=== PATIENT | male | born 1955 | race Caucasian/White ===

== ENCOUNTER → 2020-10-17 | Outpatient (CLI) | payer SELFPAY ==
--- NOTE | 2020-10-21 06:47 | PE ---
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 Images are reviewed on the computer in the coronal, ax ial, and sagittal planes. Reconstructed rotating images are created on independent workstation and r eviewed on the computer. A localization and attenuation correction CT is performed in conjunction w ith the PET scan. Blood glucose level equals 82. SCAN: Initial Scan FINDINGS: SKULL BASE AND NECK: No areas of abnormal hypermetabolic uptake. CHEST, MEDIASTINUM, AND HILAR REGION: Fairly advanced underlying emphysematous change greatest in the upper lungs. No areas of suspicious hypermetabolic uptake. ABDOMEN AND PELVIS: There are multiple heterogeneous hypodense hypermetabolic lesions, for reference anterior right hepatic dome lesion measures approximately 3.4 cm long axis axial image 129, max SUV i s 12.05. For reference posterior segment right hepatic lobe lesion axial image 145 measures approxima tely 5.8 cm long axis, max SUV is 18.43. There is 5.3 x 3.1 cm proximal to mid sigmoid colon hypermetabolic mass axial images 197, max SUV is 10.81. Some abnormal hypermetabolic uptake bilateral groin region right greater than left appears to corresp ond to scar tissue likely from recent AAA repair. OSSEOUS STRUCTURES: No areas of abnormal hypermetabolic uptake. OTHER CT: Nasal septum deviated to right of midline. There is azygos lobe/fissure present. Enlarged p ulmonary arteries consistent with underlying pulmonary artery hypertension. Moderate to severe three- vessel coronary artery calcification. There is roughly 6.9 x 6.7 cm AAA axial image 165 with aorto biiliac stent graft. There is nondepende nt air within the [place] lumen outside the stent graft, may be product of recent surgery? Prostate gland is mildly enlarged in size with central calcification. Slight scoliotic curvature. Mil d to moderate disc space narrowing and vacuum disc phenomenon L5-S1 level. IMPRESSION: Redemonstration of known sigmoid colonic neoplasm with hepatic metastatic disease. No add itional metastatic disease is evident.. There is air noted within [place] AAA after recent stent graft repair. A Yellow level critical message alert has been initiated for Elfego Torres MD via the [employer] 36 0 | Critical Results System on 10/21/2020 6:44 AM. This message alert has been sent to Elfego Torres MD via the preferences provided by the clinician for the receipt of Radiology Critical Findings. [facility] [place] [id number]."
== END | disposition home or self-care (01) ==
LOC: RADPETMAIN 16:07
PROVIDERS: ATTEND Internal Medicine Hematology & Oncology
DX: C78.7 Secondary malignant neoplasm of liver and intrahepatic bile duct (principal); I71.4 Abdominal aortic aneurysm, without rupture; D49.0 Neoplasm of unspecified behavior of digestive system; C18.7 Malignant neoplasm of sigmoid colon; Z95.828 Presence of other vascular implants and grafts
CPT/HCPCS: 78815; A9552

== ENCOUNTER → 2021-02-13 | Outpatient (CLI) | payer MEDICARE, OTHER ==
--- NOTE | 2021-02-15 07:28 | PE ---
EXAMINATION TYPE: PET CT fusion skull to thigh DATE OF EXAM: 02/13/2021 COMPARISON: Prior PET/CT October 17, 2020 HISTORY: Colorectal cancer diagnosed September 26, 2020 metastatic to liver progress study. Completed chemotherapy February 10, 2021. TECHNIQUE: Following the intravenous administration of 10.33 mCi of F-18 FDG, whole body images are performed from the skull base to the midthigh. Images are reviewed on the computer in the coronal, a xial, and sagittal planes. Reconstructed rotating images are created on independent workstation and reviewed on the computer. A localization and attenuation correction CT is performed in conjunction with the PET scan. Blood glucose level equals 105. SCAN: Subsequent Scan FINDINGS: SKULL BASE AND NECK: Hypermetabolic uptake in the oropharynx axial image 29 presumed artifactual as it extends posteriorly and inferiorly without obvious focal mass on CT. CHEST, MEDIASTINUM, AND HILAR REGION: Fairly advanced underlying emphysematous change greatest in the upper lungs is redemonstrated. Mild hypermetabolic uptake accession IV under 3.0 in bilateral hilar and subcarinal lymph nodes not significantly changed. No new areas of abnormal hypermetabolic uptake. ABDOMEN AND PELVIS: There are persistent heterogeneous hypodense hypermetabolic lesions, they show in terval improvement in max SUV and size. Some areas of abnormal hypermetabolic uptake remaining presen t but significantly improved in max SUV from prior. Hypermetabolic mass in the sigmoid colon less well seen current study axial image 196 with persistent but significantly improved max SUV. Resolved hypermetabolic uptake right groin region. Normal excretion. No new areas of abnormal hyperme tabolic uptake. OSSEOUS STRUCTURES: No areas of abnormal hypermetabolic uptake. OTHER CT: Nasal septum remains deviated to right of midline. Some new dependent fluid right maxillary sinus, correlate clinically. There is azygos lobe/fissure redemonstrated. Enlarged pulmonary arterie s consistent with underlying pulmonary artery hypertension redemonstrated. Moderate to severe three-v essel coronary artery calcification redemonstrated. New right internal jugular Mediport catheter term inating in right atrium. There is persistent large [place] AAA measuring 7.7 x 6.5 cm axial image 166 with aorto biiliac stent graft. There is interval resolution of nondependent air within the [place] lumen outside the stent gra ft noted. Slight scoliotic curvature upper thoracic spine. Mild to moderate disc space narrowing and vacuum dis c phenomenon L5-S1 level. IMPRESSION: Partial positive treatment response as detailed above. Improved appearance to the sigmoid colonic neoplasm and hepatic metastatic disease. No new metastatic disease identified.
== END | disposition home or self-care (01) ==
LOC: RADPETMAIN 10:41
PROVIDERS: ATTEND Internal Medicine Hematology & Oncology
DX: C18.7 Malignant neoplasm of sigmoid colon (principal); C78.7 Secondary malignant neoplasm of liver and intrahepatic bile duct
CPT/HCPCS: 78815; A9552

== ENCOUNTER → 2021-03-25 | Outpatient (CLI) | payer MEDICARE ==
[2021-03-25 09:53] LABS: African American GFR (CKD) >90 (>60 ml/min/1.73 sqM); Blood Urea Nitrogen 27 mg/dL (9-20); Non-African American GFR(CKD) 84 (>60 ml/min/1.73 sqM)
--- NOTE | 2021-03-25 11:57 | CT ---
EXAMINATION TYPE: CT abdomen pelvis w con DATE OF EXAM: 03/25/2021 COMPARISON: PET/CT 02/13/2021 HISTORY: Abdominal/pelvic pain CT DLP: 441.20 mGycm CONTRAST: CT scan of the abdomen and pelvis is performed with Oral Contrast and with IV Contrast, patient injec anibal with 100 ml mL of Isovue 300. FINDINGS: LUNG BASES-: No visible nodule. No infiltrate. LIVER/GB: No calcified gallstones. Multiple hepatic lesions are noted the largest is seen within th e dome of the liver measuring 3.5 cm. Biliary tree is of normal caliber. PANCREAS: No inflammation. No distinct mass. SPLEEN: There is evidence of splenomegaly with craniocaudal measurement of 15 cm. No lesion seen. ADRENALS: No nodule. No thickening. KIDNEYS/BLADDER: No hydronephrosis. No nephrolithiasis. No distinct renal mass. Urinary bladder g rossly unremarkable. BOWEL: Normal appendix. Normal bowel caliber. No inflammation.Nonspecific sigmoid wall thickening. GENITAL ORGANS: No gross abnormality. LYMPH NODES: No greater than 1cm abdominal or pelvic lymph nodes are appreciated. AORTA: Aortic stent graft noted in place without evidence for endoleak. [place] aneurysm measures 7.2 cm AP dimension. OSSEOUS STRUCTURES: No significant abnormality is seen. OTHER: No significant additional abnormality is seen. IMPRESSION: 1. Lines compatible with metastatic disease to the liver. 2. Splenomegaly. 3. Nonspecific sigmoid wall thickening.
== END | disposition home or self-care (01) ==
LOC: RADPROMAIN 09:11
PROVIDERS: ATTEND Internal Medicine Hematology & Oncology
DX: Z03.89 Encounter for observation for other suspected diseases and conditions ruled out (principal); R16.1 Splenomegaly, not elsewhere classified; C18.7 Malignant neoplasm of sigmoid colon
CPT/HCPCS: 82565; 84520; 74177; 36415; Q9967

== ENCOUNTER 2021-04-04 21:44 | Inpatient (IN) | payer MEDICARE, OTHER ==
[2021-04-04] MEDS ORDERED: HYDROmorphone 1 MG/ML 1 ML SYRINGE IVP STA (22:05)
--- NOTE | 2021-04-04 22:09 | ED ---
Abdominal Pain HPI - General Chief Complaint: Abdominal Pain Stated Complaint: Abd pain Time Seen by Provider: 04/04/21 21:50 Source: patient Mode of arrival: wheelchair - History of Present Illness Initial Comments: This patient is a 65-year-old man presenting with abdominal pain, greatest in the left side. He has had pain since being diagnosed with cancer, but states that it is getting worse. Patient currently on fentanyl patch and taking hydrocodone but it is not helping like it used to. The patient did have chemotherapy treatment on Tuesday. Has not noted fever or chills. No change in urination. He does note probably some element of constipation. No vomiting tho ugh he is nauseated. MD Complaint: abdominal pain Onset/Timin -: hour(s) Location: LLQ, RLQ Radiation: none Severity: severe Quality: aching Consistency: colicky Improves With: nothing Worsens With: nothing Associated Symptoms: denies other symptoms Treatments Prior to Arrival: prescription analgesics - Related Data Home Medications Medication Instructions Recorded Confirmed HYDROcodone/APAP 10-325MG [[place] 1 tab PO TID PRN 04/04/21 04/05/21 10-325] fentaNYL [Duragesic 37.5 MCG/HR] 1 patch TRANSDERM Q72H 04/04/21 04/05/21 Aspirin EC [Ecotrin Low Dose] 81 mg PO DAILY 04/05/21 04/05/21 Clotrimazole 10 mg MUCOUS MEM 5XD 04/05/21 04/05/21 Gabapentin [Neurontin] 300 mg PO HS 04/05/21 04/05/21 Metoprolol Tartrate [Lopressor] 25 mg PO BID 04/05/21 04/05/21 NIFEdipine [NIFEdipine ER] 30 mg PO DAILY 04/05/21 04/05/21 Ondansetron Odt [Zofran Odt] 8 mg PO Q8H PRN 04/05/21 04/05/21 Prochlorperazine [Compazine] 10 mg PO Q8H PRN 04/05/21 04/05/21 Sennosides/Docusate Sodium [[place] 1 tab PO HS PRN 04/05/21 04/05/21 Plus 8.6-50 mg Tablet] Tadalafil [Cialis] 5 mg PO DAILY PRN 04/05/21 04/05/21 traZODone HCL 50 mg PO HS 04/05/21 04/05/21 Allergies Allergy/AdvReac Type Severity Reaction Status Date / Time Penicillins Allergy Unknown Verified 04/06/21 17:33 Review of Systems ROS Statement: Those systems with pertinent positive or pertinent negative responses have been documented in the HPI. ROS Other: All systems not noted in ROS Statement are negative. Constitutional: Denies: fever, chills Respiratory: Denies: cough, dyspnea Cardiovascular: Denies: chest pain, palpitations Gastrointestinal: Reports: abdominal pain. Denies: nausea, vomiting, diarrhea, constipation, melena, hematochezia Genitourinary: Denies: dysuria, hematuria Musculoskeletal: Denies: back pain Skin: Denies: rash Neurological: Denies: headache Past Medical History Past Medical History: Cancer History of Any Multi-Drug Resistant Organisms: None Reported Past Surgical History: Tonsillectomy Additional Past Surgical History / Comment(s): aortic aneurysm, colonoscopy, Past Anesthesia/Blood Transfusion Reactions: No Reported Reaction Past Psychological History: No Psychological Hx Reported Smoking Status: Current every day smoker Past Alcohol Use History: None Reported Past Drug Use History: None Reported General Exam General appearance: alert Head exam: Present: atraumatic, normocephalic Eye exam: Present: normal appearance. Absent: scleral icterus, conjunctival injection Respiratory exam: Present: normal lung sounds bilaterally. Absent: respiratory distress, wheezes, rales, rhonchi, stridor Cardiovascular Exam: Present: regular rate, normal rhythm, normal heart sounds, other ([place] upper right chest wall). Absent: systolic murmur, diastolic murmur, rubs, gallop GI/Abdominal exam: Present: soft, tenderness. Absent: distended, guarding, rebound, rigid, mass, pulsatile mass, hernia Extremities exam: Present: normal inspection, normal capillary refill. Absent: pedal edema, calf tenderness Back exam: Absent: CVA tenderness (R), CVA tenderness (L) Neurological exam: Present: alert Skin exam: Present: warm, dry, intact, normal color. Absent: rash Course Vital Signs 04/04/21 04/05/21 04/05/21 21:45 00:00 02:25 Temperature 97.8 F 99.7 F H Pulse Rate 71 110 H 90 Respiratory 19 18 18 Rate Blood Pressure 132/70 123/88 128/74 O2 Sat by Pulse 98 97 Oximetry Medical Decision Making - Medical Decision Making Patient is 65-year-old man with colon cancer and recently worsening pain. He'll be admitted for intractable pain, with increased pain management as well as surgical consultation. - Lab Data Result diagrams: 04/18/21 06:35 04/18/21 06:35 Lab Results 04/04/21 04/04/21 04/05/21 Range/Units 22:14 22:14 00:49 WBC 3.9 (3.8-10.6) k/uL RBC 3.99 L (4.30-5.90) m/uL Hgb 13.4 (13.0-17.5) gm/dL Hct 38.7 L (39.0-53.0) % MCV 97.0 (80.0-100.0) fL MCH 33.6 (25.0-35.0) pg MCHC 34.7 (31.0-37.0) g/dL RDW 15.4 (11.5-15.5) % Plt Count 117 L (150-450) k/uL MPV 8.6 Neutrophils % 78 % Lymphocytes % 14 % Monocytes % 4 % Eosinophils % 1 % Basophils % 1 % Neutrophils # 3.0 (1.3-7.7) k/uL Lymphocytes # 0.6 L (1.0-4.8) k/uL Monocytes # 0.2 (0-1.0) k/uL Eosinophils # 0.0 (0-0.7) k/uL Basophils # 0.0 (0-0.2) k/uL Sodium 135 L (137-145) mmol/L Potassium 4.7 (3.5-5.1) mmol/L Chloride 100 (98-107) mmol/L Carbon Dioxide 24 (22-30) mmol/L Anion Gap 11 mmol/L BUN 39 H (9-20) mg/dL Creatinine 0.88 (0.66-1.25) mg/dL Est GFR (CKD-EPI)AfAm >90 (>60 ml/min/1.73 sqM) Est GFR (CKD-EPI)NonAf 89 (>60 ml/min/1.73 sqM) Glucose 106 H (74-99) mg/dL Calcium 9.4 (8.4-10.2) mg/dL Total Bilirubin 0.5 (0.2-1.3) mg/dL AST 43 (17-59) U/L ALT 19 (4-49) U/L Alkaline Phosphatase 170 H (38-126) U/L C-Reactive Protein 5.5 H (<1.0) mg/dL Total Protein 9.1 H (6.3-8.2) g/dL Albumin 4.1 (3.5-5.0) g/dL Amylase 79 (30-110) U/L Lipase 89 (23-300) U/L Urine Color Yellow Urine Appearance Clear (Clear) Urine pH 6.0 (5.0-8.0) Ur Specific [place] 1.050 H (1.001-1.035) Urine Protein Trace H (Negative) Urine Glucose (UA) Negative (Negative) Urine Ketones Negative (Negative) Urine Blood Negative (Negative) Urine Nitrite Negative (Negative) Urine Bilirubin Negative (Negative) Urine Urobilinogen <2.0 (<2.0) mg/dL Ur Leukocyte Esterase Negative (Negative) - EKG Data -: EKG Interpreted by [place] EKG shows normal: sinus rhythm, axis (Normal), intervals (OR interval 198 ms, QTC 432 ms, both normal. QRS duration 126 ms, prolonged consistent with the right bundle branch block), QRS complexes (Right bundle-branch block.), ST-T waves (Normal) Rate: normal (Rate 71 bpm) Disposition Clinical Impression: Intractable abdominal pain, Colon cancer Disposition: ADMITTED IP TO THIS [facility] Condition: Undetermined Is patient prescribed a controlled substance at d/c from ED?: No
[2021-04-04 22:27] LABS: Basophils % (A) 1 %; Eosinophils % (A) 1 %; HCT 38.7 % (39.0-53.0); HGB 13.4 gm/dL (13.0-17.5); Lymphocytes # (A) 0.6 k/uL (1.0-4.8); Lymphocytes % (A) 14 %; MCH 33.6 pg (25.0-35.0); MCHC 34.7 g/dL (31.0-37.0); Mean Platelet Volume 8.6; Monocytes # (A) 0.2 k/uL (0-1.0); Monocytes % (A) 4 %; Neutrophils % (A) 78 %; Platelet Count 117 k/uL (150-450); RBC 3.99 m/uL (4.30-5.90); RDW 15.4 % (11.5-15.5); WBC 3.9 k/uL (3.8-10.6)
[2021-04-04] MEDS ORDERED: NITROGLYCERIN SL TABS 0.4 MG TAB SUBLINGUAL PRN (22:32)
[2021-04-04 22:40] LABS: ALT 19 U/L (4-49); AST 43 U/L (17-59); African American GFR (CKD) >90 (>60 ml/min/1.73 sqM); Albumin 4.1 g/dL (3.5-5.0); Alkaline Phosphatase 170 U/L (38-126); Amylase 79 U/L (30-110); Anion Gap 11 mmol/L; Blood Urea Nitrogen 39 mg/dL (9-20); C Reactive Protein 5.5 mg/dL (<1.0); Calcium 9.4 mg/dL (8.4-10.2); Carbon Dioxide 24 mmol/L (22-30); Chloride 100 mmol/L (98-107); Glucose 106 mg/dL (74-99); Lipase 89 U/L (23-300); Non-African American GFR(CKD) 89 (>60 ml/min/1.73 sqM); Potassium 4.7 mmol/L (3.5-5.1); Sodium 135 mmol/L (137-145); Total Bilirubin 0.5 mg/dL (0.2-1.3); Total Protein 9.1 g/dL (6.3-8.2)
--- NOTE | 2021-04-04 22:48 | XR ---
EXAMINATION TYPE: XR KUB DATE OF EXAM: 04/04/2021 COMPARISON: NONE HISTORY: Abdominal pain TECHNIQUE: 2 views FINDINGS: There is aortoiliac stent. There is no sign of intestinal obstruction or pneumoperitoneum. Fecal pattern is normal. I see no evidence of a mass. There are no pathologic calcifications over the kidneys. Lung bases are clear. IMPRESSION: Nonacute abdomen.
[2021-04-04] MEDS ORDERED: MORPHINE SULFATE 4 MG/ML SYRINGE IV STA (23:00)
--- NOTE | 2021-04-05 00:09 | CT ---
EXAMINATION TYPE: CT angio abdomen pelvis DATE OF EXAM: 04/04/2021 COMPARISON: 03/17/2021 HISTORY: Anerysum CT DLP: 836.3 mGycm Automated exposure control for dose reduction was used. CONTRAST: Performed with IV Contrast, patient injected with 100 mL of Isovue 370. Images obtained from the diaphragm to the floor the pelvis with and without IV contrast. There are 3- D post processed images. There is aorto iliac endograft noted. This appears in good position. There is 8.2 cm aneurysm of the lower abdominal aorta. There is no surrounding fluid seen. There is normal contrast opacification of the stent. There is arterial flow in the iliac and femoral arteries. I see no hemodynamic stenosis. There is arterial flow in the celiac artery and superior mesenteric artery. There is arterial flow in both renal arteries. There is no evidence of arterial dissection. There is partial visualization of the liver and there are scattered hypodense foci in the liver up to 2 cm. This is consistent with met astatic colon cancer. Also demonstrated on recent CT scan. There is no sign of retroperitoneal adenopathy. There is small amount of abdominal ascites fluid. The re is wall thickening of the sigmoid colon. IMPRESSION: No evidence of hemodynamic stenosis. There is large 8.2 cm aneurysm of the lower abdominal aorta not changed in size compared to recent exam. No evidence of leakage. Endograft appears in good position. There is wall thickening of the sigmoid colon that is increased significantly compared to recent exam and consistent with some nonspecific colitis. There is new mild free fluid in the pelvis compared to recent exam..
[2021-04-05 00:55] LABS: Appearance,Urine Clear (Clear); Bilirubin,Urine Negative (Negative); Blood,Urine Negative (Negative); Color,Urine Yellow; Glucose,Urine (UA) Negative (Negative); Ketones,Urine Negative (Negative); Leukocyte Esterase,Urine Negative (Negative); Nitrite,Urine Negative (Negative); Protein,Urine Trace (Negative); Urobilinogen,Urine <2.0 mg/dL (<2.0)
[2021-04-05] MEDS ORDERED: HYDROmorphone 0.5 MG/0.5 ML SYRINGE IVP PRN (01:35)
[2021-04-05] MEDS ORDERED: ONDANSETRON 4 MG/2 ML VIAL IVP PRN (01:35)
[2021-04-05] MEDS ORDERED: NALOXONE 0.4 MG/ML 1 ML VIAL IV PRN (01:35)
[2021-04-05] MEDS: SODIUM CHLORIDE 0.9% 1,000 ML IV SCH ×3 (02:27→17:36)
[2021-04-05] MEDS: HYDROmorphone 1 MG/ML 1 ML SYRINGE IVP PRN ×6 (03:15→19:29)
[2021-04-05] MEDS: HYDROcodone/APAP 10-325MG 1 EACH TAB PO PRN (07:30)
[2021-04-05] MEDS: PANTOPRAZOLE 40 MG/10 ML VIAL IV SCH (07:30)
[2021-04-05] MEDS: ASPIRIN 81 MG PO SCH (07:31)
[2021-04-05] MEDS ORDERED: ASPIRIN 325 MG TAB PO SCH (09:00)
[2021-04-05] MEDS ORDERED: IPRATROPIUM-ALBUTEROL 3 ML NEB INHALATION PRN (13:12)
--- NOTE | 2021-04-05 13:23 | P.HPIM ---
History of Present Illness Patient was a 65-year-old male came in with severe lower quadrant abdominal pain sharp in nature has been going on for a few weeks. Patient was diagnosed with colon cancer patient is presently receiving neoadjuvant chemotherapy patient is supposed to undergo colectomy at the end of this month. Because of uncontrolled severe pain patient came to the hospital patient as 10/10 pain. Patient does smoke is significantly wheezing upon exam and patient the is saturating 91% on room air. Patient denied any fever chills. General surgery was consulted. Patient is really constipated received an enema yesterday had a bowel movement yesterday. Patient had a CT of the abdomen which showed some hospice for colitis which is worse compared to before in the sigmoid colon area. REVIEW OF SYSTEMS: CONSTITUTIONAL: No fever, no malaise, no fatigue. HEENT: No recent visual problems or hearing problems. Denied any sore throat. CARDIOVASCULAR: No chest pain, orthopnea, PND, no palpitations, no syncope. PULMONARY: No shortness of breath, no cough, no hemoptysis. GASTROINTESTINAL: Severe abdominal pain and constipation NEUROLOGICAL: No headaches, no weakness, no numbness. HEMATOLOGICAL: Denies any bleeding or petechiae. GENITOURINARY: Denies any burning micturition, frequency, or urgency. MUSCULOSKELETAL/RHEUMATOLOGICAL: Denies any joint pain, swelling, or any muscle pain. ENDOCRINE: Denies any polyuria or polydipsia. The rest of the 14-point review of systems is negative. PHYSICAL EXAMINATION: GENERAL: The patient is alert and oriented x3, not in any acute distress. Thin built cachectic HEENT: Pupils are round and equally reacting to light. EOMI. No scleral icterus. No conjunctival pallor. Normocephalic, atraumatic. No pharyngeal erythema. No thyromegaly. CARDIOVASCULAR: S1 and S2 present. No murmurs, rubs, or gallops. PULMONARY: Chest is clear to auscultation, no wheezing or crackles. ABDOMEN: Soft, nontender, nondistended, normoactive bowel sounds. No palpable organomegaly. MUSCULOSKELETAL: No joint swelling or deformity. EXTREMITIES: No cyanosis, clubbing, or pedal edema. NEUROLOGICAL: Gross neurological examination did not reveal any focal deficits. SKIN: No rashes. Assessment and plan -severe abdominal pain secondary to: Cancer and severe inflammation and nonspecific colitis of the sigmoid colon. General surgery was consulted, patient will not be started on antibiotics unless the general surgery. Commence antibiotics at this time. Patient will need pain management will increase the dose of fentanyl patch patient will need medications for constipation. -Colon cancer for which patient is a neoadjuvant chemotherapy which is being held for colectomy. -Continued nicotine use: Counseling was provided if needed patient will be started on nicotine patch -COPD with acute exacerbation patient was started on inhalational treatments inhalational steroids and the 20 mg of oral steroids with GI prophylaxis -Hypertension: Holding off on antidepressant medications blood pressure monitored DVT prophylaxis: Lovenox -GI prophylaxis Pepcid Past Medical History Past Medical History: Cancer Additional Past Medical History / Comment(s): Aneurysm History of Any Multi-Drug Resistant Organisms: None Reported Past Surgical History: Tonsillectomy Additional Past Surgical History / Comment(s): aortic aneurysm, colonoscopy, Past Anesthesia/Blood Transfusion Reactions: No Reported Reaction Past Psychological History: No Psychological Hx Reported Smoking Status: Current every day smoker Past Alcohol Use History: None Reported Past Drug Use History: None Reported Medications and Allergies Home Medications Medication Instructions Recorded Confirmed Type HYDROcodone/APAP 10-325MG [[place] 1 tab PO TID PRN 04/04/21 04/05/21 History 10-325] fentaNYL [Duragesic 37.5 MCG/HR] 1 patch TRANSDERM Q72H 04/04/21 04/05/21 History Aspirin EC [Ecotrin Low Dose] 81 mg PO DAILY 04/05/21 04/05/21 History Clotrimazole 10 mg MUCOUS MEM 5XD 04/05/21 04/05/21 History Gabapentin [Neurontin] 300 mg PO HS 04/05/21 04/05/21 History Metoprolol Tartrate [Lopressor] 25 mg PO BID 04/05/21 04/05/21 History NIFEdipine [NIFEdipine ER] 30 mg PO DAILY 04/05/21 04/05/21 History Ondansetron Odt [Zofran Odt] 8 mg PO Q8H PRN 04/05/21 04/05/21 History Prochlorperazine [Compazine] 10 mg PO Q8H PRN 04/05/21 04/05/21 History Sennosides/Docusate Sodium [Senna 1 tab PO HS PRN 04/05/21 04/05/21 History Plus 8.6-50 mg Tablet] Tadalafil [Cialis] 5 mg PO DAILY PRN 04/05/21 04/05/21 History traZODone HCL 50 mg PO HS 04/05/21 04/05/21 History Allergies Allergy/AdvReac Type Severity Reaction Status Date / Time Penicillins Allergy Unknown Verified 04/04/21 23:10 Physical Exam Vitals: Vital Signs Temp Pulse Pulse Resp BP BP Pulse Ox 04/05/21 11:45 98.6 F 89 18 136/76 91 L 04/05/21 07:48 92 L 04/05/21 04:35 98.9 F 66 14 121/76 92 L 04/05/21 03:05 98.5 F 96 16 135/77 93 L 04/05/21 02:25 99.7 F H 90 18 128/74 97 04/05/21 00:00 110 H 18 123/88 04/04/21 21:45 97.8 F 71 19 132/70 98 Intake and Output 04/04/21 04/05/21 04/05/21 22:59 06:59 14:59 Other: Voiding Method Toilet Urinal # Voids 1 # Bowel Movements 0 Weight 58.06 kg 58.06 kg Results CBC & Chem 7: 04/04/21 22:14 04/04/21 22:14 Labs: Abnormal Lab Results - Last 24 Hours (Table) 04/04/21 04/04/21 04/05/21 Range/Units 22:14 22:14 00:49 RBC 3.99 L (4.30-5.90) m/uL Hct 38.7 L (39.0-53.0) % Plt Count 117 L (150-450) k/uL Lymphocytes # 0.6 L (1.0-4.8) k/uL Sodium 135 L (137-145) mmol/L BUN 39 H (9-20) mg/dL Glucose 106 H (74-99) mg/dL Alkaline Phosphatase 170 H (38-126) U/L C-Reactive Protein 5.5 H (<1.0) mg/dL Total Protein 9.1 H (6.3-8.2) g/dL Ur Specific [place] 1.050 H (1.001-1.035) Urine Protein Trace H (Negative) Thrombosis Risk Factor Assmnt - Choose All That Apply Any of the Below Risk Factors Present?: No Other Risk Factors: Yes Each Risk Factor Represents 2 Points: Age 61-74 years, Malignancy Other congenital or acquired thrombophilia - If yes, enter type in comment: No Thrombosis Risk Factor Assessment Total Risk Factor Score: 4 Thrombosis Risk Factor Assessment Level: Moderate Risk
[2021-04-05] MEDS ORDERED: LACTULOSE 20 GM/30 ML CUP PO PRN (13:24)
[2021-04-05] MEDS: predniSONE 20 MG TAB PO SCH (13:34)
[2021-04-05] MEDS: FAMOTIDINE 20 MG TAB PO SCH ×2 (13:34→20:29)
[2021-04-05] MEDS ORDERED: SODIUM CHLORIDE 0.9% 1,000 ML IV ONE (13:39)
--- NOTE | 2021-04-05 13:39 | P.GSCN ---
History of Present Illness Consult date: 04/05/21 History of present illness: CHIEF COMPLAINT: Abdominal pain HISTORY OF PRESENT ILLNESS: The patient is a 65 year old male who presented to the emergency room on 04/04/2021 with intractable abdominal pain. His history is obtained also by medical records including recent diagnosis of colorectal cancer from August 2020. No bowel movement since admission. He had PET scan January 2021 now 2 months ago with metastatic disease to the liver from his colorectal cancer. He is admitted for intractable abdominal pain. Gen. surgery is consulted for management of his abdominal pain. Patient's at bedside confirms that patient did not have routine screening colonoscopy prior to his diagnosis as diagnosis was found on CT scan. He is currently undergoing chemoradiation. He reports moderate to severe chronic lower abdominal pain. He is a smoker. Family reports he is scheduled for colectomy this month with Dr. Woodward. PAST MEDICAL HISTORY: See list and reviewed PAST SURGICAL HISTORY: See list and reviewed MEDICATIONS: See list and reviewed ALLERGIES: See list and reviewed SOCIAL HISTORY: See list and reviewed FAMILY HISTORY: See list and reviewed REVIEW OF ORGAN SYSTEMS: CONSTITUTIONAL: Underweight, BMI 19.5. Has recent weight loss. EYES: Denies any trouble with vision. No glasses. HEENT: No difficulties with hearing. No nosebleeds. No difficulty swallowing. RESPIRATORY: Has chronic tobacco abuse disorder. CARDIOVASCULAR: History of abdominal aortic aneurysm with endograft stenting. Has hypertensive heart disease. GASTROINTESTINAL: Pre-existing history of metastatic colorectal cancer to the liver. Has primary sigmoid colon cancer. Has chronic constipation. GENITOURINARY: Denies any blood in urine or increased urinary frequency. NEUROLOGICAL: Has chronic pain and chronic narcotics. MUSCULOSKELETAL: Denies any back pain, stiffness or joint arthritis. SKIN: No current skin cancer. No rash. PSYCHIATRIC: Denies current depression or suicidal thoughts. ENDOCRINE: Denies current thyroid disorders. Denies any blood sugar glucose intolerance. HEME/LYMPHATIC: Denies any lumps and bumps around the neck. No recent deep venous thrombosis. ALLERGY/IMMUNOLOGY: No immunoglobulin therapy. No immune deficiencies. BREAST: Denies current breast lumps, pain or nipple discharge. PHYSICAL EXAM: VITALS: Reviewed CONSTITUTIONAL: Well developed and in no acute distress. EYES: Conjuctivae without sclera icterus. Extraocular movements grossly intact. HEAD, EARS, NOSE, THROAT: Moist buccal mucosa. Head is atraumatic, normocepha lic. Hears conversational speech. No nasal drainage. NECK: No JV distention. No visible thyroidomegaly. RESPIRATORY: Non-labored respirations and equal bilateral excursions. No gross wheezes. CARDIOVASCULAR: Regular rate and rhythm. Extremities without moderate edema. Palpable 2+ radial pulses. ABDOMEN: No diffuse peritonitis. LYMPH: No visible neck lymphadenopathy. MUSCULOSKELETAL: Nail and fingers with good capillary refill. SKIN: Warm and well perfused with good skin turgor. NEUROLOGIC: Cranial nerves II through XII grossly intact. Sensation upper and extremities intact. No focal or lateralizing signs. PSYCH: Appropriate affect. Alert and oriented to person, place and time. D isplays appropriate insight. CLINCAL LABS: Reviewed. Thrombocytopenia with platelets 117. White count normal 3.9. Hemoglobin normal 13.4. Creatinine normal 0.88. Urinalysis negative for gross blood. IMAGING: Independently reviewed CT of the abdomen and pelvis demonstrates multiple liver lesions consistent with metastatic disease. No bowel obstruction identified. Moderate pain stool within the ascending transverse colon. This is my independent interpretation. RADIOLOGY: Report reviewed of the CTA of the abdomen and pelvis confirms no active endoleak for 8 cm abdominal aortic aneurysm. Features of sigmoid colitis identified consistent with sigmoid neoplasm. RECORDS: previous old records reviewed from PET scan January 2021 confirming metastatic disease responding to treatment. ASSESSMENT: 1. Intractable abdominal pain with metastatic colorectal cancer to the liver 2. Chronic pain patient with narcotic use 3. Abdominal aortic aneurysm 4. Sigmoid colon colorectal cancer 5. Tobacco abuse disorder. PLAN: 1. Conservative management advised 2. May benefit from repeat lower endoscopy for ischemic colitis but on hold due to severe abdominal pain. 3. IV fluid hydration 4. Tobacco cessation and counseling advised performed over 3 minutes ADVANCE DIRECTIVE: Patient reports he does not have one. Thank you for this kind consultation. Past Medical History Past Medical History: Cancer Additional Past Medical History / Comment(s): Aneurysm History of Any Multi-Drug Resistant Organisms: None Reported Past Surgical History: Tonsillectomy Additional Past Surgical History / Comment(s): aortic aneurysm, colonoscopy, Past Anesthesia/Blood Transfusion Reactions: No Reported Reaction Past Psychological History: No Psychological Hx Reported Smoking Status: Current every day smoker Past Alcohol Use History: None Reported Past Drug Use History: None Reported Medications and Allergies Home Medications Medication Instructions Recorded Confirmed Type HYDROcodone/APAP 10-325MG [[place] 1 tab PO TID PRN 04/04/21 04/05/21 History 10-325] fentaNYL [Duragesic 37.5 MCG/HR] 1 patch TRANSDERM Q72H 04/04/21 04/05/21 History Aspirin EC [Ecotrin Low Dose] 81 mg PO DAILY 04/05/21 04/05/21 History Clotrimazole 10 mg MUCOUS MEM 5XD 04/05/21 04/05/21 History Gabapentin [Neurontin] 300 mg PO HS 04/05/21 04/05/21 History Metoprolol Tartrate [Lopressor] 25 mg PO BID 04/05/21 04/05/21 History NIFEdipine [NIFEdipine ER] 30 mg PO DAILY 04/05/21 04/05/21 History Ondansetron Odt [Zofran Odt] 8 mg PO Q8H PRN 04/05/21 04/05/21 History Prochlorperazine [Compazine] 10 mg PO Q8H PRN 04/05/21 04/05/21 History Sennosides/Docusate Sodium [Senna 1 tab PO HS PRN 04/05/21 04/05/21 History Plus 8.6-50 mg Tablet] Tadalafil [Cialis] 5 mg PO DAILY PRN 04/05/21 04/05/21 History traZODone HCL 50 mg PO HS 04/05/21 04/05/21 History Allergies Allergy/AdvReac Type Severity Reaction Status Date / Time Penicillins Allergy Unknown Verified 04/04/21 23:10 Surgical - Exam Vital Signs Temp Pulse Resp BP Pulse Ox 97.8 F 71 19 132/70 98 04/04/21 21:45 04/04/21 21:45 04/04/21 21:45 04/04/21 21:45 04/04/21 21:45 Results - Labs 04/04/21 22:14 04/04/21 22:14 Abnormal Lab Results - Last 24 Hours (Table) 04/04/21 04/04/21 04/05/21 Range/Units 22:14 22:14 00:49 RBC 3.99 L (4.30-5.90) m/uL Hct 38.7 L (39.0-53.0) % Plt Count 117 L (150-450) k/uL Lymphocytes # 0.6 L (1.0-4.8) k/uL Sodium 135 L (137-145) mmol/L BUN 39 H (9-20) mg/dL Glucose 106 H (74-99) mg/dL Alkaline Phosphatase 170 H (38-126) U/L C-Reactive Protein 5.5 H (<1.0) mg/dL Total Protein 9.1 H (6.3-8.2) g/dL Ur Specific [place] 1.050 H (1.001-1.035) Urine Protein Trace H (Negative) Diabetes panel 04/04/21 Range/Units 22:14 Sodium 135 L (137-145) mmol/L Potassium 4.7 (3.5-5.1) mmol/L Chloride 100 (98-107) mmol/L Carbon Dioxide 24 (22-30) mmol/L BUN 39 H (9-20) mg/dL Creatinine 0.88 (0.66-1.25) mg/dL Glucose 106 H (74-99) mg/dL Calcium 9.4 (8.4-10.2) mg/dL AST 43 (17-59) U/L ALT 19 (4-49) U/L Alkaline Phosphatase 170 H (38-126) U/L Total Protein 9.1 H (6.3-8.2) g/dL Albumin 4.1 (3.5-5.0) g/dL Calcium panel 04/04/21 Range/Units 22:14 Calcium 9.4 (8.4-10.2) mg/dL Albumin 4.1 (3.5-5.0) g/dL Pituitary panel 04/04/21 Range/Units 22:14 Sodium 135 L (137-145) mmol/L Potassium 4.7 (3.5-5.1) mmol/L Chloride 100 (98-107) mmol/L Carbon Dioxide 24 (22-30) mmol/L BUN 39 H (9-20) mg/dL Creatinine 0.88 (0.66-1.25) mg/dL Glucose 106 H (74-99) mg/dL Calcium 9.4 (8.4-10.2) mg/dL Adrenal panel 04/04/21 Range/Units 22:14 Sodium 135 L (137-145) mmol/L Potassium 4.7 (3.5-5.1) mmol/L Chloride 100 (98-107) mmol/L Carbon Dioxide 24 (22-30) mmol/L BUN 39 H (9-20) mg/dL Creatinine 0.88 (0.66-1.25) mg/dL Glucose 106 H (74-99) mg/dL Calcium 9.4 (8.4-10.2) mg/dL Total Bilirubin 0.5 (0.2-1.3) mg/dL AST 43 (17-59) U/L ALT 19 (4-49) U/L Alkaline Phosphatase 170 H (38-126) U/L Total Protein 9.1 H (6.3-8.2) g/dL Albumin 4.1 (3.5-5.0) g/dL Assessment and Plan (1) 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 Current Visit: Yes Status: Acute Code(s): C18.7 - MALIGNANT NEOPLASM OF SIGMOID COLON; C77.2 - SECONDARY AND UNSP MALIGNANT NEOPLASM OF INTRA-ABD NODES SNOMED Code(s): 60095002 (2) Liver metastases Current Visit: Yes Status: Acute Code(s): C78.7 - SECONDARY MALIG NEOPLASM OF LIVER AND INTRAHEPATIC BILE DUCT SNOMED Code(s): 35486897 (3) Unintentional weight loss Current Visit: Yes Status: Acute Code(s): R63.4 - ABNORMAL WEIGHT LOSS SNOMED Code(s): 070057921 (4) Chronic pain syndrome Current Visit: Yes Status: Acute Code(s): G89.4 - CHRONIC PAIN SYNDROME SNOMED Code(s): 454222325 (5) Abdominal aortic aneurysm without rupture Current Visit: Yes Status: Acute Code(s): I71.4 - ABDOMINAL AORTIC ANEURYSM, WITHOUT RUPTURE SNOMED Code(s): 70346660 (6) Advance directive discussed with patient Current Visit: Yes Status: Acute Code(s): Z71.89 - OTHER SPECIFIED COUNSELING SNOMED Code(s): 513824702
[2021-04-05] MEDS: IPRATROPIUM-ALBUTEROL 3 ML NEB INHALATION SCH ×2 (15:46→19:50)
[2021-04-05] MEDS: metroNIDAZOLE-NS PMX 500 MG in SALINE 1 100ML.BAG IVPB SCH (16:29)
[2021-04-05] MEDS: ACETAMINOPHEN TAB 325 MG TAB PO PRN (18:00)
[2021-04-05] MEDS: BUDESONIDE 0.5 MG/2 ML NEBU INHALATION SCH (19:50)
[2021-04-05] MEDS: MORPHINE SULFATE 2 MG/ML SYRINGE IVP PRN (21:26)
[2021-04-06] MEDS: metroNIDAZOLE-NS PMX 500 MG in SALINE 1 100ML.BAG IVPB SCH ×4 (00:16→23:49)
[2021-04-06] MEDS: SODIUM CHLORIDE 0.9% 1,000 ML IV SCH ×3 (00:17→22:37)
[2021-04-06] MEDS: MORPHINE SULFATE 2 MG/ML SYRINGE IVP PRN ×3 (03:52→11:03)
[2021-04-06] MEDS: HYDROcodone/APAP 10-325MG 1 EACH TAB PO PRN (05:33)
[2021-04-06] MEDS: PANTOPRAZOLE 40 MG/10 ML VIAL IV SCH (07:30)
[2021-04-06] MEDS: predniSONE 20 MG TAB PO SCH (07:30)
[2021-04-06] MEDS: FAMOTIDINE 20 MG TAB PO SCH ×2 (07:30→21:54)
[2021-04-06] MEDS: ASPIRIN 81 MG PO SCH (07:31)
[2021-04-06] MEDS: ENOXAPARIN 30 MG/0.3 ML SYRINGE SQ SCH (07:31)
[2021-04-06] MEDS: IPRATROPIUM-ALBUTEROL 3 ML NEB INHALATION SCH ×4 (08:03→19:54)
[2021-04-06] MEDS: BUDESONIDE 0.5 MG/2 ML NEBU INHALATION SCH ×2 (08:03→19:54)
[2021-04-06] MEDS ORDERED: FENTANYL 37.5 MCG/HR TRANSDERM SCH (09:00)
--- NOTE | 2021-04-06 11:32 | P.PN ---
<Flower Mendez - Last Filed: 04/06/21 11:44> Subjective Progress Note Date: 04/06/21 CHIEF COMPLAINT: Abdominal pain HISTORY OF PRESENT ILLNESS: Patient presented to the hospital with intractable abdominal pain. He reports his pain is in the lower abdomen. He had been dealing with constipation he received enema yesterday and was able to have bowel movement. He still complaining of the lower abdominal pain and no improvement. He has history of colon cancer with metastatic disease to liver and was scheduled for a colectomy on April [address] Woodward. Afebrile. Currently on clear liquid diet. WBC 3.9 hemoglobin 13.4 PHYSICAL EXAM: VITAL SIGNS: Reviewed. GENERAL: Well-developed in no acute distress. HEENT: No sclera icterus. Extraocular movements grossly intact. Moist buccal mucosa. Head is atraumatic, normocephalic. ABDOMEN: Soft. Nondistended. Tenderness with palpation of the lower abdomen NEUROLOGIC: Alert and oriented. Cranial nerves II through XII grossly intact. ASSESSMENT: 1. Intractable abdominal pain with metastatic colorectal cancer to the liver 2. Chronic pain patient with narcotic use 3. Abdominal aortic aneurysm 4. Sigmoid colon colorectal cancer 5. Tobacco abuse disorder. 6. Colitis PLAN: -Further recommendations forthcoming per surgeon -Continue clear liquid diet -Continue pain medication as needed -Continue IV fluids Physician Molded [employer]s Spot Picker note has been reviewed by physician. Signing provider agrees with the documented findings, assessment, and plan of care. Objective - Vital Signs Vital signs: Vital Signs Temp 99 F 04/06/21 04:58 Pulse 81 04/06/21 04:58 Resp 16 04/06/21 04:58 BP 129/78 04/06/21 04:58 Pulse Ox 94 L 04/06/21 04:58 Intake & Output 04/05/21 04/06/21 04/06/21 18:59 06:59 18:59 Intake Total 1300 Output Total 350 Balance -350 1300 Intake: Intake, IV Titration 1300 Amount Sodium Chloride 0.9% 1, 1200 000 ml @ 100 mls/hr IV . Q10H [facility] Rx#:[id number] metroNIDAZOLE-NS PMX 500 100 mg In Saline 1 100ml.bag @ 100 mls/hr IVPB Q8HR [facility] Rx#:[id number] Output: Urine 350 Other: Voiding Method Toilet Urinal - Labs CBC & Chem 7: 04/04/21 22:14 04/04/21 22:14 Labs: Microbiology - Last 24 Hours (Table) 04/04/21 22:15 Blood Culture Gram Stain - Preliminary Blood 04/04/21 22:00 Blood Culture Gram Stain - Preliminary Blood 04/04/21 22:00 Blood Culture - Final Blood 04/04/21 22:15 Blood Culture - Final Blood <Isidro Woodward - Last Filed: 04/06/21 14:07> Subjective As above. Patient with significant increase in abdominal pain over the last several days. Films reviewed and there does appear to be a few small foci of pneumoperitoneum with some inflammatory changes around the site of known malignancy. I suspect perforation of the cancer. Patient's abdominal exam significant for diffuse tenderness. Options discussed with patient. He is agreeable to exploratory laparotomy. Anticipate need for bowel resection and ostomy. Patient again agreeable. Risks of bleeding, infection, abscess formation, need for ostomy, wound infection, hernia, ostomy related issues, respiratory failure, cardiac complications, and . Patient understands and wishes to proceed. Objective - Vital Signs Vital signs: Vital Signs Temp 97.8 F 04/06/21 11:21 Pulse 72 04/06/21 11:21 Resp 18 04/06/21 11:21 BP 131/84 04/06/21 11:21 Pulse Ox 95 04/06/21 11:21 Intake & Output 04/05/21 04/06/21 04/06/21 18:59 06:59 18:59 Intake Total 1300 Output Total 350 Balance -350 1300 Weight 58.06 kg Intake: Intake, IV Titration 1300 Amount Sodium Chloride 0.9% 1, 1200 000 ml @ 100 mls/hr IV . Q10H [facility] Rx#:[id number] metroNIDAZOLE-NS PMX 500 100 mg In Saline 1 100ml.bag @ 100 mls/hr IVPB Q8HR [facility] Rx#:[id number] Output: Urine 350 Other: Voiding Method Toilet Urinal - Labs CBC & Chem 7: 04/04/21 22:14 04/04/21 22:14 Labs: Microbiology - Last 24 Hours (Table) 04/04/21 22:15 Blood Culture Gram Stain - Preliminary Blood 04/04/21 22:00 Blood Culture Gram Stain - Preliminary Blood 04/04/21 22:00 Blood Culture - Final Blood 04/04/21 22:15 Blood Culture - Final Blood
[2021-04-06] MEDS ORDERED: MORPHINE SULFATE 4 MG/ML SYRINGE IVP STA (11:59)
--- NOTE | 2021-04-06 12:44 | CDI ---
Documentation Clarification Form Date: 04/06/2021 12:29:24 PM From: Marimar Tay CCS, CCDS Admit Date: 04/05/2021 01:35:00 AM Patient Name: Jourdan Jay Visit Number: [id number] Discharge Date: ATTENTION: The Clinical Documentation Specialists (CDI) and [facility] Coding Staff appreciate your assistance in clarifying documentation. Please respond to the clarification below the line at the bottom and electronically sign. The CDI & [facility] Coding staff will review the response and follow-up if needed. Please note: Queries are made part of the Legal Health Record. If you have any questions, please contact the author of this message via ITS. Dr. Edy Carrillo: Per the 04/05 History & Physical: Thin built cachectic. The patient was diagnosed with Colorectal Cancer in August of 2020 with Liver Mets also, currently undergoing chemotherapy pending a colectomy scheduled for April 27. Per the General Surgery Consult on 04/05: Has recent, unintentional weight loss. Based on this information and the findings below, is there an additional diagnosis that is clinically appropriate for this patient? History/Risk Factors per the 04/05 H/P: Aortic aneurysm, Smoker. Clinical Indicators: Presented to the ED on 04/04 with Intractable Lower Quadrant Abdominal Pain, [place]. ED Clinical Impression: Intractable Abdominal Pain 04/04 VS: T 97.8, P 71, R 19, BP 132/70, PO 98 RA 04/04 LAB: RBC 3.99, Hct 38.7, Pl Ct 117, Lymph 0.6, Na 135, BUN 39, Glucose 106, Daphne Phos 170, CRP 5.5, Total Protein 9.1, Albumin 4.1 Current BMI: 19.5 Height 5 ft 8 in Weight 58.06 kg IBW 154.00 lb Nursing Nutrition Screen: 24-33 lb weight loss, Poor appetite. Lies alone, consuming 25-50% diet. Treatment: Clear Liquid Diet, IV Dilaudid, IV Morphine, po Tylenol, IV Zofran, po [place], IV Na Cl 1,000 mls @ 100 mls/hr q10H, IV Protonix, Ensure Clear TID. Dietary Consult: n/a Is there an additional diagnosis that is clinically appropriate for this patient? [ ] Mild Protein-Calorie Malnutrition [ x] Moderate Protein-Calorie Malnutrition [ ] Severe Protein-Calorie Malnutrition [ ] Other condition, please specify [ ] Unable to Determine (Template Last Revised: October 2020) MTDD
[2021-04-06 13:00] VITALS: BMI 19.4
[2021-04-06] MEDS ORDERED: ACETAMINOPHEN IV (For NPO) 1,000 MG in EMPTY BAG 1 BAG IVPB STA (14:03)
--- NOTE | 2021-04-06 14:19 | P.PN ---
Subjective Progress Note Date: 04/06/21 Patient was a 65-year-old male came in with severe lower quadrant abdominal pain sharp in nature has been going on for a few weeks. Patient was diagnosed with colon cancer patient is presently receiving neoadjuvant chemotherapy patient is supposed to undergo colectomy at the end of this month. Because of uncontrolled severe pain patient came to the hospital patient as 10/10 pain. Patient does smoke is significantly wheezing upon exam and patient the is saturating 91% on room air. Patient denied any fever chills. General surgery was consulted. Patient is really constipated received an enema yesterday had a bowel movement yesterday. Patient had a CT of the abdomen which showed some hospice for colitis which is worse compared to before in the sigmoid colon area. 04/06/2021 Patient is evaluated the bedside for having severe left lower quadrant abdominal pain, patient is guarding his abdomen at the time of my examination. Patient is requesting pain medication. This is a patient has been diagnosed with colon cancer with metastatic disease to the liver, and is scheduled for colectomy on April [address] Woodward. Patient is currently on a clear liquid diet. Patient was given an enema and was able to have a bowel movement. He was started on IV Flagyl, in relation to a suspected area of inflammation around the known malignancy, as well as a few small foci of pneumoperitoneum, in light of this, patient has been scheduled for an exploratory laparotomy. Surgical services anticipate the need for a bowel resection and ostomy. Patient denies any chest pain, cough, shortness of breath. Patient will continue on IV Dilaudid, IV morphine, [place] and Tylenol for pain management. Patient also has a fentanyl patch that was replaced yesterday. Patient is receiving IV Tylenol as well for pain management. Vital signs are stable today with a temp of 97.8, heart rate 72, blood pressure 131/84, 95% on 2 L of cannula. Patient had a temp yesterday evening with a T-max of 101. ROS: Constitutional: Denied any fatigue denied any fever. Cardio vascular: denied any chest pain, palpitations Gastrointestinal denied any vomiting, nausea, reports severe LLQ and Lower abdominal pain Pulmonary: Denied any shortness of breath cough Neurologic denied any new focal deficits All inpatient medications were reviewed and appropriate changes in these medications as dictated in the interval history and assessment and plan. PHYSICAL EXAMINATION: GENERAL: The patient is alert and oriented x3, not in any acute distress. Well developed, well nourished. HEENT: Pupils are round and equally reacting to light. EOMI. No scleral icterus. No conjunctival pallor. Normocephalic, atraumatic. No pharyngeal erythema. No thyromegaly. CARDIOVASCULAR: S1 and S2 present. No murmurs, rubs, or gallops. PULMONARY: Chest is clear to auscultation, no wheezing or crackles. ABDOMEN: Soft,tender, gaurding, normoactive bowel sounds MUSCULOSKELETAL: No joint swelling or deformity. EXTREMITIES: No cyanosis, clubbing, or pedal edema. NEUROLOGICAL: Gross neurological examination did not reveal any focal deficits. SKIN: No rashes. Assessment and plan -severe abdominal pain secondary to: Cancer and severe inflammation and nonspecific colitis of the sigmoid colon. Patient was placed on IV Flagyl via general surgery, plan for exploratory laparotomy. -Colon cancer for which patient is a neoadjuvant chemotherapy which is being held for colectomy. Patient will have an exploratory laparotomy this admission. -Continued nicotine use: Counseling was provided if needed patient will be started on nicotine patch -COPD with acute exacerbation patient was started on inhalational treatments inhalational steroids and the 20 mg of oral steroids with GI prophylaxis -Hypertension: Holding off on antidepressant medications blood pressure monitored DVT prophylaxis: Lovenox -GI prophylaxis Pepcid Patient was evaluated by general surgery today, plan is for an exploratory laparotomy in the morning anticipating a need for bowel resection with ostomy. Patient will continue with current pain management, IV Tylenol has been added today from surgical services. Patient will continue on IV Flagyl. Patient will continue IV fluids. Patient will continue with a clear liquid diet, and IV fluids. Objective - Vital Signs Vital signs: Vital Signs Temp 97.8 F 04/06/21 11:21 Pulse 72 04/06/21 11:21 Resp 18 04/06/21 11:21 BP 131/84 04/06/21 11: Pulse Ox 95 04/06/21 11:21 Intake & Output 04/05/21 04/06/21 04/06/21 18:59 06:59 18:59 Intake Total 1300 Output Total 350 Balance -350 1300 Weight 58.06 kg Intake: Intake, IV Titration 1300 Amount Sodium Chloride 0.9% 1, 1200 000 ml @ 100 mls/hr IV . Q10H [facility] Rx#:[id number] metroNIDAZOLE-NS PMX 500 100 mg In Saline 1 100ml.bag @ 100 mls/hr IVPB Q8HR [facility] Rx#:[id number] Output: Urine 350 Other: Voiding Method Toilet Urinal - Labs CBC & Chem 7: 04/04/21 22:14 04/04/21 22:14 Labs: Microbiology - Last 24 Hours (Table) 04/04/21 22:15 Blood Culture Gram Stain - Preliminary Blood 04/04/21 22:00 Blood Culture Gram Stain - Preliminary Blood 04/04/21 22:00 Blood Culture - Final Blood 04/04/21 22:15 Blood Culture - Final Blood Assessment and Plan Time with Patient: Greater than 30
[2021-04-06] MEDS: LEVOFLOXACIN 500MG-D5W PMX 500 MG in DEXTROSE/WATER 1 100ML.BAG IVPB SCH (15:40)
[2021-04-06] MEDS: MORPHINE SULFATE 4 MG/ML SYRINGE IVP PRN (15:48)
[2021-04-06 16:50] LABS: Anisocytosis Slight; Basophils % (A) 0 %; Eosinophils % (A) 0 %; HCT 30.4 % (39.0-53.0); HGB 10.6 gm/dL (13.0-17.5); Lymphocytes # (A) 0.2 k/uL (1.0-4.8); Lymphocytes % (A) 3 %; MCH 34.9 pg (25.0-35.0); MCHC 34.9 g/dL (31.0-37.0); Macrocytosis Slight; Monocytes # (A) 0.2 k/uL (0-1.0); Monocytes % (A) 3 %; Neutrophils # (A) 6.4 k/uL (1.3-7.7); Neutrophils % (A) 92 %; RBC 3.04 m/uL (4.30-5.90); RDW 16.3 % (11.5-15.5)
[2021-04-06] MEDS ORDERED: IV FLUID CONTINUATION 1,000 ML IV ONE (17:09)
[2021-04-06 17:19] LABS: Glucose,Whole Blood 107 mg/dL (75-99)
[2021-04-06] MEDS ORDERED: DEXAMETHASONE SOD PHOSPHATE 4 MG/ML 1 ML VIAL IVP ONE (17:22)
[2021-04-06 17:24] LABS: INR 1.1 (<1.2); Prothrombin Time 11.6 sec (9.0-12.0)
[2021-04-06] MEDS ORDERED: METRONIDAZOLE IV ONE ×2 (17:27)
[2021-04-06] MEDS ORDERED: [UNRECOGNIZED DRUG - OTHER] IV ONE ×2 (17:27)
[2021-04-06] MEDS ORDERED: SODIUM CHLORIDE IV ONE ×2 (17:27)
[2021-04-06] MEDS ORDERED: PROPOFOL 10 MG/ML 20 ML VIAL IV ONE (18:32)
[2021-04-06] MEDS ORDERED: ROCURONIUM 10 MG/ML (5 ML VIAL) IV ONE (18:32)
[2021-04-06] MEDS ORDERED: LIDOCAINE 1% INJ 10MG/ML (20 ML MDV) ONE (18:32)
[2021-04-06] MEDS ORDERED: HYDROmorphone (PF) 1 MG/ML ONE (18:32)
[2021-04-06] MEDS ORDERED: GLYCOPYRROLATE 0.2 MG/ML 2 ML VIAL ONE (18:32)
[2021-04-06] MEDS ORDERED: NEOSTIGMINE 1 MG/ML 10 ML VIAL ONE (18:32)
[2021-04-06] MEDS ORDERED: fentaNYL (PF) 50 MCG/ML 2 ML AMP ONE (18:32)
[2021-04-06] MEDS ORDERED: MIDAZOLAM 2 MG/2 ML VIAL ONE (18:32)
[2021-04-06] MEDS ORDERED: SUCCINYLCHOLINE CHLORIDE 100 MG/5 ML SYR IV ONE (18:32)
[2021-04-06 18:39] LABS: Platelet Count 93 k/uL (150-450)
[2021-04-06] MEDS ORDERED: LACTATED RINGERS 1,000 ML IV ONE ×3 (19:20→20:41)
--- NOTE | 2021-04-06 20:32 | P.OP ---
Date of Procedure: 04/06/21 Procedure(s) Performed: PREOPERATIVE DIAGNOSIS: Pneumoperitoneum POSTOPERATIVE DIAGNOSIS: Perforated sigmoid colon cancer PROCEDURE: Sigmoid colectomy with end colostomy, incidental appendectomy SURGEON: Trace EBL: 100 mL ANESTHESIA: General COMPLICATIONS: None OPERATIVE PROCEDURE: Patient place in the operative table in the supine position. The patient was placed under general anesthesia. The abdomen was prepped and draped in usual sterile fashion. A vertical incision was made encompassing extending from the suprapubic region above the umbilicus. The fascia was divided as well. Upon entrance into the peritoneal cavity brownish colored purulent fluid was identified. The Bookwalter retractor was utilized. The patient had significant adhesions between the distal ileum and the colon cancer site. Using both sharp dissection and blunt dissection I was able to mobilize the small bowel away from the tumor. The tumor had evidence of perforation. It appeared necrotic. The tumor was adherent to the right pelvic sidewall. The patient's appendix was also incorporated into that inflammatory r eaction. The appendix itself however appeared normal. I did decide to remove the appendix at this time. The base of the appendix was divided using a linear 75 stapler. The mesoappendix was divided using a LigaSure device. I divided the sigmoid colon proximal to this using a linear 75 stapler. The mesentery was divided at that time using the LigaSure device. Beyond the inflamed segment I divided the distal sigmoid colon using a green load linear stapler. The sigmoid colon was then mobilized further by dividing a portion of mesentery proximally and also dividing the white line of Toldt. Once I had enough length on the colon the abdomen was copiously irrigated with 3 L of saline. No further purulence was encountered at that time. The stomach was significantly distended and a nasogastric tube was placed. The patient had adhesions between the right lobe of the liver and the abdominal wall or the patient's liver metastasis were palpable. I placed a drain into the pelvis exiting from the right lower abdominal wall. The pelvis was inspected. No active bleeding was seen. Patient's urine remained clear throughout the procedure. I could not visualize the right ureter with certainty given the degree of inflammatory changes present. The course of the left ureter was identified and preserved during our dissection. A circular incision was then made in the left midabdomen. Dissection through the subcutaneous fat and fascia took place using electrocautery. I bluntly entered the peritoneal cavity and this was further bluntly opened. The bowel was brought out through this defect in the left midabdomen. The midline fascia was then reapproximated using 2 separate double- stranded #1 PDS sutures. The subcutaneous tissues were irrigated. The subcutaneous tissues were closed using 3-0 Vicryl sutures. The skin was then loosely closed using brittney. The ostomy was then addressed. A portion of the pericolonic fat was removed using the LigaSure device. The staple line was then removed using electrocautery. The ostomy was then matured in a makah fashion using interrupted 3-0 Vicryl sutures. An ostomy appliance was then applied. Sterile dressings were then applied to the midline incision. DISPOSITION: Stable to recovery room
--- NOTE | 2021-04-06 20:32 | P.CONS ---
History of Present Illness - Reason for Consult Consult date: 04/06/21 colon Cancer Requesting physician: Isidro Woodward - Chief Complaint Abdominal Pain - History of Present Illness Jourdan presented to [facility] in Aug 2020 with RUQ abdominal pain, CT Scan revealed multiple lesion in liver C/W metastatic disease, he was referred to [facility], was seen by Dr García > had Colonoscopy revealing 3 cm semicircumfrential mass in sigmoid colon, biopsy of mass and liver on 09/26/2020 revealed Adenocarcinoma. The patient had recent vascular surgery due to PVD and AAA > felt to be stable. He reported anorexia and 15 lbs weight loss in last 3 months. Cntinues to C/O diffuse/RUQ abdominal pain, as well as, R shoulder pain, on Tylenol#3 (Dr Maribel Porter). He smokes 1 PPD, denies ETOH use, denies family history of malignancy. 11/12/20: C/O persistent RUQ abdominal pain, Surfside not fully effective 12/09/20: C/O severe abdominal pain X 3-4 days after each infusion of chemotherapy, becoming anorexic and loosing weight. 01/22/21: Feels Ok, C/O nausea & mild P Neuropathy > better with Gabapentin 02/04/21: Constipation otherwise tolerated well. 02/18/21: Feels Ok, tolerating chemotherapy well, had stable grade II P Neuropathy, taking Gabapentin PRN only. Having intermittent constipation. He completed 8 cycles of FLOFOX/Avastin. PET Scan: NE at primary site in sigmoid colon and liver mets, 03/19/21-Nauseated and in pain since last chemo, suprapubic pain, D x 1 but, normal BM since. He was considering going back to hospital. He is having trouble eating with all this pain. He used a lot of norco on Tuesday, he is experiencing more pain now. He has not bee able to work at all. Denies any fever, has sores in the mouth, denies any resp or cardiac c/o, denies any hematuria, dysuria, swelling in legs. He saw the surgeon, and pt states that Leslie tai wanted to talk to Dr. Torres before he discusses surgery any further. 03/27/21: C/O abdominal pain, was seen by Dr Woodward. He is confused about overall disease prognosis. He was last seen 04/01 and at that time waiting to hear about surgery, last antiangiogensis last week. His fentanyl patch was increased 37.5 and norco refilled also Review of Systems All systems: negative Constitutional: Reports as per HPI Past Medical History Past Medical History: Cancer Additional Past Medical History / Comment(s): Aneurysm History of Any Multi-Drug Resistant Organisms: None Reported Past Surgical History: Tonsillectomy Additional Past Surgical History / Comment(s): aortic aneurysm, colonoscopy, Past Anesthesia/Blood Transfusion Reactions: No Reported Reaction Past Psychological History: No Psychological Hx Reported Smoking Status: Current every day smoker Past Alcohol Use History: None Reported Past Drug Use History: None Reported Medications and Allergies Home Medications Medication Instructions Recorded Confirmed Type HYDROcodone/APAP 10-325MG [Surfside 1 tab PO TID PRN 04/04/21 04/05/21 History 10-325] fentaNYL [Duragesic 37.5 MCG/HR] 1 patch TRANSDERM Q72H 04/04/21 04/05/21 History Aspirin EC [Ecotrin Low Dose] 81 mg PO DAILY 04/05/21 04/05/21 History Clotrimazole 10 mg MUCOUS MEM 5XD 04/05/21 04/05/21 History Gabapentin [Neurontin] 300 mg PO HS 04/05/21 04/05/21 History Metoprolol Tartrate [Lopressor] 25 mg PO BID 04/05/21 04/05/21 History NIFEdipine [NIFEdipine ER] 30 mg PO DAILY 04/05/21 04/05/21 History Ondansetron Odt [Zofran Odt] 8 mg PO Q8H PRN 04/05/21 04/05/21 History Prochlorperazine [Compazine] 10 mg PO Q8H PRN 04/05/21 04/05/21 History Sennosides/Docusate Sodium [Senna 1 tab PO HS PRN 04/05/21 04/05/21 History Plus 8.6-50 mg Tablet] Tadalafil [Cialis] 5 mg PO DAILY PRN 04/05/21 04/05/21 History traZODone HCL 50 mg PO HS 04/05/21 04/05/21 History Allergies Allergy/AdvReac Type Severity Reaction Status Date / Time Penicillins Allergy Unknown Verified 04/06/21 17:33 Physical Exam Vitals: Vital Signs Temp Pulse Resp BP Pulse Ox 04/06/21 11:21 97.8 F 72 18 131/84 95 04/06/21 04:58 99 F 81 16 129/78 94 L 04/05/21 19:51 101 F H 100 18 111/70 93 L 04/05/21 19:05 18 04/05/21 17:57 100.8 F H Intake and Output 04/06/21 04/06/21 04/06/21 06:59 14:59 22:59 Intake Total 1300 Balance 1300 Intake: Intake, IV Titration 1300 Amount Sodium Chloride 0.9% 1, 1200 000 ml @ 100 mls/hr IV . Q10H KURT Rx#:[id number] metroNIDAZOLE-NS PMX 500 100 mg In Saline 1 100ml.bag @ 100 mls/hr IVPB Q8HR KURT Rx#:[id number] Other: Weight 58.06 kg - Constitutional General appearance: cooperative, mild distress, thin - EENT Eyes: EOMI ENT: hard of hearing, NA/AT - Neck Neck: normal ROM - Respiratory Respiratory: bilateral: diminished (Increased effort due to pain) - Cardiovascular Rhythm: regularly irregular - Gastrointestinal General gastrointestinal: tenderness - Integumentary Integumentary: pale - Neurologic Neurologic: CNII-XII intact - Musculoskeletal Musculoskeletal: generalized weakness - Psychiatric Psychiatric: A&O x's 3 Results CBC & Chem 7: 04/06/21 16:23 04/04/21 22:14 Labs: Microbiology - Last 24 Hours (Table) 04/04/21 22:15 Blood Culture Gram Stain - Preliminary Blood 04/04/21 22:00 Blood Culture Gram Stain - Preliminary Blood 04/04/21 22:00 Blood Culture - Final Blood 04/04/21 22:15 Blood Culture - Final Blood Assessment and Plan (1) Abdominal pain Current Visit: Yes Status: Acute Code(s): R10.9 - UNSPECIFIED ABDOMINAL PAIN SNOMED Code(s): 07769658 (2) Liver metastases Current Visit: Yes Status: Acute Code(s): C78.7 - SECONDARY MALIG NEOPLASM OF LIVER AND INTRAHEPATIC BILE DUCT SNOMED Code(s): 28415621 (3) 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 Current Visit: Yes Status: Acute Code(s): C18.7 - MALIGNANT NEOPLASM OF SIGMOID COLON; C77.2 - SECONDARY AND UNSP MALIGNANT NEOPLASM OF INTRA-ABD NODES SNOMED Code(s): 13744024 Plan: Assessment and Recommendations: Severe and worsening abdominal pain: - Concern for acute emergent situation - Discussed with Dr. Faith and planning for surgical intervention today at 4pm, concern of performation - Discussed risks and weight of risk and benefit with patient and family as patient did receive anti-angiogenesis 1.5 weeks prior. Colon cancer mets to liver - Chemo on hold
[2021-04-07] MEDS: MORPHINE SULFATE 2 MG/ML SYRINGE IVP PRN (04:14)
[2021-04-07 05:45] LABS: Anisocytosis Slight; Basophils % (A) 0 %; Eosinophils % (A) 0 %; HCT 32.2 % (39.0-53.0); HGB 10.9 gm/dL (13.0-17.5); Lymphocytes # (A) 0.3 k/uL (1.0-4.8); Lymphocytes % (A) 4 %; MCH 33.5 pg (25.0-35.0); MCHC 33.7 g/dL (31.0-37.0); MCV 99.4 fL (80.0-100.0); Macrocytosis Slight; Mean Platelet Volume 8.1; Monocytes # (A) 0.2 k/uL (0-1.0); Monocytes % (A) 3 %; Neutrophils # (A) 6.1 k/uL (1.3-7.7); Neutrophils % (A) 91 %; Platelet Count 110 k/uL (150-450); RBC 3.24 m/uL (4.30-5.90); RDW 16.1 % (11.5-15.5); WBC 6.7 k/uL (3.8-10.6)
[2021-04-07] MEDS: MORPHINE SULFATE 4 MG/ML SYRINGE IVP PRN ×3 (07:51→16:02)
[2021-04-07] MEDS: ENOXAPARIN 30 MG/0.3 ML SYRINGE SQ SCH (07:53)
[2021-04-07] MEDS: PANTOPRAZOLE 40 MG/10 ML VIAL IV SCH (07:53)
[2021-04-07] MEDS: predniSONE 20 MG TAB PO SCH (07:53)
[2021-04-07] MEDS: ASPIRIN 81 MG PO SCH (07:54)
[2021-04-07] MEDS: metroNIDAZOLE-NS PMX 500 MG in SALINE 1 100ML.BAG IVPB SCH ×3 (07:54→23:47)
[2021-04-07] MEDS: FAMOTIDINE 20 MG TAB PO SCH ×2 (07:54→23:08)
[2021-04-07] MEDS: HYDROcodone/APAP 10-325MG 1 EACH TAB PO PRN (08:03)
[2021-04-07] MEDS: IPRATROPIUM-ALBUTEROL 3 ML NEB INHALATION SCH ×4 (08:32→19:14)
[2021-04-07] MEDS: BUDESONIDE 0.5 MG/2 ML NEBU INHALATION SCH ×2 (08:32→19:14)
[2021-04-07 10:53] LABS: African American GFR (CKD) 107.1 (60.0-200.0); Albumin 2.9 g/dL (3.80-4.90); Albumin/Globulin Ratio 0.69 (1.60-3.17); Anion Gap 5.5 mmol/L (4.00-12.00); BUN/Creat Ratio 32.5 Ratio (12.00-20.00); Calcium 7.7 mg/dL (8.7-10.3); Carbon Dioxide 22.5 mmol/L (21.6-31.8); Globulin 4.2 g/dL (1.6-3.3); Magnesium 1.8 mg/dL (1.5-2.4); Non-African American GFR(CKD) 92.4 (60.0-200.0); Potassium 4.4 mmol/L (3.5-5.5); Total Bilirubin 0.4 mg/dL (0.2-1.2); Total Protein 7.1 g/dL (6.2-8.2)
[2021-04-07] MEDS: SODIUM CHLORIDE 0.9% 1,000 ML IV SCH ×2 (12:38→23:07)
[2021-04-07] MEDS: KETOROLAC 15 MG/ML 1 ML VIAL IVP SCH ×3 (12:51→23:47)
[2021-04-07 13:04] LABS: African American GFR (CKD) 107.1 (60.0-200.0); Albumin 2.8 g/dL (3.80-4.90); Albumin/Globulin Ratio 0.7 (1.60-3.17); Anion Gap 6.3 mmol/L (4.00-12.00); BUN/Creat Ratio 28.75 Ratio (12.00-20.00); Calcium 7.9 mg/dL (8.7-10.3); Carbon Dioxide 22.7 mmol/L (21.6-31.8); Non-African American GFR(CKD) 92.4 (60.0-200.0); Potassium 4.1 mmol/L (3.5-5.5); Total Bilirubin 0.4 mg/dL (0.3-1.2); Total Protein 6.8 g/dL (6.2-8.2)
--- NOTE | 2021-04-07 13:32 | P.PN ---
Subjective Progress Note Date: 04/07/21 The patient had significant adhesions between the distal ileum and the colon cancer site. Using both sharp dissection and blunt dissection I was able to mobilize the small bowel away from the tumor. The tumor had evidence of perforation. It appeared necrotic. The tumor was adherent to the right pelvic sidewall. The patient's appendix was also incorporated into that inflammatory reaction. The appendix itself however appeared normal. I did decide to remove the appendix at this time. Objective - Vital Signs Vital signs: Vital Signs Temp 98.4 F 04/07/21 05:54 Pulse 90 04/07/21 05:54 Resp 16 04/07/21 05:54 BP 153/84 04/07/21 05:54 Pulse Ox 95 04/07/21 05:54 Intake & Output 04/06/21 04/07/21 04/07/21 18:59 06:59 18:59 Intake Total 550 1125 Output Total 1175 Balance 550 -50 Weight 58.06 kg Intake: IV 550 1125 Output: Urine 875 Estimated Blood Loss 100 Other 200 Other: Voiding Method Indwelling Catheter # Voids 3 - Exam - Constitutional General appearance: cooperative, mild distress, thin - EENT Eyes: EOMI ENT: hard of hearing, NA/AT NG tube with dark Bile - Neck Neck: normal ROM - Respiratory Respiratory: bilateral: diminished (Increased effort due to pain) - Cardiovascular Rhythm: regularly irregular - Gastrointestinal General gastrointestinal: tenderness - Integumentary Integumentary: pale - Neurologic Neurologic: CNII-XII intact - Musculoskeletal Musculoskeletal: generalized weakness - Psychiatric Psychiatric: A&O x's 3 - Labs CBC & Chem 7: 04/07/21 05:21 04/07/21 05:21 Labs: Abnormal Lab Results - Last 24 Hours (Table) 04/06/21 04/06/21 04/07/21 Range/Units 16:23 17:17 05:21 RBC 3.04 L 3.24 L (4.30-5.90) m/uL Hgb 10.6 L 10.9 L (13.0-17.5) gm/dL Hct 30.4 L 32.2 L (39.0-53.0) % RDW 16.3 H 16.1 H (11.5-15.5) % Plt Count 93 L 110 L (150-450) k/uL Lymphocytes # 0.2 L 0.3 L (1.0-4.8) k/uL POC Glucose (mg/dL) 107 H (75-99) mg/dL Microbiology - Last 24 Hours (Table) 04/04/21 22:15 Blood Culture Gram Stain - Preliminary Blood 04/04/21 22:00 Blood Culture Gram Stain - Preliminary Blood Assessment and Plan (1) Abdominal pain Current Visit: Yes Status: Acute Code(s): R10.9 - UNSPECIFIED ABDOMINAL PAIN SNOMED Code(s): 93494203 (2) Liver metastases Current Visit: Yes Status: Acute Code(s): C78.7 - SECONDARY MALIG NEOPLASM OF LIVER AND INTRAHEPATIC BILE DUCT SNOMED Code(s): 64953514 (3) 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 Current Visit: Yes Status: Acute Code(s): C18.7 - MALIGNANT NEOPLASM OF SIGMOID COLON; C77.2 - SECONDARY AND UNSP MALIGNANT NEOPLASM OF INTRA-ABD NODES SNOMED Code(s): 37756243 Plan: Assessment and Recommendations: Severe and worsening abdominal pain: - Concern for acute emergent situation - Reviewed surgery notes - Discussed risks and weight of risk and benefit with patient and family as patient did receive anti-angiogenesis 1.5 weeks prior. Colon cancer mets to liver - Chemo on hold Status post exploratory lap, Sigmoid colectomy with end colostomy, incidental appendectomy, due to necrotic tumor perforation with Dr. Faith. Patient in pain stating nothing is helping. I will connect with surgery team for possible [employer] Physician Attest: I have completed the full history and physical and agree with above dictation, dictated as a ascribe.
--- NOTE | 2021-04-07 14:39 | P.PN ---
Subjective Progress Note Date: 04/07/21 Principal diagnosis: Perforated sigmoid colon Patient says his pain is different but still high. Describes pain along the midline incision. HELEN drain serosanguineous. Bradshaw catheter with clear urine. Vital signs stable. White blood cell count 6.7, hemoglobin 10.9. Objective - Vital Signs Vital signs: Vital Signs Temp 98.1 F 04/07/21 11:43 Pulse 78 04/07/21 11:43 Resp 20 04/07/21 11:43 BP 154/87 04/07/21 11:43 Pulse Ox 95 04/07/21 11:43 Intake & Output 04/06/21 04/07/21 04/07/21 18:59 06:59 18:59 Intake Total 550 1125 Output Total 1175 40 Balance 550 -50 -40 Weight 58.06 kg Intake: IV 550 1125 Output: Drainage 40 Right 40 Urine 875 Estimated Blood Loss 100 Other 200 Other: Voiding Method Indwelling Catheter Indwelling Catheter # Voids 3 - Exam Abdomen: Soft, nondistended, dressing clean and dry, ostomy pink without any activity - Labs CBC & Chem 7: 04/07/21 05:21 04/07/21 05:21 Labs: Abnormal Lab Results - Last 24 Hours (Table) 04/06/21 04/06/21 04/06/21 Range/Units 16:23 16:23 17:17 RBC 3.04 L (4.30-5.90) m/uL Hgb 10.6 L (13.0-17.5) gm/dL Hct 30.4 L (39.0-53.0) % RDW 16.3 H (11.5-15.5) % Plt Count 93 L (150-450) k/uL Lymphocytes # 0.2 L (1.0-4.8) k/uL Sodium 133 L (135-145) mmol/L BUN/Creatinine Ratio 32.50 H (12.00-20.00) Ratio POC Glucose (mg/dL) 107 H (75-99) mg/dL Calcium 7.7 L (8.7-10.3) mg/dL Albumin 2.90 L (3.80-4.90) g/dL Globulin 4.2 H (1.6-3.3) g/dL Albumin/Globulin Ratio 0.69 L (1.60-3.17) g/dL 04/07/21 04/07/21 Range/Units 05:21 05:21 RBC 3.24 L (4.30-5.90) m/uL Hgb 10.9 L (13.0-17.5) gm/dL Hct 32.2 L (39.0-53.0) % RDW 16.1 H (11.5-15.5) % Plt Count 110 L (150-450) k/uL Lymphocytes # 0.3 L (1.0-4.8) k/uL Sodium 134 L (135-145) mmol/L BUN/Creatinine Ratio 28.75 H (12.00-20.00) Ratio POC Glucose (mg/dL) (75-99) mg/dL Calcium 7.9 L (8.7-10.3) mg/dL Albumin 2.80 L (3.80-4.90) g/dL Globulin 4.0 H (1.6-3.3) g/dL Albumin/Globulin Ratio 0.70 L (1.60-3.17) g/dL Microbiology - Last 24 Hours (Table) 04/04/21 22:15 Blood Culture Gram Stain - Preliminary Blood Blood Culture - Preliminary Anaerobic Gm Negative Bacilli 04/04/21 22:00 Blood Culture Gram Stain - Preliminary Blood Blood Culture - Preliminary Anaerobic Gm Negative Bacilli Assessment and Plan (1) Perforation of sigmoid colon Narrative/Plan: Continue nothing by mouth with nasogastric tube to suction. We will add Toradol for pain control. Continue IV Tylenol. Gradually increase activities. Continue antibiotics. Current Visit: Yes Status: Acute Code(s): K63.1 - PERFORATION OF INTESTINE (NONTRAUMATIC) SNOMED Code(s): 919983729
[2021-04-07] MEDS: ACETAMINOPHEN IV (For NPO) 1,000 MG in EMPTY BAG 1 BAG IVPB SCH ×2 (15:29→19:23)
[2021-04-07] MEDS: LEVOFLOXACIN 500MG-D5W PMX 500 MG in DEXTROSE/WATER 1 100ML.BAG IVPB SCH (15:56)
--- NOTE | 2021-04-07 16:06 | P.PN ---
Subjective Progress Note Date: 04/07/21 Patient was a 65-year-old male came in with severe lower quadrant abdominal pain sharp in nature has been going on for a few weeks. Patient was diagnosed with colon cancer patient is presently receiving neoadjuvant chemotherapy patient is supposed to undergo colectomy at the end of this month. Because of uncontrolled severe pain patient came to the hospital patient as 10/10 pain. Patient does smoke is significantly wheezing upon exam and patient the is saturating 91% on room air. Patient denied any fever chills. General surgery was consulted. Patient is really constipated received an enema yesterday had a bowel movement yesterday. Patient had a CT of the abdomen which showed some hospice for colitis which is worse compared to before in the sigmoid colon area. 04/06/2021 Patient is evaluated the bedside for having severe left lower quadrant abdominal pain, patient is guarding his abdomen at the time of my examination. Patient is requesting pain medication. This is a patient has been diagnosed with colon cancer with metastatic disease to the liver, and is scheduled for colectomy on April [address] Woodward. Patient is currently on a clear liquid diet. Patient was given an enema and was able to have a bowel movement. He was started on IV Flagyl, in relation to a suspected area of inflammation around the known malignancy, as well as a few small foci of pneumoperitoneum, in light of this, patient has been scheduled for an exploratory laparotomy. Surgical services anticipate the need for a bowel resection and ostomy. Patient denies any chest pain, cough, shortness of breath. Patient will continue on IV Dilaudid, IV morphine, [place] and Tylenol for pain management. Patient also has a fentanyl patch that was replaced yesterday. Patient is receiving IV Tylenol as well for pain management. Vital signs are stable today with a temp of 97.8, heart rate 72, blood pressure 131/84, 95% on 2 L of cannula. Patient had a temp yesterday evening with a T-max of 101. 04/07/2021 Patient is postop day #1 from a appendectomy, sigmoid colectomy, colostomy, for a perforated sigmoid colon performed by Dr. Woodward. Patient has a known history of colon cancer with metastases to the liver. Patient is maintained on chemoradiation. Patient was scheduled to have a colectomy in 1 month however he came into the ER with severe lower quadrant abdominal pain that was sharp in nature going on for a few weeks. Patient was found to have some inflammation and a pneumoperitoneum, and was taken for an exploratory laparotomy yesterday evening. Patient is sitting in the chair at the bedside table time of my examination, he is complaining of some adbominal discomfort. He states that it is different than the pain he was experiencing yesterday. Patient has an NG tube placed to suction. Patient is working with physical therapy. Patient's hemoglobin today is stable at 10.9. Patient's sodium level is 134. Patient's blood culture was finalized for anaerobic gram-negative bacilli. Patient is on IV Levaquin, IV Flagyl. Patient is receiving [place], fentanyl patch, IV Dilaudid for pain management. Continue to encourage ambulation, continue incentive spirometer. Patient has a HELEN drain is draining serosanguineous fluid, patient has indwelling catheter. Patient will continue on the NG tube, nothing by mouth this time. Vital signs are stable, afebrile 98.1, heart rate sinus rhythm 70, blood pressure 154/87, 95% on 2 L nasal cannula. ROS: Constitutional: Denied any fatigue denied any fever. Cardio vascular: denied any chest pain, palpitations Gastrointestinal denied any vomiting, nausea, reports severe pain along the incision Pulmonary: Denied any shortness of breath cough Neurologic denied any new focal deficits All inpatient medications were reviewed and appropriate changes in these medications as dictated in the interval history and assessment and plan. PHYSICAL EXAMINATION: GENERAL: The patient is alert and oriented x3, not in any acute distress. Well developed, well nourished. HEENT: Pupils are round and equally reacting to light. EOMI. No scleral icterus. No conjunctival pallor. Normocephalic, atraumatic. No pharyngeal erythema. No thyromegaly. CARDIOVASCULAR: S1 and S2 present. No murmurs, rubs, or gallops. PULMONARY: Chest is clear to auscultation, no wheezing or crackles. ABDOMEN: Soft,tender, gaurding, normoactive bowel sounds, surgical incision present, HELEN drain. MUSCULOSKELETAL: No joint swelling or deformity. EXTREMITIES: No cyanosis, clubbing, or pedal edema. NEUROLOGICAL: Gross neurological examination did not reveal any focal deficits. SKIN: No rashes. Assessment and plan -severe abdominal pain secondary to: Cancer and severe inflammation and nonspecific colitis of the sigmoid colon. Patient was placed on IV Flagyl. Perforated sigmoid colon secondary to colon cancer. Patient's postop day #1 from a sigmoid colectomy, colostomy, incidental appendectomy. -Colon cancer for which patient is a neoadjuvant chemotherapy which is being held for colectomy. -Continued nicotine use: Counseling was provided if needed patient will be started on nicotine patch -COPD with acute exacerbation patient was started on inhalational treatments inhalational steroids and the 20 mg of oral steroids with GI prophylaxis -Hypertension: Holding off on antidepressant medications blood pressure monitor ed DVT prophylaxis: Lovenox -GI prophylaxis Pepcid Patient will continue with current pain management, IV Tylenol has been added today from surgical services. Patient will continue on IV Flagyl, IV Levaquin. Blood cultures finalizing culture and sensitivity. Continue to encourage ambulation, continue to encourage incentive spirometer. Patient is currently nothing by mouth, has NG tube to suction. Diet recommendations made via surgical services. Continue with IV fluids Objective - Vital Signs Vital signs: Vital Signs Temp 98.1 F 04/07/21 11:43 Pulse 78 04/07/21 11:43 Resp 20 04/07/21 11:43 BP 154/87 04/07/21 11:43 Pulse Ox 95 04/07/21 11:43 Intake & Output 04/06/21 04/07/21 04/07/21 18:59 06:59 18:59 Intake Total 550 1125 Output Total 1175 40 Balance 550 -50 -40 Weight 58.06 kg Intake: IV 550 1125 Output: Drainage 40 Right 40 Urine 875 Estimated Blood Loss 100 Other 200 Other: Voiding Method Indwelling Catheter Indwelling Catheter # Voids 3 - Labs CBC & Chem 7: 04/07/21 05:21 04/07/21 05:21 Labs: Abnormal Lab Results - Last 24 Hours (Table) 04/06/21 04/06/21 04/06/21 Range/Units 16:23 16:23 17:17 RBC 3.04 L (4.30-5.90) m/uL Hgb 10.6 L (13.0-17.5) gm/dL Hct 30.4 L (39.0-53.0) % RDW 16.3 H (11.5-15.5) % Plt Count 93 L (150-450) k/uL Lymphocytes # 0.2 L (1.0-4.8) k/uL Sodium 133 L (135-145) mmol/L BUN/Creatinine Ratio 32.50 H (12.00-20.00) Ratio POC Glucose (mg/dL) 107 H (75-99) mg/dL Calcium 7.7 L (8.7-10.3) mg/dL Albumin 2.90 L (3.80-4.90) g/dL Globulin 4.2 H (1.6-3.3) g/dL Albumin/Globulin Ratio 0.69 L (1.60-3.17) g/dL 04/07/21 04/07/21 Range/Units 05:21 05:21 RBC 3.24 L (4.30-5.90) m/uL Hgb 10.9 L (13.0-17.5) gm/dL Hct 32.2 L (39.0-53.0) % RDW 16.1 H (11.5-15.5) % Plt Count 110 L (150-450) k/uL Lymphocytes # 0.3 L (1.0-4.8) k/uL Sodium 134 L (135-145) mmol/L BUN/Creatinine Ratio 28.75 H (12.00-20.00) Ratio POC Glucose (mg/dL) (75-99) mg/dL Calcium 7.9 L (8.7-10.3) mg/dL Albumin 2.80 L (3.80-4.90) g/dL Globulin 4.0 H (1.6-3.3) g/dL Albumin/Globulin Ratio 0.70 L (1.60-3.17) g/dL Microbiology - Last 24 Hours (Table) 04/04/21 22:15 Blood Culture Gram Stain - Preliminary Blood Blood Culture - Preliminary Anaerobic Gm Negative Bacilli 04/04/21 22:00 Blood Culture Gram Stain - Preliminary Blood Blood Culture - Preliminary Anaerobic Gm Negative Bacilli Assessment and Plan Time with Patient: Greater than 30
[2021-04-08] MEDS: ACETAMINOPHEN IV (For NPO) 1,000 MG in EMPTY BAG 1 BAG IVPB SCH ×2 (00:52→08:22)
[2021-04-08] MEDS: SODIUM CHLORIDE 0.9% 1,000 ML IV SCH (00:52)
[2021-04-08] MEDS: MORPHINE SULFATE 4 MG/ML SYRINGE IVP PRN ×3 (01:14→11:08)
[2021-04-08] MEDS: KETOROLAC 15 MG/ML 1 ML VIAL IVP SCH ×4 (05:25→23:48)
[2021-04-08] MEDS: METOCLOPRAMIDE 5 MG/ML 2 ML VIAL IVP PRN ×2 (06:08→18:06)
[2021-04-08] MEDS: PANTOPRAZOLE 40 MG/10 ML VIAL IV SCH (08:13)
[2021-04-08] MEDS: ENOXAPARIN 30 MG/0.3 ML SYRINGE SQ SCH (08:14)
[2021-04-08] MEDS: metroNIDAZOLE-NS PMX 500 MG in SALINE 1 100ML.BAG IVPB SCH ×3 (08:14→23:49)
[2021-04-08] MEDS: ASPIRIN 81 MG PO SCH (08:15)
[2021-04-08] MEDS: FAMOTIDINE 20 MG TAB PO SCH (08:16)
[2021-04-08] MEDS: HYDROcodone/APAP 10-325MG 1 EACH TAB PO PRN (08:16)
[2021-04-08] MEDS: predniSONE 20 MG TAB PO SCH (08:16)
[2021-04-08] MEDS: IPRATROPIUM-ALBUTEROL 3 ML NEB INHALATION SCH ×4 (08:35→22:31)
[2021-04-08] MEDS: BUDESONIDE 0.5 MG/2 ML NEBU INHALATION SCH ×2 (08:35→22:31)
[2021-04-08 10:15] LABS: HGB 10.7 gm/dL (13.0-17.5); MCH 33.2 pg (25.0-35.0); MCHC 33.3 g/dL (31.0-37.0); MCV 99.6 fL (80.0-100.0); Macrocytosis Slight; Mean Platelet Volume 8.1; Platelet Count 135 k/uL (150-450); RBC 3.21 m/uL (4.30-5.90); RDW 15.3 % (11.5-15.5); WBC 3.8 k/uL (3.8-10.6)
[2021-04-08] MEDS ORDERED: LORazepam 2 MG/ML INJ IV PRN (14:35)
--- NOTE | 2021-04-08 14:37 | P.PN ---
Subjective Progress Note Date: 04/08/21 Principal diagnosis: Tumor necrosis and perforation Pain is still present, he is still wanting 3L o2 although oxygenating well, component of anxiety. Objective - Vital Signs Vital signs: Vital Signs Temp 97.5 F L 04/08/21 12:22 Pulse 86 04/08/21 12:22 Resp 16 04/08/21 12:22 BP 138/89 04/08/21 12:22 Pulse Ox 99 04/08/21 12:22 Intake & Output 04/07/21 04/08/21 04/08/21 18:59 06:59 18:59 Intake Total 0 Output Total 1080 860 20 Balance -1080 -860 -20 Weight 58.06 kg Intake: Oral 0 Output: Gastric Drainage 350 Drainage 80 110 20 Right 80 110 20 Urine 1000 400 Other: Voiding Method Indwelling Catheter Indwelling Catheter Indwelling Catheter - Exam - Constitutional General appearance: cooperative, mild distress, thin - EENT Eyes: EOMI ENT: hard of hearing, NA/AT NG tube with dark Bile - Neck Neck: normal ROM - Respiratory Respiratory: bilateral: diminished (Increased effort due to pain) - Cardiovascular Rhythm: regularly irregular - Gastrointestinal General gastrointestinal: tenderness, pain, ostomy, evidence recent surgical intervention - Integumentary Integumentary: pale - Neurologic Neurologic: CNII-XII intact - Musculoskeletal Musculoskeletal: generalized weakness - Psychiatric Psychiatric: A&O x's 3 - Labs CBC & Chem 7: 04/08/21 09:33 04/07/21 05:21 Labs: Abnormal Lab Results - Last 24 Hours (Table) 04/06/21 04/08/21 Range/Units 16:23 09:33 RBC 3.21 L (4.30-5.90) m/uL Hgb 10.7 L (13.0-17.5) gm/dL Hct 32.0 L (39.0-53.0) % Plt Count 135 L (150-450) k/uL Carcinoembryonic Ag 186.3 H (0.0-4.9) ng/mL Microbiology - Last 24 Hours (Table) 04/04/21 22:15 Blood Culture Gram Stain - Preliminary Blood Blood Culture - Preliminary Anaerobic Gm Negative Bacilli 04/04/21 22:00 Blood Culture Gram Stain - Preliminary Blood Blood Culture - Preliminary Anaerobic Gm Negative Bacilli Assessment and Plan (1) Abdominal pain Current Visit: Yes Status: Acute Code(s): R10.9 - UNSPECIFIED ABDOMINAL PAIN SNOMED Code(s): 79649626 (2) Liver metastases Current Visit: Yes Status: Acute Code(s): C78.7 - SECONDARY MALIG NEOPLASM OF LIVER AND INTRAHEPATIC BILE DUCT SNOMED Code(s): 82938876 (3) 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 Colon cancer mets to liver - Chemo on hold Status post exploratory lap, Sigmoid colectomy with end colostomy, incidental appendectomy, due to necrotic tumor perforation with Dr. Faith. Fentanyl patch intiated, component of anxiety may benefit from short low dose be nzodiazepine (low dose). Continues supportive care post operatively.
--- NOTE | 2021-04-08 14:58 | P.PN ---
Subjective Progress Note Date: 04/08/21 Patient was a 65-year-old male came in with severe lower quadrant abdominal pain sharp in nature has been going on for a few weeks. Patient was diagnosed with colon cancer patient is presently receiving neoadjuvant chemotherapy patient is supposed to undergo colectomy at the end of this month. Because of uncontrolled severe pain patient came to the hospital patient as 10/10 pain. Patient does smoke is significantly wheezing upon exam and patient the is saturating 91% on room air. Patient denied any fever chills. General surgery was consulted. Patient is really constipated received an enema yesterday had a bowel movement yesterday. Patient had a CT of the abdomen which showed some hospice for colitis which is worse compared to before in the sigmoid colon area. 04/06/2021 Patient is evaluated the bedside for having severe left lower quadrant abdominal pain, patient is guarding his abdomen at the time of my examination. Patient is requesting pain medication. This is a patient has been diagnosed with colon cancer with metastatic disease to the liver, and is scheduled for colectomy on April [address] Woodward. Patient is currently on a clear liquid diet. Patient was given an enema and was able to have a bowel movement. He was started on IV Flagyl, in relation to a suspected area of inflammation around the known malignancy, as well as a few small foci of pneumoperitoneum, in light of this, patient has been scheduled for an exploratory laparotomy. Surgical services anticipate the need for a bowel resection and ostomy. Patient denies any chest pain, cough, shortness of breath. Patient will continue on IV Dilaudid, IV morphine, [place] and Tylenol for pain management. Patient also has a fentanyl patch that was replaced yesterday. Patient is receiving IV Tylenol as well for pain management. Vital signs are stable today with a temp of 97.8, heart rate 72, blood pressure 131/84, 95% on 2 L of cannula. Patient had a temp yesterday evening with a T-max of 101. 04/07/2021 Patient is postop day #1 from a appendectomy, sigmoid colectomy, colostomy, for a perforated sigmoid colon performed by Dr. Woodward. Patient has a known history of colon cancer with metastases to the liver. Patient is maintained on chemoradiation. Patient was scheduled to have a colectomy in 1 month however he came into the ER with severe lower quadrant abdominal pain that was sharp in nature going on for a few weeks. Patient was found to have some inflammation and a pneumoperitoneum, and was taken for an exploratory laparotomy yesterday evening. Patient is sitting in the chair at the bedside table time of my examination, he is complaining of some adbominal discomfort. He states that it is different than the pain he was experiencing yesterday. Patient has an NG tube placed to suction. Patient is working with physical therapy. Patient's hemoglobin today is stable at 10.9. Patient's sodium level is 134. Patient's blood culture was finalized for anaerobic gram-negative bacilli. Patient is on IV Levaquin, IV Flagyl. Patient is receiving [place], fentanyl patch, IV Dilaudid for pain management. Continue to encourage ambulation, continue incentive spirometer. Patient has a HELEN drain is draining serosanguineous fluid, patient has indwelling catheter. Patient will continue on the NG tube, nothing by mouth this time. Vital signs are stable, afebrile 98.1, heart rate sinus rhythm 70, blood pressure 154/87, 95% on 2 L nasal cannula. 04/08/2021 Patient is postop day #2 from an appendectomy, sigmoid colectomy, colostomy for a perforated sigmoid colon. Patient continues on an nothing by mouth diet, NG tube to suction. Patient is not having any stool or flatus from his colostomy at the time of my examination. Patient denies any chest pain, cough, shortness of breath. Patient denies any nausea, vomiting. Patient states that he is having some abdominal pain due to the surgery. Patient states that he would like some morphine for this at this time. Patient was up with physical therapy in the chair yesterday, patient continues with an indwelling catheter. Patient is receiving pain management via surgical services. Patient remains on IV antibiotics. HELEN drain is draining serosanguineous fluid. Vital signs are stable today, temp 97.5, heart rate 86 sinus rhythm, blood pressure 138/89, 98% 3 L nasal cannula. Continue to encourage ambulation, continue incentive spirometer. ROS: Constitutional: Denied any fatigue denied any fever. Cardio vascular: denied any chest pain, palpitations Gastrointestinal denied any vomiting, nausea, reports moderate pain along the incision, denies gas Pulmonary: Denied any shortness of breath cough Neurologic denied any new focal deficits All inpatient medications were reviewed and appropriate changes in these medications as dictated in the interval history and assessment and plan. PHYSICAL EXAMINATION: GENERAL: The patient is alert and oriented x3, not in any acute distress. Well developed, well nourished. HEENT: Pupils are round and equally reacting to light. EOMI. No scleral icterus. No conjunctival pallor. Normocephalic, atraumatic. No pharyngeal erythema. No thyromegaly. CARDIOVASCULAR: S1 and S2 present. No murmurs, rubs, or gallops. PULMONARY: Chest is clear to auscultation, no wheezing or crackles. ABDOMEN: Soft,tender, gaurding, normoactive bowel sounds, surgical incision present, HELEN drain. MUSCULOSKELETAL: No joint swelling or deformity. EXTREMITIES: No cyanosis, clubbing, or pedal edema. NEUROLOGICAL: Gross neurological examination did not reveal any focal deficits. SKIN: No rashes. Assessment and plan -severe abdominal pain secondary to: Cancer and severe inflammation and nonspecific colitis of the sigmoid colon. Patient was placed on IV Flagyl. Perforated sigmoid colon secondary to colon cancer. Patient's postop day #2 from a sigmoid colectomy, colostomy, incidental appendectomy. -Colon cancer for which patient is a neoadjuvant chemotherapy which is being held for colectomy. -Continued nicotine use: Counseling was provided if needed patient will be started on nicotine patch -COPD with acute exacerbation patient was started on inhalational treatments inhalational steroids and the 20 mg of oral steroids with GI prophylaxis -Hypertension: Holding off on antihypertensive medications postoperatively blood pressure monitored -Hyponatremia, continue with IV fluids, continue to monitor. Electrolyte panel pending from today. DVT prophylaxis: Lovenox -GI prophylaxis Pepcid Patient will continue with current pain management. Patient is receiving. Atenolol, [place], IV Toradol, final patch for pain management. Patient also has IV morphine as needed. Patient will continue on IV Flagyl, IV Levaquin. Blood cultures finalized for anaerobic gram-negative bacilli. Cont on IV Antibiotics. Continue to encourage ambulation, continue to encourage incentive spirometer. Patient is currently nothing by mouth, has NG tube to suction. Diet recommendations made via surgical services. Continue with IV fluids. Blood pressure medications continue to be on hold, will monitor postoperative. Objective - Vital Signs Vital signs: Vital Signs Temp 97.5 F L 04/08/21 12:22 Pulse 86 08/11/21 12:22 Resp 16 04/08/21 12:22 BP 138/89 04/08/21 12:22 Pulse Ox 99 04/08/21 12:22 Intake & Output 04/07/21 04/08/21 04/08/21 18:59 06:59 18:59 Intake Total 0 Output Total 1080 860 20 Balance -1080 -860 -20 Intake: Oral 0 Output: Gastric Drainage 350 Drainage 80 110 20 Right 80 110 20 Urine 1000 400 Other: Voiding Method Indwelling Catheter Indwelling Catheter Indwelling Catheter - Labs CBC & Chem 7: 04/08/21 09:33 04/07/21 05:21 Labs: Abnormal Lab Results - Last 24 Hours (Table) 04/06/21 04/08/21 Range/Units 16:23 09:33 RBC 3.21 L (4.30-5.90) m/uL Hgb 10.7 L (13.0-17.5) gm/dL Hct 32.0 L (39.0-53.0) % Plt Count 135 L (150-450) k/uL Carcinoembryonic Ag 186.3 H (0.0-4.9) ng/mL Microbiology - Last 24 Hours (Table) 04/04/21 22:15 Blood Culture Gram Stain - Preliminary Blood Blood Culture - Preliminary Anaerobic Gm Negative Bacilli 04/04/21 22:00 Blood Culture Gram Stain - Preliminary Blood Blood Culture - Preliminary Anaerobic Gm Negative Bacilli Assessment and Plan Time with Patient: Greater than 30
[2021-04-08] MEDS: LEVOFLOXACIN 500MG-D5W PMX 500 MG in DEXTROSE/WATER 1 100ML.BAG IVPB SCH (15:27)
--- NOTE | 2021-04-08 15:43 | P.PN ---
<Flower Mendez - Last Filed: 04/08/21 15:36> Subjective Progress Note Date: 04/08/21 CHIEF COMPLAINT: Abdominal pain HISTORY OF PRESENT ILLNESS: Perforated sigmoid colon cancer status post sigmoid colectomy with end colostomy, incidental appendectomy. Patient is reporting that his abdominal pain is controlled. He has NG tube in place with dark brown reddish output. He denies any nausea. Patient has ambulated in the hallway. Afebrile. HELEN drain with sanguinous output. WBC 3.8 hemoglobin 10.7 PHYSICAL EXAM: VITAL SIGNS: Reviewed. GENERAL: Well-developed in no acute distress. HEENT: No sclera icterus. Extraocular movements grossly intact. Moist buccal mucosa. Head is atraumatic, normocephalic. ABDOMEN: Soft. Nondistended dressing with minimal blood-tinged saturation noted. Ostomy stoma pink without any activity NEUROLOGIC: Alert and oriented. Cranial nerves II through XII grossly intact. ASSESSMENT: 1. Perforated sigmoid colon cancer status post sigmoid colectomy with end colostomy, incidental appendectomy PLAN: -Continue NG tube for decompression -Keep patient nothing by mouth -Continue pain medication as needed -Encouraged patient to ambulate -Encouraged patient to use incentive spirometer -Continue antibiotics -GI prophylaxis Protonix and DVT prophylaxis Lovenox Physician Plastic Maker note has been reviewed by physician. Signing provider agrees with the documented findings, assessment, and plan of care. Objective - Vital Signs Vital signs: Vital Signs Temp 97.5 F L 04/08/21 12:22 Pulse 86 04/08/21 12:22 Resp 16 04/08/21 12:22 BP 138/89 04/08/21 12:22 Pulse Ox 99 04/08/21 12:22 Intake & Output 04/07/21 04/08/21 04/08/21 18:59 06:59 18:59 Intake Total 0 Output Total 9279 860 20 Balance -1080 -860 -20 Weight 58.06 kg Intake: Oral 0 Output: Gastric Drainage 350 Drainage 80 110 20 Right 80 110 20 Urine 1000 400 Other: Voiding Method Indwelling Catheter Indwelling Catheter Indwelling Catheter - Labs CBC & Chem 7: 04/08/21 09:33 04/07/21 05:21 Labs: Abnormal Lab Results - Last 24 Hours (Table) 04/06/21 04/08/21 Range/Units 16:23 09:33 RBC 3.21 L (4.30-5.90) m/uL Hgb 10.7 L (13.0-17.5) gm/dL Hct 32.0 L (39.0-53.0) % Plt Count 135 L (150-450) k/uL Carcinoembryonic Ag 186.3 H (0.0-4.9) ng/mL Microbiology - Last 24 Hours (Table) 04/04/21 22:15 Blood Culture Gram Stain - Preliminary Blood Blood Culture - Preliminary Anaerobic Gm Negative Bacilli 04/04/21 22:00 Blood Culture Gram Stain - Preliminary Blood Blood Culture - Preliminary Anaerobic Gm Negative Bacilli <Isidro Woodward - Last Filed: 04/08/21 18:37> Subjective As above. Patient's pain is improved. He has ambulated. Nasogastric tube did fall out. Keep nothing by mouth except for ice. Objective - Vital Signs Vital signs: Vital Signs Temp 97.5 F L 04/08/21 12:22 Pulse 86 04/08/21 12:22 Resp 16 04/08/21 12:22 BP 138/89 04/08/21 12:22 Pulse Ox 99 04/08/21 12:22 Intake & Output 04/07/21 04/08/21 04/08/21 18:59 06:59 18:59 Intake Total 0 Output Total 9946 040 266 Balance -7973 -600 -460 Weight 58.06 kg Intake: Oral 0 Output: Gastric Drainage 350 Drainage 80 110 60 Right 80 110 60 Urine 1000 400 400 Other: Voiding Method Indwelling Catheter Indwelling Catheter Indwelling Catheter - Labs CBC & Chem 7: 04/08/21 09:33 04/07/21 05:21 Labs: Abnormal Lab Results - Last 24 Hours (Table) 04/06/21 04/08/21 Range/Units 16:23 09:33 RBC 3.21 L (4.30-5.90) m/uL Hgb 10.7 L (13.0-17.5) gm/dL Hct 32.0 L (39.0-53.0) % Plt Count 135 L (150-450) k/uL Carcinoembryonic Ag 186.3 H (0.0-4.9) ng/mL Microbiology - Last 24 Hours (Table) 04/04/21 22:15 Blood Culture Gram Stain - Final Blood Blood Culture - Final Bacteroides thetaiotaomicron 04/04/21 22:00 Blood Culture Gram Stain - Final Blood Blood Culture - Final Bacteroides thetaiotaomicron Assessment and Plan (1) Perforation of sigmoid colon Current Visit: Yes Status: Acute Code(s): K63.1 - PERFORATION OF INTESTINE (NONTRAUMATIC) SNOMED Code(s): 193931372
[2021-04-08] MEDS: PANTOPRAZOLE 40 MG/10 ML VIAL IVP SCH (17:59)
[2021-04-08 21:48] LABS: African American GFR (CKD) 107.1 (60.0-200.0); BUN/Creat Ratio 36.25 Ratio (12.00-20.00); Calcium 7.5 mg/dL (8.7-10.3); Non-African American GFR(CKD) 92.4 (60.0-200.0); Potassium 3.7 mmol/L (3.5-5.5)
[2021-04-09] MEDS: SODIUM CHLORIDE 0.9% 1,000 ML IV SCH ×4 (03:22→22:02)
[2021-04-09] MEDS: HYDROcodone/APAP 10-325MG 1 EACH TAB PO PRN ×2 (04:16→20:16)
[2021-04-09] MEDS: KETOROLAC 15 MG/ML 1 ML VIAL IVP SCH ×3 (05:27→17:29)
[2021-04-09 06:14] LABS: HCT 29.2 % (39.0-53.0); HGB 10.1 gm/dL (13.0-17.5); MCHC 34.6 g/dL (31.0-37.0); MCV 98.3 fL (80.0-100.0); Macrocytosis Slight; Mean Platelet Volume 7.3; Platelet Count 155 k/uL (150-450); Poikilocytosis Slight; RBC 2.97 m/uL (4.30-5.90); WBC 2.5 k/uL (3.8-10.6)
[2021-04-09 06:21] LABS: Band Neutrophils % 2 %; Lymphocytes # (M) 0.45 k/uL (1.0-4.8); Monocytes # (M) 0.15 k/uL (0-1.0); Neutrophils % (M) 74 %; Nucleated Red Blood Cells 0 /100 WBC (0-0); Total Cells Counted 100
[2021-04-09] MEDS: METOCLOPRAMIDE 5 MG/ML 2 ML VIAL IVP PRN (08:02)
[2021-04-09] MEDS: PANTOPRAZOLE 40 MG/10 ML VIAL IVP SCH (08:02)
[2021-04-09] MEDS: ASPIRIN 81 MG PO SCH (08:02)
[2021-04-09] MEDS: predniSONE 20 MG TAB PO SCH (08:03)
[2021-04-09] MEDS: ENOXAPARIN 30 MG/0.3 ML SYRINGE SQ SCH (08:03)
[2021-04-09] MEDS: metroNIDAZOLE-NS PMX 500 MG in SALINE 1 100ML.BAG IVPB SCH ×2 (08:04→17:30)
--- NOTE | 2021-04-09 08:07 | P.PN ---
Subjective Progress Note Date: 04/09/21 Principal diagnosis: Abdominal pain, secondary to colon cancer with severe inflammation and nonspecific colitis of the sigmoid colon Perforated sigmoid colon secondary to colon cancer, sigmoid colectomy, colostomy, and incidental appendectomy Colon cancer 65-year-old male was admitted to the hospital severe lower quadrant abdominal pain for a few weeks duration. Patient has significant medical history of colon cancer with ongoing neoadjuvant chemotherapy. Emergency department stay patient had a CT of the abdomen and pelvis revealing nonspecific colitis to the sigmoid colon, worsening colitis comparison from previous CAT scan. Gen. surgery was consulted and oncology. 04/09/2021 Patient seen and examined at bedside. Patient is postop day 3 from sigmoid colectomy, appendectomy, with subsequent colostomy for perforated sigmoid colon. Patient is able to tolerate ice chips. Physical therapy and occupational therapy evaluated patient for status of strength and conditioning. He denies fever, chills, shortness of breath, chest pain, or palpitations. Patient endors es abdominal pain at the incisional site, and generalized weakness. HELEN drain draining appropriately. Vital signs are stable patient remains on broad- spectrum IV antibiotics. Objective - Vital Signs Vital signs: Vital Signs Temp 97.5 F L 04/09/21 05:10 Pulse 72 04/09/21 05:10 Resp 18 04/09/21 05:10 BP 149/82 04/09/21 05:10 Pulse Ox 96 04/09/21 05:10 Intake & Output 04/08/21 04/09/21 04/09/21 18:59 06:59 18:59 Output Total 460 300 Balance -460 -300 Weight 58.06 kg Output: Drainage 60 Right 60 Urine 400 300 Other: Voiding Method Indwelling Catheter Toilet Urinal # Bowel Movements 0 - Constitutional General appearance: Present: thin - EENT Eyes: Present: EOMI, PERRLA ENT: Present: normal oropharynx Ears: bilateral: normal - Neck Neck: Present: normal ROM Carotids: bilateral: upstroke normal Thyroid: bilateral: normal size - Respiratory Respiratory: bilateral: diminished (Anterior and posterior lung koch) - Cardiovascular Heart rate: 84 Rhythm: regular Heart sounds: normal: S1, S2 - Peripheral pulses radial pulse Peripheral Pulses: bilateral: Normal dorsalis pedis Peripheral Pulses: bilateral: Normal - Gastrointestinal Gastrointestinal Comment(s): Surgical incision well approximated Ostomy with colostomy present HELEN drain draining serosanguineous General gastrointestinal: Present: normal bowel sounds, soft, tenderness (S urgical incision site) - Integumentary Integumentary: Present: decreased turgor - Neurologic Neurologic: Present: CNII-XII intact - Musculoskeletal Musculoskeletal: Present: generalized weakness - Psychiatric Psychiatric: Present: A&O x's 3 - Allied health notes Allied health notes reviewed: nursing - Labs CBC & Chem 7: 04/09/21 05:44 04/08/21 09:33 Labs: Abnormal Lab Results - Last 24 Hours (Table) 04/08/21 04/08/21 04/09/21 Range/Units 09:33 09:33 05:44 WBC 2.5 L (3.8-10.6) k/uL RBC 3.21 L 2.97 L (4.30-5.90) m/uL Hgb 10.7 L 10.1 L (13.0-17.5) gm/dL Hct 32.0 L 29.2 L (39.0-53.0) % RDW 16.0 H (11.5-15.5) % Plt Count 135 L (150-450) k/uL Lymphocytes # (Manual) 0.45 L (1.0-4.8) k/uL Carbon Dioxide 19.0 L (21.6-31.8) mmol/L BUN 29.0 H (9.0-27.0) mg/dL BUN/Creatinine Ratio 36.25 H (12.00-20.00) Ratio Calcium 7.5 L (8.7-10.3) mg/dL Microbiology - Last 24 Hours (Table) 04/04/21 22:15 Blood Culture Gram Stain - Final Blood Blood Culture - Final Bacteroides thetaiotaomicron 04/04/21 22:00 Blood Culture Gram Stain - Final Blood Blood Culture - Final Bacteroides thetaiotaomicron Assessment and Plan Assessment: Severe abdominal pain secondary to colon cancer with severe inflammation and nonspecific colitis of the sigmoid colon; patient placed on IV antibiotics Perforated sigmoid colon secondary to colon cancer, postop day 3 of sigmoid colectomy, colostomy, incidental appendectomy Colon cancer COPD without exacerbation Hypertension Hyponatremia Full code Plan: Severe abdominal pain secondary to colon cancer with severe inflammation nonspecific colitis to the sigmoid colon; continue IV Flagyl and Levaquin Perforated sigmoid colon secondary to colon cancer. Patient is postop day 3 from a sigmoid colectomy, colostomy, and incidental appendectomy; progress diet of ice chips and recommendation and treatment plan from general surgery Colon cancer, continue consultation with hematology for recommendations and lioneljason naylornt plan COPD without exacerbation, patient instructed to continue incentive spirometer postop day 3 and for ongoing COPD Continue analgesics as needed with fentanyl patch for maintenance of pain ma nagement Continue IV Flagyl and IV Levaquin for blood cultures positive of anaerobic gram-negative bacilli Continue medical management Further recommendations to come based on patient's clinical condition Time with Patient: Greater than 30
[2021-04-09] MEDS: IPRATROPIUM-ALBUTEROL 3 ML NEB INHALATION SCH ×4 (08:41→20:23)
[2021-04-09] MEDS: BUDESONIDE 0.5 MG/2 ML NEBU INHALATION SCH ×2 (08:41→20:23)
[2021-04-09 09:59] LABS: African American GFR (CKD) 113.2 (60.0-200.0); Albumin 2.3 g/dL (3.80-4.90); Albumin/Globulin Ratio 0.62 (1.60-3.17); Anion Gap 4.8 mmol/L (4.00-12.00); Calcium 7.1 mg/dL (8.7-10.3); Carbon Dioxide 23.2 mmol/L (21.6-31.8); Globulin 3.7 g/dL (1.6-3.3); Magnesium 1.8 mg/dL (1.5-2.4); Non-African American GFR(CKD) 97.7 (60.0-200.0); Potassium 3.4 mmol/L (3.5-5.5); Total Bilirubin 0.3 mg/dL (0.2-1.2)
[2021-04-09] MEDS ORDERED: POTASSIUM CHLORIDE 20 MEQ in WATER FOR INJECTION 1 100ML.BAG IVPB STA (11:33)
--- NOTE | 2021-04-09 11:34 | P.PN ---
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 Patient's NG tube fell out yesterday. He does have abdominal pain. He reports is controlled with pain medication. He reports that his pain is less than yesterday. Denies any nausea or vomiting. He is currently nothing by mouth except for ice chips. Patient has positive blood cultures and infectious disease consult was placed. Afebrile. WBC 2.5 hemoglobin 10.1 potassium 3.4 magnesium 1.8 HELEN drain with 160 mL sanguinous output. Patient has been ambulating in hallway. PHYSICAL EXAM: VITAL SIGNS: Reviewed. GENERAL: Well-developed in no acute distress. HEENT: No sclera icterus. Extraocular movements grossly intact. Moist buccal mucosa. Head is atraumatic, normocephalic. ABDOMEN: Soft. Nondistended dressing with minimal blood-tinged saturation n oted. Ostomy stoma pink without any activity NEUROLOGIC: Alert and oriented. Cranial nerves II through XII grossly intact. ASSESSMENT: 1. 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 Signing provider agrees with the documented findings, assessment, and plan of care. Objective - Vital Signs Vital signs: Vital Signs Temp 97.5 F L 04/09/21 05:10 Pulse 72 04/09/21 05:10 Resp 18 04/09/21 05:10 BP 149/82 04/09/21 05:10 Pulse Ox 96 04/09/21 05:10 Intake & Output 04/08/21 04/09/21 04/09/21 18:59 06:59 18:59 Output Total 460 300 Balance -460 -300 Weight 58.06 kg Output: Drainage 60 Right 60 Urine 400 300 Other: Voiding Method Indwelling Catheter Toilet Toilet Urinal Urinal # Bowel Movements 0 - Labs CBC & Chem 7: 04/09/21 05:44 04/09/21 05:44 Labs: Abnormal Lab Results - Last 24 Hours (Table) 04/08/21 04/09/21 04/09/21 Range/Units 09:33 05:44 05:44 WBC 2.5 L (3.8-10.6) k/uL RBC 2.97 L (4.30-5.90) m/uL Hgb 10.1 L (13.0-17.5) gm/dL Hct 29.2 L (39.0-53.0) % RDW 16.0 H (11.5-15.5) % Lymphocytes # (Manual) 0.45 L (1.0-4.8) k/uL Potassium 3.4 L (3.5-5.5) mmol/L Carbon Dioxide 19.0 L (21.6-31.8) mmol/L BUN 29.0 H 28.0 H (9.0-27.0) mg/dL BUN/Creatinine Ratio 36.25 H 40.00 H (12.00-20.00) Ratio Calcium 7.5 L 7.1 L (8.7-10.3) mg/dL Total Protein 6.0 L (6.2-8.2) g/dL Albumin 2.30 L (3.80-4.90) g/dL Globulin 3.7 H (1.6-3.3) g/dL Albumin/Globulin Ratio 0.62 L (1.60-3.17) g/dL Microbiology - Last 24 Hours (Table) 04/04/21 22:15 Blood Culture Gram Stain - Final Blood Blood Culture - Final Bacteroides thetaiotaomicron 04/04/21 22:00 Blood Culture Gram Stain - Final Blood Blood Culture - Final Bacteroides thetaiotaomicron <Isidro Woodward - Last Filed: 04/09/21 16:16> Subjective As above. Patient doing better today. States this is a best he has felt in the last week or more. He is ambulating. Small amount of flatus. May have popsicles today. Anticipate starting liquid diet with ensure tomorrow. Would like to avoid TPN through Port-A-Cath because of the risk of bacteremia and port infection. Patient is agreeable. Objective - Vital Signs Vital signs: Vital Signs Temp 98.7 F 04/09/21 11:48 Pulse 74 08/12/21 11:48 Resp 18 04/09/21 11:48 BP 148/83 04/09/21 11:48 Pulse Ox 98 04/09/21 11:48 Intake & Output 04/08/21 04/09/21 04/09/21 18:59 06:59 18:59 Output Total 460 300 Balance -460 -300 Weight 58.06 kg Output: Drainage 60 Right 60 Urine 400 300 Other: Voiding Method Indwelling Catheter Toilet Toilet Urinal Urinal # Bowel Movements 0 - Labs CBC & Chem 7: 04/09/21 05:44 04/09/21 05:44 Labs: Abnormal Lab Results - Last 24 Hours (Table) 04/08/21 04/09/21 04/09/21 Range/Units 09:33 05:44 05:44 WBC 2.5 L (3.8-10.6) k/uL RBC 2.97 L (4.30-5.90) m/uL Hgb 10.1 L (13.0-17.5) gm/dL Hct 29.2 L (39.0-53.0) % RDW 16.0 H (11.5-15.5) % Lymphocytes # (Manual) 0.45 L (1.0-4.8) k/uL Potassium 3.4 L (3.5-5.5) mmol/L Carbon Dioxide 19.0 L (21.6-31.8) mmol/L BUN 29.0 H 28.0 H (9.0-27.0) mg/dL BUN/Creatinine Ratio 36.25 H 40.00 H (12.00-20.00) Ratio Calcium 7.5 L 7.1 L (8.7-10.3) mg/dL Total Protein 6.0 L (6.2-8.2) g/dL Albumin 2.30 L (3.80-4.90) g/dL Globulin 3.7 H (1.6-3.3) g/dL Albumin/Globulin Ratio 0.62 L (1.60-3.17) g/dL Microbiology - Last 24 Hours (Table) 04/04/21 22:15 Blood Culture Gram Stain - Final Blood Blood Culture - Final Bacteroides thetaiotaomicron 04/04/21 22:00 Blood Culture Gram Stain - Final Blood Blood Culture - Final Bacteroides thetaiotaomicron Assessment and Plan (1) Perforation of sigmoid colon Current Visit: Yes Status: Acute Code(s): K63.1 - PERFORATION OF INTESTINE (NONTRAUMATIC) SNOMED Code(s): 174758502
[2021-04-09] MEDS: MORPHINE SULFATE 4 MG/ML SYRINGE IVP PRN (12:56)
--- NOTE | 2021-04-09 16:03 | P.PN ---
Subjective Progress Note Date: 04/09/21 Principal diagnosis: Tumor necrosis and perforation Appears to be improving everyday. HELEN draining, He is tolerating icechips Objective - Vital Signs Vital signs: Vital Signs Temp 98.7 F 04/09/21 11:48 Pulse 74 04/09/21 11:48 Resp 18 04/09/21 11:48 BP 148/83 04/09/21 11:48 Pulse Ox 98 04/09/21 11:48 Intake & Output 04/08/21 04/09/21 04/09/21 18:59 06:59 18:59 Output Total 460 300 Balance -460 -300 Weight 58.06 kg Output: Drainage 60 Right 60 Urine 400 300 Other: Voiding Method Indwelling Catheter Toilet Toilet Urinal Urinal # Bowel Movements 0 - Exam - Constitutional General appearance: cooperative, mild distress, thin - EENT Eyes: EOMI ENT: hard of hearing, NA/AT NG tube with dark Bile - Neck Neck: normal ROM - Respiratory Respiratory: bilateral: diminished (Increased effort due to pain) - Cardiovascular Rhythm: regularly irregular - Gastrointestinal General gastrointestinal: tenderness, pain, ostomy, evidence recent surgical intervention - Integumentary Integumentary: pale - Neurologic Neurologic: CNII-XII intact - Musculoskeletal Musculoskeletal: generalized weakness - Psychiatric Psychiatric: A&O x's 3 - Labs CBC & Chem 7: 04/09/21 05:44 04/09/21 05:44 Labs: Abnormal Lab Results - Last 24 Hours (Table) 04/08/21 04/09/21 04/09/21 Range/Units 09:33 05:44 05:44 WBC 2.5 L (3.8-10.6) k/uL RBC 2.97 L (4.30-5.90) m/uL Hgb 10.1 L (13.0-17.5) gm/dL Hct 29.2 L (39.0-53.0) % RDW 16.0 H (11.5-15.5) % Lymphocytes # (Manual) 0.45 L (1.0-4.8) k/uL Potassium 3.4 L (3.5-5.5) mmol/L Carbon Dioxide 19.0 L (21.6-31.8) mmol/L BUN 29.0 H 28.0 H (9.0-27.0) mg/dL BUN/Creatinine Ratio 36.25 H 40.00 H (12.00-20.00) Ratio Calcium 7.5 L 7.1 L (8.7-10.3) mg/dL Total Protein 6.0 L (6.2-8.2) g/dL Albumin 2.30 L (3.80-4.90) g/dL Globulin 3.7 H (1.6-3.3) g/dL Albumin/Globulin Ratio 0.62 L (1.60-3.17) g/dL Microbiology - Last 24 Hours (Table) 04/04/21 22:15 Blood Culture Gram Stain - Final Blood Blood Culture - Final Bacteroides thetaiotaomicron 04/04/21 22:00 Blood Culture Gram Stain - Final Blood Blood Culture - Final Bacteroides thetaiotaomicron Assessment and Plan (1) Abdominal pain Current Visit: Yes Status: Acute Code(s): R10.9 - UNSPECIFIED ABDOMINAL PAIN SNOMED Code(s): 24371876 (2) Liver metastases Current Visit: Yes Status: Acute Code(s): C78.7 - SECONDARY MALIG NEOPLASM OF LIVER AND INTRAHEPATIC BILE DUCT SNOMED Code(s): 85321960 (3) 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 Colon cancer mets to liver - Chemo on hold Status post exploratory lap, Sigmoid colectomy with end colostomy, incidental appendectomy, due to necrotic tumor perforation with Dr. Faith. Fentanyl patch COntinued Ice Chips Tolerated Overall improving
--- NOTE | 2021-04-09 22:32 | P.CONS ---
History of Present Illness - Reason for Consult Consult date: 04/09/21 Bacteremia Requesting physician: Charly Seo - Chief Complaint Abdominal pain x few days - History of Present Illness Patient is a 65-year male presenting to the ER at [facility] about 5 days ago for evaluation of abdominal pain patient symptom has been going on for few days before presentation to the hospital patient did have a CT abdominal pelvis with evidence of free air adjacent to the abdominal mid sigmoid colonic thickening with concern for perforated bowel patient was taken to the OR on the and this patient who did have sigmoid colectomy with end colostomy and incidental appendectomy no or cultures were done patient did have blood cultures drawn which came back positive for Bacteroides species that has prompted this infectious disease consultation patient did have a fever of 101 F on the but no fever since then did have a normal white count but more of a leukopenia today patient denies having any headache or URI symptoms denies having any chest pain or shortness of breath or cough patient abdominal pain has decreased intensity since being admitted to the hospital more of a dull aching pain 3-4 out of 10 no radiation but denies any nausea no vomiting and did not have any output in the colostomy bag Review of Systems Positive point has been mentioned in the HPI rest of the systems are negative Past Medical History Past Medical History: Cancer Additional Past Medical History / Comment(s): Aneurysm History of Any Multi-Drug Resistant Organisms: None Reported Past Surgical History: Tonsillectomy Additional Past Surgical History / Comment(s): aortic aneurysm, colonoscopy, Past Anesthesia/Blood Transfusion Reactions: No Reported Reaction Past Psychological History: No Psychological Hx Reported Smoking Status: Current every day smoker Past Alcohol Use History: None Reported Past Drug Use History: None Reported Medications and Allergies Home Medications Medication Instructions Recorded Confirmed Type HYDROcodone/APAP 10-325MG [[place] 1 tab PO TID PRN 04/04/21 04/05/21 History 10-325] fentaNYL [Duragesic 37.5 MCG/HR] 1 patch TRANSDERM Q72H 04/04/21 04/05/21 History Aspirin EC [Ecotrin Low Dose] 81 mg PO DAILY 04/05/21 04/05/21 History Clotrimazole 10 mg MUCOUS MEM 5XD 04/05/21 04/05/21 History Gabapentin [Neurontin] 300 mg PO HS 04/05/21 04/05/21 History Metoprolol Tartrate [Lopressor] 25 mg PO BID 04/05/21 04/05/21 History NIFEdipine [NIFEdipine ER] 30 mg PO DAILY 04/05/21 04/05/21 History Ondansetron Odt [Zofran Odt] 8 mg PO Q8H PRN 04/05/21 04/05/21 History Prochlorperazine [Compazine] 10 mg PO Q8H PRN 04/05/21 04/05/21 History Sennosides/Docusate Sodium [Senna 1 tab PO HS PRN 04/05/21 04/05/21 History Plus 8.6-50 mg Tablet] Tadalafil [Cialis] 5 mg PO DAILY PRN 04/05/21 04/05/21 History traZODone HCL 50 mg PO HS 04/05/21 04/05/21 History Allergies Allergy/AdvReac Type Severity Reaction Status Date / Time Penicillins Allergy Unknown Verified 04/06/21 17:33 Physical Exam Vitals: Vital Signs Temp Pulse Pulse Resp BP Pulse Ox 04/09/21 05:10 97.5 F L 72 18 149/82 96 04/08/21 20:00 65 75 18 04/08/21 19:50 97.5 F L 75 18 149/81 98 04/08/21 12:22 97.5 F L 86 16 138/89 99 Intake and Output 04/08/21 04/09/21 04/09/21 22:59 06:59 14:59 Output Total 540 200 Balance -540 -200 Output: Drainage 40 Right 40 Urine 500 200 Other: Voiding Method Toilet Urinal # Bowel Movements 0 GENERAL DESCRIPTION: An elderly male lying in bed, no distress. No tachypnea or accessory muscle of respiration use. HEENT: Shows Pallor , no scleral icterus. Oral mucous membrane is dry. No pharyngeal erythema or thrush NECK: Trachea central, no thyromegaly. LUNGS: Unlabored breathing. Clear to auscultation anteriorly. No wheeze or crackle. HEART: S1, S2, regular rate and rhythm. No loud murmur ABDOMEN: Soft, no tenderness , abdominal incision is currently dressed no output in the colostomy bag EXTREMITIES: No edema of feet. SKIN: No rash, no masses palpable. NEUROLOGICAL: The patient is awake, alert, oriented x3, mood and affect normal. Results CBC & Chem 7: 04/09/21 05:44 04/09/21 05:44 Labs: Abnormal Lab Results - Last 24 Hours (Table) 04/08/21 04/08/21 04/09/21 Range/Units 09:33 09:33 05:44 WBC 2.5 L (3.8-10.6) k/uL RBC 3.21 L 2.97 L (4.30-5.90) m/uL Hgb 10.7 L 10.1 L (13.0-17.5) gm/dL Hct 32.0 L 29.2 L (39.0-53.0) % RDW 16.0 H (11.5-15.5) % Plt Count 135 L (150-450) k/uL Lymphocytes # (Manual) 0.45 L (1.0-4.8) k/uL Carbon Dioxide 19.0 L (21.6-31.8) mmol/L BUN 29.0 H (9.0-27.0) mg/dL BUN/Creatinine Ratio 36.25 H (12.00-20.00) Ratio Calcium 7.5 L (8.7-10.3) mg/dL Microbiology - Last 24 Hours (Table) 04/04/21 22:15 Blood Culture Gram Stain - Final Blood Blood Culture - Final Bacteroides thetaiotaomicron 04/04/21 22:00 Blood Culture Gram Stain - Final Blood Blood Culture - Final Bacteroides thetaiotaomicron Assessment and Plan Assessment: 1-patient with a Bacteroides bacteremia secondary to the abdominal source in this patient who did have perforated sigmoid colon possible diverticulitis status post laparotomy and diverting colostomy 2-patient with a penicillin allergy that would limit the number of antibiotics safe to use (1) Bacteremia Current Visit: Yes Status: Acute Code(s): R78.81 - BACTEREMIA SNOMED Code(s): 3568476 Plan: 1-blood cultures will be repeated to document clearance of bacteremia 2-Flagyl 500 mg every 8 hours to continue 3-switch Levaquin to Rocephin 2 g daily We will follow on clinical condition and cultures to further adjust medication if needed Thank you for this consultation we will follow the patient along with you Time with Patient: Greater than 30
[2021-04-10] MEDS: metroNIDAZOLE-NS PMX 500 MG in SALINE 1 100ML.BAG IVPB SCH ×3 (00:17→15:33)
[2021-04-10] MEDS: KETOROLAC 15 MG/ML 1 ML VIAL IVP SCH ×3 (00:18→11:16)
[2021-04-10] MEDS: SODIUM CHLORIDE 0.9% 1,000 ML IV SCH ×3 (00:20→22:29)
[2021-04-10 06:50] LABS: HCT 32.6 % (39.0-53.0); HGB 10.8 gm/dL (13.0-17.5); MCH 32.7 pg (25.0-35.0); MCHC 33.1 g/dL (31.0-37.0); MCV 98.8 fL (80.0-100.0); Macrocytosis Slight; Platelet Count 152 k/uL (150-450); Poikilocytosis Slight; RDW 15.6 % (11.5-15.5); WBC 2.2 k/uL (3.8-10.6)
[2021-04-10 06:52] LABS: ALT 14 U/L (4-49); AST 44 U/L (17-59); African American GFR (CKD) >90 (>60 ml/min/1.73 sqM); Albumin 2.1 g/dL (3.5-5.0); Albumin/Globulin Ratio 0.6; Alkaline Phosphatase 80 U/L (38-126); Anion Gap 4 mmol/L; Blood Urea Nitrogen 23 mg/dL (9-20); Calcium 7.7 mg/dL (8.4-10.2); Carbon Dioxide 20 mmol/L (22-30); Chloride 112 mmol/L (98-107); Globulin 3.8 g/dL; Glucose 80 mg/dL (74-99); Non-African American GFR(CKD) >90 (>60 ml/min/1.73 sqM); Potassium 3.5 mmol/L (3.5-5.1); Sodium 136 mmol/L (137-145); Total Bilirubin 0.2 mg/dL (0.2-1.3); Total Protein 5.9 g/dL (6.3-8.2)
[2021-04-10 06:59] LABS: Lymphocytes # (M) 0.62 k/uL (1.0-4.8); Metamyelocytes # (M) 0.02 k/uL (0); Metamyelocytes % 1 %; Monocytes # (M) 0.33 k/uL (0-1.0); Neutrophils # (M) 1.23 k/uL (1.3-7.7); Neutrophils % (M) 56 %; Nucleated Red Blood Cells 0 /100 WBC (0-0); Total Cells Counted 100
--- NOTE | 2021-04-10 07:26 | P.PN ---
Subjective Progress Note Date: 04/10/21 Principal diagnosis: Abdominal pain, secondary to colon cancer with severe inflammation and nonspecific colitis of the sigmoid colon Perforated sigmoid colon secondary to colon cancer, sigmoid colectomy, colostomy, and incidental appendectomy Colon cancer 65-year-old male was admitted to the hospital severe lower quadrant abdominal pain for a few weeks duration. Patient has significant medical history of colon cancer with ongoing neoadjuvant chemotherapy. Emergency department stay patient had a CT of the abdomen and pelvis revealing nonspecific colitis to the sigmoid colon, worsening colitis comparison from previous CAT scan. Gen. surgery was consulted and oncology. 04/09/2021 Patient seen and examined at bedside. Patient is postop day 3 from sigmoid colectomy, appendectomy, with subsequent colostomy for perforated sigmoid colon. Patient is able to tolerate ice chips. Physical therapy and occupational therapy evaluated patient for status of strength and conditioning. He denies fever, chills, shortness of breath, chest pain, or palpitations. Patient endors es abdominal pain at the incisional site, and generalized weakness. HELEN drain draining appropriately. Vital signs are stable patient remains on broad- spectrum IV antibiotics. 04/10/2021 Patient seen and examined at bedside. Patient is postop day 4 from sigmoid colectomy, appendectomy, with subsequent colostomy for perforated sigmoid colon. Patient is tolerating ice chips, diet is expected to advanced to clear liquids today. He denies fever, chills, shortness of breath, chest pain or palpit ations. Patient endorses abdominal pain at this incisional site and generalized weakness. HELEN drain draining appropriately. Patient passing flatulence through colostomy. Vital signs and diagnostic testing reviewed. Continue IV antibiotics per infectious disease. Patient updated on status of treatment plan. Objective - Vital Signs Vital signs: Vital Signs Temp 97.8 F 04/10/21 04:52 Pulse 64 04/10/21 04:52 Resp 16 04/10/21 04:52 BP 155/86 04/10/21 04:52 Pulse Ox 97 04/10/21 04:52 Intake & Output 04/09/21 04/10/21 04/10/21 18:59 06:59 18:59 Intake Total 1300 Output Total 100 Balance 1200 Intake: Intake, IV Titration 1300 Amount Sodium Chloride 0.9% 1, 1200 000 ml @ 100 mls/hr IV . Q10H [facility] Rx#:[id number] metroNIDAZOLE-NS PMX 500 100 mg In Saline 1 100ml.bag @ 100 mls/hr IVPB Q8HR [facility] Rx#:[id number] Output: Drainage 100 Right 100 Other: Voiding Method Toilet Toilet Urinal Urinal - Constitutional General appearance: Present: cooperative, thin - EENT Eyes: Present: EOMI, PERRLA ENT: Present: normal oropharynx Ears: bilateral: normal - Neck Neck: Present: normal ROM Carotids: bilateral: upstroke normal Thyroid: bilateral: normal size - Respiratory Respiratory: bilateral: diminished (Anterior and posterior lung koch) - Cardiovascular Heart rate: 74 Rhythm: regular Heart sounds: normal: S1, S2 - Peripheral pulses radial pulse Peripheral Pulses: bilateral: Normal dorsalis pedis Peripheral Pulses: bilateral: Normal - Gastrointestinal Gastrointestinal Comment(s): Surgical incisional site well approximated Ostomy site within acceptable limits General gastrointestinal: Present: normal bowel sounds, soft - Integumentary Integumentary: Present: decreased turgor, pale - Neurologic Neurologic: Present: CNII-XII intact - Musculoskeletal Musculoskeletal: Present: generalized weakness - Psychiatric Psychiatric: Present: A&O x's 3, appropriate affect, intact judgment & insight - Allied health notes Allied health notes reviewed: nursing - Labs CBC & Chem 7: 04/10/21 06:12 04/10/21 06:12 Labs: Abnormal Lab Results - Last 24 Hours (Table) 04/09/21 04/10/21 04/10/21 Range/Units 05:44 06:12 06:12 WBC 2.2 L (3.8-10.6) k/uL RBC 3.30 L (4.30-5.90) m/uL Hgb 10.8 L (13.0-17.5) gm/dL Hct 32.6 L (39.0-53.0) % RDW 15.6 H (11.5-15.5) % Neutrophils # (Manual) 1.23 L (1.3-7.7) k/uL Lymphocytes # (Manual) 0.62 L (1.0-4.8) k/uL Metamyelocytes # (Man) 0.02 H (0) k/uL Sodium 136 L (137-145) mmol/L Potassium 3.4 L (3.5-5.5) mmol/L Chloride 112 H (98-107) mmol/L Carbon Dioxide 20 L (22-30) mmol/L BUN 28.0 H 23 H (9.0-27.0) mg/dL BUN/Creatinine Ratio 40.00 H (12.00-20.00) Ratio Calcium 7.1 L 7.7 L (8.7-10.3) mg/dL Total Protein 6.0 L 5.9 L (6.2-8.2) g/dL Albumin 2.30 L 2.1 L (3.80-4.90) g/dL Globulin 3.7 H (1.6-3.3) g/dL Albumin/Globulin Ratio 0.62 L (1.60-3.17) g/dL Assessment and Plan Assessment: Severe abdominal pain secondary to colon cancer with severe inflammation and nonspecific colitis of the sigmoid colon; patient placed on IV antibiotics Perforated sigmoid colon secondary to colon cancer, postop day 3 of sigmoid colectomy, colostomy, incidental appendectomy Colon cancer COPD without exacerbation Hypertension Hyponatremia Full code Plan: Severe abdominal pain secondary to colon cancer with severe inflammation nonspecific colitis to the sigmoid colon; continue Rocephin 2 g IV Perforated sigmoid colon secondary to colon cancer. Patient is postop day 4 from a sigmoid colectomy, colostomy, and incidental appendectomy; progress diet to clear liquid and recommendation and treatment plan from general surgery Colon cancer, continue consultation with hematology for recommendations and treatment plan COPD without exacerbation, patient instructed to continue incentive spirometer postop day 4 and for ongoing COPD Continue analgesics as needed with fentanyl patch for maintenance of pain management Continue Rocephin 2 g IV for blood cultures positive of anaerobic gram-negative bacilli Initiating antihypertensives for history of hypertension Continue medical management Further recommendations to come based on patient's clinical condition Time with Patient: Greater than 30
[2021-04-10] MEDS ORDERED: hydrALAZINE HCL 20 MG/ML 1 ML VIAL IVP PRN (07:27)
[2021-04-10] MEDS: IPRATROPIUM-ALBUTEROL 3 ML NEB INHALATION SCH ×4 (08:25→17:49)
[2021-04-10] MEDS: BUDESONIDE 0.5 MG/2 ML NEBU INHALATION SCH ×2 (08:25→17:48)
[2021-04-10] MEDS: ENOXAPARIN 30 MG/0.3 ML SYRINGE SQ SCH (08:39)
[2021-04-10] MEDS: predniSONE 20 MG TAB PO SCH (08:40)
[2021-04-10] MEDS: PANTOPRAZOLE 40 MG/10 ML VIAL IVP SCH (08:40)
[2021-04-10] MEDS: ASPIRIN 81 MG PO SCH (08:40)
[2021-04-10] MEDS: HYDROcodone/APAP 10-325MG 1 EACH TAB PO PRN ×2 (08:56→20:55)
--- NOTE | 2021-04-10 12:14 | P.PN ---
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 Patient is sitting up in bedside chair. He reports that his pain is controlled. He reports having air in colostomy bag. He denies any nausea or vomiting. He has been up and ambulating in the hallway. HELEN drain with sanguinous output of 100 amount through the night. Afebrile. WBC 2.2 hemoglobin 10.8 sodium 136 potassium 3.5 PHYSICAL EXAM: VITAL SIGNS: Reviewed. GENERAL: Well-developed in no acute distress. HEENT: No sclera icterus. Extraocular movements grossly intact. Moist buccal mucosa. Head is atraumatic, normocephalic. ABDOMEN: Soft. Distended. dressing with minimal blood-tinged saturation noted. Ostomy stoma pink NEUROLOGIC: Alert and oriented. Cranial nerves II through XII grossly intact. ASSESSMENT: 1. 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 Signing provider agrees with the documented findings, assessment, and plan of care. Objective - Vital Signs Vital signs: Vital Signs Temp 97.8 F 04/10/21 04:52 Pulse 64 04/10/21 04:52 Resp 16 04/10/21 04:52 BP 155/86 04/10/21 04:52 Pulse Ox 97 04/10/21 08:23 Intake & Output 04/09/21 04/10/21 04/10/21 18:59 06:59 18:59 Intake Total 1300 Output Total 100 Balance 1200 Intake: Intake, IV Titration 1300 Amount Sodium Chloride 0.9% 1, 1200 000 ml @ 100 mls/hr IV . Q10H [facility] Rx#:[id number] metroNIDAZOLE-NS PMX 500 100 mg In Saline 1 100ml.bag @ 100 mls/hr IVPB Q8HR [facility] Rx#:[id number] Output: Drainage 100 Right 100 Other: Voiding Method Toilet Toilet Toilet Urinal Urinal Urinal - Labs CBC & Chem 7: 04/10/21 06:12 04/10/21 06:12 Labs: Abnormal Lab Results - Last 24 Hours (Table) 04/10/21 04/10/21 Range/Units 06:12 06:12 WBC 2.2 L (3.8-10.6) k/uL RBC 3.30 L (4.30-5.90) m/uL Hgb 10.8 L (13.0-17.5) gm/dL Hct 32.6 L (39.0-53.0) % RDW 15.6 H (11.5-15.5) % Neutrophils # (Manual) 1.23 L (1.3-7.7) k/uL Lymphocytes # (Manual) 0.62 L (1.0-4.8) k/uL Metamyelocytes # (Man) 0.02 H (0) k/uL Sodium 136 L (137-145) mmol/L Chloride 112 H (98-107) mmol/L Carbon Dioxide 20 L (22-30) mmol/L BUN 23 H (9-20) mg/dL Calcium 7.7 L (8.4-10.2) mg/dL Total Protein 5.9 L (6.3-8.2) g/dL Albumin 2.1 L (3.5-5.0) g/dL <Isidro Woodward - Last Filed: 04/10/21 13:23> Subjective As above. Patient doing better. Pain is improving. He is out of bed. No nausea or vomiting. No more ostomy function. Begin clear liquids. Ambulate. Continue antibiotics. Objective - Vital Signs Vital signs: Vital Signs Temp 97.6 F 04/10/21 13:00 Pulse 57 L 04/10/21 13:00 Resp 17 04/10/21 13:00 BP 147/87 04/10/21 13:00 Pulse Ox 97 04/10/21 13:00 Intake & Output 04/09/21 04/10/21 04/10/21 18:59 06:59 18:59 Intake Total 1300 Output Total 100 Balance 1200 Intake: Intake, IV Titration 1300 Amount Sodium Chloride 0.9% 1, 1200 000 ml @ 100 mls/hr IV . Q10H [facility] Rx#:[id number] metroNIDAZOLE-NS PMX 500 100 mg In Saline 1 100ml.bag @ 100 mls/hr IVPB Q8HR [facility] Rx#:[id number] Output: Drainage 100 Right 100 Other: Voiding Method Toilet Toilet Toilet Urinal Urinal Urinal - Labs CBC & Chem 7: 04/10/21 06:12 04/10/21 06:12 Labs: Abnormal Lab Results - Last 24 Hours (Table) 04/10/21 04/10/21 Range/Units 06:12 06:12 WBC 2.2 L (3.8-10.6) k/uL RBC 3.30 L (4.30-5.90) m/uL Hgb 10.8 L (13.0-17.5) gm/dL Hct 32.6 L (39.0-53.0) % RDW 15.6 H (11.5-15.5) % Neutrophils # (Manual) 1.23 L (1.3-7.7) k/uL Lymphocytes # (Manual) 0.62 L (1.0-4.8) k/uL Metamyelocytes # (Man) 0.02 H (0) k/uL Sodium 136 L (137-145) mmol/L Chloride 112 H (98-107) mmol/L Carbon Dioxide 20 L (22-30) mmol/L BUN 23 H (9-20) mg/dL Calcium 7.7 L (8.4-10.2) mg/dL Total Protein 5.9 L (6.3-8.2) g/dL Albumin 2.1 L (3.5-5.0) g/dL Assessment and Plan (1) Perforation of sigmoid colon Current Visit: Yes Status: Acute Code(s): K63.1 - PERFORATION OF INTESTINE (NONTRAUMATIC) SNOMED Code(s): 529215425
[2021-04-10] MEDS: POTASSIUM CHLORIDE 10 MEQ in WATER FOR INJECTION 1 100ML.BAG IVPB SCH ×2 (12:45→13:54)
--- NOTE | 2021-04-10 18:32 | PN ---
PROGRESS NOTE DATE OF SERVICE: 04/10/2021 REASON FOR FOLLOWUP: Perforated diverticulitis and bacteroides bacteremia. INTERVAL HISTORY: The patient is afebrile. The patient is breathing comfortably. Abdominal pain is currently controlled. No chest pain, shortness of breath or cough. No abdominal pain or diarrhea. PHYSICAL EXAMINATION: Blood pressure 147/87, pulse of 57, temperature 97.6. He is 97% on room air. GENERAL DESCRIPTION: General description is an elderly male up in the chair in no distress. RESPIRATORY SYSTEM: Unlabored breathing. Clear to auscultation anteriorly. HEART: S1, S2. Regular rate and rhythm. ABDOMEN: Soft. No tenderness. LABS: Hemoglobin is 10.3, white count 2.2, BUN of 23, creatinine 0.66. Blood culture so far pending. DIAGNOSTIC IMPRESSION AND PLAN: Patient with bacteroides bacteremia. Source is abdominal, perforated, or possible diverticulitis, status post diverting colostomy. The patient is covered with Rocephin and Flagyl; to continue while monitoring his clinical course closely. Continue supportive care. MMODL / IJN: [id number] /
--- NOTE | 2021-04-10 19:39 | P.PN ---
Subjective Progress Note Date: 04/10/21 Principal diagnosis: Tumor necrosis and perforation Sitting up in chair and feeling better. Still with pain but much better than prior. Objective - Vital Signs Vital signs: Vital Signs Temp 97.8 F 04/10/21 04:52 Pulse 64 04/10/21 04:52 Resp 16 04/10/21 04:52 BP 155/86 04/10/21 04:52 Pulse Ox 97 04/10/21 08:23 Intake & Output 04/09/21 04/10/21 04/10/21 18:59 06:59 18:59 Intake Total 1300 Output Total 100 Balance 1200 Intake: Intake, IV Titration 1300 Amount Sodium Chloride 0.9% 1, 1200 000 ml @ 100 mls/hr IV . Q10H [facility] Rx#:[id number] metroNIDAZOLE-NS PMX 500 100 mg In Saline 1 100ml.bag @ 100 mls/hr IVPB Q8HR [facility] Rx#:[id number] Output: Drainage 100 Right 100 Other: Voiding Method Toilet Toilet Toilet Urinal Urinal Urinal - Exam - Constitutional General appearance: cooperative, mild distress, thin - EENT Eyes: EOMI ENT: hard of hearing, NA/AT - Neck Neck: normal ROM - Respiratory Respiratory: bilateral: diminished (Increased effort due to pain) - Cardiovascular Rhythm: regularly irregular - Gastrointestinal General gastrointestinal: tenderness, pain, ostomy, evidence recent surgical intervention - Integumentary Integumentary: pale - Neurologic Neurologic: CNII-XII intact - Musculoskeletal Musculoskeletal: generalized weakness - Psychiatric Psychiatric: A&O x's 3 - Labs CBC & Chem 7: 04/10/21 06:12 04/10/21 06:12 Labs: Abnormal Lab Results - Last 24 Hours (Table) 04/10/21 04/10/21 Range/Units 06:12 06:12 WBC 2.2 L (3.8-10.6) k/uL RBC 3.30 L (4.30-5.90) m/uL Hgb 10.8 L (13.0-17.5) gm/dL Hct 32.6 L (39.0-53.0) % RDW 15.6 H (11.5-15.5) % Neutrophils # (Manual) 1.23 L (1.3-7.7) k/uL Lymphocytes # (Manual) 0.62 L (1.0-4.8) k/uL Metamyelocytes # (Man) 0.02 H (0) k/uL Sodium 136 L (137-145) mmol/L Chloride 112 H (98-107) mmol/L Carbon Dioxide 20 L (22-30) mmol/L BUN 23 H (9-20) mg/dL Calcium 7.7 L (8.4-10.2) mg/dL Total Protein 5.9 L (6.3-8.2) g/dL Albumin 2.1 L (3.5-5.0) g/dL Assessment and Plan (1) Abdominal pain Current Visit: Yes Status: Acute Code(s): R10.9 - UNSPECIFIED ABDOMINAL PAIN SNOMED Code(s): 25633492 (2) Liver metastases Current Visit: Yes Status: Acute Code(s): C78.7 - SECONDARY MALIG NEOPLASM OF LIVER AND INTRAHEPATIC BILE DUCT SNOMED Code(s): 88678611 (3) 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 Colon cancer mets to liver - Chemo on hold Status post exploratory lap, Sigmoid colectomy with end colostomy, incidental appendectomy, due to necrotic tumor perforation with Dr. Faith. Fentanyl patch COntinued clear liquids today He has gas in ostomy, no fecal material yet Overall improving
[2021-04-11 06:42] LABS: HCT 32.5 % (39.0-53.0); HGB 10.8 gm/dL (13.0-17.5); MCH 32.9 pg (25.0-35.0); MCHC 33.2 g/dL (31.0-37.0); Macrocytosis Slight; Mean Platelet Volume 8.4; Platelet Count 195 k/uL (150-450); Poikilocytosis Slight; RBC 3.28 m/uL (4.30-5.90); RDW 15.6 % (11.5-15.5)
[2021-04-11 07:04] LABS: Eosinophils # (M) 0.03 k/uL (0-0.7); Lymphocytes # (M) 0.96 k/uL (1.0-4.8); Monocytes # (M) 0.51 k/uL (0-1.0); Neutrophils % (M) 50 %; Nucleated Red Blood Cells 0 /100 WBC (0-0); Total Cells Counted 100
[2021-04-11] MEDS: HYDROcodone/APAP 10-325MG 1 EACH TAB PO PRN ×2 (07:42→16:16)
[2021-04-11] MEDS: ENOXAPARIN 30 MG/0.3 ML SYRINGE SQ SCH (07:43)
[2021-04-11] MEDS: ASPIRIN 81 MG PO SCH (07:43)
[2021-04-11] MEDS: predniSONE 20 MG TAB PO SCH (07:43)
[2021-04-11] MEDS: PANTOPRAZOLE 40 MG/10 ML VIAL IVP SCH (07:43)
[2021-04-11] MEDS: SODIUM CHLORIDE 0.9% 1,000 ML IV SCH (07:48)
[2021-04-11] MEDS: BUDESONIDE 0.5 MG/2 ML NEBU INHALATION SCH ×2 (08:35→19:28)
[2021-04-11] MEDS: IPRATROPIUM-ALBUTEROL 3 ML NEB INHALATION SCH ×4 (08:35→19:28)
[2021-04-11 09:50] LABS: African American GFR (CKD) 113.2 (60.0-200.0); BUN/Creat Ratio 25.71 Ratio (12.00-20.00); Calcium 7.2 mg/dL (8.7-10.3); Non-African American GFR(CKD) 97.7 (60.0-200.0); Potassium 3.4 mmol/L (3.5-5.5)
[2021-04-11] MEDS ORDERED: POTASSIUM CHLORIDE ER 20 MEQ TAB.ER PO STA (10:13)
--- NOTE | 2021-04-11 13:14 | P.PN ---
Subjective Patient was a 65-year-old male came in with severe lower quadrant abdominal pain sharp in nature has been going on for a few weeks. Patient was diagnosed with colon cancer patient is presently receiving neoadjuvant chemotherapy patient is supposed to undergo colectomy at the end of this month. Because of uncontrolled severe pain patient came to the hospital patient as 1010 pain. Patient does smoke is significantly wheezing upon exam and patient the is saturating 91% on room air. Patient denied any fever chills. General surgery was consulted. Patient is really constipated received an enema yesterday had a bowel movement yesterday. Patient had a CT of the abdomen which showed some hospice for colitis which is worse compared to before in the sigmoid colon area. 04/06/2021 Patient is evaluated the bedside for having severe left lower quadrant abdominal pain, patient is guarding his abdomen at the time of my examination. Patient is requesting pain medication. This is a patient has been diagnosed with colon cancer with metastatic disease to the liver, and is scheduled for colectomy on April [address] Woodward. Patient is currently on a clear liquid diet. Patient was given an enema and was able to have a bowel movement. He was started on IV Flagyl, in relation to a suspected area of inflammation around the known maligna ncy, as well as a few small foci of pneumoperitoneum, in light of this, patient has been scheduled for an exploratory laparotomy. Surgical services anticipate the need for a bowel resection and ostomy. Patient denies any chest pain, cough, shortness of breath. Patient will continue on IV Dilaudid, IV morphine, [place] and Tylenol for pain management. Patient also has a fentanyl patch that was replaced yesterday. Patient is receiving IV Tylenol as well for pain management. Vital signs are stable today with a temp of 97.8, heart rate 72, blood pressure 131/84, 95% on 2 L of cannula. Patient had a temp yesterday evening with a T-max of 101. 04/07/2021 Patient is postop day #1 from a appendectomy, sigmoid colectomy, colostomy, for a perforated sigmoid colon performed by Dr. Woodward. Patient has a known history of colon cancer with metastases to the liver. Patient is maintained on chem oradiation. Patient was scheduled to have a colectomy in 1 month however he came into the ER with severe lower quadrant abdominal pain that was sharp in nature going on for a few weeks. Patient was found to have some inflammation and a pneumoperitoneum, and was taken for an exploratory laparotomy yesterday evening. Patient is sitting in the chair at the bedside table time of my examination, he is complaining of some adbominal discomfort. He states that it is different than the pain he was experiencing yesterday. Patient has an NG tube placed to suction. Patient is working with physical therapy. Patient's hemoglobin today is stable at 10.9. Patient's sodium level is 134. Patient's blood culture was finalized for anaerobic gram-negative bacilli. Patient is on IV Levaquin, IV Flagyl. Patient is receiving [place], fentanyl patch, IV Dilaudid for pain management. Continue to encourage ambulation, continue incentive spirometer. Patient has a HELEN drain is draining serosanguineous fluid, patient has indwelling catheter. Patient will continue on the NG tube, nothing by mouth this time. Vital signs are stable, afebrile 98.1, heart rate sinus rhythm 70, blood pressure 154/87, 95% on 2 L nasal cannula. 04/08/2021 Patient is postop day #2 from an appendectomy, sigmoid colectomy, colostomy for a perforated sigmoid colon. Patient continues on an nothing by mouth diet, NG tube to suction. Patient is not having any stool or flatus from his colostomy at the time of my examination. Patient denies any chest pain, cough, shortness of breath. Patient denies any nausea, vomiting. Patient states that he is having some abdominal pain due to the surgery. Patient states that he would like some morphine for this at this time. Patient was up with physical therapy in the chair yesterday, patient continues with an indwelling catheter. Patient is receiving pain management via surgical services. Patient remains on IV antibiotics. HELEN drain is draining serosanguineous fluid. Vital signs are stable today, temp 97.5, heart rate 86 sinus rhythm, blood pressure 138/89, 98% 3 L nasal cannula. Continue to encourage ambulation, continue incentive spirometer. 04/11/2021 Patient blood cultures were positive for Bacteroides and is on ceftriaxone for that.04/11/2021 Patient surgical pathology report is showing adenocarcinoma. Patient is still not passing gas but does have bowel sounds. Patient has a colostomy. Patient's potassium is low at 3.4 which will be replaced. ROS: Constitutional: Denied any fatigue denied any fever. Cardio vascular: denied any chest pain, palpitations Gastrointestinal denied any vomiting, nausea, reports moderate pain along the incision, denies gas Pulmonary: Denied any shortness of breath cough Neurologic denied any new focal deficits All inpatient medications were reviewed and appropriate changes in these medications as dictated in the interval history and assessment and plan. PHYSICAL EXAMINATION: GENERAL: The patient is alert and oriented x3, not in any acute distress. Well developed, well nourished. HEENT: Pupils are round and equally reacting to light. EOMI. No scleral icterus. No conjunctival pallor. Normocephalic, atraumatic. No pharyngeal erythema. No thyromegaly. CARDIOVASCULAR: S1 and S2 present. No murmurs, rubs, or gallops. PULMONARY: Chest is clear to auscultation, no wheezing or crackles. ABDOMEN: Soft,tender, gaurding, normoactive bowel sounds, surgical incision present, HELEN drain. MUSCULOSKELETAL: No joint swelling or deformity. EXTREMITIES: No cyanosis, clubbing, or pedal edema. NEUROLOGICAL: Gross neurological examination did not reveal any focal deficits. SKIN: No rashes. Assessment and plan -severe abdominal pain secondary to: Cancer and severe inflammation and nonspecific colitis of the sigmoid colon. Patient was placed on IV ceftriaxone. Patient has positive blood cultures with the Bacteroides fragilis. Repeat blood cultures are being obtained. -Bacteremia with the above-mentioned activity Perforated sigmoid colon secondary to colon cancer. Patient is status post sigmoid colectomy, colostomy, incidental appendectomy. -Colon cancer for which patient is a neoadjuvant chemotherapy which is being held for colectomy. -Continued nicotine use: Counseling was provided if needed patient will be started on nicotine patch -COPD with acute exacerbation patient was started on inhalational treatments inhalational steroids and the 20 mg of oral steroids with GI prophylaxis -Hypertension: Holding off on antihypertensive medications postoperatively blood pressure monitored -Hyponatremia, continue with IV fluids, continue to monitor. Electrolyte panel pending from today. DVT prophylaxis: Lovenox -GI prophylaxis Pepcid Objective - Vital Signs Vital signs: Vital Signs Temp 97.4 F L 04/11/21 05:00 Pulse 61 04/11/21 08:00 Resp 16 04/11/21 08:00 BP 161/90 04/11/21 05:00 Pulse Ox 99 04/11/21 05:00 Intake & Output 04/10/21 04/11/21 04/11/21 18:59 06:59 18:59 Intake Total 1200 Output Total 70 280 Balance -70 1200 -280 Weight 58.06 kg Intake: Intake, IV Titration 1200 Amount Sodium Chloride 0.9% 1, 1200 000 ml @ 100 mls/hr IV . Q10H [facility] Rx#:[id number] Output: Drainage 70 80 Right 70 80 Urine 200 Other: Voiding Method Toilet Toilet Toilet Urinal Urinal Urinal # Voids 3 # Bowel Movements 0 - Labs CBC & Chem 7: 04/11/21 05:42 04/11/21 05:42 Labs: Abnormal Lab Results - Last 24 Hours (Table) 04/11/21 04/11/21 Range/Units 05:42 05:42 WBC 3.0 L (3.8-10.6) k/uL RBC 3.28 L (4.30-5.90) m/uL Hgb 10.8 L (13.0-17.5) gm/dL Hct 32.5 L (39.0-53.0) % RDW 15.6 H (11.5-15.5) % Lymphocytes # (Manual) 0.96 L (1.0-4.8) k/uL Potassium 3.4 L (3.5-5.5) mmol/L BUN/Creatinine Ratio 25.71 H (12.00-20.00) Ratio Calcium 7.2 L (8.7-10.3) mg/dL
--- NOTE | 2021-04-11 14:00 | P.PN ---
Subjective Progress Note Date: 04/11/21 CHIEF COMPLAINT: Colon cancer HISTORY OF PRESENT ILLNESS: The patient is a 65-year-old gentleman status post exploratory laparotomy for perforated colon cancer with end colostomy. He has chronic pain history. He is ambulating to the bathroom. His abdominal pain is improved. ROS: No fevers or chills. No new chest pain. No productive sputum. Recent history of chemotherapy PHYSICAL EXAM: VITAL SIGNS: Reviewed CONSTITUTIONAL: Well developed and in no acute distress. EYES: Conjuctivae without sclera icterus. Extraocular movements grossly intact. HEAD, EARS, NOSE, THROAT: Moist buccal mucosa. Head is atraumatic, normocephalic. Hears conversational speech. No nasal drainage. NECK: No gross thyroidomegaly. No jugular venous distention. RESPIRATORY: Non-labored respirations and equal bilateral excursions. CARDIOVASCULAR: Palpable 2+ radial pulses. Regular rate. Regular rhythm. ABDOMEN: No peritonitis. Dressing intact. MUSCULOSKELETAL: No gross deformity of the lower extremities noted. No clubbing. No cyanosis. SKIN: Good skin turgor. Well perfused. NEUROLOGIC: Cranial nerves II through XII grossly intact. No focal or lateralizing signs. PSYCH: Appropriate affect. Alert and oriented to person, place and time. CLINICAL LABS: White blood cell count low 3.0 ASSESSMENT: 1. Perforated sigmoid colon cancer PLAN: 1. Oncology following and chemotherapy has been held due to recent perforation 2. Antibiotic management for pancytopenia following chemo-induced response Objective - Vital Signs Vital signs: Vital Signs Temp 97.4 F L 04/11/21 05:00 Pulse 61 04/11/21 08:00 Resp 16 04/11/21 08:00 BP 161/90 04/11/21 05:00 Pulse Ox 99 04/11/21 05:00 Intake & Output 04/10/21 04/11/21 04/11/21 18:59 06:59 18:59 Intake Total 1200 Output Total 70 280 Balance -70 1200 -280 Weight 58.06 kg Intake: Intake, IV Titration 1200 Amount Sodium Chloride 0.9% 1, 1200 000 ml @ 100 mls/hr IV . Q10H [facility] Rx#:[id number] Output: Drainage 70 80 Right 70 80 Urine 200 Other: Voiding Method Toilet Toilet Toilet Urinal Urinal Urinal # Voids 3 # Bowel Movements 0 - Labs CBC & Chem 7: 04/11/21 05:42 04/11/21 05:42 Labs: Abnormal Lab Results - Last 24 Hours (Table) 04/11/21 04/11/21 Range/Units 05:42 05:42 WBC 3.0 L (3.8-10.6) k/uL RBC 3.28 L (4.30-5.90) m/uL Hgb 10.8 L (13.0-17.5) gm/dL Hct 32.5 L (39.0-53.0) % RDW 15.6 H (11.5-15.5) % Lymphocytes # (Manual) 0.96 L (1.0-4.8) k/uL Potassium 3.4 L (3.5-5.5) mmol/L BUN/Creatinine Ratio 25.71 H (12.00-20.00) Ratio Calcium 7.2 L (8.7-10.3) mg/dL Assessment and Plan (1) 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 Current Visit: Yes Status: Acute Code(s): C18.7 - MALIGNANT NEOPLASM OF SIGMOID COLON; C77.2 - SECONDARY AND UNSP MALIGNANT NEOPLASM OF INTRA-ABD NODES SNOMED Code(s): 62649040 (2) Liver metastases Current Visit: Yes Status: Acute Code(s): C78.7 - SECONDARY MALIG NEOPLASM OF LIVER AND INTRAHEPATIC BILE DUCT SNOMED Code(s): 98195777 (3) Unintentional weight loss Current Visit: Yes Status: Acute Code(s): R63.4 - ABNORMAL WEIGHT LOSS SNOMED Code(s): 346653447 (4) Chronic pain syndrome Current Visit: Yes Status: Acute Code(s): G89.4 - CHRONIC PAIN SYNDROME SNOMED Code(s): 319764082 (5) Abdominal aortic aneurysm without rupture Current Visit: Yes Status: Acute Code(s): I71.4 - ABDOMINAL AORTIC ANEURYSM, WITHOUT RUPTURE SNOMED Code(s): 03650548 (6) Advance directive discussed with patient Current Visit: Yes Status: Acute Code(s): Z71.89 - OTHER SPECIFIED COUNSELING SNOMED Code(s): 709889643
--- NOTE | 2021-04-11 19:39 | PN ---
PROGRESS NOTE DATE OF SERVICE: 04/11/2021 REASON FOR FOLLOWUP: Bacteroides bacteremia. INTERVAL HISTORY: The patient is afebrile. The patient is breathing comfortably. Abdominal pain is currently controlled. No chest pain, shortness of breath or cough. No nausea, vomiting or diarrhea. PHYSICAL EXAMINATION: On examination, blood pressure 140/89 with a pulse of 64, temperature 97.8. He is 98% on room air. GENERAL DESCRIPTION: General description is an elderly male up in the chair in no distress. RESPIRATORY SYSTEM: Unlabored breathing. Clear to auscultation anteriorly. HEART: S1, S2. Regular rate and rhythm. ABDOMEN: Soft. No tenderness. LABORATORY STUDIES: Hemoglobin is 10.9, white count 3.0, BUN of 18, creatinine 0.7. DIAGNOSTIC IMPRESSION AND PLAN: Patient with bacteroides bacteremia. Source is abdominal in this patient who did have perforated bowel, status post diverting colostomy, covered with Rocephin and Flagyl; to continue while monitoring his clinical course closely. Continue supportive care. MMODL / IJN: [id number] /
[2021-04-12] MEDS: SODIUM CHLORIDE 0.9% 1,000 ML IV SCH ×2 (00:13→03:38)
[2021-04-12] MEDS: IPRATROPIUM-ALBUTEROL 3 ML NEB INHALATION SCH ×4 (07:14→21:13)
[2021-04-12] MEDS: BUDESONIDE 0.5 MG/2 ML NEBU INHALATION SCH ×2 (07:14→21:13)
[2021-04-12] MEDS: ASPIRIN 81 MG PO SCH (08:26)
[2021-04-12] MEDS: predniSONE 20 MG TAB PO SCH (08:26)
[2021-04-12] MEDS: PANTOPRAZOLE 40 MG/10 ML VIAL IVP SCH (08:26)
[2021-04-12] MEDS: HYDROcodone/APAP 10-325MG 1 EACH TAB PO PRN ×3 (08:26→23:24)
[2021-04-12] MEDS: ENOXAPARIN 30 MG/0.3 ML SYRINGE SQ SCH (08:27)
[2021-04-12 08:57] LABS: African American GFR (CKD) >90 (>60 ml/min/1.73 sqM); Anion Gap 2 mmol/L; Blood Urea Nitrogen 11 mg/dL (9-20); Carbon Dioxide 23 mmol/L (22-30); Chloride 109 mmol/L (98-107); Glucose 83 mg/dL (74-99); Non-African American GFR(CKD) >90 (>60 ml/min/1.73 sqM); Potassium 3.4 mmol/L (3.5-5.1); Sodium 134 mmol/L (137-145)
--- NOTE | 2021-04-12 11:41 | P.PN ---
Subjective Patient was a 65-year-old male came in with severe lower quadrant abdominal pain sharp in nature has been going on for a few weeks. Patient was diagnosed with colon cancer patient is presently receiving neoadjuvant chemotherapy patient is supposed to undergo colectomy at the end of this month. Because of uncontrolled severe pain patient came to the hospital patient as 1010 pain. Patient does smoke is significantly wheezing upon exam and patient the is saturating 91% on room air. Patient denied any fever chills. General surgery was consulted. Patient is really constipated received an enema yesterday had a bowel movement yesterday. Patient had a CT of the abdomen which showed some hospice for colitis which is worse compared to before in the sigmoid colon area. 04/06/2021 Patient is evaluated the bedside for having severe left lower quadrant abdominal pain, patient is guarding his abdomen at the time of my examination. Patient is requesting pain medication. This is a patient has been diagnosed with colon cancer with metastatic disease to the liver, and is scheduled for colectomy on April [address] Woodward. Patient is currently on a clear liquid diet. Patient was given an enema and was able to have a bowel movement. He was started on IV Flagyl, in relation to a suspected area of inflammation around the known maligna ncy, as well as a few small foci of pneumoperitoneum, in light of this, patient has been scheduled for an exploratory laparotomy. Surgical services anticipate the need for a bowel resection and ostomy. Patient denies any chest pain, cough, shortness of breath. Patient will continue on IV Dilaudid, IV morphine, [place] and Tylenol for pain management. Patient also has a fentanyl patch that was replaced yesterday. Patient is receiving IV Tylenol as well for pain management. Vital signs are stable today with a temp of 97.8, heart rate 72, blood pressure 131/84, 95% on 2 L of cannula. Patient had a temp yesterday evening with a T-max of 101. 04/07/2021 Patient is postop day #1 from a appendectomy, sigmoid colectomy, colostomy, for a perforated sigmoid colon performed by Dr. Woodward. Patient has a known history of colon cancer with metastases to the liver. Patient is maintained on chem oradiation. Patient was scheduled to have a colectomy in 1 month however he came into the ER with severe lower quadrant abdominal pain that was sharp in nature going on for a few weeks. Patient was found to have some inflammation and a pneumoperitoneum, and was taken for an exploratory laparotomy yesterday evening. Patient is sitting in the chair at the bedside table time of my examination, he is complaining of some adbominal discomfort. He states that it is different than the pain he was experiencing yesterday. Patient has an NG tube placed to suction. Patient is working with physical therapy. Patient's hemoglobin today is stable at 10.9. Patient's sodium level is 134. Patient's blood culture was finalized for anaerobic gram-negative bacilli. Patient is on IV Levaquin, IV Flagyl. Patient is receiving [place], fentanyl patch, IV Dilaudid for pain management. Continue to encourage ambulation, continue incentive spirometer. Patient has a HELEN drain is draining serosanguineous fluid, patient has indwelling catheter. Patient will continue on the NG tube, nothing by mouth this time. Vital signs are stable, afebrile 98.1, heart rate sinus rhythm 70, blood pressure 154/87, 95% on 2 L nasal cannula. 04/08/2021 Patient is postop day #2 from an appendectomy, sigmoid colectomy, colostomy for a perforated sigmoid colon. Patient continues on an nothing by mouth diet, NG tube to suction. Patient is not having any stool or flatus from his colostomy at the time of my examination. Patient denies any chest pain, cough, shortness of breath. Patient denies any nausea, vomiting. Patient states that he is having some abdominal pain due to the surgery. Patient states that he would like some morphine for this at this time. Patient was up with physical therapy in the chair yesterday, patient continues with an indwelling catheter. Patient is receiving pain management via surgical services. Patient remains on IV antibiotics. HELEN drain is draining serosanguineous fluid. Vital signs are stable today, temp 97.5, heart rate 86 sinus rhythm, blood pressure 138/89, 98% 3 L nasal cannula. Continue to encourage ambulation, continue incentive spirometer. 04/11/2021 Patient blood cultures were positive for Bacteroides and is on ceftriaxone for that.04/11/2021 Patient surgical pathology report is showing adenocarcinoma. Patient is still not passing gas but does have bowel sounds. Patient has a colostomy. Patient's potassium is low at 3.4 which will be replaced. 04/12/2021 Patient is tolerating liquid diet very well. Patient pain is better today than compared to yesterday. ROS: Constitutional: Denied any fatigue denied any fever. Cardio vascular: denied any chest pain, palpitations Gastrointestinal denied any vomiting, nausea, reports moderate pain along the incision, denies gas Pulmonary: Denied any shortness of breath cough Neurologic denied any new focal deficits All inpatient medications were reviewed and appropriate changes in these medications as dictated in the interval history and assessment and plan. PHYSICAL EXAMINATION: GENERAL: The patient is alert and oriented x3, not in any acute distress. Well developed, well nourished. HEENT: Pupils are round and equally reacting to light. EOMI. No scleral icterus. No conjunctival pallor. Normocephalic, atraumatic. No pharyngeal erythema. No thyromegaly. CARDIOVASCULAR: S1 and S2 present. No murmurs, rubs, or gallops. PULMONARY: Chest is clear to auscultation, no wheezing or crackles. ABDOMEN: Soft,tender, gaurding, normoactive bowel sounds, surgical incision present, HELEN drain. MUSCULOSKELETAL: No joint swelling or deformity. EXTREMITIES: No cyanosis, clubbing, or pedal edema. NEUROLOGICAL: Gross neurological examination did not reveal any focal deficits. SKIN: No rashes. Assessment and plan -severe abdominal pain secondary to: Cancer and severe inflammation and nonspecific colitis of the sigmoid colon. Patient is on IV ceftriaxone. Patient has positive blood cultures with the Bacteroides fragilis. Repeat blood cultures are still pending -Bacteremia with the above-mentioned bacteria Perforated sigmoid colon secondary to colon cancer. Patient is status post sigmoid colectomy, colostomy, incidental appendectomy. -Colon cancer for which patient is a neoadjuvant chemotherapy which is being held for colectomy. -Continued nicotine use: Counseling was provided if needed patient will be started on nicotine patch -COPD with acute exacerbation patient was started on inhalational treatments inhalational steroids and the 20 mg of oral steroids with GI prophylaxis -Hypertension: Holding off on antihypertensive medications postoperatively blood pressure monitored -Hyponatremia, continue with IV fluids, continue to monitor. Electrolyte panel pending from today. DVT prophylaxis: Lovenox -GI prophylaxis Pepcid Objective - Vital Signs Vital signs: Vital Signs Temp 97.5 F L 04/12/21 05:00 Pulse 63 04/12/21 08:00 Resp 16 08/15/21 08:00 BP 173/92 04/12/21 05:00 Pulse Ox 98 04/12/21 05:00 Intake & Output 04/11/21 04/12/21 04/12/21 18:59 06:59 18:59 Output Total 360 Balance -360 Output: Drainage 160 Right 160 Urine 200 Other: Voiding Method Toilet Toilet Toilet Urinal Urinal Urinal # Voids 3 # Bowel Movements 0 0 - Labs CBC & Chem 7: 04/11/21 05:42 04/12/21 07:49 Labs: Abnormal Lab Results - Last 24 Hours (Table) 04/12/21 Range/Units 07:49 Sodium 134 L (137-145) mmol/L Potassium 3.4 L (3.5-5.1) mmol/L Chloride 109 H (98-107) mmol/L Creatinine 0.61 L (0.66-1.25) mg/dL Calcium 8.0 L (8.4-10.2) mg/dL
[2021-04-12] MEDS: amLODIPine 5 MG TAB PO SCH (12:31)
[2021-04-12] MEDS ORDERED: Potassium Replacement Protocol 1 EACH MISC MISCELLANE PRN (13:57)
[2021-04-12] MEDS: POTASSIUM CHLORIDE ER 20 MEQ TAB.ER PO SCH ×2 (14:45→16:25)
--- NOTE | 2021-04-12 18:21 | P.PN ---
Subjective Progress Note Date: 04/12/21 CHIEF COMPLAINT: Colon cancer HISTORY OF PRESENT ILLNESS: The patient is a 65-year-old gentleman status post exploratory laparotomy for perforated colon cancer with end colostomy. His pain is well controlled. He reports he is easily full after his clear liquid tray. He denies stool in ostomy. ROS: No fevers or chills. No new chest pain. No productive sputum. Recent history of chemotherapy PHYSICAL EXAM: VITAL SIGNS: Reviewed CONSTITUTIONAL: Well developed and in no acute distress. EYES: Conjuctivae without sclera icterus. Extraocular movements grossly intact. HEAD, EARS, NOSE, THROAT: Moist buccal mucosa. Head is atraumatic, normocephalic. Hears conversational speech. No nasal drainage. Wears glasses. NECK: No gross thyroidomegaly. No jugular venous distention. RESPIRATORY: Non-labored respirations and equal bilateral excursions. CARDIOVASCULAR: Regular rate. Regular rhythm. ABDOMEN: No peritonitis. Dressing intact. Ostomy with some flatus. MUSCULOSKELETAL: No gross deformity of the lower extremities noted. No clubbing. No cyanosis. SKIN: Good skin turgor. Well perfused. NEUROLOGIC: Cranial nerves II through XII grossly intact. No focal or lateralizing signs. PSYCH: Appropriate affect. Alert and oriented to person, place and time. CLINICAL LABS: Reviewed. Sodium low 134 ASSESSMENT: 1. Perforated sigmoid colon cancer with metastases PLAN: 1. Adjust fluids for hyponatremia 2. Slow advancement of diet to prevent ileus. Objective - Vital Signs Vital signs: Vital Signs Temp 98.5 F 04/12/21 13:39 Pulse 85 04/12/21 13:39 Resp 16 04/12/21 13:39 BP 133/81 04/12/21 13:39 Pulse Ox 99 04/12/21 13:39 Intake & Output 04/11/21 04/12/21 04/12/21 18:59 06:59 18:59 Output Total 360 80 Balance -360 -80 Output: Drainage 160 80 Right 160 80 Urine 200 Other: Voiding Method Toilet Toilet Toilet Urinal Urinal Urinal # Voids 3 # Bowel Movements 0 0 - Labs CBC & Chem 7: 04/11/21 05:42 04/12/21 07:49 Labs: Abnormal Lab Results - Last 24 Hours (Table) 04/12/21 Range/Units 07:49 Sodium 134 L (137-145) mmol/L Potassium 3.4 L (3.5-5.1) mmol/L Chloride 109 H (98-107) mmol/L Creatinine 0.61 L (0.66-1.25) mg/dL Calcium 8.0 L (8.4-10.2) mg/dL Assessment and Plan (1) 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 Current Visit: Yes Status: Acute Code(s): C18.7 - MALIGNANT NEOPLASM OF SIGMOID COLON; C77.2 - SECONDARY AND UNSP MALIGNANT NEOPLASM OF INTRA-ABD NODES SNOMED Code(s): 53523171 (2) Liver metastases Current Visit: Yes Status: Acute Code(s): C78.7 - SECONDARY MALIG NEOPLASM OF LIVER AND INTRAHEPATIC BILE DUCT SNOMED Code(s): 15113637 (3) Unintentional weight loss Current Visit: Yes Status: Acute Code(s): R63.4 - ABNORMAL WEIGHT LOSS SNOMED Code(s): 740326579 (4) Chronic pain syndrome Current Visit: Yes Status: Acute Code(s): G89.4 - CHRONIC PAIN SYNDROME SNOMED Code(s): 715232622 (5) Abdominal aortic aneurysm without rupture Current Visit: Yes Status: Acute Code(s): I71.4 - ABDOMINAL AORTIC ANEURYSM, WITHOUT RUPTURE SNOMED Code(s): 20081989 (6) Advance directive discussed with patient Current Visit: Yes Status: Acute Code(s): Z71.89 - OTHER SPECIFIED COUNSELING SNOMED Code(s): 141120178
--- NOTE | 2021-04-12 18:57 | PN ---
PROGRESS NOTE DATE OF SERVICE: 04/12/2021 REASON FOR FOLLOW UP: Bacteroides bacteremia, abdominal source. INTERVAL HISTORY: Patient is afebrile. The patient is breathing comfortably. Denies having any chest pain. No shortness of breath or cough. Abdominal pain is currently controlled. No vomiting or diarrhea. PHYSICAL EXAMINATION: Blood pressure 133/81 with a pulse of 85, temperature 98.5. He is 99% on room air. General description is an elderly male up in the chair in no distress. Respiratory system: Unlabored breathing. Clear to auscultation anteriorly. Heart S1, S2. Regular rate and rhythm. Abdomen: Soft, no tenderness. Incision is currently intact. No drainage. LABS: BUN of 11, creatinine 0.61. DIAGNOSTIC IMPRESSION AND PLAN: Patient with Bacteroides bacteremia, source is abdominal in this patient who did have perforated bowel, status post diverting colostomy. Patient is covered with Rocephin and Flagyl. Plan is to finish therapy with oral Cipro and Flagyl for 10 days and close outpatient followup. Family at the bedside questions and concerns were answered. MMODL / IJN: [id number] /
[2021-04-13] MEDS: SODIUM CHLORIDE 0.9% 1,000 ML IV SCH ×3 (02:19→09:42)
[2021-04-13] MEDS: BUDESONIDE 0.5 MG/2 ML NEBU INHALATION SCH ×2 (07:50→19:34)
[2021-04-13] MEDS: IPRATROPIUM-ALBUTEROL 3 ML NEB INHALATION SCH ×4 (07:50→19:34)
[2021-04-13] MEDS: predniSONE 20 MG TAB PO SCH (08:13)
[2021-04-13] MEDS: PANTOPRAZOLE 40 MG/10 ML VIAL IVP SCH (08:13)
[2021-04-13] MEDS: amLODIPine 5 MG TAB PO SCH (08:13)
[2021-04-13] MEDS: HYDROcodone/APAP 10-325MG 1 EACH TAB PO PRN ×2 (08:13→16:52)
[2021-04-13] MEDS: ASPIRIN 81 MG PO SCH (08:13)
[2021-04-13] MEDS: ENOXAPARIN 30 MG/0.3 ML SYRINGE SQ SCH (08:14)
[2021-04-13 09:43] LABS: African American GFR (CKD) 120.6 (60.0-200.0); Anion Gap 5.4 mmol/L (4.00-12.00); BUN/Creat Ratio 13.33 Ratio (12.00-20.00); C Reactive Protein 2.6 mg/dL (0.0-0.8); Carbon Dioxide 26.6 mmol/L (21.6-31.8); Potassium 3.6 mmol/L (3.5-5.5)
--- NOTE | 2021-04-13 13:14 | P.PN ---
Subjective Progress Note Date: 04/13/21 Principal diagnosis: Perforated sigmoid colon Patient doing well today. Says his pain continues to gradually improve. Denies nausea or vomiting. States he does get full quicker than he normally would. Small amount of stool in the ostomy bag with flatus. White blood cell count 13. Objective - Vital Signs Vital signs: Vital Signs Temp 97.3 F L 04/13/21 12:26 Pulse 57 L 04/13/21 12:26 Resp 18 04/13/21 12:26 BP 112/72 04/13/21 12:26 Pulse Ox 100 04/13/21 12:26 Intake & Output 04/12/21 04/13/21 04/13/21 18:59 06:59 18:59 Output Total 80 140 Balance -80 -140 Output: Drainage 80 140 Right 80 140 Other: Voiding Method Toilet Toilet Toilet Urinal Urinal Urinal # Voids 0 0 # Bowel Movements 0 0 0 - Exam Abdomen: Soft, nondistended, incision clean and dry, ostomy functioning, minimal tenderness - Labs CBC & Chem 7: 04/11/21 05:42 04/13/21 06:06 Labs: Abnormal Lab Results - Last 24 Hours (Table) 04/13/21 Range/Units 06:06 BUN 8.0 L (9.0-27.0) mg/dL Calcium 8.0 L (8.7-10.3) mg/dL C-Reactive Protein 2.6 H (0.0-0.8) mg/dL Assessment and Plan (1) Perforation of sigmoid colon Narrative/Plan: Will advance diet to full liquids. Continue ambulation. Possible rehab Tuesday. Current Visit: Yes Status: Acute Code(s): K63.1 - PERFORATION OF INTESTINE (NONTRAUMATIC) SNOMED Code(s): 170064757
[2021-04-13 13:35] LABS: Anisocytosis Slight; HCT 36.4 % (39.0-53.0); HGB 11.9 gm/dL (13.0-17.5); Hypochromasia Slight; MCH 33.2 pg (25.0-35.0); MCHC 32.7 g/dL (31.0-37.0); MCV 101.5 fL (80.0-100.0); Macrocytosis Slight; Mean Platelet Volume 10.1; Platelet Count 188 k/uL (150-450); RBC 3.59 m/uL (4.30-5.90); RDW 16.1 % (11.5-15.5); WBC 2.9 k/uL (3.8-10.6)
[2021-04-13 15:15] LABS: Band Neutrophils % 3 %; Eosinophils # (M) 0.03 k/uL (0-0.7); Lymphocytes # (M) 0.84 k/uL (1.0-4.8); Metamyelocytes # (M) 0.03 k/uL (0); Metamyelocytes % 1 %; Monocytes # (M) 0.44 k/uL (0-1.0); Myelocytes # (M) 0.12 k/uL (0); Myelocytes % 4 %; Neutrophils % (M) 48 %; Nucleated Red Blood Cells 0 /100 WBC (0-0); Total Cells Counted 200
--- NOTE | 2021-04-13 15:47 | P.PN ---
Subjective Progress Note Date: 04/13/21 Patient was a 65-year-old male came in with severe lower quadrant abdominal pain sharp in nature has been going on for a few weeks. Patient was diagnosed with colon cancer patient is presently receiving neoadjuvant chemotherapy patient is supposed to undergo colectomy at the end of this month. Because of uncontrolled severe pain patient came to the hospital patient as 10/10 pain. Patient does smoke is significantly wheezing upon exam and patient the is saturating 91% on room air. Patient denied any fever chills. General surgery was consulted. Patient is really constipated received an enema yesterday had a bowel movement yesterday. Patient had a CT of the abdomen which showed some hospice for colitis which is worse compared to before in the sigmoid colon area. 04/06/2021 Patient is evaluated the bedside for having severe left lower quadrant abdominal pain, patient is guarding his abdomen at the time of my examination. Patient is requesting pain medication. This is a patient has been diagnosed with colon cancer with metastatic disease to the liver, and is scheduled for colectomy on April [address] Woodward. Patient is currently on a clear liquid diet. Patient was given an enema and was able to have a bowel movement. He was started on IV Flagyl, in relation to a suspected area of inflammation around the known malignancy, as well as a few small foci of pneumoperitoneum, in light of this, patient has been scheduled for an exploratory laparotomy. Surgical services anticipate the need for a bowel resection and ostomy. Patient denies any chest pain, cough, shortness of breath. Patient will continue on IV Dilaudid, IV morphine, [place] and Tylenol for pain management. Patient also has a fentanyl patch that was replaced yesterday. Patient is receiving IV Tylenol as well for pain management. Vital signs are stable today with a temp of 97.8, heart rate 72, blood pressure 131/84, 95% on 2 L of cannula. Patient had a temp yesterday evening with a T-max of 101. 04/07/2021 Patient is postop day #1 from a appendectomy, sigmoid colectomy, colostomy, for a perforated sigmoid colon performed by Dr. Woodward. Patient has a known history of colon cancer with metastases to the liver. Patient is maintained on chemoradiation. Patient was scheduled to have a colectomy in 1 month however he came into the ER with severe lower quadrant abdominal pain that was sharp in wade ure going on for a few weeks. Patient was found to have some inflammation and a pneumoperitoneum, and was taken for an exploratory laparotomy yesterday evening. Patient is sitting in the chair at the bedside table time of my examination, he is complaining of some adbominal discomfort. He states that it is different than the pain he was experiencing yesterday. Patient has an NG tube placed to [facility]. Patient is working with physical therapy. Patient's hemoglobin today is stable at 10.9. Patient's sodium level is 134. Patient's blood culture was finalized for anaerobic gram-negative bacilli. Patient is on IV Levaquin, IV Flagyl. Patient is receiving [place], fentanyl patch, IV Dilaudid for pain management. Continue to encourage ambulation, continue incentive spirometer. Patient has a HELEN drain is draining serosanguineous fluid, patient has indwelling catheter. Patient will continue on the NG tube, nothing by mouth this time. Vital signs are stable, afebrile 98.1, heart rate sinus rhythm 70, blood pressure 154/87, 95% on 2 L nasal cannula. 04/08/2021 Patient is postop day #2 from an appendectomy, sigmoid colectomy, colostomy for a perforated sigmoid colon. Patient continues on an nothing by mouth diet, NG tube to suction. Patient is not having any stool or flatus from his colostomy at the time of my examination. Patient denies any chest pain, cough, shortness of breath. Patient denies any nausea, vomiting. Patient states that he is having some abdominal pain due to the surgery. Patient states that he would like some morphine for this at this time. Patient was up with physical therapy in the chair yesterday, patient continues with an indwelling catheter. Patient is receiving pain management via surgical services. Patient remains on IV antibiotics. HELEN drain is draining serosanguineous fluid. Vital signs are stable today, temp 97.5, heart rate 86 sinus rhythm, blood pressure 138/89, 98% 3 L nasal cannula. Continue to encourage ambulation, continue incentive spirometer. 04/11/2021 Patient blood cultures were positive for Bacteroides and is on ceftriaxone for that.04/11/2021 Patient surgical pathology report is showing adenocarcinoma. Patient is still not passing gas but does have bowel sounds. Patient has a colostomy. Patient's potassium is low at 3.4 which will be replaced. 04/12/2021 Patient is tolerating liquid diet very well. Patient pain is better today than compared to yesterday. 04/13/2021 Patient is seen in follow-up this morning with no acute overnight issues noted. Patient is passing gas and had minimal stool output noted in the ostomy. Patient is continued on IV ceftriaxone and infectious disease is following. Demetri canela was maintained on clear liquids and being advanced to full liquids per surgical recommendations. Patient continues to be extremely weak and is being followed by PT/OT therapy and working with case management along with social work on possible ECF for rehab. Will repeat a.m. labs and continue to monitor closely along with surgery. Oncology is following. Patient is afebrile. No reports of nausea or vomiting noted. ROS: Constitutional: Denied any fatigue denied any fever. Cardio vascular: denied any chest pain, palpitations Gastrointestinal denied any vomiting, nausea, reports moderate pain along the incision, reports passing gas and having stool in the ostomy Pulmonary: Denied any shortness of breath cough Neurologic denied any new focal deficits All inpatient medications were reviewed and appropriate changes in these medications as dictated in the interval history and assessment and plan. PHYSICAL EXAMINATION: GENERAL: The patient is alert and oriented x3, not in any acute distress. Well developed, well nourished. HEENT: Pupils are round and equally reacting to light. EOMI. No scleral icterus. No conjunctival pallor. Normocephalic, atraumatic. No pharyngeal erythema. No thyromegaly. CARDIOVASCULAR: S1 and S2 present. No murmurs, rubs, or gallops. PULMONARY: Chest is clear to auscultation, no wheezing or crackles. ABDOMEN: Soft,tender, gaurding, normoactive bowel sounds, surgical incision present, HELEN drain. MUSCULOSKELETAL: No joint swelling or deformity. EXTREMITIES: No cyanosis, clubbing, or pedal edema. NEUROLOGICAL: Gross neurological examination did not reveal any focal deficits. SKIN: No rashes. Assessment and plan: -severe abdominal pain secondary to: Cancer and severe inflammation and nonspecific colitis of the sigmoid colon. Patient is on IV ceftriaxone. Patient has positive blood cultures with the Bacteroides fragilis. Repeat blood cultures are still pending -Bacteremia with the above-mentioned bacteria -Perforated sigmoid colon secondary to colon cancer. Patient is status post sigmoid colectomy, colostomy, incidental appendectomy. -Colon cancer for which patient is a neoadjuvant chemotherapy which is being held for colectomy. -Continued nicotine use: Counseling was provided if needed patient will be started on nicotine patch -COPD with acute exacerbation patient was started on inhalational treatments inhalational steroids and 20 mg of oral steroids with GI prophylaxis -Hypertension: Holding off on antihypertensive medications postoperatively blood pressure monitored -Hyponatremia, continue with IV fluids, continue to monitor. Sodium level improved at 137 -DVT prophylaxis: Lovenox -GI prophylaxis Pepcid -Full code Plan: Patient to continue with breathing inhalational treatments and maintained on oral steroids and will continue. Infectious disease is following and patient is maintained on IV ceftriaxone. Patient reports to passing gas and is having stool in the ostomy. Surgery is following closely and patient denies any nausea or vomiting and tolerating clear liquids and slowly advancing to full liquids. Encouraged increase in activity. Patient continues to be weak and has discussed with case management along with social work and plans on possible rehab at an [facility] to build up strength and mobility. Will continue to monitor closely and repeat a.m. labs. Objective - Vital Signs Vital signs: Vital Signs Temp 97.2 F L 04/13/21 05:00 Pulse 85 04/13/21 07:28 Resp 16 04/13/21 07:28 BP 153/83 04/13/21 05:00 Pulse Ox 98 04/13/21 07:48 Intake & Output 04/12/21 04/13/21 04/13/21 18:59 06:59 18:59 Output Total 80 140 Balance -80 -140 Output: Drainage 80 140 Right 80 140 Other: Voiding Method Toilet Toilet Toilet Urinal Urinal Urinal # Voids 0 0 # Bowel Movements 0 0 0 - Labs CBC & Chem 7: 04/13/21 06:06 04/13/21 06:06 Labs: Abnormal Lab Results - Last 24 Hours (Table) 04/13/21 Range/Units 06:06 BUN 8.0 L (9.0-27.0) mg/dL Calcium 8.0 L (8.7-10.3) mg/dL C-Reactive Protein 2.6 H (0.0-0.8) mg/dL
--- NOTE | 2021-04-13 15:49 | P.PN ---
Subjective Progress Note Date: 04/13/21 Principal diagnosis: Tumor necrosis and perforation Up in chair and feeling better everyday. He does have some small amount of stool in ostomy bag. Objective - Vital Signs Vital signs: Vital Signs Temp 97.3 F L 04/13/21 12:26 Pulse 57 L 04/13/21 12:26 Resp 18 04/13/21 12:26 BP 112/72 04/13/21 12:26 Pulse Ox 100 04/13/21 12:26 Intake & Output 04/12/21 04/13/21 04/13/21 18:59 06:59 18:59 Output Total 80 140 Balance -80 -140 Output: Drainage 80 140 Right 80 140 Other: Voiding Method Toilet Toilet Toilet Urinal Urinal Urinal # Voids 0 0 # Bowel Movements 0 0 0 - Exam - Constitutional General appearance: cooperative, mild distress, thin - EENT Eyes: EOMI ENT: hard of hearing, NA/AT - Neck Neck: normal ROM - Respiratory Respiratory: bilateral: diminished (Increased effort due to pain) - Cardiovascular Rhythm: regularly irregular - Gastrointestinal General gastrointestinal: tenderness, pain, ostomy, evidence recent surgical intervention - Integumentary Integumentary: pale - Neurologic Neurologic: CNII-XII intact - Musculoskeletal Musculoskeletal: generalized weakness - Psychiatric Psychiatric: A&O x's 3 - Labs CBC & Chem 7: 04/13/21 06:06 04/13/21 06:06 Labs: Abnormal Lab Results - Last 24 Hours (Table) 04/13/21 Range/Units 06:06 BUN 8.0 L (9.0-27.0) mg/dL Calcium 8.0 L (8.7-10.3) mg/dL C-Reactive Protein 2.6 H (0.0-0.8) mg/dL Assessment and Plan (1) Abdominal pain Current Visit: Yes Status: Acute Code(s): R10.9 - UNSPECIFIED ABDOMINAL PAIN SNOMED Code(s): 17120188 (2) Liver metastases Current Visit: Yes Status: Acute Code(s): C78.7 - SECONDARY MALIG NEOPLASM OF LIVER AND INTRAHEPATIC BILE DUCT SNOMED Code(s): 24072124 (3) 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 Colon cancer mets to liver - Chemo on hold Status post exploratory lap, Sigmoid colectomy with end colostomy, incidental appendectomy, due to necrotic tumor perforation with Dr. Fatih. Improving and pain better everyday small amount of stool in ostomy bag, he continues to pass flatus
--- NOTE | 2021-04-13 19:58 | PN ---
PROGRESS NOTE DATE OF SERVICE: 04/13/2021 REASON FOR FOLLOWUP: Bacteroides bacteremia. INTERVAL HISTORY: The patient is afebrile. The patient is currently feeling better, breathing comfortably. No chest pain, shortness of breath or cough. Some abdominal pain but no worsening. No vomiting. Did not have any output in the colostomy bag. PHYSICAL EXAMINATION: On examination, blood pressure 112/72 with a pulse of 57, temperature 97.8. He is 100% on room air. GENERAL DESCRIPTION: General description is an elderly male up in the chair in no distress. RESPIRATORY SYSTEM: Unlabored breathing. Clear to auscultation anteriorly. HEART: S1, S2. Regular rate and rhythm. ABDOMEN: Soft. No tenderness. LABS: Hemoglobin is 11.9, white count 2.9, BUN of 8, creatinine 0.69. DIAGNOSTIC IMPRESSION AND PLAN: Patient with bacteroides bacteremia secondary to abdominal source in this patient who did have perforated , status post diverting colostomy. Patient is covered with Rocephin and Flagyl. Transition to oral Ceftin and Flagyl on discharge and close outpatient followup. MMODL / IJN: [id number] /
[2021-04-14] MEDS: SODIUM CHLORIDE 0.9% 1,000 ML IV SCH ×3 (02:32→20:22)
[2021-04-14] MEDS: HYDROcodone/APAP 10-325MG 1 EACH TAB PO PRN ×3 (03:00→17:25)
[2021-04-14 05:51] LABS: African American GFR (CKD) >90 (>60 ml/min/1.73 sqM); Anion Gap 3 mmol/L; Anisocytosis Slight; Blood Urea Nitrogen 9 mg/dL (9-20); Calcium 8.2 mg/dL (8.4-10.2); Carbon Dioxide 25 mmol/L (22-30); Chloride 107 mmol/L (98-107); Glucose 87 mg/dL (74-99); HCT 31.7 % (39.0-53.0); HGB 10.8 gm/dL (13.0-17.5); Mean Platelet Volume 7.6; Non-African American GFR(CKD) >90 (>60 ml/min/1.73 sqM); Platelet Count 227 k/uL (150-450); Poikilocytosis Slight; Potassium 3.3 mmol/L (3.5-5.1); RBC 3.27 m/uL (4.30-5.90); RDW 16.6 % (11.5-15.5); Sodium 135 mmol/L (137-145); WBC 2.7 k/uL (3.8-10.6)
[2021-04-14 06:43] LABS: Band Neutrophils % 7 %; Lymphocytes # (M) 0.54 k/uL (1.0-4.8); Metamyelocytes # (M) 0.05 k/uL (0); Metamyelocytes % 2 %; Monocytes # (M) 0.19 k/uL (0-1.0); Neutrophils % (M) 64 %; Nucleated Red Blood Cells 0 /100 WBC (0-0); Total Cells Counted 200
[2021-04-14 06:44] LABS: Anisocytosis (M) Present
[2021-04-14] MEDS: ASPIRIN 81 MG PO SCH (07:44)
[2021-04-14] MEDS: PANTOPRAZOLE 40 MG/10 ML VIAL IVP SCH (07:44)
[2021-04-14] MEDS: ENOXAPARIN 30 MG/0.3 ML SYRINGE SQ SCH (07:45)
[2021-04-14] MEDS: amLODIPine 5 MG TAB PO SCH (07:45)
[2021-04-14] MEDS: predniSONE 20 MG TAB PO SCH (07:45)
[2021-04-14] MEDS: POTASSIUM CHLORIDE ER 20 MEQ TAB.ER PO SCH ×3 (07:57→11:20)
[2021-04-14] MEDS: IPRATROPIUM-ALBUTEROL 3 ML NEB INHALATION SCH ×4 (08:07→19:19)
[2021-04-14] MEDS: BUDESONIDE 0.5 MG/2 ML NEBU INHALATION SCH ×2 (08:07→19:19)
--- NOTE | 2021-04-14 15:08 | P.PN ---
Subjective Progress Note Date: 04/14/21 Principal diagnosis: Tumor necrosis and perforation Very minimal output in ostomy, ?add softeners? defer to surgery Objective - Vital Signs Vital signs: Vital Signs Temp 97.8 F 04/14/21 13:00 Pulse 73 04/14/21 13:00 Resp 17 04/14/21 13:00 BP 122/74 04/14/21 13:00 Pulse Ox 99 04/14/21 13:00 Intake & Output 04/13/21 04/14/21 04/14/21 18:59 06:59 18:59 Output Total 120 40 Balance -120 -40 Weight 58.06 kg Output: Drainage 120 40 Right 120 40 Other: Voiding Method Toilet Toilet Toilet Urinal Urinal Urinal # Voids 0 0 # Bowel Movements 0 0 - Exam - Constitutional General appearance: cooperative, mild distress, thin - EENT Eyes: EOMI ENT: hard of hearing, NA/AT - Neck Neck: normal ROM - Respiratory Respiratory: bilateral: diminished (Increased effort due to pain) - Cardiovascular Rhythm: regularly irregular - Gastrointestinal General gastrointestinal: tenderness, pain, ostomy, evidence recent surgical intervention - Integumentary Integumentary: pale - Neurologic Neurologic: CNII-XII intact - Musculoskeletal Musculoskeletal: generalized weakness - Psychiatric Psychiatric: A&O x's 3 - Labs CBC & Chem 7: 04/14/21 05:09 04/14/21 05:09 Labs: Abnormal Lab Results - Last 24 Hours (Table) 04/13/21 04/14/21 04/14/21 Range/Units 06:06 05:09 05:09 WBC 2.7 L (3.8-10.6) k/uL RBC 3.27 L (4.30-5.90) m/uL Hgb 10.8 L (13.0-17.5) gm/dL Hct 31.7 L (39.0-53.0) % RDW 16.6 H (11.5-15.5) % Lymphocytes # (Manual) 0.84 L 0.54 L (1.0-4.8) k/uL Metamyelocytes # (Man) 0.03 H 0.05 H (0) k/uL Myelocytes # (Manual) 0.12 H (0) k/uL Sodium 135 L (137-145) mmol/L Potassium 3.3 L (3.5-5.1) mmol/L Creatinine 0.47 L (0.66-1.25) mg/dL Calcium 8.2 L (8.4-10.2) mg/dL Microbiology - Last 24 Hours (Table) 04/13/21 06:06 Blood Culture - Preliminary Blood No Growth after 24 hours Assessment and Plan (1) Abdominal pain Current Visit: Yes Status: Acute Code(s): R10.9 - UNSPECIFIED ABDOMINAL PAIN SNOMED Code(s): 80725249 (2) Liver metastases Current Visit: Yes Status: Acute Code(s): C78.7 - SECONDARY MALIG NEOPLASM OF LIVER AND INTRAHEPATIC BILE DUCT SNOMED Code(s): 67557242 (3) 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 Colon cancer mets to liver - Chemo on hold Status post exploratory lap, Sigmoid colectomy with end colostomy, incidental appendectomy, due to necrotic tumor perforation with Dr. Faith. Improving and pain better everyday small amount of stool in ostomy bag, he continues to pass flatus ?bowel regimen per surgery. Max 4 norco daily and for limited time
--- NOTE | 2021-04-14 17:47 | P.PN ---
Subjective Progress Note Date: 04/14/21 Principal diagnosis: Perforated sigmoid colon Patient doing about the same today. Passing flatus but no stool through ostomy. Tolerating full liquids. Mild fullness. No distention. No nausea or vomiting. Objective - Vital Signs Vital signs: Vital Signs Temp 97.8 F 04/14/21 13:00 Pulse 73 04/14/21 13:00 Resp 17 04/14/21 13:00 BP 122/74 04/14/21 13:00 Pulse Ox 99 04/14/21 13:00 Intake & Output 04/13/21 04/14/21 04/14/21 18:59 06:59 18:59 Output Total 120 40 Balance -120 -40 Weight 58.06 kg Output: Drainage 120 40 Right 120 40 Other: Voiding Method Toilet Toilet Toilet Urinal Urinal Urinal # Voids 0 0 # Bowel Movements 0 0 - Exam Abdomen: Soft, nondistended, incision clean and dry, HELEN serous - Labs CBC & Chem 7: 04/14/21 05:09 04/14/21 05:09 Labs: Abnormal Lab Results - Last 24 Hours (Table) 04/14/21 04/14/21 Range/Units 05:09 05:09 WBC 2.7 L (3.8-10.6) k/uL RBC 3.27 L (4.30-5.90) m/uL Hgb 10.8 L (13.0-17.5) gm/dL Hct 31.7 L (39.0-53.0) % RDW 16.6 H (11.5-15.5) % Lymphocytes # (Manual) 0.54 L (1.0-4.8) k/uL Metamyelocytes # (Man) 0.05 H (0) k/uL Sodium 135 L (137-145) mmol/L Potassium 3.3 L (3.5-5.1) mmol/L Creatinine 0.47 L (0.66-1.25) mg/dL Calcium 8.2 L (8.4-10.2) mg/dL Microbiology - Last 24 Hours (Table) 04/13/21 06:06 Blood Culture - Preliminary Blood No Growth after 24 hours Assessment and Plan (1) Perforation of sigmoid colon Narrative/Plan: Patient doing fairly well today. Will increase diet. Add stool softeners and cathartics. Ambulate. Rehab soon. Current Visit: Yes Status: Acute Code(s): K63.1 - PERFORATION OF INTESTINE (NONTRAUMATIC) SNOMED Code(s): 719766137
[2021-04-14] MEDS: polyethylene glycoL 3350 17 GM POWD.PACK PO SCH (18:01)
--- NOTE | 2021-04-14 18:14 | P.PN ---
Subjective Progress Note Date: 04/14/21 Principal diagnosis: Abdominal pain, secondary to colon cancer with severe inflammation and nonspecific colitis of the sigmoid colon Perforated sigmoid colon secondary to colon cancer, sigmoid colectomy, colostomy, and incidental appendectomy Colon cancer 65-year-old male was admitted to the hospital severe lower quadrant abdominal pain for a few weeks duration. Patient has significant medical history of colon cancer with ongoing neoadjuvant chemotherapy. Emergency department stay patient had a CT of the abdomen and pelvis revealing nonspecific colitis to the sigmoid colon, worsening colitis comparison from previous CAT scan. Gen. surgery was consulted and oncology. 04/09/2021 Patient seen and examined at bedside. Patient is postop day 3 from sigmoid colectomy, appendectomy, with subsequent colostomy for perforated sigmoid colon. Patient is able to tolerate ice chips. Physical therapy and occupational therapy evaluated patient for status of strength and conditioning. He denies fever, chills, shortness of breath, chest pain, or palpitations. Patient endors es abdominal pain at the incisional site, and generalized weakness. HELEN drain draining appropriately. Vital signs are stable patient remains on broad- spectrum IV antibiotics. 04/10/2021 Patient seen and examined at bedside. Patient is postop day 4 from sigmoid colectomy, appendectomy, with subsequent colostomy for perforated sigmoid colon. Patient is tolerating ice chips, diet is expected to advanced to clear liquids today. He denies fever, chills, shortness of breath, chest pain or palpit ations. Patient endorses abdominal pain at this incisional site and generalized weakness. HELEN drain draining appropriately. Patient passing flatulence through colostomy. Vital signs and diagnostic testing reviewed. Continue IV antibiotics per infectious disease. Patient updated on status of treatment plan. April 11 through April 13 see hospital list coverage for notes 04/14/2021 She is seen and examined at bedside. Patient is progressing from postop sigmoid colectomy, appendectomy with subsequent colostomy for perforated sigmoid colon. Patient is tolerating full liquid diet. Mild flatulence through colostomy noted. HELEN drain draining appropriate. Patient is covered with IV antibiotics from infectious disease standpoint. Vital signs and diagnostic testing reviewed Objective - Vital Signs Vital signs: Vital Signs Temp 97.8 F 04/14/21 13:00 Pulse 73 04/14/21 13:00 Resp 17 04/14/21 13:00 BP 122/74 04/14/21 13:00 Pulse Ox 99 04/14/21 13:00 Intake & Output 04/13/21 04/14/21 04/14/21 18:59 06:59 18:59 Output Total 120 40 Balance -120 -40 Weight 58.06 kg Output: Drainage 120 40 Right 120 40 Other: Voiding Method Toilet Toilet Toilet Urinal Urinal Urinal # Voids 0 0 # Bowel Movements 0 0 - Constitutional General appearance: Present: cooperative, thin - EENT Eyes: Present: EOMI, PERRLA ENT: Present: normal oropharynx Ears: bilateral: normal - Neck Neck: Present: normal ROM Carotids: bilateral: upstroke normal Thyroid: bilateral: normal size - Respiratory Respiratory: bilateral: CTA (Anterior and posterior lung koch) - Cardiovascular Heart rate: 87 Rhythm: regular Heart sounds: normal: S1, S2 - Peripheral pulses radial pulse Peripheral Pulses: bilateral: Normal dorsalis pedis Peripheral Pulses: bilateral: Normal - Gastrointestinal Gastrointestinal Comment(s): Ostomy site appropriate pink and moist General gastrointestinal: Present: decreased bowel sounds, soft - Integumentary Integumentary: Present: pale - Neurologic Neurologic: Present: CNII-XII intact - Musculoskeletal Musculoskeletal: Present: generalized weakness - Psychiatric Psychiatric: Present: A&O x's 3, appropriate affect, intact judgment & insight - Allied health notes Allied health notes reviewed: nursing - Labs CBC & Chem 7: 04/14/21 05:09 04/14/21 05:09 Labs: Abnormal Lab Results - Last 24 Hours (Table) 04/14/21 04/14/21 Range/Units 05:09 05:09 WBC 2.7 L (3.8-10.6) k/uL RBC 3.27 L (4.30-5.90) m/uL Hgb 10.8 L (13.0-17.5) gm/dL Hct 31.7 L (39.0-53.0) % RDW 16.6 H (11.5-15.5) % Lymphocytes # (Manual) 0.54 L (1.0-4.8) k/uL Metamyelocytes # (Man) 0.05 H (0) k/uL Sodium 135 L (137-145) mmol/L Potassium 3.3 L (3.5-5.1) mmol/L Creatinine 0.47 L (0.66-1.25) mg/dL Calcium 8.2 L (8.4-10.2) mg/dL Microbiology - Last 24 Hours (Table) 04/13/21 06:06 Blood Culture - Preliminary Blood No Growth after 24 hours Assessment and Plan Assessment: Severe abdominal pain secondary to colon cancer with severe inflammation and non specific colitis of the sigmoid colon; patient placed on IV antibiotics Perforated sigmoid colon secondary to colon cancer, postop of sigmoid colectomy, colostomy, incidental appendectomy Colon cancer COPD without exacerbation Hypertension Hyponatremia Full code Plan: Severe abdominal pain secondary to colon cancer with severe inflammation nonspecific colitis to the sigmoid colon; continue Rocephin 2 g IV Perforated sigmoid colon secondary to colon cancer. Patient is postop from a sigmoid colectomy, colostomy, and incidental appendectomy; progress diet to full liquid and recommendation and treatment plan from general surgery Colon cancer, continue consultation with hematology for recommendations and treatment plan COPD without exacerbation, patient instructed to continue incentive spirometer postop and for ongoing COPD Continue analgesics as needed with fentanyl patch for maintenance of pain management Continue Rocephin 2 g IV for blood cultures positive of anaerobic gram-negative bacilli Continue medical management Further recommendations to come based on patient's clinical condition [facility]ful discharge to [facility] facility for strengthening conditioning in 24-48 hours Time with Patient: Greater than 30
--- NOTE | 2021-04-14 19:58 | PN ---
PROGRESS NOTE DATE OF SERVICE: 04/14/2021 REASON FOR FOLLOWUP: Bacteroides bacteremia. INTERVAL HISTORY: The patient is afebrile. The patient is breathing comfortably. Denies any chest pain. No shortness of breath or cough. Occasional abdominal pain. No vomiting or diarrhea. PHYSICAL EXAMINATION: Blood pressure 122/74 with a pulse of 73, temperature is 97.8. He is 99% on room air. General description is an elderly male up in the chair in no distress. Respiratory system: Unlabored breathing, clear to auscultation anteriorly. Heart S1, S2. Regular rate and rhythm. Abdomen soft, no tenderness. LABS: Hemoglobin is 10.1, white count 2.7, BUN of 9, creatinine 0.47. Blood culture repeat has been negative so far. DIAGNOSTIC IMPRESSION AND PLAN: Patient with bacteroides bacteremia secondary to abdominal source in this patient status post laparotomy and diverting colostomy. Repeat blood culture negative. Patient is covered with Rocephin and Flagyl. Finish therapy with oral Ceftin and Flagyl and close outpatient followup. MMODL / IJN: [id number] /
[2021-04-14] MEDS: DOCUSATE 100 MG CAP PO SCH (20:21)
[2021-04-15] MEDS: BUDESONIDE 0.5 MG/2 ML NEBU INHALATION SCH ×2 (07:14→19:20)
[2021-04-15] MEDS: IPRATROPIUM-ALBUTEROL 3 ML NEB INHALATION SCH ×4 (07:14→19:20)
[2021-04-15] MEDS: HYDROcodone/APAP 10-325MG 1 EACH TAB PO PRN ×2 (08:13→16:46)
[2021-04-15] MEDS: DOCUSATE 100 MG CAP PO SCH ×2 (08:14→19:32)
[2021-04-15] MEDS: amLODIPine 5 MG TAB PO SCH (08:14)
[2021-04-15] MEDS: predniSONE 20 MG TAB PO SCH (08:14)
[2021-04-15] MEDS: PANTOPRAZOLE 40 MG/10 ML VIAL IVP SCH (08:15)
[2021-04-15] MEDS: ASPIRIN 81 MG PO SCH (08:15)
[2021-04-15] MEDS: ENOXAPARIN 30 MG/0.3 ML SYRINGE SQ SCH (08:15)
[2021-04-15] MEDS: polyethylene glycoL 3350 17 GM POWD.PACK PO SCH (08:15)
[2021-04-15 09:57] LABS: African American GFR (CKD) 120.6 (60.0-200.0); Albumin 2.6 g/dL (3.80-4.90); Albumin/Globulin Ratio 0.68 (1.60-3.17); BUN/Creat Ratio 16.67 Ratio (12.00-20.00); Calcium 7.9 mg/dL (8.7-10.3); Globulin 3.8 g/dL (1.6-3.3); Magnesium 1.6 mg/dL (1.5-2.4); Potassium 3.7 mmol/L (3.5-5.5); Total Bilirubin 0.3 mg/dL (0.2-1.2); Total Protein 6.4 g/dL (6.2-8.2)
[2021-04-15] MEDS ORDERED: MAGNESIUM CITRATE 296 ML BOTTLE PO ONE (12:37)
--- NOTE | 2021-04-15 12:40 | P.PN ---
Subjective Progress Note Date: 04/15/21 Principal diagnosis: Perforated sigmoid colon Patient doing well today. Denies pain. Tolerating diet. No bowel function other than flatus today. Labs noted. Objective - Vital Signs Vital signs: Vital Signs Temp 97.7 F 04/15/21 05:00 Pulse 66 04/15/21 05:00 Resp 18 04/15/21 05:00 BP 147/84 04/15/21 05:00 Pulse Ox 99 04/15/21 05:00 Intake & Output 04/14/21 04/15/21 04/15/21 18:59 06:59 18:59 Intake Total 740 Output Total 40 40 Balance -40 740 -40 Intake: Oral 740 Output: Drainage 40 40 Right 40 40 Other: Voiding Method Toilet Toilet Toilet Urinal Urinal Urinal # Voids 8 2 - Exam Abdomen: Soft, nondistended, dressing clean and dry, ostomy pink - Labs CBC & Chem 7: 04/14/21 05:09 04/15/21 05:47 Labs: Abnormal Lab Results - Last 24 Hours (Table) 04/15/21 Range/Units 05:47 Anion Gap 3.00 L (4.00-12.00) mmol/L Calcium 7.9 L (8.7-10.3) mg/dL Albumin 2.60 L (3.80-4.90) g/dL Globulin 3.8 H (1.6-3.3) g/dL Albumin/Globulin Ratio 0.68 L (1.60-3.17) g/dL Microbiology - Last 24 Hours (Table) 04/13/21 06:06 Blood Culture - Preliminary Blood No Growth after 48 hours Assessment and Plan (1) Perforation of sigmoid colon Narrative/Plan: Patient still with minimal output through the ostomy. We will provide one bottle of magnesium citrate. Continue diet as tolerated. Ambulate. Current Visit: Yes Status: Acute Code(s): K63.1 - PERFORATION OF INTESTINE (NONTRAUMATIC) SNOMED Code(s): 444456066
[2021-04-15] MEDS: SODIUM CHLORIDE 0.9% 1,000 ML IV SCH ×2 (13:32→19:32)
--- NOTE | 2021-04-15 16:42 | PN ---
PROGRESS NOTE DATE OF SERVICE: 04/15/2021 REASON FOR FOLLOWUP: Bacteroides bacteremia secondary to abdominal source. INTERVAL HISTORY: The patient is afebrile. The patient is currently breathing comfortably. Denies having any chest pain or shortness of breath or cough. No abdominal pain. Does not have any output in his colostomy bag. PHYSICAL EXAMINATION: On examination, blood pressure is 147/84, pulse 73, temperature 97.7. He is 99% . GENERAL DESCRIPTION: General description is an elderly male up in the chair in no distress. RESPIRATORY SYSTEM: Unlabored breathing. Clear to auscultation anteriorly. HEART: S1, S2. Regular rate and rhythm. ABDOMEN: Soft. No tenderness. LABS: Hemoglobin is , white count 2.7. Blood culture repeat has been negative. DIAGNOSTIC IMPRESSION AND PLAN: Patient with a perforated sigmoid diverticulitis, status post diverting colostomy with Bacteroides bacteremia. Repeat blood culture negative. He is on IV Rocephin and Flagyl. Finish therapy with oral for another week to 10 days with close outpatient followup. MMODL / IJN: [id number] /
--- NOTE | 2021-04-15 18:39 | P.PN ---
Subjective Progress Note Date: 04/15/21 Principal diagnosis: Abdominal pain, secondary to colon cancer with severe inflammation and nonspecific colitis of the sigmoid colon Perforated sigmoid colon secondary to colon cancer, sigmoid colectomy, colostomy, and incidental appendectomy Colon cancer 65-year-old male was admitted to the hospital severe lower quadrant abdominal pain for a few weeks duration. Patient has significant medical history of colon cancer with ongoing neoadjuvant chemotherapy. Emergency department stay patient had a CT of the abdomen and pelvis revealing nonspecific colitis to the sigmoid colon, worsening colitis comparison from previous CAT scan. Gen. surgery was consulted and oncology. 04/09/2021 Patient seen and examined at bedside. Patient is postop day 3 from sigmoid colectomy, appendectomy, with subsequent colostomy for perforated sigmoid colon. Patient is able to tolerate ice chips. Physical therapy and occupational therapy evaluated patient for status of strength and conditioning. He denies fever, chills, shortness of breath, chest pain, or palpitations. Patient endors es abdominal pain at the incisional site, and generalized weakness. HELEN drain draining appropriately. Vital signs are stable patient remains on broad- spectrum IV antibiotics. 04/10/2021 Patient seen and examined at bedside. Patient is postop day 4 from sigmoid colectomy, appendectomy, with subsequent colostomy for perforated sigmoid colon. Patient is tolerating ice chips, diet is expected to advanced to clear liquids today. He denies fever, chills, shortness of breath, chest pain or palpit ations. Patient endorses abdominal pain at this incisional site and generalized weakness. HELEN drain draining appropriately. Patient passing flatulence through colostomy. Vital signs and diagnostic testing reviewed. Continue IV antibiotics per infectious disease. Patient updated on status of treatment plan. April 11 through April 13 see hospital list coverage for notes 04/14/2021 Patient seen and examined at bedside. Patient is progressing from postop sigmoid colectomy, appendectomy with subsequent colostomy for perforated sigmoid colon. Patient is tolerating full liquid diet. Mild flatulence through colostomy noted. HELEN drain draining appropriate. Patient is covered with IV antibiotics from infectious disease standpoint. Vital signs and diagnostic testing reviewed. 04/15/2021 Patient seen and examined at bedside. Patient is progressing from postop sigmoid colectomy, incidental appendectomy, with subsequent colostomy for perforated sigmoid colon. Patient is tolerating regular diet; patient has minimal output of ostomy of flatulence no stool noted at this time. Objective - Vital Signs Vital signs: Vital Signs Temp 97.6 F 04/15/21 12:05 Pulse 64 04/15/21 12:05 Resp 16 04/15/21 12:05 BP 122/73 04/15/21 12:05 Pulse Ox 99 04/15/21 12:05 Intake & Output 04/14/21 04/15/21 04/15/21 18:59 06:59 18:59 Intake Total 740 Output Total 40 60 Balance -40 740 -60 Weight 58.06 kg Intake: Oral 740 Output: Drainage 40 60 Right 40 60 Other: Voiding Method Toilet Toilet Toilet Urinal Urinal Urinal # Voids 8 2 - Constitutional General appearance: Present: mild distress, thin - EENT Eyes: Present: EOMI, PERRLA ENT: Present: hard of hearing Ears: bilateral: normal - Neck Neck: Present: normal ROM Carotids: bilateral: upstroke normal Thyroid: bilateral: normal size - Respiratory Respiratory: bilateral: diminished (Anterior and posterior lung koch) - Cardiovascular Heart rate: 74 Rhythm: regular Heart sounds: normal: S1, S2 - Peripheral pulses dorsalis pedis Peripheral Pulses: bilateral: Normal radial pulse Peripheral Pulses: bilateral: Normal - Gastrointestinal Gastrointestinal Comment(s): Surgical incision well approximated;HELEN drain draining appropriate. ostomy pink and moist General gastrointestinal: Present: normal bowel sounds, soft - Integumentary Integumentary: Present: decreased turgor, pale - Neurologic Neurologic: Present: CNII-XII intact - Musculoskeletal Musculoskeletal: Present: generalized weakness - Psychiatric Psychiatric: Present: A&O x's 3 - Allied health notes Allied health notes reviewed: nursing - Labs CBC & Chem 7: 04/14/21 05:09 04/15/21 05:47 Labs: Abnormal Lab Results - Last 24 Hours (Table) 04/15/21 Range/Units 05:47 Anion Gap 3.00 L (4.00-12.00) mmol/L Calcium 7.9 L (8.7-10.3) mg/dL Albumin 2.60 L (3.80-4.90) g/dL Globulin 3.8 H (1.6-3.3) g/dL Albumin/Globulin Ratio 0.68 L (1.60-3.17) g/dL Microbiology - Last 24 Hours (Table) 04/13/21 06:06 Blood Culture - Preliminary Blood No Growth after 48 hours Assessment and Plan Assessment: Severe abdominal pain secondary to colon cancer with severe inflammation and nonspecific colitis of the sigmoid colon; patient placed on IV antibiotics Perforated sigmoid colon secondary to colon cancer, postop of sigmoid colectomy, colostomy, incidental appendectomy Colon cancer COPD without exacerbation Hypertension Hyponatremia Full code Plan: Severe abdominal pain secondary to colon cancer with severe inflammation nonsp ecific colitis to the sigmoid colon; continue Rocephin 2 g IV Perforated sigmoid colon secondary to colon cancer. Patient is postop from a sigmoid colectomy, colostomy, and incidental appendectomy; progress diet regular diet and recommendation and treatment plan from general surgery Colon cancer, continue consultation with hematology for recommendations and treatment plan COPD without exacerbation, patient instructed to continue incentive spirometer postop and for ongoing COPD Continue analgesics as needed with fentanyl patch for maintenance of pain management Continue Rocephin 2 g IV for blood cultures positive of anaerobic gram-negative bacilli Continue medical management Further recommendations to come based on patient's clinical condition Hopeful discharge to residential facility for strengthening conditioning in 24-48 hours Time with Patient: Greater than 30
[2021-04-16] MEDS: BUDESONIDE 0.5 MG/2 ML NEBU INHALATION SCH ×2 (07:19→19:43)
[2021-04-16] MEDS: IPRATROPIUM-ALBUTEROL 3 ML NEB INHALATION SCH ×4 (07:19→19:43)
--- NOTE | 2021-04-16 07:27 | P.PN ---
Subjective Progress Note Date: 04/16/21 Principal diagnosis: Abdominal pain, secondary to colon cancer with severe inflammation and nonspecific colitis of the sigmoid colon Perforated sigmoid colon secondary to colon cancer, sigmoid colectomy, colostomy, and incidental appendectomy Colon cancer 65-year-old male was admitted to the hospital severe lower quadrant abdominal pain for a few weeks duration. Patient has significant medical history of colon cancer with ongoing neoadjuvant chemotherapy. Emergency department stay patient had a CT of the abdomen and pelvis revealing nonspecific colitis to the sigmoid colon, worsening colitis comparison from previous CAT scan. Gen. surgery was consulted and oncology. 04/09/2021 Patient seen and examined at bedside. Patient is postop day 3 from sigmoid colectomy, appendectomy, with subsequent colostomy for perforated sigmoid colon. Patient is able to tolerate ice chips. Physical therapy and occupational therapy evaluated patient for status of strength and conditioning. He denies fever, chills, shortness of breath, chest pain, or palpitations. Patient endors es abdominal pain at the incisional site, and generalized weakness. HELEN drain draining appropriately. Vital signs are stable patient remains on broad- spectrum IV antibiotics. 04/10/2021 Patient seen and examined at bedside. Patient is postop day 4 from sigmoid colectomy, appendectomy, with subsequent colostomy for perforated sigmoid colon. Patient is tolerating ice chips, diet is expected to advanced to clear liquids today. He denies fever, chills, shortness of breath, chest pain or palpit ations. Patient endorses abdominal pain at this incisional site and generalized weakness. HELEN drain draining appropriately. Patient passing flatulence through colostomy. Vital signs and diagnostic testing reviewed. Continue IV antibiotics per infectious disease. Patient updated on status of treatment plan. April 11 through April 13 see hospital list coverage for notes 04/14/2021 Patient seen and examined at bedside. Patient is progressing from postop sigmoid colectomy, appendectomy with subsequent colostomy for perforated sigmoid colon. Patient is tolerating full liquid diet. Mild flatulence through colostomy noted. HELEN drain draining appropriate. Patient is covered with IV antibiotics from infectious disease standpoint. Vital signs and diagnostic testing reviewed. 04/15/2021 Patient seen and examined at bedside. Patient is progressing from postop sigmoid colectomy, incidental appendectomy, with subsequent colostomy for perforated sigmoid colon. Patient is tolerating regular diet; patient has minimal output of ostomy of flatulence no stool noted at this time. 04/16/2021 Patient seen and examined at bedside. Patient is progressing from postop sigmoid colectomy, incidental appendectomy, with subsequent colostomy for perforated sigmoid colon. Patient is tolerating regular diet with output from colostomy. Vital signs are diagnostic testing reviewed. Awaiting on a.m. labs. Awaiting on clearance from surgery, hematology/oncology, infectious disease for [facility] for [facility] conditioning. Objective - Vital Signs Vital signs: Vital Signs Temp 97.7 F 04/16/21 05:00 Pulse 77 04/16/21 05:00 Resp 16 04/16/21 05:00 BP 153/86 04/16/21 05:00 Pulse Ox 96 04/16/21 05:00 Intake & Output 04/15/21 04/16/21 04/16/21 18:59 06:59 18:59 Output Total 60 Balance -60 Weight 58.06 kg Output: Drainage 60 Right 60 Other: Voiding Method Toilet Toilet Urinal Urinal # Voids 2 - Constitutional General appearance: Present: thin - EENT Eyes: Present: EOMI, PERRLA ENT: Present: normal oropharynx Ears: bilateral: normal - Neck Neck: Present: normal ROM Carotids: bilateral: upstroke normal Thyroid: bilateral: normal size - Respiratory Respiratory: bilateral: CTA (Anterior and posterior lung koch) - Cardiovascular Heart rate: 74 Rhythm: regular Heart sounds: normal: S1, S2 - Peripheral pulses radial pulse Peripheral Pulses: bilateral: Normal dorsalis pedis Peripheral Pulses: bilateral: Normal - Gastrointestinal Gastrointestinal Comment(s): Surgical incision well approximated HELEN drain draining appropriately Ostomy site pink warm and moist Colostomy mild output - Integumentary Integumentary: Present: decreased turgor, pale - Neurologic Neurologic: Present: CNII-XII intact - Musculoskeletal Musculoskeletal: Present: generalized weakness - Psychiatric Psychiatric: Present: A&O x's 3, appropriate affect, intact judgment & insight - Allied health notes Allied health notes reviewed: nursing - Labs CBC & Chem 7: 04/14/21 05:09 04/15/21 05:47 Labs: Abnormal Lab Results - Last 24 Hours (Table) 04/15/21 Range/Units 05:47 Anion Gap 3.00 L (4.00-12.00) mmol/L Calcium 7.9 L (8.7-10.3) mg/dL Albumin 2.60 L (3.80-4.90) g/dL Globulin 3.8 H (1.6-3.3) g/dL Albumin/Globulin Ratio 0.68 L (1.60-3.17) g/dL Microbiology - Last 24 Hours (Table) 04/13/21 06:06 Blood Culture - Preliminary Blood No Growth after 48 hours Assessment and Plan Assessment: Severe abdominal pain secondary to colon cancer with severe inflammation and nonspecific colitis of the sigmoid colon; patient placed on IV antibiotics Perforated sigmoid colon secondary to colon cancer, postop of sigmoid colectomy, colostomy, incidental appendectomy Colon cancer COPD without exacerbation Hypertension Hyponatremia Full code Plan: Severe abdominal pain secondary to colon cancer with severe inflammation nonspecific colitis to the sigmoid colon; continue Rocephin 2 g IV Perforated sigmoid colon secondary to colon cancer. Patient is postop from a sigmoid colectomy, colostomy, and incidental appendectomy; progress diet regular diet and recommendation and treatment plan from general surgery Colon cancer, continue consultation with hematology for recommendations and treatment plan COPD without exacerbation, patient instructed to continue incentive spirometer postop and for ongoing COPD Continue analgesics as needed with fentanyl patch for maintenance of pain management Continue Rocephin 2 g IV for blood cultures positive of anaerobic gram-negative bacilli Continue medical management Further recommendations to come based on patient's clinical condition [facility] for [facility] conditioning in 24-48 hours Time with Patient: Greater than 30
[2021-04-16] MEDS: SODIUM CHLORIDE 0.9% 1,000 ML IV SCH ×3 (07:40→20:44)
[2021-04-16] MEDS: HYDROcodone/APAP 10-325MG 1 EACH TAB PO PRN ×3 (07:40→20:43)
[2021-04-16 07:48] LABS: Anisocytosis Slight; Basophils % (A) 1 %; Eosinophils % (A) 1 %; HCT 34.4 % (39.0-53.0); HGB 11.4 gm/dL (13.0-17.5); Hypochromasia Slight; Lymphocytes # (A) 0.8 k/uL (1.0-4.8); Lymphocytes % (A) 18 %; MCHC 33.1 g/dL (31.0-37.0); MCV 99.6 fL (80.0-100.0); Macrocytosis Slight; Mean Platelet Volume 8.2; Monocytes # (A) 0.3 k/uL (0-1.0); Monocytes % (A) 6 %; Neutrophils # (A) 3.3 k/uL (1.3-7.7); Neutrophils % (A) 72 %; Platelet Count 213 k/uL (150-450); Poikilocytosis Slight; RBC 3.45 m/uL (4.30-5.90); RDW 16.1 % (11.5-15.5); WBC 4.6 k/uL (3.8-10.6)
[2021-04-16] MEDS: ASPIRIN 81 MG PO SCH (08:16)
[2021-04-16] MEDS: predniSONE 20 MG TAB PO SCH (08:17)
[2021-04-16] MEDS: polyethylene glycoL 3350 17 GM POWD.PACK PO SCH (08:17)
[2021-04-16] MEDS: DOCUSATE 100 MG CAP PO SCH ×2 (08:17→20:43)
[2021-04-16] MEDS: PANTOPRAZOLE 40 MG/10 ML VIAL IVP SCH (08:17)
[2021-04-16] MEDS: amLODIPine 5 MG TAB PO SCH (08:17)
[2021-04-16] MEDS: ENOXAPARIN 40 MG/0.4 ML SYRINGE SQ SCH (08:17)
[2021-04-16] MEDS: MORPHINE SULFATE 4 MG/ML SYRINGE IVP PRN ×2 (08:18→13:00)
[2021-04-16] MEDS: ENOXAPARIN 30 MG/0.3 ML SYRINGE SQ SCH (10:08)
--- NOTE | 2021-04-16 13:12 | P.PN ---
Subjective Progress Note Date: 04/16/21 Principal diagnosis: Perforated sigmoid colon Patient had a few very hard small stools coming out of the ostomy since last night. He is passing flatus through the stoma. He is today woken up with increased crampy abdominal pain. Denies nausea vomiting. Vital signs stable. Labs noted. Objective - Vital Signs Vital signs: Vital Signs Temp 97.6 F 04/16/21 12:50 Pulse 74 04/16/21 12:50 Resp 16 04/16/21 12:50 BP 123/68 04/16/21 12:50 Pulse Ox 98 04/16/21 12:50 Intake & Output 04/15/21 04/16/21 04/16/21 18:59 06:59 18:59 Output Total 60 Balance -60 Weight 58.06 kg Output: Drainage 60 Right 60 Other: Voiding Method Toilet Toilet Toilet Urinal Urinal Urinal # Voids 2 - Exam Abdomen: Soft, mild tenderness diffusely, ostomy with hard stools - Labs CBC & Chem 7: 04/16/21 07:29 04/15/21 05:47 Labs: Abnormal Lab Results - Last 24 Hours (Table) 04/16/21 Range/Units 07:29 RBC 3.45 L (4.30-5.90) m/uL Hgb 11.4 L (13.0-17.5) gm/dL Hct 34.4 L (39.0-53.0) % RDW 16.1 H (11.5-15.5) % Lymphocytes # 0.8 L (1.0-4.8) k/uL Microbiology - Last 24 Hours (Table) 04/13/21 06:06 Blood Culture - Preliminary Blood No Growth after 72 hours Assessment and Plan (1) Perforation of sigmoid colon Narrative/Plan: Patient with increased pain today. Suspect it's related to cathartics given yesterday and hard stools present in the proximal colon. Encourage patient to ambulate. Decrease diet to clear liquids. Check abdominal x-rays in a.m. Current Visit: Yes Status: Acute Code(s): K63.1 - PERFORATION OF INTESTINE (NONTRAUMATIC) SNOMED Code(s): 712909820
[2021-04-16 14:23] LABS: African American GFR (CKD) 120.6 (60.0-200.0); Albumin 2.8 g/dL (3.80-4.90); Albumin/Globulin Ratio 0.7 (1.60-3.17); Anion Gap 5.6 mmol/L (4.00-12.00); BUN/Creat Ratio 23.33 Ratio (12.00-20.00); Calcium 8.2 mg/dL (8.7-10.3); Carbon Dioxide 29.4 mmol/L (21.6-31.8); Magnesium 1.6 mg/dL (1.5-2.4); Potassium 3.9 mmol/L (3.5-5.5); Total Bilirubin 0.3 mg/dL (0.2-1.2); Total Protein 6.8 g/dL (6.2-8.2)
[2021-04-16 20:36] LABS: Anisocytosis Slight; Basophils % (A) 0 %; Eosinophils % (A) 0 %; HGB 10.2 gm/dL (13.0-17.5); Lymphocytes # (A) 0.4 k/uL (1.0-4.8); Lymphocytes % (A) 9 %; MCH 33.6 pg (25.0-35.0); MCHC 32.8 g/dL (31.0-37.0); MCV 102.5 fL (80.0-100.0); Macrocytosis Moderate; Mean Platelet Volume 8.4; Monocytes # (A) 0.2 k/uL (0-1.0); Monocytes % (A) 5 %; Neutrophils # (A) 3.9 k/uL (1.3-7.7); Neutrophils % (A) 84 %; Platelet Count 206 k/uL (150-450); RBC 3.02 m/uL (4.30-5.90); WBC 4.6 k/uL (3.8-10.6)
--- NOTE | 2021-04-16 23:11 | PN ---
PROGRESS NOTE DATE OF SERVICE: 04/16/2021 REASON FOR FOLLOWUP: Bacteroides bacteremia. INTERVAL HISTORY: Patient is afebrile. The patient is breathing comfortably. The patient denies having any chest pain, shortness of breath or cough. No abdominal pain. No vomiting and had output in the colostomy bag. PHYSICAL EXAMINATION: Blood pressure 113/60 with a pulse of 63, temperature 97.9. He is 99% on room air. General description is an elderly male up in the chair in no distress. Respiratory system: Unlabored breathing, clear to auscultation anteriorly. Heart S1, S2. Regular rate and rhythm. Abdomen: Soft, no tenderness. LABS: Repeat blood culture has been negative. White count is 4.6. DIAGNOSTIC IMPRESSION AND PLAN: Patient with Bacteroides bacteremia secondary to perforated right colon. This patient is status post diverting colostomy. The patient is covered with Rocephin and Flagyl. Finish therapy with oral Ceftin and Flagyl and continue supportive care. MMODL / IJN: [id number] /
[2021-04-17] MEDS: HYDROcodone/APAP 10-325MG 1 EACH TAB PO PRN ×4 (04:12→22:13)
--- NOTE | 2021-04-17 08:03 | P.PN ---
Subjective Progress Note Date: 04/17/21 Principal diagnosis: Abdominal pain, secondary to colon cancer with severe inflammation and nonspecific colitis of the sigmoid colon Perforated sigmoid colon secondary to colon cancer, sigmoid colectomy, colostomy, and incidental appendectomy Colon cancer 65-year-old male was admitted to the hospital severe lower quadrant abdominal pain for a few weeks duration. Patient has significant medical history of colon cancer with ongoing neoadjuvant chemotherapy. Emergency department stay patient had a CT of the abdomen and pelvis revealing nonspecific colitis to the sigmoid colon, worsening colitis comparison from previous CAT scan. Gen. surgery was consulted and oncology. 04/09/2021 Patient seen and examined at bedside. Patient is postop day 3 from sigmoid colectomy, appendectomy, with subsequent colostomy for perforated sigmoid colon. Patient is able to tolerate ice chips. Physical therapy and occupational therapy evaluated patient for status of strength and conditioning. He denies fever, chills, shortness of breath, chest pain, or palpitations. Patient endors es abdominal pain at the incisional site, and generalized weakness. HELEN drain draining appropriately. Vital signs are stable patient remains on broad- spectrum IV antibiotics. 04/10/2021 Patient seen and examined at bedside. Patient is postop day 4 from sigmoid colectomy, appendectomy, with subsequent colostomy for perforated sigmoid colon. Patient is tolerating ice chips, diet is expected to advanced to clear liquids today. He denies fever, chills, shortness of breath, chest pain or palpit ations. Patient endorses abdominal pain at this incisional site and generalized weakness. HELEN drain draining appropriately. Patient passing flatulence through colostomy. Vital signs and diagnostic testing reviewed. Continue IV antibiotics per infectious disease. Patient updated on status of treatment plan. April 11 through April 13 see hospital list coverage for notes 04/14/2021 Patient seen and examined at bedside. Patient is progressing from postop sigmoid colectomy, appendectomy with subsequent colostomy for perforated sigmoid colon. Patient is tolerating full liquid diet. Mild flatulence through colostomy noted. HELEN drain draining appropriate. Patient is covered with IV antibiotics from infectious disease standpoint. Vital signs and diagnostic testing reviewed. 04/15/2021 Patient seen and examined at bedside. Patient is progressing from postop sigmoid colectomy, incidental appendectomy, with subsequent colostomy for perforated sigmoid colon. Patient is tolerating regular diet; patient has minimal output of ostomy of flatulence no stool noted at this time. 04/16/2021 Patient seen and examined at bedside. Patient is progressing from postop sigmoid colectomy, incidental appendectomy, with subsequent colostomy for perforated sigmoid colon. Patient is tolerating regular diet with output from colostomy. Vital signs are diagnostic testing reviewed. Awaiting on a.m. labs. Awaiting on clearance from surgery, hematology/oncology, infectious disease for discharge to [facility] facility for rehab for strengthening conditioning. 04/17/2021 Patient seen and examined at bedside. Patient is progressing from postop sigmoid colectomy, incidental appendectomy with subsequent cells colostomy for perforated sigmoid colon. Patient had difficulty with regular diet, was transitioned to full liquid diet from surgical team. Minimal output from colostomy. Vital signs and diagnostic testing reviewed. Awaiting on a.m. labs. Patient no acute signs of distress. Awaiting on clearance from surgery, hematology, infectious disease for discharge to [facility]-way facility for rehab for strengthening conditioning. Objective - Vital Signs Vital signs: Vital Signs Temp 97.7 F 04/17/21 05:00 Pulse 66 04/17/21 05:00 Resp 16 04/17/21 05:00 BP 132/72 04/17/21 05:00 Pulse Ox 96 04/17/21 05:00 Intake & Output 04/16/21 04/17/21 04/17/21 18:59 06:59 18:59 Intake Total 480 Output Total 40 Balance 440 Intake: Oral 480 Output: Drainage 40 Right 40 Other: Voiding Method Toilet Toilet Urinal Urinal - Constitutional General appearance: Present: mild distress, thin - EENT Eyes: Present: EOMI, PERRLA Ears: bilateral: normal - Neck Neck: Present: normal ROM Carotids: bilateral: upstroke normal Thyroid: bilateral: normal size - Respiratory Respiratory: bilateral: CTA (anterior and posterior lung koch) - Cardiovascular Heart rate: 74 Rhythm: regular Heart sounds: normal: S1, S2 - Peripheral pulses radial pulse Peripheral Pulses: bilateral: Normal dorsalis pedis Peripheral Pulses: bilateral: Normal - Gastrointestinal Gastrointestinal Comment(s): surgical's incision well approximated HELEN drain draining serosanguineous Ostomy pink and moist General gastrointestinal: Present: soft, tenderness - Integumentary Integumentary: Present: decreased turgor, pale - Musculoskeletal Musculoskeletal: Present: generalized weakness - Psychiatric Psychiatric: Present: A&O x's 3, appropriate affect, intact judgment & insight - Allied health notes Allied health notes reviewed: nursing - Labs CBC & Chem 7: 04/16/21 19:15 04/16/21 07:29 Labs: Abnormal Lab Results - Last 24 Hours (Table) 04/16/21 04/16/21 Range/Units 07:29 19:15 RBC 3.02 L (4.30-5.90) m/uL Hgb 10.2 L (13.0-17.5) gm/dL Hct 31.0 L (39.0-53.0) % MCV 102.5 H (80.0-100.0) fL RDW 17.0 H (11.5-15.5) % Lymphocytes # 0.4 L (1.0-4.8) k/uL BUN/Creatinine Ratio 23.33 H (12.00-20.00) Ratio Calcium 8.2 L (8.7-10.3) mg/dL AST 39 H (14-35) U/L Alkaline Phosphatase 130 H (41-126) U/L Albumin 2.80 L (3.80-4.90) g/dL Globulin 4.0 H (1.6-3.3) g/dL Albumin/Globulin Ratio 0.70 L (1.60-3.17) g/dL Microbiology - Last 24 Hours (Table) 04/13/21 06:06 Blood Culture - Preliminary Blood No Growth after 72 hours - Imaging and Cardiology Abdominal x-ray: image reviewed Assessment and Plan Assessment: Severe abdominal pain secondary to colon cancer with severe inflammation and nonspecific colitis of the sigmoid colon; patient placed on IV antibiotics Perforated sigmoid colon secondary to colon cancer, postop of sigmoid colectomy, colostomy, incidental appendectomy Colon cancer COPD without exacerbation Hypertension Hyponatremia Full code Plan: Severe abdominal pain secondary to colon cancer with severe inflammation nonsp ecific colitis to the sigmoid colon; continue Rocephin 2 g IV Perforated sigmoid colon secondary to colon cancer. Patient is postop from a sigmoid colectomy, colostomy, and incidental appendectomy; progress diet regular diet and recommendation and treatment plan from general surgery Colon cancer, continue consultation with hematology for recommendations and treatment plan COPD without exacerbation, patient instructed to continue incentive spirometer postop and for ongoing COPD Continue analgesics as needed with fentanyl patch for maintenance of pain management Continue Rocephin 2 g IV for blood cultures positive of anaerobic gram-negative bacilli Continue medical management Further recommendations to come based on patient's clinical condition Hopeful discharge to half-way facility for strengthening conditioning in 24-48 hours Time with Patient: Greater than 30
[2021-04-17] MEDS: BUDESONIDE 0.5 MG/2 ML NEBU INHALATION SCH ×2 (08:21→19:38)
[2021-04-17] MEDS: IPRATROPIUM-ALBUTEROL 3 ML NEB INHALATION SCH ×4 (08:21→19:38)
[2021-04-17] MEDS: polyethylene glycoL 3350 17 GM POWD.PACK PO SCH (08:31)
[2021-04-17] MEDS: ASPIRIN 81 MG PO SCH (08:31)
[2021-04-17] MEDS: PANTOPRAZOLE 40 MG/10 ML VIAL IVP SCH (08:31)
[2021-04-17] MEDS: predniSONE 20 MG TAB PO SCH (08:31)
[2021-04-17] MEDS: amLODIPine 5 MG TAB PO SCH (08:31)
[2021-04-17] MEDS: DOCUSATE 100 MG CAP PO SCH ×2 (08:31→22:12)
[2021-04-17] MEDS: ENOXAPARIN 30 MG/0.3 ML SYRINGE SQ SCH (08:31)
--- NOTE | 2021-04-17 08:42 | XR ---
EXAMINATION TYPE: XR abdomen 2V DATE OF EXAM: 04/17/2021 COMPARISON: NONE HISTORY: Pain TECHNIQUE: One view abdominal series FINDINGS: The osseous structures are intact. The bowel gas pattern is nonspecific. Post aortic surgery is seen with arthropathy of the hips surgical drain overlying the pelvis with surgical brittney. IMPRESSION: 1. Nonspecific abdomen. 2. Postsurgical change with suspected drainage catheter.
[2021-04-17] MEDS: ENOXAPARIN 40 MG/0.4 ML SYRINGE SQ SCH (08:44)
[2021-04-17] MEDS: IOPAMIDOL CONTRAST (ORAL USE) VIAL PO PRN ×2 (08:49→09:57)
[2021-04-17] MEDS: HEPARIN SODIUM,PORCINE/PF 5,000 UNIT/0.5 ML SYRINGE SQ SCH ×2 (08:56→22:12)
[2021-04-17 10:45] LABS: African American GFR (CKD) 120.6 (60.0-200.0); Anion Gap 6.9 mmol/L (4.00-12.00); BUN/Creat Ratio 23.33 Ratio (12.00-20.00); Calcium 8.4 mg/dL (8.7-10.3); Carbon Dioxide 29.1 mmol/L (21.6-31.8); Potassium 4.1 mmol/L (3.5-5.5)
--- NOTE | 2021-04-17 13:58 | P.PN ---
Subjective Progress Note Date: 04/17/21 Principal diagnosis: Perforated sigmoid colon Patient says his pain is improved from yesterday. He said he did have another hard stool last night. X-rays showed no evidence of free air. CAT scan was ordered. Official dictation is pending. Patient has a large volume of retained feces throughout the colon. Objective - Vital Signs Vital signs: Vital Signs Temp 97.4 F L 04/17/21 12:35 Pulse 69 04/17/21 12:35 Resp 17 04/17/21 12:35 BP 124/77 04/17/21 12:35 Pulse Ox 95 04/17/21 12:35 Intake & Output 04/16/21 04/17/21 04/17/21 18:59 06:59 18:59 Intake Total 480 Output Total 40 Balance 440 Intake: Oral 480 Output: Drainage 40 Right 40 Other: Voiding Method Toilet Toilet Toilet Urinal Urinal Urinal - Exam Abdomen: Soft, mild distention, ostomy pink, mild diffuse tenderness - Labs CBC & Chem 7: 04/16/21 19:15 04/17/21 05:43 Labs: Abnormal Lab Results - Last 24 Hours (Table) 04/16/21 04/16/21 04/17/21 Range/Units 07:29 19:15 05:43 RBC 3.02 L (4.30-5.90) m/uL Hgb 10.2 L (13.0-17.5) gm/dL Hct 31.0 L (39.0-53.0) % MCV 102.5 H (80.0-100.0) fL RDW 17.0 H (11.5-15.5) % Lymphocytes # 0.4 L (1.0-4.8) k/uL BUN/Creatinine Ratio 23.33 H 23.33 H (12.00-20.00) Ratio Calcium 8.2 L 8.4 L (8.7-10.3) mg/dL AST 39 H (14-35) U/L Alkaline Phosphatase 130 H (41-126) U/L Albumin 2.80 L (3.80-4.90) g/dL Globulin 4.0 H (1.6-3.3) g/dL Albumin/Globulin Ratio 0.70 L (1.60-3.17) g/dL Microbiology - Last 24 Hours (Table) 04/13/21 06:06 Blood Culture - Preliminary Blood No Growth after 96 hours Assessment and Plan (1) Perforation of sigmoid colon Narrative/Plan: Patient doing well with exception of constipation. I suspect the patient has some very hard stools present in the colon and that is contributing to his abdominal bloating and pain. Hopefully the contrast given for the CAT scan will help also act as a cathartic. Continue stool softeners. Ambulate. Keep on liquids for now. Current Visit: Yes Status: Acute Code(s): K63.1 - PERFORATION OF INTESTINE (NONTRAUMATIC) SNOMED Code(s): 538887692
--- NOTE | 2021-04-17 14:54 | CT ---
EXAMINATION TYPE: CT abdomen pelvis w con DATE OF EXAM: 04/17/2021 COMPARISON: 04/04/2021, 03/17/2021 HISTORY: 65-year-old male mid abd pain, colon CA TECHNIQUE: Contiguous axial scanning of the abdomen and pelvis following administration of 100 ml Iso keyona 300 IV contrast. Delayed images through the kidneys and coronal/sagittal reconstructions perform ed. CT DLP: 426.6 mGycm Automated exposure control for dose reduction was used. FINDINGS: Heart normal size with trace anterior pericardial fluid. Bullous emphysema. Band of atelectasis poste rior right base. Redemonstrated multiple hepatic lesions, these are largely stable though a few seem to have increased in size by a couple millimeters, largest measuring 3.8 cm. Portal venous system is patent. No biliar y ductal dilatation. Gallbladder, right adrenal gland, and pancreas within normal limits. Mild thickening left adrenal gla nd unchanged. Spleen enlarged at 15.0 cm, unchanged. A few cortical cysts within the left kidney, largest measuring 8 mm on the left. Interval laparotomy change. There is a focal 1.2 cm nodular density in the saphenous adipose layer at the superiormost skin staple, axial image 35. Interval left mid abdominal sigmoid colostomy. A surgical drain remains entering the right lower quad rant and ending in the pelvis. Moderate stool burden. No pericolonic inflammatory change. The previous small foci of free air have resolved. No free fluid. No dilated small bowel. Abdominal aortobiiliac endovascular stent graft redemonstrated. [place] sac measures 8.3 cm versus 8.4 cm on previous exams, not significantly changed. No endoleak identified on this study. A few small foci of air are present along the left inguinal canal. Tirado's pouch is visualized with adjacent surgical drain. Bladder distended. Prostate gland measures 4.4 cm. No abnormal fluid collection in the pelvis or pelv ic lymphadenopathy. Bones: Mild degenerative change at the hips. Mild to moderate degenerative disc disease L5-S1. IMPRESSION: 1. INTERVAL LAPAROTOMY WITH A LEFT MID ABDOMINAL SIGMOID COLOSTOMY. SURGICAL DRAIN IN THE PELVIS WITH TIRADO'S POUCH. SMALL FOCI OF AIR ARE PRESENT ALONG THE LEFT INGUINAL CANAL THAT MAY REPRESENT RESI DUAL POSTSURGICAL AIR. CLINICALLY CORRELATE. NO OTHER EVIDENCE OF FREE/EXTRALUMINAL AIR. 2. THERE IS A 1.2 CM NODULE IN THE SUBCUTANEOUS ADIPOSE ALONG THE SUPERIOR END OF THE LAPAROTOMY JUST DEEP TO THE SUPERIORMOST SKIN STAPLE. CORRELATE FOR ANY PALPABLE ABNORMALITY HERE TO EXCLUDE ABNORMA L SOFT TISSUE OR SMALL FLUID COLLECTION. 3. KNOWN HEPATIC METASTATIC DISEASE, LARGELY STABLE MEASURING UP TO 3.8 CM. A FEW LESIONS MAY HAVE IN CREASED MINIMALLY BY A COUPLE MILLIMETERS. 4. STABLE SPLENOMEGALY AT 15.0 CM. MODERATE STOOL BURDEN. AORTOBIILIAC ENDOVASCULAR STENT GRAFT WITH DILATED [place] SAC MEASURING UP TO 8.3 CM VERSUS 8.4 CM, PREVIOUSLY. 5. BULLOUS EMPHYSEMA.
--- NOTE | 2021-04-17 16:49 | PN ---
PROGRESS NOTE DATE OF SERVICE: 04/17/2021 REASON FOR FOLLOWUP: Bacteroides bacteremia secondary to abdominal source. INTERVAL HISTORY: The patient is afebrile. The patient is breathing comfortably. The patient denies having any chest pain or shortness of breath or cough. He is still complaining of abdominal pain, though. No vomiting and output in the colostomy. PHYSICAL EXAMINATION: Blood pressure 124/77, pulse of 69, temperature 97.4. He is 95% on room air. GENERAL DESCRIPTION: General description is an elderly male up in the chair in no distress. RESPIRATORY SYSTEM: Unlabored breathing. Decreased intensity of breath sounds. No wheeze. HEART: S1, S2. Regular rate and rhythm. ABDOMEN: Soft. Mildly distended. No guarding or rigidity. LABS: The patient did have a CT that did not show any abscess. DIAGNOSTIC IMPRESSION AND PLAN: Patient with Bacteroides bacteremia. Source abdominal, as the patient did have a perforated bowel, status post diverting colostomy. Repeat blood culture has been negative. White count is normal. Patient is covered with Rocephin and Flagyl; to continue and monitor his clinical course closely. MMODL / IJN: [id number] /
[2021-04-17] MEDS: SODIUM CHLORIDE 0.9% 1,000 ML IV SCH ×2 (17:19→22:10)
[2021-04-17] MEDS: MORPHINE SULFATE 4 MG/ML SYRINGE IVP PRN (19:55)
--- NOTE | 2021-04-17 22:02 | P.PN ---
Subjective Progress Note Date: 04/17/21 Principal diagnosis: Tumor necrosis and perforation He continues to struggle with pain and constipation, re-educated on narcotic induced constipation as well. Bowel regimen per surgery team. Objective - Vital Signs Vital signs: Vital Signs Temp 100.1 F H 04/17/21 20:18 Pulse 93 04/17/21 20:18 Resp 16 04/17/21 20:18 BP 136/72 04/17/21 20:18 Pulse Ox 96 04/17/21 20:18 Intake & Output 04/17/21 04/17/21 04/18/21 06:59 18:59 06:59 Output Total 40 100 Balance -40 -100 Output: Drainage 40 Right 40 Stool 100 Other: Voiding Method Toilet Toilet Urinal Urinal - Exam - Constitutional General appearance: cooperative, mild distress, thin - EENT Eyes: EOMI ENT: hard of hearing, NA/AT - Neck Neck: normal ROM - Respiratory Respiratory: bilateral: diminished (Increased effort due to pain) - Cardiovascular Rhythm: regularly irregular - Gastrointestinal General gastrointestinal: tenderness, pain, ostomy, evidence recent surgical intervention - Integumentary Integumentary: pale - Neurologic Neurologic: CNII-XII intact - Musculoskeletal Musculoskeletal: generalized weakness - Psychiatric Psychiatric: A&O x's 3 - Labs CBC & Chem 7: 04/16/21 19:15 04/17/21 05:43 Labs: Abnormal Lab Results - Last 24 Hours (Table) 04/17/21 Range/Units 05:43 BUN/Creatinine Ratio 23.33 H (12.00-20.00) Ratio Calcium 8.4 L (8.7-10.3) mg/dL Microbiology - Last 24 Hours (Table) 04/13/21 06:06 Blood Culture - Preliminary Blood No Growth after 96 hours Assessment and Plan (1) Abdominal pain Current Visit: Yes Status: Acute Code(s): R10.9 - UNSPECIFIED ABDOMINAL PAIN SNOMED Code(s): 57932182 (2) Liver metastases Current Visit: Yes Status: Acute Code(s): C78.7 - SECONDARY MALIG NEOPLASM OF LIVER AND INTRAHEPATIC BILE DUCT SNOMED Code(s): 00138376 (3) 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 Colon cancer mets to liver - Chemo on hold Status post exploratory lap, Sigmoid colectomy with end colostomy, incidental appendectomy, due to necrotic tumor perforation with Dr. Faith. CT per surgery xray reviewed without evidence of free air bowel regimen per surgery.
[2021-04-18] MEDS: SODIUM CHLORIDE 0.9% 1,000 ML IV SCH ×2 (04:40→12:02)
[2021-04-18] MEDS: ACETAMINOPHEN TAB 325 MG TAB PO PRN (06:01)
[2021-04-18 06:59] LABS: Basophils % (A) 0 %; Eosinophils % (A) 1 %; HCT 30.3 % (39.0-53.0); HGB 10.3 gm/dL (13.0-17.5); Lymphocytes # (A) 0.3 k/uL (1.0-4.8); Lymphocytes % (A) 7 %; MCH 33.1 pg (25.0-35.0); MCHC 33.9 g/dL (31.0-37.0); MCV 97.6 fL (80.0-100.0); Mean Platelet Volume 8.3; Monocytes # (A) 0.3 k/uL (0-1.0); Monocytes % (A) 6 %; Neutrophils # (A) 4.4 k/uL (1.3-7.7); Neutrophils % (A) 86 %; Platelet Count 172 k/uL (150-450); WBC 5.1 k/uL (3.8-10.6)
[2021-04-18] MEDS: HEPARIN SODIUM,PORCINE/PF 5,000 UNIT/0.5 ML SYRINGE SQ SCH ×2 (07:20→20:31)
[2021-04-18] MEDS: MORPHINE SULFATE 4 MG/ML SYRINGE IVP PRN (07:21)
[2021-04-18] MEDS: polyethylene glycoL 3350 17 GM POWD.PACK PO SCH (07:22)
[2021-04-18] MEDS: ASPIRIN 81 MG PO SCH (07:23)
[2021-04-18] MEDS: DOCUSATE 100 MG CAP PO SCH ×2 (07:23→20:31)
[2021-04-18] MEDS: PANTOPRAZOLE 40 MG/10 ML VIAL IVP SCH (07:23)
[2021-04-18] MEDS: predniSONE 20 MG TAB PO SCH (07:24)
[2021-04-18] MEDS: amLODIPine 5 MG TAB PO SCH (07:24)
[2021-04-18] MEDS: BUDESONIDE 0.5 MG/2 ML NEBU INHALATION SCH ×2 (08:54→20:21)
[2021-04-18] MEDS: IPRATROPIUM-ALBUTEROL 3 ML NEB INHALATION SCH ×4 (08:55→20:22)
--- NOTE | 2021-04-18 11:03 | P.PN ---
Subjective Progress Note Date: 04/18/21 Principal diagnosis: Perforated sigmoid colon Patient doing better today. Had some stool last night and again a small amount in the bag this morning. Still no large volume stool as anticipated from CAT scan. Pain better than 2 days ago. Objective - Vital Signs Vital signs: Vital Signs Temp 97.3 F L 04/18/21 07:32 Pulse 96 04/18/21 05:00 Resp 20 04/18/21 08:00 BP 118/61 04/18/21 05:00 Pulse Ox 92 L 04/18/21 05:00 Intake & Output 04/17/21 04/18/21 04/18/21 18:59 06:59 18:59 Intake Total 1380 Output Total 40 100 35 Balance -40 1280 -35 Intake: Intake, IV Titration 900 Amount Sodium Chloride 0.9% 1, 900 000 ml @ 100 mls/hr IV . Q10H [facility] Rx#:[id number] Oral 480 Output: Drainage 40 35 Right 40 35 Stool 100 Other: Voiding Method Toilet Toilet Urinal Urinal - Exam Abdomen: Soft, minimal distention, minimal tenderness, incision clean and dry - Labs CBC & Chem 7: 04/18/21 06:35 04/17/21 05:43 Labs: Abnormal Lab Results - Last 24 Hours (Table) 04/18/21 Range/Units 06:35 RBC 3.10 L (4.30-5.90) m/uL Hgb 10.3 L (13.0-17.5) gm/dL Hct 30.3 L (39.0-53.0) % RDW 16.0 H (11.5-15.5) % Lymphocytes # 0.3 L (1.0-4.8) k/uL Microbiology - Last 24 Hours (Table) 04/13/21 06:06 Blood Culture - Preliminary Blood No Growth after 120 hours Assessment and Plan (1) Perforation of sigmoid colon Narrative/Plan: Will give another one bottle of magnesium citrate. Ambulate. Continue diet. Current Visit: Yes Status: Acute Code(s): K63.1 - PERFORATION OF INTESTINE (NONTRAUMATIC) SNOMED Code(s): 277935666
[2021-04-18 11:08] LABS: African American GFR (CKD) 120.6 (60.0-200.0); Albumin 2.4 g/dL (3.80-4.90); Albumin/Globulin Ratio 0.73 (1.60-3.17); Anion Gap 6.3 mmol/L (4.00-12.00); BUN/Creat Ratio 26.67 Ratio (12.00-20.00); Carbon Dioxide 26.7 mmol/L (21.6-31.8); Globulin 3.3 g/dL (1.6-3.3); Magnesium 1.6 mg/dL (1.5-2.4); Potassium 3.8 mmol/L (3.5-5.5); Total Bilirubin 0.3 mg/dL (0.3-1.2); Total Protein 5.7 g/dL (6.2-8.2)
[2021-04-18] MEDS ORDERED: MAGNESIUM CITRATE 296 ML BOTTLE PO ONE (11:15)
--- NOTE | 2021-04-18 16:17 | PN ---
PROGRESS NOTE DATE OF SERVICE: 04/18/2021 REASON FOR FOLLOWUP: Bacteroides bacteremia. INTERVAL HISTORY: The patient did spike a fever this morning of 101 degrees Fahrenheit. I was not notified. The patient is feeling better this afternoon. The patient denies having any chest pain or shortness of breath or cough. Abdominal pain has improved. No vomiting. He has been tolerating his diet. PHYSICAL EXAMINATION: Blood pressure 94/53 with a pulse of 71, temperature 98.4. He is 97% on room air. GENERAL DESCRIPTION: General description is an elderly male up in the bed in no distress. RESPIRATORY SYSTEM: Unlabored breathing. Decreased breath sounds at the bases. No wheeze. HEART: S1, S2. Regular rate and rhythm. ABDOMEN: Soft. No tenderness. LABS: Hemoglobin is 10.3, white count of 5.1. BUN of 16, creatinine 0.6. DIAGNOSTIC IMPRESSION AND PLAN: Patient with bacteroides bacteremia from a perforated sigmoid colon, status post diverting colostomy. Repeat CT did not show any evidence of any abscess. New fever is slightly concerning. However, the patient's white count is normal. for the fever to obtain cultures. Continue with the Rocephin and Flagyl and monitor his clinical course closely. MMODL / IJN: [id number] /
[2021-04-18] MEDS: metroNIDAZOLE 500 MG TAB PO SCH ×2 (16:26→22:27)
--- NOTE | 2021-04-18 19:19 | P.PN ---
Subjective Progress Note Date: 04/18/21 Principal diagnosis: Perforated sigmoid colon 65-year-old male came in with severe lower quadrant abdominal pain sharp in nature has been going on for a few weeks. Patient was diagnosed with colon cancer patient is presently receiving neoadjuvant chemotherapy patient is supposed to undergo colectomy at the end of this month. Because of uncontrolled severe pain patient came to the hospital patient as 10/10 pain. Patient does smoke is significantly wheezing upon exam and patient the is saturating 91% on room air. Patient denied any fever chills. General surgery was consulted. Patient is really constipated received an enema yesterday had a bowel movement yesterday. Patient had a CT of the abdomen which showed some hospice for colitis which is worse compared to before in the sigmoid colon area. Objective - Vital Signs Vital signs: Vital Signs Temp 98.4 F 04/18/21 11:35 Pulse 71 04/18/21 11:35 Resp 16 04/18/21 11:35 BP 93/53 04/18/21 11:35 Pulse Ox 97 04/18/21 11:35 Intake & Output 04/17/21 04/18/21 04/18/21 18:59 06:59 18:59 Intake Total 1380 Output Total 40 100 35 Balance -40 1280 -35 Intake: Intake, IV Titration 900 Amount Sodium Chloride 0.9% 1, 900 000 ml @ 100 mls/hr IV . Q10H [facility] Rx#:[id number] Oral 480 Output: Drainage 40 35 Right 40 35 Stool 100 Other: Voiding Method Toilet Toilet Urinal Urinal # Bowel Movements 1 - Exam GENERAL: The patient is alert and oriented x3, not in any acute distress. Well developed, well nourished. HEENT: Pupils are round and equally reacting to light. EOMI. No scleral icterus. No conjunctival pallor. Normocephalic, atraumatic. No pharyngeal erythema. No thyromegaly. CARDIOVASCULAR: S1 and S2 present. No murmurs, rubs, or gallops. PULMONARY: Chest is clear to auscultation, no wheezing or crackles. ABDOMEN: Soft,tender, gaurding, normoactive bowel sounds, surgical incision present, HELEN drain. MUSCULOSKELETAL: No joint swelling or deformity. EXTREMITIES: No cyanosis, clubbing, or pedal edema. NEUROLOGICAL: Gross neurological examination did not reveal any focal deficits. SKIN: No rashes. - Labs CBC & Chem 7: 04/18/21 06:35 04/18/21 06:35 Labs: Abnormal Lab Results - Last 24 Hours (Table) 04/18/21 04/18/21 Range/Units 06:35 06:35 RBC 3.10 L (4.30-5.90) m/uL Hgb 10.3 L (13.0-17.5) gm/dL Hct 30.3 L (39.0-53.0) % RDW 16.0 H (11.5-15.5) % Lymphocytes # 0.3 L (1.0-4.8) k/uL Sodium 134 L (135-145) mmol/L BUN/Creatinine Ratio 26.67 H (12.00-20.00) Ratio Calcium 8.0 L (8.7-10.3) mg/dL Total Protein 5.7 L (6.2-8.2) g/dL Albumin 2.40 L (3.80-4.90) g/dL Albumin/Globulin Ratio 0.73 L (1.60-3.17) g/dL Microbiology - Last 24 Hours (Table) 04/13/21 06:06 Blood Culture - Preliminary Blood No Growth after 120 hours Assessment and Plan Assessment: -severe abdominal pain secondary to: Cancer and severe inflammation and nonspe cific colitis of the sigmoid colon. Patient is on IV ceftriaxone. Patient has positive blood cultures with the Bacteroides fragilis. Repeat blood cultures are still pending -Bacteremia with the above-mentioned bacteria -Perforated sigmoid colon secondary to colon cancer. Patient is status post s igmoid colectomy, colostomy, incidental appendectomy. -Colon cancer for which patient is a neoadjuvant chemotherapy which is being held for colectomy. -Continued nicotine use: Counseling was provided if needed patient will be started on nicotine patch -COPD with acute exacerbation patient was started on inhalational treatments inhalational steroids and 20 mg of oral steroids with GI prophylaxis -Hypertension: Holding off on antihypertensive medications postoperatively blood pressure monitored -Hyponatremia, continue with IV fluids, continue to monitor. Sodium level improved at 137 -DVT prophylaxis: Lovenox -GI prophylaxis Pepcid -Full code Plan: Patient to continue with breathing inhalational treatments and maintained on oral steroids and will continue. Infectious disease is following and patient is maintained on IV ceftriaxone. Patient reports to passing gas and is having stool in the ostomy. Surgery is following closely and patient denies any nausea or vomiting and tolerating clear liquids and slowly advancing to full liquids. Encouraged increase in activity. Patient continues to be weak and has discussed with case management along with social work and plans on possible rehab at an [facility] to build up strength and mobility. Will continue to monitor closely and repeat a.m. labs.
[2021-04-19] MEDS: SODIUM CHLORIDE 0.9% 1,000 ML IV SCH ×3 (05:01→21:19)
[2021-04-19] MEDS: HYDROcodone/APAP 10-325MG 1 EACH TAB PO PRN ×2 (05:01→21:17)
[2021-04-19] MEDS: MORPHINE SULFATE 4 MG/ML SYRINGE IVP PRN (05:50)
[2021-04-19] MEDS: polyethylene glycoL 3350 17 GM POWD.PACK PO SCH (07:10)
[2021-04-19] MEDS: PANTOPRAZOLE 40 MG/10 ML VIAL IVP SCH (07:11)
[2021-04-19] MEDS: HEPARIN SODIUM,PORCINE/PF 5,000 UNIT/0.5 ML SYRINGE SQ SCH ×2 (07:11→21:16)
[2021-04-19] MEDS: predniSONE 20 MG TAB PO SCH (07:11)
[2021-04-19] MEDS: ASPIRIN 81 MG PO SCH (07:12)
[2021-04-19] MEDS: DOCUSATE 100 MG CAP PO SCH ×2 (07:12→21:16)
[2021-04-19] MEDS: amLODIPine 5 MG TAB PO SCH (07:12)
[2021-04-19] MEDS: metroNIDAZOLE 500 MG TAB PO SCH ×3 (07:12→21:17)
--- NOTE | 2021-04-19 08:16 | P.PN ---
Subjective Progress Note Date: 04/19/21 Principal diagnosis: Perforated sigmoid colon Patient doing well today. Had a large amount of stool through the ostomy yesterday. Empty the bag multiple times. Tolerating diet. Minimal pain. Objective - Vital Signs Vital signs: Vital Signs Temp 97.7 F 04/19/21 04:55 Pulse 63 04/19/21 04:55 Resp 18 04/19/21 07:59 BP 132/53 04/19/21 04:55 Pulse Ox 96 04/19/21 04:55 Intake & Output 04/18/21 04/19/21 04/19/21 18:59 06:59 18:59 Intake Total 1100 600 Output Total 35 Balance 1065 600 Intake: IV 1100 600 Sodium Chloride 0.9% 1, 1100 600 000 ml @ 100 mls/hr IV . Q10H [facility] Rx#:[id number] Output: Drainage 35 Right 35 Other: Voiding Method Toilet Toilet Toilet Urinal Urinal Urinal # Voids 3 # Bowel Movements 1 - Exam Abdomen: Soft, nondistended, nontender, incision clean and dry, ostomy function - Labs CBC & Chem 7: 04/18/21 06:35 04/18/21 06:35 Labs: Abnormal Lab Results - Last 24 Hours (Table) 04/18/21 Range/Units 06:35 Sodium 134 L (135-145) mmol/L BUN/Creatinine Ratio 26.67 H (12.00-20.00) Ratio Calcium 8.0 L (8.7-10.3) mg/dL Total Protein 5.7 L (6.2-8.2) g/dL Albumin 2.40 L (3.80-4.90) g/dL Albumin/Globulin Ratio 0.73 L (1.60-3.17) g/dL Microbiology - Last 24 Hours (Table) 04/13/21 06:06 Blood Culture - Preliminary Blood No Growth after 120 hours Assessment and Plan (1) Perforation of sigmoid colon Narrative/Plan: Patient doing well at this time. Continue diet as tolerated. Remove HELEN drain. Anticipate transfer to rehab tomorrow. Current Visit: Yes Status: Acute Code(s): K63.1 - PERFORATION OF INTESTINE (NONTRAUMATIC) SNOMED Code(s): 018528170
[2021-04-19] MEDS: BUDESONIDE 0.5 MG/2 ML NEBU INHALATION SCH ×2 (08:20→19:46)
[2021-04-19] MEDS: IPRATROPIUM-ALBUTEROL 3 ML NEB INHALATION SCH ×4 (08:20→19:46)
[2021-04-19 11:56] VITALS: RESP 16
--- NOTE | 2021-04-19 14:51 | PN ---
PROGRESS NOTE DATE OF SERVICE: 04/19/2021 REASON FOR FOLLOWUP: Bacteroides bacteremia and perforated sigmoid diverticulitis. INTERVAL HISTORY: The patient is afebrile. The patient is feeling better, breathing comfortably. The patient has been tolerating his diet. No chest pain. No cough. No vomiting. No abdominal pain or diarrhea. PHYSICAL EXAMINATION: Blood pressure 104/66, pulse of 63, temperature 97.6. He is 98% on room air. GENERAL DESCRIPTION: General description is an elderly male up in the chair in no distress. RESPIRATORY SYSTEM: Unlabored breathing. Clear to auscultation anteriorly. HEART: S1, S2. Regular rate and rhythm. ABDOMEN: Soft. No tenderness. LABS: No new labs have been obtained today. DIAGNOSTIC IMPRESSION AND PLAN: Patient with bacteroides bacteremia and perforated sigmoid colon, status post diverting colostomy, on Rocephin and Flagyl. To finish therapy with oral Flagyl and Ceftin for another 10 days and close outpatient followup. MMODL / IJN: [id number] /
--- NOTE | 2021-04-19 18:50 | P.PN ---
Subjective Progress Note Date: 04/19/21 Principal diagnosis: Perforated sigmoid colon 65-year-old male came in with severe lower quadrant abdominal pain sharp in nature has been going on for a few weeks. Patient was diagnosed with colon cancer patient is presently receiving neoadjuvant chemotherapy patient is supposed to undergo colectomy at the end of this month. Because of uncontrolled severe pain patient came to the hospital patient as 10/10 pain. Patient does smoke is significantly wheezing upon exam and patient the is saturating 91% on room air. Patient denied any fever chills. General surgery was consulted. Patient is really constipated received an enema yesterday had a bowel movement yesterday. Patient had a CT of the abdomen which showed some hospice for colitis which is worse compared to before in the sigmoid colon area. 04/19/2021 Patient is seen and evaluated in room at bedside; denies any complaints of nausea vomiting Vital signs are reviewed and stable with a temperature of 97.6, pulse 63, respirations 16 and blood pressure of 104/66, O2 saturation 98% Patient has been tolerating diet; reports of large amount of stool through ost jenaro yesterday Surgery planning to remove HELEN drain with possible transfer to rehab tomorrow Objective - Vital Signs Vital signs: Vital Signs Temp 97.6 F 04/19/21 11:45 Pulse 63 04/19/21 11:45 Resp 16 04/19/21 11:45 BP 104/66 04/19/21 11:45 Pulse Ox 98 04/19/21 11:45 Intake & Output 04/18/21 04/19/21 04/19/21 18:59 06:59 18:59 Intake Total 1100 600 Output Total 35 20 Balance 1065 600 -20 Intake: IV 1100 600 Sodium Chloride 0.9% 1, 1100 600 000 ml @ 100 mls/hr IV . Q10H [facility] Rx#:[id number] Output: Drainage 35 20 Right 35 20 Other: Voiding Method Toilet Toilet Toilet Urinal Urinal Urinal # Voids 3 # Bowel Movements 1 - Exam GENERAL: The patient is alert and oriented x3, not in any acute distress. Well developed, well nourished. HEENT: Pupils are round and equally reacting to light. EOMI. No scleral icterus. No conjunctival pallor. Normocephalic, atraumatic. No pharyngeal erythema. No thyromegaly. CARDIOVASCULAR: S1 and S2 present. No murmurs, rubs, or gallops. PULMONARY: Chest is clear to auscultation, no wheezing or crackles. ABDOMEN: Soft,tender, gaurding, normoactive bowel sounds, surgical incision present, HELEN drain. MUSCULOSKELETAL: No joint swelling or deformity. EXTREMITIES: No cyanosis, clubbing, or pedal edema. NEUROLOGICAL: Gross neurological examination did not reveal any focal deficits. SKIN: No rashes. - Labs CBC & Chem 7: 04/18/21 06:35 04/18/21 06:35 Labs: Microbiology - Last 24 Hours (Table) 04/13/21 06:06 Blood Culture - Final Blood No Growth after 144 hours Assessment and Plan Assessment: -severe abdominal pain secondary to: Cancer and severe inflammation and nonspecific colitis of the sigmoid colon. Patient is on IV ceftriaxone. Patient has positive blood cultures with the Bacteroides fragilis. Repeat blood cultures are still pending -Bacteremia with the above-mentioned bacteria -Perforated sigmoid colon secondary to colon cancer. Patient is status post sigmoid colectomy, colostomy, incidental appendectomy. -Colon cancer for which patient is a neoadjuvant chemotherapy which is being held for colectomy. -Continued nicotine use: Counseling was provided if needed patient will be started on nicotine patch -COPD with acute exacerbation patient was started on inhalational treatments inhalational steroids and 20 mg of oral steroids with GI prophylaxis -Hypertension: Holding off on antihypertensive medications postoperatively blood pressure monitored -Hyponatremia, continue with IV fluids, continue to monitor. Sodium level improved at 137 -DVT prophylaxis: Lovenox -GI prophylaxis Pepcid -Full code Plan: Patient to continue with breathing inhalational treatments and maintained on oral steroids and will continue. Infectious disease is following and patient is maintained on IV ceftriaxone. Patient reports to passing gas and is having stool in the ostomy. Surgery is following closely and patient denies any nausea or vomiting and tolerating clear liquids and slowly advancing to full liquids. Encouraged increase in activity. Patient continues to be weak and has discussed with case management along with social work and plans on possible rehab at an [facility] to build up strength and mobility. Will continue to monitor closely and repeat a.m. labs.
[2021-04-20] MEDS: SODIUM CHLORIDE 0.9% 1,000 ML IV SCH (06:26)
[2021-04-20] MEDS: polyethylene glycoL 3350 17 GM POWD.PACK PO SCH (08:02)
[2021-04-20] MEDS: PANTOPRAZOLE 40 MG/10 ML VIAL IVP SCH (08:02)
[2021-04-20] MEDS: HEPARIN SODIUM,PORCINE/PF 5,000 UNIT/0.5 ML SYRINGE SQ SCH (08:02)
[2021-04-20] MEDS: ASPIRIN 81 MG PO SCH (08:03)
[2021-04-20] MEDS: amLODIPine 5 MG TAB PO SCH (08:03)
[2021-04-20] MEDS: metroNIDAZOLE 500 MG TAB PO SCH ×2 (08:04→15:47)
[2021-04-20] MEDS: predniSONE 20 MG TAB PO SCH (08:04)
[2021-04-20] MEDS: HYDROcodone/APAP 10-325MG 1 EACH TAB PO PRN (08:04)
[2021-04-20] MEDS: DOCUSATE 100 MG CAP PO SCH (08:04)
[2021-04-20] MEDS: IPRATROPIUM-ALBUTEROL 3 ML NEB INHALATION SCH ×3 (08:43→16:15)
[2021-04-20] MEDS: BUDESONIDE 0.5 MG/2 ML NEBU INHALATION SCH (08:43)
--- NOTE | 2021-04-20 10:06 | P.PN ---
<Flower Mendez - Last Filed: 04/20/21 10:03> Subjective Progress Note Date: 04/20/21 CHIEF COMPLAINT: Abdominal pain HISTORY OF PRESENT ILLNESS: Perforated sigmoid colon cancer status post sigmoid colectomy with end colostomy, incidental appendectomy. Patient is sitting up in bedside chair. He reports that his pain is controlled. His ostomy is functioning. He is tolerating diet. Pain is controlled. Afebrile. PHYSICAL EXAM: VITAL SIGNS: Reviewed. GENERAL: Well-developed in no acute distress. HEENT: No sclera icterus. Extraocular movements grossly intact. Moist buccal mucosa. Head is atraumatic, normocephalic. ABDOMEN: Soft. Nondistended, incision site clean dry and intact. Ostomy functioning NEUROLOGIC: Alert and oriented. Cranial nerves II through XII grossly intact. ASSESSMENT: 1. Perforated sigmoid colon cancer status post sigmoid colectomy with end colostomy, incidental appendectomy PLAN: -Patient can be discharged from surgical standpoint to [facility]CF -Patient of Dr. Woodward in 1 week -Continue low fiber diet Physician [employer]er note has been reviewed by physician. Signing provider agrees with the documented findings, assessment, and plan of care. Objective - Vital Signs Vital signs: Vital Signs Temp 98.1 F 04/20/21 04:48 Pulse 80 04/20/21 08:57 Resp 16 04/20/21 04:48 BP 137/70 04/20/21 04:48 Pulse Ox 92 L 04/20/21 04:48 Intake & Output 04/19/21 04/20/21 04/20/21 18:59 06:59 18:59 Intake Total 1000 590 Output Total 20 Balance 980 590 Intake: IV 1000 Sodium Chloride 0.9% 1, 1000 000 ml @ 100 mls/hr IV . Q10H [facility] Rx#:[id number] Oral 590 Output: Drainage 20 Right 20 Other: Voiding Method Toilet Toilet Urinal Urinal # Voids 2 - Labs CBC & Chem 7: 04/18/21 06:35 04/18/21 06:35 Labs: Microbiology - Last 24 Hours (Table) 04/18/21 15:20 Blood Culture - Preliminary Blood No Growth after 24 hours 04/13/21 06:06 Blood Culture - Final Blood No Growth after 144 hours <Isidro Woodward - Last Filed: 04/20/21 12:01> Subjective As above. Patient doing well today. Tolerating diet. Good ostomy function. December discharge. Follow-up as outpatient. Objective - Vital Signs Vital signs: Vital Signs Temp 98.1 F 04/20/21 04:48 Pulse 80 04/20/21 08:57 Resp 16 04/20/21 04:48 BP 137/70 04/20/21 04:48 Pulse Ox 92 L 04/20/21 04:48 Intake & Output 04/19/21 04/20/21 04/20/21 18:59 06:59 18:59 Intake Total 1000 590 Output Total 20 Balance 980 590 Intake: IV 1000 Sodium Chloride 0.9% 1, 1000 000 ml @ 100 mls/hr IV . Q10H [facility] Rx#:[id number] Oral 590 Output: Drainage 20 Right 20 Other: Voiding Method Toilet Toilet Urinal Urinal # Voids 2 1 - Labs CBC & Chem 7: 04/18/21 06:35 04/18/21 06:35 Labs: Microbiology - Last 24 Hours (Table) 04/18/21 15:20 Blood Culture - Preliminary Blood No Growth after 24 hours 04/13/21 06:06 Blood Culture - Final Blood No Growth after 144 hours Assessment and Plan (1) Perforation of sigmoid colon Current Visit: Yes Status: Acute Code(s): K63.1 - PERFORATION OF INTESTINE (NONTRAUMATIC) SNOMED Code(s): 424487588
[2021-04-20 12:38] VITALS: BP 110/62; PULSE 77; TEMP 97.9
--- NOTE | 2021-04-20 13:42 | PN ---
PROGRESS NOTE DATE OF SERVICE: 04/20/2021 REASON FOR FOLLOWUP: Bacteremia secondary to abdominal source. INTERVAL HISTORY: Patient is afebrile. The patient is feeling better. Breathing comfortably. No chest pain. No shortness of breath or cough. No abdominal pain. No diarrhea. PHYSICAL EXAMINATION: Blood pressure 137/70 with a pulse of 73, temperature 98.1. He is 92% on room air. General description is an elderly male up in the chair in no distress. Respiratory system: Unlabored breathing clear to auscultation anteriorly. Heart S1, S2. Regular rate and rhythm. Abdomen: Soft, no tenderness. LABS: No new labs been obtained today. Blood culture repeated on April 18 has been negative so far. DIAGNOSTIC IMPRESSION AND PLAN: Patient with Bacteroides bacteremia, source abdominal in this patient doing well on Rocephin and Flagyl. Finish therapy with oral Ceftin and Flagyl for another week or 10 days and close outpatient followup. MMODL / IJN: [id number] /
--- NOTE | 2021-04-20 15:24 | P.DS ---
Providers Date of admission: 04/05/21 01:35 Expected date of discharge: 04/20/21 Attending physician: Maycol Porter Consults: 04/06/21 08:39 Consult Physician Routine Consulting Provider: Isidro Woodward Consult Reason/Comments: abdominal pain Do you want consulting provider notified?: Already Contacted 04/06/21 12:17 Consult Physician Routine Consulting Provider: Elfego Torres Consult Reason/Comments: colon ca Do you want consulting provider notified?: Yes 04/09/21 07:46 Consult Physician Routine Consulting Provider: Sailaja Shah Consult Reason/Comments: positive blood cultures, antibiotic mgt Do you want consulting provider notified?: Yes Primary care physician: Maycol Porter Hospital Course: Discharge diagnosis -severe abdominal pain secondary to Cancer and tumor necrosis and perforation. Patient is on IV ceftriaxone. Patient has positive blood cultures with the Bacteroides fragilis. Repeat blood cultures negative. Continue with antibiotics for 10 more days as per ID recommendations. 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 -Perforated sigmoid colon secondary to colon cancer. Patient is status post sigmoid colectomy, colostomy, incidental appendectomy. -Colon cancer for which patient is a neoadjuvant chemotherapy which is being held for colectomy. -Continued nicotine use: Counseling was provided if needed patient will be started on nicotine patch -COPD with acute exacerbation patient was started on inhalational treatments i nhalational steroids and 20 mg of oral steroids with GI prophylaxis -Hypertension: Holding off on antihypertensive medications postoperatively blood pressure monitored -Hyponatremia, continue with IV fluids, continue to monitor. Sodium level improved at 137 -DVT prophylaxis: Lovenox -GI prophylaxis Pepcid -Full code Hospital course 65-year-old male came in with severe lower quadrant abdominal pain sharp in nature has been going on for a few weeks. Patient was diagnosed with colon cancer patient is presently receiving neoadjuvant chemotherapy patient is supposed to undergo colectomy at the end of this month. Because of uncontrolled severe pain patient came to the hospital patient as 10/10 pain. Patient does smoke is significantly wheezing upon exam and patient the is saturating 91% on room air. Patient denied any fever chills. General surgery was consulted. Patient is really constipated received an enema yesterday had a bowel movement yesterday. Patient had a CT of the abdomen which showed some hospice for colitis which is worse compared to before in the sigmoid colon area. 04/19/2021 Patient is seen and evaluated in room at bedside; denies any complaints of nausea vomiting Vital signs are reviewed and stable with a temperature of 97.6, pulse 63, respirations 16 and blood pressure of 104/66, O2 saturation 98% Patient has been tolerating diet; reports of large amount of stool through ostomy yesterday Surgery planning to remove HELEN drain with possible transfer to rehab tomorrow 04/20/2021 Patient is currently sitting in the chair comfortably. Patient is status post sigmoid colectomy with end colostomy and incidental appendectomy due to perforated sigmoid colon cancer. Patient's pain is fairly controlled. Ostomy is working. Tolerating oral diet No complaints of chest pain or shortness of breath. Patient had Bacteroides bacteremia. Currently on ceftriaxone and Flagyl. ID records to continue and days of Ceftin and Flagyl. Patient is has been afebrile and repeat cultures have been negative. Stable to discharge to rehab. - Exam GENERAL: The patient is alert and oriented x3, not in any acute distress. Well developed, well nourished. HEENT: Pupils are round and equally reacting to light. EOMI. No scleral icterus. No conjunctival pallor. Normocephalic, atraumatic. No pharyngeal erythema. No thyromegaly. CARDIOVASCULAR: S1 and S2 present. No murmurs, rubs, or gallops. PULMONARY: Chest is clear to auscultation, no wheezing or crackles. ABDOMEN: Soft,tender, gaurding, normoactive bowel sounds, surgical incision present, colostomy in place.. MUSCULOSKELETAL: No joint swelling or deformity. EXTREMITIES: No cyanosis, clubbing, or pedal edema. NEUROLOGICAL: Gross neurological examination did not reveal any focal deficits. SKIN: No rashes. Vital Signs 04/20/21 04/20/21 04/20/21 08:44 08:57 12:01 Temperature 97.9 F Pulse Rate 80 80 Pulse Rate [ 77 Pulse Oximetery ] Respiratory 16 Rate Blood Pressure 110/62 [Right Arm] O2 Sat by Pulse 98 Oximetry Total time taken greater than 35 minutes including 18 minutes for counseling and coordination of care. Patient Condition at Discharge: Fair Plan - Discharge Summary New Discharge Prescriptions: New Docusate [Colace] 100 mg PO BID cap polyethylene glycoL 3350 [Miralax] 17 gm PO DAILY powd.pack amLODIPine [Norvasc] 5 mg PO DAILY #30 tab Cefuroxime Axetil [Ceftin] 500 mg PO BID 10 Days #20 tab metroNIDAZOLE [Flagyl] 500 mg PO Q8HR 10 Days #30 tab Continue HYDROcodone/APAP 10-325MG [[place] 10-325] 1 tab PO TID PRN PRN Reason: Pain Sennosides/Docusate Sodium [Senna Plus 8.6-50 mg Tablet] 1 tab PO HS PRN PRN Reason: Constipation Prochlorperazine [Compazine] 10 mg PO Q8H PRN PRN Reason: Nausea And Vomiting Ondansetron Odt [Zofran ODT] 8 mg PO Q8H PRN PRN Reason: Nausea And Vomiting Gabapentin [Neurontin] 300 mg PO HS Clotrimazole 10 mg MUCOUS MEM 5XD Aspirin EC [Ecotrin Low Dose] 81 mg PO DAILY fentaNYL [Duragesic 37.5 MCG/HR] 1 patch TRANSDERM Q72H traZODone HCL 50 mg PO HS Tadalafil [Cialis] 5 mg PO DAILY PRN PRN Reason: E.D. Discontinued Metoprolol Tartrate [Lopressor] 25 mg PO BID NIFEdipine [NIFEdipine ER] 30 mg PO DAILY Discharge Medication List HYDROcodone/APAP 10-325MG [[place] 10-325] 1 tab PO TID PRN 04/04/21 [History] fentaNYL [Duragesic 37.5 MCG/HR] 1 patch TRANSDERM Q72H 04/04/21 [History] Aspirin EC [Ecotrin Low Dose] 81 mg PO DAILY 04/05/21 [History] Clotrimazole 10 mg MUCOUS MEM 5XD 04/05/21 [History] Gabapentin [Neurontin] 300 mg PO HS 04/05/21 [History] Ondansetron Odt [Zofran ODT] 8 mg PO Q8H PRN 04/05/21 [History] Prochlorperazine [Compazine] 10 mg PO Q8H PRN 04/05/21 [History] Sennosides/Docusate Sodium [Senna Plus 8.6-50 mg Tablet] 1 tab PO HS PRN 04/05/21 [History] Tadalafil [Cialis] 5 mg PO DAILY PRN 04/05/21 [History] traZODone HCL 50 mg PO HS 04/05/21 [History] Cefuroxime Axetil [Ceftin] 500 mg PO BID 10 Days #20 tab 04/20/21 [Rx] Docusate [Colace] 100 mg PO BID cap 04/20/21 [Rx] amLODIPine [Norvasc] 5 mg PO DAILY #30 tab 04/20/21 [Rx] metroNIDAZOLE [Flagyl] 500 mg PO Q8HR 10 Days #30 tab 04/20/21 [Rx] polyethylene glycoL 3350 [Miralax] 17 gm PO DAILY powd.pack 04/20/21 [Rx] Follow up Appointment(s)/Referral(s): Isidro Woodward MD [Medical Doctor] - 1 Week Maycol Porter MD [Primary Care Provider] - 1-2 days Issa Broderick MD [STAFF PHYSICIAN] - 1 Week [facility], [NON-STAFF] - 1-2 Days Patient Instructions/Handouts: Cefuroxime (By mouth), Metronidazole (By mouth), Amlodipine (By mouth), How to Stop Smoking (ED), Colostomy Care (GEN) Activity/Diet/Wound Care/Special Instructions: Colostomy Care Recommendations for transition to Rehab: Mr Jay will have enough supplies for 3 pouching changes and accessories for transition to Rehab supplied by the hospital as follows: Last pouchign system change 04.17.2021 Mr Jay will be sent to Rehab with the following ostoy supplies: Convatec one piece cut to fit with filter #[id number] (3) No sting prpe pads 3 M (120 Ostomy powder (1) Omari seals small (2) Please consider to change to disposable pouching system in 2 weeks for Mr Jay Discharge Disposition: TRANSFER TO SNF/ECF
--- NOTE | 2021-04-20 15:41 | P.PN ---
Subjective Progress Note Date: 04/20/21 Principal diagnosis: Bowel obstruction Patient is doing well postop, a lot of his pain is resolved. Objective - Vital Signs Vital signs: Vital Signs Temp 97.9 F 04/20/21 12:01 Pulse 77 04/20/21 12:01 Resp 16 04/20/21 12:01 BP 110/62 04/20/21 12:01 Pulse Ox 98 04/20/21 12:01 Intake & Output 04/19/21 04/20/21 04/20/21 18:59 06:59 18:59 Intake Total 1000 590 Output Total 20 Balance 980 590 Intake: IV 1000 Sodium Chloride 0.9% 1, 1000 000 ml @ 100 mls/hr IV . Q10H KURT Rx#:[id number] Oral 590 Output: Drainage 20 Right 20 Other: Voiding Method Toilet Toilet Urinal Urinal # Voids 2 1 - Constitutional General appearance: Present: cooperative, no acute distress, thin - EENT Eyes: Present: anicteric sclerae, EOMI ENT: Present: hearing grossly normal - Respiratory Details: Respirations even and unlabored - Neurologic Neurologic: Present: CNII-XII intact - Musculoskeletal Musculoskeletal: Present: strength equal bilaterally - Psychiatric Psychiatric: Present: A&O x's 3, appropriate affect, intact judgment & insight - Labs CBC & Chem 7: 04/18/21 06:35 04/18/21 06:35 Labs: Microbiology - Last 24 Hours (Table) 04/18/21 15:20 Blood Culture - Preliminary Blood No Growth after 24 hours Assessment and Plan (1) Liver metastases Current Visit: Yes Status: Chronic Priority: Medium Code(s): C78.7 - SECONDARY MALIG NEOPLASM OF LIVER AND INTRAHEPATIC BILE DUCT SNOMED Code(s): 11293513 (2) 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 Current Visit: Yes Status: Chronic Priority: Medium Code(s): C18.7 - MALIGNANT NEOPLASM OF SIGMOID COLON; C77.2 - SECONDARY AND UNSP MALIGNANT NEOPLASM OF INTRA-ABD NODES SNOMED Code(s): 03887928 Plan: Patient is feeling much better after surgery perforated tumor. Patient would follow up with Medical Oncologist after recovery/4-6 weeks postop. He verbalized understanding the plan. Plan is for some rehabilitation possibly?
== END 2021-04-20 16:25 | DRG 329 ==
LOC: EC 21:44 → UNDOADMOB 04-05 01:35 → 5NMEDONC 04-05 01:35
PROVIDERS: ADMIT Family Medicine; ATTEND Family Medicine
PROC: 0DTJ0ZZ Resection of Appendix, Open Approach (ICD-10-PCS; 2021-04-06)
PROC: 0D9670Z Drainage of Stomach with Drainage Device, Via Natural or Artificial Opening (ICD-10-PCS; 2021-04-06)
PROC: 0D1M0Z4 Bypass Descending Colon to Cutaneous, Open Approach (ICD-10-PCS; principal; 2021-04-06 11:45)
PROC: 0DTN0ZZ Resection of Sigmoid Colon, Open Approach (ICD-10-PCS; 2021-04-06 11:45)
DX: C18.7 Malignant neoplasm of sigmoid colon (principal); K63.1 Perforation of intestine (nontraumatic); R78.81 Bacteremia; C77.2 Secondary and unspecified malignant neoplasm of intra-abdominal lymph nodes; C78.5 Secondary malignant neoplasm of large intestine and rectum; C78.7 Secondary malignant neoplasm of liver and intrahepatic bile duct; E44.0 Moderate protein-calorie malnutrition; Z68.1 Body mass index [BMI] 19.9 or less, adult; E87.1 Hypo-osmolality and hyponatremia; K56.609 Unspecified intestinal obstruction, unspecified as to partial versus complete obstruction; K57.20 Diverticulitis of large intestine with perforation and abscess without bleeding; Z92.21 Personal history of antineoplastic chemotherapy; Z88.0 Allergy status to penicillin; Z85.038 Personal history of other malignant neoplasm of large intestine; Z79.899 Other long term (current) drug therapy; Z79.82 Long term (current) use of aspirin; F17.210 Nicotine dependence, cigarettes, uncomplicated; J44.9 Chronic obstructive pulmonary disease, unspecified; I73.9 Peripheral vascular disease, unspecified; I71.4 Abdominal aortic aneurysm, without rupture; I10 Essential (primary) hypertension; G89.4 Chronic pain syndrome; G62.9 Polyneuropathy, unspecified; G89.3 Neoplasm related pain (acute) (chronic); F41.9 Anxiety disorder, unspecified; R63.4 Abnormal weight loss; I71.9 Aortic aneurysm of unspecified site, without rupture
CPT/HCPCS: 36415; 74018; 74019; 74174; 74177; 80048; 80053; 81003; 82150; 82378; 83690; 83735; 85025; 85027; 85610; 86140; 87040; 88302; 88309; 93005; 94640; 94760; 96374; 96375; 99285

== ENCOUNTER 2021-05-20 14:34 | Inpatient (IN) | payer MEDICARE ==
[2021-05-20 14:55] LABS: Glucose,Whole Blood 62 mg/dL (75-99)
[2021-05-20] MEDS ORDERED: SODIUM CHLORIDE 0.9% 1,000 ML IV STA ×2 (15:43)
--- NOTE | 2021-05-20 15:46 | ED ---
General Adult HPI - General Chief complaint: Recheck/Abnormal Lab/Rx Stated complaint: Low blood sugar Time Seen by Provider: 05/20/21 14:41 Source: patient, RN/MD, RN notes reviewed Mode of arrival: ambulatory Limitations: no limitations - History of Present Illness Initial comments: 65-year-old male with a history of colon cancer status post resection in March of this year who presents with complaints of generalized weakness decreased oral intake no overt fevers chills sweats or cough. He apparently has been losing weight. He had glucose level XLV in the office. He was sent here for further evaluation and treatment - Related Data Home Medications Medication Instructions Recorded Confirmed Aspirin EC [Ecotrin Low Dose] 81 mg PO DAILY 04/05/21 05/14/21 Clotrimazole 10 mg MUCOUS MEM 5XD 04/05/21 05/14/21 Ondansetron Odt [Zofran ODT] 8 mg PO Q8H PRN 04/05/21 05/14/21 Prochlorperazine [Compazine] 10 mg PO Q8H PRN 04/05/21 05/14/21 Sennosides/Docusate Sodium [Senna 1 tab PO HS PRN 04/05/21 05/14/21 Plus 8.6-50 mg Tablet] Tadalafil [Cialis] 5 mg PO DAILY PRN 04/05/21 05/14/21 traZODone HCL 50 mg PO HS 04/05/21 05/14/21 Previous Rx's Medication Instructions Recorded Cefuroxime Axetil [Ceftin] 500 mg PO BID 10 Days #20 tab 04/20/21 Docusate [Colace] 100 mg PO BID cap 04/20/21 Gabapentin [Neurontin] 300 mg PO HS #3 cap 04/20/21 HYDROcodone/APAP 10-325MG [[place] 1 tab PO TID PRN #10 tab 04/20/21 10-325] amLODIPine [Norvasc] 5 mg PO DAILY #30 tab 04/20/21 fentaNYL 50MCG/HR PATCH [Duragesic 1 patch TRANSDERM Q72H #1 patch 04/20/21 50MCG/HR] metroNIDAZOLE [Flagyl] 500 mg PO Q8HR 10 Days #30 tab 04/20/21 polyethylene glycoL 3350 [Miralax] 17 gm PO DAILY powd.pack 04/20/21 predniSONE [Deltasone] 20 mg PO DAILY tab 04/20/21 Allergies Allergy/AdvReac Type Severity Reaction Status Date / Time Penicillins Allergy Unknown Verified 05/20/21 17:17 Review of Systems ROS Statement: Those systems with pertinent positive or pertinent negative responses have been documented in the HPI. ROS Other: All systems not noted in ROS Statement are negative. Past Medical History Past Medical History: Cancer Additional Past Medical History / Comment(s): Aneurysm, colon cancer History of Any Multi-Drug Resistant Organisms: None Reported Past Surgical History: Tonsillectomy Additional Past Surgical History / Comment(s): aortic aneurysm, colonoscopy, Past Anesthesia/Blood Transfusion Reactions: No Reported Reaction Past Psychological History: No Psychological Hx Reported Smoking Status: Current every day smoker Past Alcohol Use History: None Reported Past Drug Use History: None Reported General Exam - General Exam Comments Initial Comments: A well-developed very thin appearing male who is awake alert oriented 3 Limitations: no limitations General appearance: alert, in no apparent distress Head exam: Present: atraumatic, normocephalic, normal inspection Eye exam: Present: normal appearance, PERRL, EOMI. Absent: scleral icterus, conjunctival injection, periorbital swelling ENT exam: Present: mucous membranes dry Neck exam: Present: normal inspection. Absent: tenderness, meningismus, lymphadenopathy Respiratory exam: Present: normal lung sounds bilaterally, other (Infusion port noted subcutaneously and right upper chest wall). Absent: respiratory distress, wheezes, rales, rhonchi, stridor Cardiovascular Exam: Present: regular rate, normal rhythm, normal heart sounds. Absent: systolic murmur, diastolic murmur, rubs, gallop, clicks GI/Abdominal exam: Present: soft, normal bowel sounds, other (Lastly present appears be functioning). Absent: distended, tenderness, guarding, rebound, rigid Extremities exam: Present: normal inspection, full ROM, normal capillary refill. Absent: tenderness, pedal edema, joint swelling, calf tenderness Back exam: Present: normal inspection Neurological exam: Present: alert, oriented X3, CN II-XII intact Psychiatric exam: Present: normal affect, normal mood Skin exam: Present: warm, dry, intact, normal color. Absent: rash Course Vital Signs 05/20/21 05/20/21 14:45 16:01 Temperature 97.5 F L Pulse Rate 77 77 Respiratory 16 18 Rate Blood Pressure 88/63 111/71 O2 Sat by Pulse 97 95 Oximetry Medical Decision Making - Medical Decision Making I did discuss findings with patient family patient will be admitted with inpatient evaluation and treatment failure to thrive dehydration history of colon cancer - Lab Data Result diagrams: 05/20/21 16:01 05/20/21 16:01 Lab Results 05/20/21 05/20/21 05/20/21 Range/Units 14:53 16:01 16:01 WBC 4.5 (3.8-10.6) k/uL RBC 3.51 L (4.30-5.90) m/uL Hgb 10.9 L (13.0-17.5) gm/dL Hct 33.5 L (39.0-53.0) % MCV 95.6 (80.0-100.0) fL MCH 31.0 (25.0-35.0) pg MCHC 32.4 (31.0-37.0) g/dL RDW 15.2 (11.5-15.5) % Plt Count 226 (150-450) k/uL MPV 8.1 Neutrophils % 80 % Lymphocytes % 12 % Monocytes % 6 % Eosinophils % 0 % Basophils % 0 % Neutrophils # 3.6 (1.3-7.7) k/uL Lymphocytes # 0.5 L (1.0-4.8) k/uL Monocytes # 0.3 (0-1.0) k/uL Eosinophils # 0.0 (0-0.7) k/uL Basophils # 0.0 (0-0.2) k/uL Sodium 139 (137-145) mmol/L Potassium 4.1 (3.5-5.1) mmol/L Chloride 105 (98-107) mmol/L Carbon Dioxide 26 (22-30) mmol/L Anion Gap 8 mmol/L BUN 27 H (9-20) mg/dL Creatinine 0.77 (0.66-1.25) mg/dL Est GFR (CKD-EPI)AfAm >90 (>60 ml/min/1.73 sqM) Est GFR (CKD-EPI)NonAf >90 (>60 ml/min/1.73 sqM) Glucose 79 (74-99) mg/dL POC Glucose (mg/dL) 62 L (75-99) mg/dL POC Glu [employer] [place] Plasma Lactic Acid Home (0.7-2.0) mmol/L Calcium 9.0 (8.4-10.2) mg/dL Total Bilirubin 0.6 (0.2-1.3) mg/dL AST 97 H (17-59) U/L ALT 41 (4-49) U/L Alkaline Phosphatase 589 H (38-126) U/L Creatine Kinase 44 L (55-170) U/L Troponin I (0.000-0.034) ng/mL Total Protein 9.0 H (6.3-8.2) g/dL Albumin 3.4 L (3.5-5.0) g/dL Lipase 68 (23-300) U/L Urine Color Urine Appearance (Clear) Urine pH (5.0-8.0) Ur Specific [place] (1.001-1.035) Urine Protein (Negative) Urine Glucose (UA) (Negative) Urine Ketones (Negative) Urine Blood (Negative) Urine Nitrite (Negative) Urine Bilirubin (Negative) Urine Urobilinogen (<2.0) mg/dL Ur Leukocyte Esterase (Negative) 05/20/21 05/20/21 05/20/21 Range/Units 16:01 16:01 16:45 WBC (3.8-10.6) k/uL RBC (4.30-5.90) m/uL Hgb (13.0-17.5) gm/dL Hct (39.0-53.0) % MCV (80.0-100.0) fL MCH (25.0-35.0) pg MCHC (31.0-37.0) g/dL RDW (11.5-15.5) % Plt Count (150-450) k/uL MPV Neutrophils % % Lymphocytes % % Monocytes % % Eosinophils % % Basophils % % Neutrophils # (1.3-7.7) k/uL Lymphocytes # (1.0-4.8) k/uL Monocytes # (0-1.0) k/uL Eosinophils # (0-0.7) k/uL Basophils # (0-0.2) k/uL Sodium (137-145) mmol/L Potassium (3.5-5.1) mmol/L Chloride (98-107) mmol/L Carbon Dioxide (22-30) mmol/L Anion Gap mmol/L BUN (9-20) mg/dL Creatinine (0.66-1.25) mg/dL Est GFR (CKD-EPI)AfAm (>60 ml/min/1.73 sqM) Est GFR (CKD-EPI)NonAf (>60 ml/min/1.73 sqM) Glucose (74-99) mg/dL POC Glucose (mg/dL) (75-99) mg/dL POC Glu [employer] ID Plasma Lactic Acid Home 1.4 (0.7-2.0) mmol/L Calcium (8.4-10.2) mg/dL Total Bilirubin (0.2-1.3) mg/dL AST (17-59) U/L ALT (4-49) U/L Alkaline Phosphatase (38-126) U/L Creatine Kinase (55-170) U/L Troponin I <0.012 (0.000-0.034) ng/mL Total Protein (6.3-8.2) g/dL Albumin (3.5-5.0) g/dL Lipase (23-300) U/L Urine Color Yellow Urine Appearance Clear (Clear) Urine pH 5.5 (5.0-8.0) Ur Specific [place] 1.025 (1.001-1.035) Urine Protein Trace H (Negative) Urine Glucose (UA) Negative (Negative) Urine Ketones Negative (Negative) Urine Blood Negative (Negative) Urine Nitrite Negative (Negative) Urine Bilirubin Negative (Negative) Urine Urobilinogen <2.0 (<2.0) mg/dL Ur Leukocyte Esterase Negative (Negative) - EKG Data -: EKG Interpreted by Pr EKG shows normal: sinus rhythm EKG Comments: Sinus rhythm a 76. Interval 192 QRS duration 128 QT since QTC 396/445 right bundle-branch block pattern no acute ST-T wave changes. - Radiology Data Radiology results: report reviewed (Imaging reviewed no definite acute findings.), image reviewed Disposition Clinical Impression: Failure to thrive in adult, Dehydration, History of colon cancer Disposition: ADMITTED IP TO THIS [facility] Condition: Fair Referrals: Maycol Porter MD [Primary Care Provider] - 1-2 days
[2021-05-20 16:10] LABS: Basophils % (A) 0 %; Eosinophils % (A) 0 %; HCT 33.5 % (39.0-53.0); HGB 10.9 gm/dL (13.0-17.5); Lymphocytes # (A) 0.5 k/uL (1.0-4.8); Lymphocytes % (A) 12 %; MCHC 32.4 g/dL (31.0-37.0); MCV 95.6 fL (80.0-100.0); Mean Platelet Volume 8.1; Monocytes # (A) 0.3 k/uL (0-1.0); Monocytes % (A) 6 %; Neutrophils # (A) 3.6 k/uL (1.3-7.7); Neutrophils % (A) 80 %; Platelet Count 226 k/uL (150-450); RBC 3.51 m/uL (4.30-5.90); RDW 15.2 % (11.5-15.5); WBC 4.5 k/uL (3.8-10.6)
[2021-05-20 16:18] LABS: Chloride 105 mmol/L (98-107)
[2021-05-20 16:20] LABS: ALT 41 U/L (4-49); AST 97 U/L (17-59); African American GFR (CKD) >90 (>60 ml/min/1.73 sqM); Albumin 3.4 g/dL (3.5-5.0); Alkaline Phosphatase 589 U/L (38-126); Anion Gap 8 mmol/L; Blood Urea Nitrogen 27 mg/dL (9-20); Carbon Dioxide 26 mmol/L (22-30); Creatine Kinase 44 U/L (55-170); Glucose 79 mg/dL (74-99); Lipase 68 U/L (23-300); Non-African American GFR(CKD) >90 (>60 ml/min/1.73 sqM); Potassium 4.1 mmol/L (3.5-5.1); Sodium 139 mmol/L (137-145); Total Bilirubin 0.6 mg/dL (0.2-1.3)
--- NOTE | 2021-05-20 16:31 | XR ---
EXAMINATION TYPE: XR chest 2V DATE OF EXAM: 05/20/2021 COMPARISON: PET/CT 02/13/2021 HISTORY: Weakness TECHNIQUE: Frontal and lateral views of the chest are obtained. FINDINGS: Question some minimal patchy basilar density, no pleural effusion or pneumothorax. The ca rdiac silhouette size is within normal limits. Emphysematous changes are present. There is a port in the right pectoral region, catheter courses into the right atrium. Aorta is dense, aortic stent graft is present. There is an azygos lobe of the right upper lobe. The osseous structures are intact. IMPRESSION: There may be some basilar atelectasis or scarring, correlate to exclude pneumonia, follo w-up as indicated. There is underlying emphysema.
[2021-05-20 16:52] LABS: Appearance,Urine Clear (Clear); Bilirubin,Urine Negative (Negative); Blood,Urine Negative (Negative); Color,Urine Yellow; Glucose,Urine (UA) Negative (Negative); Ketones,Urine Negative (Negative); Leukocyte Esterase,Urine Negative (Negative); Nitrite,Urine Negative (Negative); PH, Urine 5.5 (5.0-8.0); Protein,Urine Trace (Negative); Specific Gravity,Urine 1.025 (1.001-1.035); Urobilinogen,Urine <2.0 mg/dL (<2.0)
[2021-05-20] MEDS ORDERED: NALOXONE 0.4 MG/ML 1 ML VIAL IV PRN (17:18)
--- NOTE | 2021-05-20 17:28 | ED ---
Medical Decision Making - Lab Data Result diagrams: 05/20/21 16:01 05/20/21 16:01 Lab Results 05/20/21 05/20/21 05/20/21 Range/Units 14:53 16:01 16:01 WBC 4.5 (3.8-10.6) k/uL RBC 3.51 L (4.30-5.90) m/uL Hgb 10.9 L (13.0-17.5) gm/dL Hct 33.5 L (39.0-53.0) % MCV 95.6 (80.0-100.0) fL MCH 31.0 (25.0-35.0) pg MCHC 32.4 (31.0-37.0) g/dL RDW 15.2 (11.5-15.5) % Plt Count 226 (150-450) k/uL MPV 8.1 Neutrophils % 80 % Lymphocytes % 12 % Monocytes % 6 % Eosinophils % 0 % Basophils % 0 % Neutrophils # 3.6 (1.3-7.7) k/uL Lymphocytes # 0.5 L (1.0-4.8) k/uL Monocytes # 0.3 (0-1.0) k/uL Eosinophils # 0.0 (0-0.7) k/uL Basophils # 0.0 (0-0.2) k/uL Sodium 139 (137-145) mmol/L Potassium 4.1 (3.5-5.1) mmol/L Chloride 105 (98-107) mmol/L Carbon Dioxide 26 (22-30) mmol/L Anion Gap 8 mmol/L BUN 27 H (9-20) mg/dL Creatinine 0.77 (0.66-1.25) mg/dL Est GFR (CKD-EPI)AfAm >90 (>60 ml/min/1.73 sqM) Est GFR (CKD-EPI)NonAf >90 (>60 ml/min/1.73 sqM) Glucose 79 (74-99) mg/dL POC Glucose (mg/dL) 62 L (75-99) mg/dL POC Glu Repul[employer] Supervisor ID [place] Plasma Lactic Acid Home (0.7-2.0) mmol/L Calcium 9.0 (8.4-10.2) mg/dL Total Bilirubin 0.6 (0.2-1.3) mg/dL AST 97 H (17-59) U/L ALT 41 (4-49) U/L Alkaline Phosphatase 589 H (38-126) U/L Creatine Kinase 44 L (55-170) U/L Troponin I (0.000-0.034) ng/mL Total Protein 9.0 H (6.3-8.2) g/dL Albumin 3.4 L (3.5-5.0) g/dL Lipase 68 (23-300) U/L Urine Color Urine Appearance (Clear) Urine pH (5.0-8.0) Ur Specific [place] (1.001-1.035) Urine Protein (Negative) Urine Glucose (UA) (Negative) Urine Ketones (Negative) Urine Blood (Negative) Urine Nitrite (Negative) Urine Bilirubin (Negative) Urine Urobilinogen (<2.0) mg/dL Ur Leukocyte Esterase (Negative) 05/20/21 05/20/21 05/20/21 Range/Units 16:01 16:01 16:45 WBC (3.8-10.6) k/uL RBC (4.30-5.90) m/uL Hgb (13.0-17.5) gm/dL Hct (39.0-53.0) % MCV (80.0-100.0) fL MCH (25.0-35.0) pg MCHC (31.0-37.0) g/dL RDW (11.5-15.5) % Plt Count (150-450) k/uL MPV Neutrophils % % Lymphocytes % % Monocytes % % Eosinophils % % Basophils % % Neutrophils # (1.3-7.7) k/uL Lymphocytes # (1.0-4.8) k/uL Monocytes # (0-1.0) k/uL Eosinophils # (0-0.7) k/uL Basophils # (0-0.2) k/uL Sodium (137-145) mmol/L Potassium (3.5-5.1) mmol/L Chloride (98-107) mmol/L Carbon Dioxide (22-30) mmol/L Anion Gap mmol/L BUN (9-20) mg/dL Creatinine (0.66-1.25) mg/dL Est GFR (CKD-EPI)AfAm (>60 ml/min/1.73 sqM) Est GFR (CKD-EPI)NonAf (>60 ml/min/1.73 sqM) Glucose (74-99) mg/dL POC Glucose (mg/dL) (75-99) mg/dL POC Glu Repulping Supervisor ID Plasma Lactic Acid Home 1.4 (0.7-2.0) mmol/L Calcium (8.4-10.2) mg/dL Total Bilirubin (0.2-1.3) mg/dL AST (17-59) U/L ALT (4-49) U/L Alkaline Phosphatase (38-126) U/L Creatine Kinase (55-170) U/L Troponin I <0.012 (0.000-0.034) ng/mL Total Protein (6.3-8.2) g/dL Albumin (3.5-5.0) g/dL Lipase (23-300) U/L Urine Color Yellow Urine Appearance Clear (Clear) Urine pH 5.5 (5.0-8.0) Ur Specific [place] 1.025 (1.001-1.035) Urine Protein Trace H (Negative) Urine Glucose (UA) Negative (Negative) Urine Ketones Negative (Negative) Urine Blood Negative (Negative) Urine Nitrite Negative (Negative) Urine Bilirubin Negative (Negative) Urine Urobilinogen <2.0 (<2.0) mg/dL Ur Leukocyte Esterase Negative (Negative) Disposition Clinical Impression: Failure to thrive in adult, Dehydration, History of colon cancer, Hypotensive episode Disposition: ADMITTED IP TO THIS [facility] Condition: Fair Referrals: Maycol Porter MD [Primary Care Provider] - 1-2 days
[2021-05-20 17:39] LABS: Glucose,Whole Blood 80 mg/dL (75-99)
[2021-05-20] MEDS ORDERED: ONDANSETRON ODT 8 MG TAB.RAPDIS PO PRN (18:12)
[2021-05-20] MEDS ORDERED: ALBUTEROL HFA INHALER INHALATION PRN (18:12)
[2021-05-20] MEDS ORDERED: FENTANYL 37.5 MCG/HR TRANSDERM SCH (18:15)
[2021-05-20] MEDS: DEXTROSE 5%-0.9% NACL 1,000 ML IV SCH (19:25)
[2021-05-20] MEDS: HYDROcodone/APAP 10-325MG 1 EACH TAB PO PRN (20:01)
[2021-05-20 22:26] LABS: Partial Thromboplastin Time 24.9 sec (22.0-30.0); Prothrombin Time 10.9 sec (9.0-12.0)
--- NOTE | 2021-05-20 22:39 | CT ---
EXAMINATION TYPE: CT angio chest DATE OF EXAM: 05/20/2021 COMPARISON: None HISTORY: Covid, SOB CT DLP: 213.1 mGycm Automated exposure control for dose reduction was used. CONTRAST: Performed with IV Contrast, patient injected with 100 mL of Isovue 370. Images obtained from the thor acic inlet to the diaphragm with IV contrast. There are 3-D post processed images. There is diffuse bullous emphysema. There is no pulmonary consolidation. There is some patchy reticul ar infiltrate and atelectasis at the lung bases bilaterally. Heart size is normal. There are no hilar masses. There is no mediastinal adenopathy. Thoracic aorta is atheromatous. Ascend ing aorta measures 3.6 cm. There is no aneurysm or dissection. There is no evidence of filling defect in the pulmonary arteries. There are multiple low-density masses throughout the liver. Thoracic spine is intact. There is no com pression fracture. Sternum is intact. IMPRESSION: No evidence of pulmonary embolism. Severe emphysema. Mild infiltrate and atelectasis and fibrotic zach nges at the lung bases. Extensive hepatic metastatic disease with enlargement of the multiple liver masses compared to 021 CT scan of the abdomen.
[2021-05-20] MEDS: ASCORBIC ACID 500 MG TAB PO SCH (23:09)
[2021-05-20] MEDS: ZINC SULFATE 220 MG CAP PO SCH (23:09)
[2021-05-20] MEDS: DEXAMETHASONE SOD PHOSPHATE 10 MG/ML 1 ML VIAL IV SCH (23:09)
[2021-05-20] MEDS: CHOLECALCIFEROL 25 MCG (1000 IU) TABLET PO SCH (23:09)
[2021-05-20] MEDS: DOCUSATE 100 MG CAP PO SCH (23:09)
[2021-05-20] MEDS: METOCLOPRAMIDE 5 MG/ML 2 ML VIAL IVP SCH (23:10)
[2021-05-20] MEDS: ENOXAPARIN 40 MG/0.4 ML SYRINGE SQ SCH (23:10)
[2021-05-21 00:55] LABS: Glucose,Whole Blood 111 mg/dL (75-99)
[2021-05-21 02:44] LABS: Glucose,Whole Blood 113 mg/dL (75-99)
[2021-05-21] MEDS: HYDROcodone/APAP 10-325MG 1 EACH TAB PO PRN ×3 (05:02→22:06)
[2021-05-21] MEDS: METOCLOPRAMIDE 5 MG/ML 2 ML VIAL IVP SCH ×3 (05:04→18:23)
[2021-05-21 07:54] LABS: Glucose,Whole Blood 144 mg/dL (75-99)
[2021-05-21] MEDS: polyethylene glycoL 3350 17 GM POWD.PACK PO SCH (08:43)
[2021-05-21] MEDS: DOCUSATE 100 MG CAP PO SCH ×2 (08:43→20:28)
[2021-05-21] MEDS: ASCORBIC ACID 500 MG TAB PO SCH ×2 (08:43→20:28)
[2021-05-21] MEDS: MEGESTROL 400 MG/10 ML CUP PO SCH (08:43)
[2021-05-21] MEDS: CHOLECALCIFEROL 25 MCG (1000 IU) TABLET PO SCH (08:43)
[2021-05-21] MEDS: DEXAMETHASONE SOD PHOSPHATE 10 MG/ML 1 ML VIAL IV SCH (08:43)
[2021-05-21] MEDS: ZINC SULFATE 220 MG CAP PO SCH (08:43)
[2021-05-21] MEDS: INSULIN ASPART (NovoLOG) 100 UNIT/ML VIAL SQ SCH ×4 (08:46→20:51)
[2021-05-21] MEDS: DEXTROSE 5%-0.9% NACL 1,000 ML IV SCH ×2 (08:49→20:51)
[2021-05-21] MEDS: SYMBICORT 160-4.5 MCG INHALER INHALATION SCH ×2 (09:13→19:57)
[2021-05-21] MEDS: ALBUTEROL HFA INHALER INHALATION SCH ×4 (09:13→19:57)
[2021-05-21] MEDS: amLODIPine 5 MG TAB PO SCH (09:16)
[2021-05-21 09:34] LABS: Basophils # (A) 0 X 10*3/uL (0.00-0.10); Basophils % (A) 0 %; Eosinophils # (A) 0.01 X 10*3/uL (0.04-0.35); Eosinophils % (A) 0.1 %; HCT 30.3 % (39.6-50.0); HGB 9.6 g/dL (13.0-17.0); Lymphocytes # (A) 0.07 X 10*3/uL (0.90-5.00); Lymphocytes % (A) 0.8 %; MCH 29.7 pg (27.0-32.0); MCHC 31.7 g/dL (32.0-37.0); MCV 93.8 fL (80.0-97.0); Mean Platelet Volume 10.7 fL (9.5-12.2); Monocytes # (A) 0.25 X 10*3/uL (0.20-1.00); Neutrophils # (A) 8.04 X 10*3/uL (1.80-7.70); Neutrophils % (A) 95.5 %; Platelet Count 215 X 10*3/uL (140-440); RBC 3.23 X 10*6/uL (4.40-5.60); WBC 8.42 X 10*3/uL (4.50-10.00)
[2021-05-21 11:42] LABS: Glucose,Whole Blood 173 mg/dL (75-99)
[2021-05-21 11:47] LABS: African American GFR (CKD) 113.2 (60.0-200.0); Albumin 2.6 g/dL (3.80-4.90); Albumin/Globulin Ratio 0.6 (1.60-3.17); Anion Gap 7.7 mmol/L (4.00-12.00); BUN/Creat Ratio 31.43 Ratio (12.00-20.00); Calcium 8.2 mg/dL (8.7-10.3); Carbon Dioxide 23.3 mmol/L (21.6-31.8); Globulin 4.3 g/dL (1.6-3.3); Magnesium 1.6 mg/dL (1.5-2.4); Non-African American GFR(CKD) 97.7 (60.0-200.0); Potassium 3.8 mmol/L (3.5-5.5); Total Bilirubin 0.4 mg/dL (0.2-1.2); Total Protein 6.9 g/dL (6.2-8.2)
[2021-05-21] MEDS ORDERED: Magnesium Replacement Protocol 1 EACH MISC MISCELLANE PRN (14:25)
--- NOTE | 2021-05-21 14:59 | P.HPIM ---
History of Present Illness H&P Date: 05/21/21 Chief Complaint: Generalized weakness/hypoglycemic episodes/Covid 19 65-year-old male with significant medical history of colon cancer status post resection, hypertension, COPD, nicotine dependence, and insomnia was sent to the emergency department for episodes of hypoglycemia with severe drowsiness with associated shortness of breath. Patient had extensive diagnostic workup in the emergency department with a hemoglobin of 10.9 and hematocrit of 33.5, elevated ESR of 95, and d-dimer 14.6, alkaline phosphate 589, LDH 1049, C-reactive protein 7.7, and procalcitonin of 0.31, and a positive Covid 19 PCR. Review of twelve-lead EKG right bundle branch block, chest x-ray basilar atelectasis or scarring possible pneumonia noted by radiology, CT of the chest no evidence of pulmonary embolism, severe emphysema, mild infiltrate, atelectasis, and fibrotic changes at the lung bases per radiology. Radiology dictation hepatic metastatic disease with enlargement multiple liver masses compared to CT of 04/17/2021. Patient is not a candidate for remdesivir, per [facility]. Patient will be placed on D5 0.9 at 75 mL/hour due to hypoglycemic episodes, COVID-19 treatment, will consist of Decadron 6 mg IV push daily, zinc sulfate 220 mg, vitamin C, and vitamin D and Lovenox 40 mg subcu. Consultation with pulmonary critical care for expert opinion regarding Covid 19 and severe emphysema; consultation with hematology for hepatic metastatic disease with enlargement of multiple liver masses from previous CAT scan. Review of Systems Constitutional: Reports chills, Reports chronic pain, Reports fatigue, Reports lethargy, Reports malaise, Reports poor appetite, Reports weakness, Reports weight loss Eyes: bilateral blurred vision Ears, nose, mouth and throat: Reports sore throat Cardiovascular: Reports decreased exercise tolerance, Reports dyspnea on exertion, Reports shortness of breath Respiratory: Reports cough, Reports dyspnea, Reports wheezing Gastrointestinal: Reports abdominal pain, Reports loss of appetite, Reports nausea Musculoskeletal: Reports muscle weakness Neurological: Reports balance difficulties, Reports lack of coordination, Reports weakness Endocrine: Reports low blood sugars, Reports weight change Hematologic/Lymphatic: Reports as per HPI Allergic/Immunologic: Reports as per HPI Past Medical History Past Medical History: Cancer, COPD, Hypertension Additional Past Medical History / Comment(s): Aneurysm, colon cancer History of Any Multi-Drug Resistant Organisms: None Reported Past Surgical History: Tonsillectomy Additional Past Surgical History / Comment(s): aortic aneurysm, colonoscopy, Past Anesthesia/Blood Transfusion Reactions: No Reported Reaction Past Psychological History: No Psychological Hx Reported Smoking Status: Current every day smoker Past Alcohol Use History: None Reported Past Drug Use History: None Reported Medications and Allergies Home Medications and Allergies Comment(s): Medications and ALLERGIES reviewed Home Medications Medication Instructions Recorded Confirmed Type Ondansetron Odt [Zofran ODT] 8 mg PO BID PRN 04/05/21 05/20/21 History Docusate [Colace] 100 mg PO BID cap 04/20/21 05/20/21 Rx HYDROcodone/APAP 10-325MG [[place] 1 tab PO TID PRN #10 tab 04/20/21 05/20/21 Rx 10-325] amLODIPine [Norvasc] 5 mg PO DAILY #30 tab 04/20/21 05/20/21 Rx polyethylene glycoL 3350 [Miralax] 17 gm PO DAILY powd.pack 04/20/21 05/20/21 Rx Albuterol Sulfate [Albuterol 2 puff INHALATION RT-Q4H PRN 05/20/21 05/20/21 History Sulfate Hfa] Fluticasone/Vilanterol [Breo 1 puff INHALATION RT-DAILY 05/20/21 05/20/21 History Ellipta 200-25 Mcg Inhaler] Megestrol [Megace] 400 mg PO DAILY 05/20/21 05/20/21 History fentaNYL [Duragesic 37.5 MCG/HR] 1 patch TRANSDERM Q72H 05/20/21 05/20/21 History Allergies Allergy/AdvReac Type Severity Reaction Status Date / Time Penicillins Allergy Unknown Verified 05/20/21 17:17 Physical Exam Vitals: Vital Signs Temp Pulse Pulse Resp BP BP Pulse Ox 05/21/21 08:00 98 F 93 17 95/63 96 05/21/21 02:00 99.5 F 102 H 19 97/60 93 L 05/20/21 23:30 98.4 F 73 20 164/90 93 L 05/20/21 22:26 73 18 119/79 94 L 05/20/21 18:24 72 18 122/75 95 05/20/21 16:01 77 18 111/71 95 05/20/21 14:45 97.5 F L 77 16 88/63 97 Intake and Output 05/20/21 05/21/21 05/21/21 22:59 06:59 14:59 Other: Voiding Method Toilet Toilet Urinal Urinal # Voids 3 Weight 49.895 kg - Constitutional General appearance: mild distress, thin - EENT Eyes: PERRLA, poor dentition ENT: hard of hearing Ears: bilateral: normal - Neck Thyroid: bilateral: normal size - Respiratory Respiratory: bilateral: diminished (Anterior and posterior lung koch) - Cardiovascular Sinus rhythm with a right bundle branch block Heart rate: 74 Rhythm: regular Heart sounds: normal: S1, S2 radial pulse Peripheral Pulses: bilateral: Normal femoral Peripheral Pulses: bilateral: Normal - Gastrointestinal General gastrointestinal: normal bowel sounds - Integumentary Integumentary: decreased turgor - Musculoskeletal Musculoskeletal: generalized weakness - Psychiatric Frequent drowsiness Psychiatric: A&O x's 3 Results CBC & Chem 7: 05/21/21 05:51 05/21/21 05:51 Labs: Abnormal Lab Results - Last 24 Hours (Table) 05/20/21 05/20/21 05/20/21 Range/Units 14:53 16:01 16:01 RBC 3.51 L (4.30-5.90) m/uL Hgb 10.9 L (13.0-17.5) gm/dL Hct 33.5 L (39.0-53.0) % MCHC (32.0-37.0) g/dL RDW (11.5-14.5) % Immature Gran # (0.00-0.04) X 10*3/uL Neutrophils # (1.80-7.70) X 10*3/uL Lymphocytes # 0.5 L (1.0-4.8) k/uL Eosinophils # (0.04-0.35) X 10*3/uL ESR (0-15) mm/hr D-Dimer (<0.60) mg/L FEU BUN 27 H (9-20) mg/dL BUN/Creatinine Ratio (12.00-20.00) Ratio Glucose (70-110) mg/dL POC Glucose (mg/dL) 62 L (75-99) mg/dL Calcium (8.7-10.3) mg/dL AST 97 H (17-59) U/L Alkaline Phosphatase 589 H (38-126) U/L Lactate Dehydrogenase (313-618) U/L Creatine Kinase 44 L (55-170) U/L C-Reactive Protein (<1.0) mg/dL Total Protein 9.0 H (6.3-8.2) g/dL Albumin 3.4 L (3.5-5.0) g/dL Globulin (1.6-3.3) g/dL Albumin/Globulin Ratio (1.60-3.17) g/dL Procalcitonin (0.02-0.09) ng/mL Urine Protein (Negative) Coronavirus (PCR) (Not Detectd) 05/20/21 05/20/21 05/20/21 Range/Units 16:45 17:40 17:40 RBC (4.30-5.90) m/uL Hgb (13.0-17.5) gm/dL Hct (39.0-53.0) % MCHC (32.0-37.0) g/dL RDW (11.5-14.5) % Immature Gran # (0.00-0.04) X 10*3/uL Neutrophils # (1.80-7.70) X 10*3/uL Lymphocytes # (1.0-4.8) k/uL Eosinophils # (0.04-0.35) X 10*3/uL ESR 95 H (0-15) mm/hr D-Dimer (<0.60) mg/L FEU BUN (9-20) mg/dL BUN/Creatinine Ratio (12.00-20.00) Ratio Glucose (70-110) mg/dL POC Glucose (mg/dL) (75-99) mg/dL Calcium (8.7-10.3) mg/dL AST (17-59) U/L Alkaline Phosphatase (38-126) U/L Lactate Dehydrogenase (313-618) U/L Creatine Kinase (55-170) U/L C-Reactive Protein 7.7 H (<1.0) mg/dL Total Protein (6.3-8.2) g/dL Albumin (3.5-5.0) g/dL Globulin (1.6-3.3) g/dL Albumin/Globulin Ratio (1.60-3.17) g/dL Procalcitonin (0.02-0.09) ng/mL Urine Protein Trace H (Negative) Coronavirus (PCR) (Not Detectd) 05/20/21 05/20/21 05/20/21 Range/Units 17:40 18:23 21:40 RBC (4.30-5.90) m/uL Hgb (13.0-17.5) gm/dL Hct (39.0-53.0) % MCHC (32.0-37.0) g/dL RDW (11.5-14.5) % Immature Gran # (0.00-0.04) X 10*3/uL Neutrophils # (1.80-7.70) X 10*3/uL Lymphocytes # (1.0-4.8) k/uL Eosinophils # (0.04-0.35) X 10*3/uL ESR (0-15) mm/hr D-Dimer 14.67 H (<0.60) mg/L FEU BUN (9-20) mg/dL BUN/Creatinine Ratio (12.00-20.00) Ratio Glucose (70-110) mg/dL POC Glucose (mg/dL) (75-99) mg/dL Calcium (8.7-10.3) mg/dL AST (17-59) U/L Alkaline Phosphatase (38-126) U/L Lactate Dehydrogenase (313-618) U/L Creatine Kinase (55-170) U/L C-Reactive Protein (<1.0) mg/dL Total Protein (6.3-8.2) g/dL Albumin (3.5-5.0) g/dL Globulin (1.6-3.3) g/dL Albumin/Globulin Ratio (1.60-3.17) g/dL Procalcitonin 0.31 H (0.02-0.09) ng/mL Urine Protein (Negative) Coronavirus (PCR) Detected A (Not Detectd) 05/20/21 05/21/21 05/21/21 Range/Units 21:40 00:54 02:42 RBC (4.30-5.90) m/uL Hgb (13.0-17.5) gm/dL Hct (39.0-53.0) % MCHC (32.0-37.0) g/dL RDW (11.5-14.5) % Immature Gran # (0.00-0.04) X 10*3/uL Neutrophils # (1.80-7.70) X 10*3/uL Lymphocytes # (1.0-4.8) k/uL Eosinophils # (0.04-0.35) X 10*3/uL ESR (0-15) mm/hr D-Dimer (<0.60) mg/L FEU BUN (9-20) mg/dL BUN/Creatinine Ratio (12.00-20.00) Ratio Glucose (70-110) mg/dL POC Glucose (mg/dL) 111 H 113 H (75-99) mg/dL Calcium (8.7-10.3) mg/dL AST (17-59) U/L Alkaline Phosphatase (38-126) U/L Lactate Dehydrogenase 1049 H (313-618) U/L Creatine Kinase (55-170) U/L C-Reactive Protein (<1.0) mg/dL Total Protein (6.3-8.2) g/dL Albumin (3.5-5.0) g/dL Globulin (1.6-3.3) g/dL Albumin/Globulin Ratio (1.60-3.17) g/dL Procalcitonin (0.02-0.09) ng/mL Urine Protein (Negative) Coronavirus (PCR) (Not Detectd) 05/21/21 05/21/21 05/21/21 Range/Units 05:51 05:51 07:49 RBC 3.23 L (4.30-5.90) m/uL Hgb 9.6 L (13.0-17.5) gm/dL Hct 30.3 L (39.0-53.0) % MCHC 31.7 L (32.0-37.0) g/dL RDW 15.0 H (11.5-14.5) % Immature Gran # 0.05 H (0.00-0.04) X 10*3/uL Neutrophils # 8.04 H (1.80-7.70) X 10*3/uL Lymphocytes # 0.07 L (1.0-4.8) k/uL Eosinophils # 0.01 L (0.04-0.35) X 10*3/uL ESR (0-15) mm/hr D-Dimer (<0.60) mg/L FEU BUN (9-20) mg/dL BUN/Creatinine Ratio 31.43 H (12.00-20.00) Ratio Glucose 124 H (70-110) mg/dL POC Glucose (mg/dL) 144 H (75-99) mg/dL Calcium 8.2 L (8.7-10.3) mg/dL AST 72 H (17-59) U/L Alkaline Phosphatase 417 H (38-126) U/L Lactate Dehydrogenase (313-618) U/L Creatine Kinase (55-170) U/L C-Reactive Protein (<1.0) mg/dL Total Protein (6.3-8.2) g/dL Albumin 2.60 L (3.5-5.0) g/dL Globulin 4.3 H (1.6-3.3) g/dL Albumin/Globulin Ratio 0.60 L (1.60-3.17) g/dL Procalcitonin (0.02-0.09) ng/mL Urine Protein (Negative) Coronavirus (PCR) (Not Detectd) 05/21/21 Range/Units 11:40 RBC (4.30-5.90) m/uL Hgb (13.0-17.5) gm/dL Hct (39.0-53.0) % MCHC (32.0-37.0) g/dL RDW (11.5-14.5) % Immature Gran # (0.00-0.04) X 10*3/uL Neutrophils # (1.80-7.70) X 10*3/uL Lymphocytes # (1.0-4.8) k/uL Eosinophils # (0.04-0.35) X 10*3/uL ESR (0-15) mm/hr D-Dimer (<0.60) mg/L FEU BUN (9-20) mg/dL BUN/Creatinine Ratio (12.00-20.00) Ratio Glucose (70-110) mg/dL POC Glucose (mg/dL) 173 H (75-99) mg/dL Calcium (8.7-10.3) mg/dL AST (17-59) U/L Alkaline Phosphatase (38-126) U/L Lactate Dehydrogenase (313-618) U/L Creatine Kinase (55-170) U/L C-Reactive Protein (<1.0) mg/dL Total Protein (6.3-8.2) g/dL Albumin (3.5-5.0) g/dL Globulin (1.6-3.3) g/dL Albumin/Globulin Ratio (1.60-3.17) g/dL Procalcitonin (0.02-0.09) ng/mL Urine Protein (Negative) Coronavirus (PCR) (Not Detectd) Chest x-ray: report reviewed CT scan - chest: report reviewed Thrombosis Risk Factor Assmnt - Choose All That Apply Any of the Below Risk Factors Present?: Yes Each Factor Represents 1 point: Abnormal pulmonary function (COPD), History of prior major surgery (<1month) Each Risk Factor Represents 2 Points: Age 61-74 years, Malignancy Other congenital or acquired thrombophilia - If yes, enter type in comment: No Thrombosis Risk Factor Assessment Total Risk Factor Score: 6 Thrombosis Risk Factor Assessment Level: High Risk Assessment and Plan Assessment: Covid 19, mild infiltrate medical ectasis noted on chest x-ray and CT of the chest Hypoglycemic episodes, possibly related to poor intake COPD with exacerbation Colon cancer status post resection in March, see dictation from CTA from radiology; extensive hepatic metastatic disease with enlargement multiple liver masses compared to previous CT 04/17/2021 Hypertension Nicotine dependence Insomnia Chronic pain DO NOT RESUSCITATE Plan: Covid 19, treatment plan consists of Decadron 6 mg IV push daily, zinc, vitamin D, vitamin C and Lovenox; consultation with pulmonary critical care for recommendations COPD with exacerbation, continue corticosteroids, Symbicort, albuterol inhaler 2 puffs 4 times a day, and incentive spirometer encouraged 10 times an hour Mild infiltrate noted on CT of the chest with elevated pro-calcitonin, we'll initiate IV antibiotics Hypoglycemic episodes, initiation of D5.9 at 75 ML's an hour with frequent Accu- Cheks Colon cancer status post resection with extensive hepatic metastatic disease with enlargement multiple liver masses compared to previous CT 04/17/2021; consultation with hematology oncology Chronic pain, continue home medications and initiate Dilaudid 0.5 mg IV push every 3 hours as needed Continue to monitor vital signs and diagnostic testing Continue home medications Further recommendations to come based on patient's clinical condition Time with Patient: Greater than 30
[2021-05-21 15:04] VITALS: BMI 16.7
[2021-05-21] MEDS: MAGNESIUM SULFATE-D5W PMX 1 GM in DEXTROSE/WATER 1 100ML.BAG IVPB SCH ×2 (15:20→18:23)
[2021-05-21] MEDS: HYDROmorphone 0.5 MG/0.5 ML SYRINGE IVP PRN ×2 (15:20→18:23)
--- NOTE | 2021-05-21 15:31 | P.CONS ---
History of Present Illness - Reason for Consult Consult date: 05/21/21 colon adenocarcinoma Requesting physician: Jourdan Maldonado - Chief Complaint abd pain, dehydration - History of Present Illness Mr. Jay is a male patient of Dr. Torres who presented to [facility] 09/18 with complaints of right upper quadrant pain, CT revealed multiple lesions in the liver, he was referred to [facility] and seen by Dr. García. Had a colonoscopy revealing a 3 cm semi-circumferential mass in the sigmoid colon. Biopsy of the mass and liver 09/26/20 revealed adenocarcinoma. He was started on FOLFOX/Avastin. He had treatment follow-up imaging showing a partial response at the primary site in the sigmoid colon and the liver meta stases. He was admitted in mid March to [facility], complaints of abdominal pain. He had a CT angio of the abdomen and pelvis 04/04/21. He was found to have foci of free air adjacent to the abnormal mid sigmoid colonic thickening, couple of additional foci of extraluminal air extending up as high as the transverse colon, suspicions for perforation occurring at the primary tumor site. He was taken to surgery and found to have a perforated sigmoid colon, he ended up with a sigmoid colectomy, and colostomy and an incidental appendectomy. Pathology revealed a tumor size of 3 cm, invading visceral peritoneum, macroscopic tumor perforation was present, 01 lymph nodes involved for malignancy. Post treatment ypT4A, ypN1C pM1 as patient has history of biopsy-proven liver metastases. He was seen by Dr. Torres, antiangiogenesis treatment ordered. He has had 1 treatment, 05/14. Patient presents to the hospital with complaints of abdominal pain, goes all across the front of the abdomen, just above the naval, he has poor energy, no appetite. He denies fevers, chills, oral irritation, painful swallowing, difficulty swallowing, chest pain, difficulty in breathing, no changes in the color or consistency of stool, denies swelling or bleeding Review of Systems 14 point ROS is neg except as stated in HPI Past Medical History Past Medical History: Cancer, COPD, Hypertension Additional Past Medical History / Comment(s): Aneurysm, colon cancer History of Any Multi-Drug Resistant Organisms: None Reported Past Surgical History: Tonsillectomy Additional Past Surgical History / Comment(s): aortic aneurysm, colonoscopy, Past Anesthesia/Blood Transfusion Reactions: No Reported Reaction Past Psychological History: No Psychological Hx Reported Smoking Status: Current every day smoker Past Alcohol Use History: None Reported Past Drug Use History: None Reported Medications and Allergies Home Medications Medication Instructions Recorded Confirmed Type Ondansetron Odt [Zofran ODT] 8 mg PO BID PRN 04/05/21 05/20/21 History Docusate [Colace] 100 mg PO BID cap 04/20/21 05/20/21 Rx HYDROcodone/APAP 10-325MG [[place] 1 tab PO TID PRN #10 tab 04/20/21 05/20/21 Rx 10-325] amLODIPine [Norvasc] 5 mg PO DAILY #30 tab 04/20/21 05/20/21 Rx polyethylene glycoL 3350 [Miralax] 17 gm PO DAILY powd.pack 04/20/21 05/20/21 Rx Albuterol Sulfate [Albuterol 2 puff INHALATION RT-Q4H PRN 05/20/21 05/20/21 History Sulfate Hfa] Fluticasone/Vilanterol [Breo 1 puff INHALATION RT-DAILY 05/20/21 05/20/21 History Ellipta 200-25 Mcg Inhaler] Megestrol [Megace] 400 mg PO DAILY 05/20/21 05/20/21 History fentaNYL [Duragesic 37.5 MCG/HR] 1 patch TRANSDERM Q72H 05/20/21 05/20/21 History Allergies Allergy/AdvReac Type Severity Reaction Status Date / Time Penicillins Allergy Unknown Verified 05/20/21 17:17 Physical Exam Vitals: Vital Signs Temp Pulse Pulse Resp BP BP Pulse Ox 05/21/21 14:00 98.6 F 100 18 102/61 96 05/21/21 08:00 98 F 93 17 95/63 96 05/21/21 02:00 99.5 F 102 H 19 97/60 93 L 05/20/21 23:30 98.4 F 73 20 164/90 93 L 05/20/21 22:26 73 18 119/79 94 L 05/20/21 18:24 72 18 122/75 95 05/20/21 16:01 77 18 111/71 95 Intake and Output 05/20/21 05/21/21 05/21/21 22:59 06:59 14:59 Other: Voiding Method Toilet Toilet Urinal Urinal # Voids 3 Weight 49.895 kg - Constitutional General appearance: cooperative, no acute distress, thin - EENT Dry mucous membranes Eyes: anicteric sclerae, EOMI ENT: hearing grossly normal - Neck Neck: no lymphadenopathy - Respiratory Respiratory: bilateral: CTA, diminished - Cardiovascular Rhythm: regular Heart sounds: normal: S1, S2 Abnormal Heart Sounds: no systolic murmur, no diastolic murmur, no rub, no S3 Gallop, no S4 Gallop, no click, no other leg Peripheral Edema: bilateral: None - Gastrointestinal Small amount of brown stool in the ostomy General gastrointestinal: soft, tenderness (Across the middle of the abdomen) - Neurologic Neurologic: CNII-XII intact - Musculoskeletal Musculoskeletal: generalized weakness, strength equal bilaterally - Psychiatric Psychiatric: A&O x's 3, appropriate affect, intact judgment & insight Results CBC & Chem 7: 05/21/21 05:51 05/21/21 05:51 Labs: Abnormal Lab Results - Last 24 Hours (Table) 05/20/21 05/20/21 05/20/21 Range/Units 16:01 16:01 16:45 RBC 3.51 L (4.30-5.90) m/uL Hgb 10.9 L (13.0-17.5) gm/dL Hct 33.5 L (39.0-53.0) % MCHC (32.0-37.0) g/dL RDW (11.5-14.5) % Immature Gran # (0.00-0.04) X 10*3/uL Neutrophils # (1.80-7.70) X 10*3/uL Lymphocytes # 0.5 L (1.0-4.8) k/uL Eosinophils # (0.04-0.35) X 10*3/uL ESR (0-15) mm/hr D-Dimer (<0.60) mg/L FEU BUN 27 H (9-20) mg/dL BUN/Creatinine Ratio (12.00-20.00) Ratio Glucose (70-110) mg/dL POC Glucose (mg/dL) (75-99) mg/dL Calcium (8.7-10.3) mg/dL AST 97 H (17-59) U/L Alkaline Phosphatase 589 H (38-126) U/L Lactate Dehydrogenase (313-618) U/L Creatine Kinase 44 L (55-170) U/L C-Reactive Protein (<1.0) mg/dL Total Protein 9.0 H (6.3-8.2) g/dL Albumin 3.4 L (3.5-5.0) g/dL Globulin (1.6-3.3) g/dL Albumin/Globulin Ratio (1.60-3.17) g/dL Procalcitonin (0.02-0.09) ng/mL Urine Protein Trace H (Negative) Coronavirus (PCR) (Not Detectd) 05/20/21 05/20/21 05/20/21 Range/Units 17:40 17:40 17:40 RBC (4.30-5.90) m/uL Hgb (13.0-17.5) gm/dL Hct (39.0-53.0) % MCHC (32.0-37.0) g/dL RDW (11.5-14.5) % Immature Gran # (0.00-0.04) X 10*3/uL Neutrophils # (1.80-7.70) X 10*3/uL Lymphocytes # (1.0-4.8) k/uL Eosinophils # (0.04-0.35) X 10*3/uL ESR 95 H (0-15) mm/hr D-Dimer (<0.60) mg/L FEU BUN (9-20) mg/dL BUN/Creatinine Ratio (12.00-20.00) Ratio Glucose (70-110) mg/dL POC Glucose (mg/dL) (75-99) mg/dL Calcium (8.7-10.3) mg/dL AST (17-59) U/L Alkaline Phosphatase (38-126) U/L Lactate Dehydrogenase (313-618) U/L Creatine Kinase (55-170) U/L C-Reactive Protein 7.7 H (<1.0) mg/dL Total Protein (6.3-8.2) g/dL Albumin (3.5-5.0) g/dL Globulin (1.6-3.3) g/dL Albumin/Globulin Ratio (1.60-3.17) g/dL Procalcitonin 0.31 H (0.02-0.09) ng/mL Urine Protein (Negative) Coronavirus (PCR) (Not Detectd) 05/20/21 05/20/21 05/20/21 Range/Units 18:23 21:40 21:40 RBC (4.30-5.90) m/uL Hgb (13.0-17.5) gm/dL Hct (39.0-53.0) % MCHC (32.0-37.0) g/dL RDW (11.5-14.5) % Immature Gran # (0.00-0.04) X 10*3/uL Neutrophils # (1.80-7.70) X 10*3/uL Lymphocytes # (1.0-4.8) k/uL Eosinophils # (0.04-0.35) X 10*3/uL ESR (0-15) mm/hr D-Dimer 14.67 H (<0.60) mg/L FEU BUN (9-20) mg/dL BUN/Creatinine Ratio (12.00-20.00) Ratio Glucose (70-110) mg/dL POC Glucose (mg/dL) (75-99) mg/dL Calcium (8.7-10.3) mg/dL AST (17-59) U/L Alkaline Phosphatase (38-126) U/L Lactate Dehydrogenase 1049 H (313-618) U/L Creatine Kinase (55-170) U/L C-Reactive Protein (<1.0) mg/dL Total Protein (6.3-8.2) g/dL Albumin (3.5-5.0) g/dL Globulin (1.6-3.3) g/dL Albumin/Globulin Ratio (1.60-3.17) g/dL Procalcitonin (0.02-0.09) ng/mL Urine Protein (Negative) Coronavirus (PCR) Detected A (Not Detectd) 05/21/21 05/21/21 05/21/21 Range/Units 00:54 02:42 05:51 RBC 3.23 L (4.30-5.90) m/uL Hgb 9.6 L (13.0-17.5) gm/dL Hct 30.3 L (39.0-53.0) % MCHC 31.7 L (32.0-37.0) g/dL RDW 15.0 H (11.5-14.5) % Immature Gran # 0.05 H (0.00-0.04) X 10*3/uL Neutrophils # 8.04 H (1.80-7.70) X 10*3/uL Lymphocytes # 0.07 L (1.0-4.8) k/uL Eosinophils # 0.01 L (0.04-0.35) X 10*3/uL ESR (0-15) mm/hr D-Dimer (<0.60) mg/L FEU BUN (9-20) mg/dL BUN/Creatinine Ratio (12.00-20.00) Ratio Glucose (70-110) mg/dL POC Glucose (mg/dL) 111 H 113 H (75-99) mg/dL Calcium (8.7-10.3) mg/dL AST (17-59) U/L Alkaline Phosphatase (38-126) U/L Lactate Dehydrogenase (313-618) U/L Creatine Kinase (55-170) U/L C-Reactive Protein (<1.0) mg/dL Total Protein (6.3-8.2) g/dL Albumin (3.5-5.0) g/dL Globulin (1.6-3.3) g/dL Albumin/Globulin Ratio (1.60-3.17) g/dL Procalcitonin (0.02-0.09) ng/mL Urine Protein (Negative) Coronavirus (PCR) (Not Detectd) 05/21/21 05/21/21 05/21/21 Range/Units 05:51 07:49 11:40 RBC (4.30-5.90) m/uL Hgb (13.0-17.5) gm/dL Hct (39.0-53.0) % MCHC (32.0-37.0) g/dL RDW (11.5-14.5) % Immature Gran # (0.00-0.04) X 10*3/uL Neutrophils # (1.80-7.70) X 10*3/uL Lymphocytes # (1.0-4.8) k/uL Eosinophils # (0.04-0.35) X 10*3/uL ESR (0-15) mm/hr D-Dimer (<0.60) mg/L FEU BUN (9-20) mg/dL BUN/Creatinine Ratio 31.43 H (12.00-20.00) Ratio Glucose 124 H (70-110) mg/dL POC Glucose (mg/dL) 144 H 173 H (75-99) mg/dL Calcium 8.2 L (8.7-10.3) mg/dL AST 72 H (17-59) U/L Alkaline Phosphatase 417 H (38-126) U/L Lactate Dehydrogenase (313-618) U/L Creatine Kinase (55-170) U/L C-Reactive Protein (<1.0) mg/dL Total Protein (6.3-8.2) g/dL Albumin 2.60 L (3.5-5.0) g/dL Globulin 4.3 H (1.6-3.3) g/dL Albumin/Globulin Ratio 0.60 L (1.60-3.17) g/dL Procalcitonin (0.02-0.09) ng/mL Urine Protein (Negative) Coronavirus (PCR) (Not Detectd) CT scan - chest: report reviewed (No PE) Assessment and Plan (1) COVID Narrative/Plan: Defer management of the same to Attending Current Visit: Yes Status: Acute Priority: High Code(s): U07.1 - COVID-19 SNOMED Code(s): 832921650 (2) Failure to thrive in adult Current Visit: Yes Status: Acute Priority: High Code(s): R62.7 - ADULT FAILURE TO THRIVE SNOMED Code(s): 931862886 (3) History of colon cancer Current Visit: Yes Status: Chronic Priority: High Code(s): Z85.038 - PERSONAL HISTORY OF MALIGNANT NEOPLASM OF LARGE INTESTINE SNOMED Code(s): 626183164 (4) Liver metastases Current Visit: Yes Status: Chronic Priority: High Code(s): C78.7 - SECONDARY MALIG NEOPLASM OF LIVER AND INTRAHEPATIC BILE DUCT SNOMED Code(s): 40421803 Plan: Reviewed CTA. Total patient he does not have a pulmonary embolism. Have ordered a CT of the abdomen and pelvis due to patient's complaints and recent imaging suggestive of some spots in the liver being slightly larger/concerns for progressive metastatic disease. Patient has only had 1 cycle of bio-similar anti-angiogenic agent. We will await CT results. CEA ordered. 04/06/21 it was 186. Will follow-up with patient regarding malignancy, labs and imaging results. Did explain to patient that he may be feeling worse because of superimposed covid infection. Pain medication frequency was adjusted. We'll see how patient does. When necessary medications added for prevention of narcotic-induced constipation.
[2021-05-21 16:46] LABS: Glucose,Whole Blood 159 mg/dL (75-99)
--- NOTE | 2021-05-21 17:44 | CDI ---
Documentation Clarification Form Date: 05/21/2021 05:16:25 PM From: Terese Dinh RN CCDS Admit Date: 05/20/2021 05:18:00 PM Patient Name: Jourdan Jay Visit Number: [id number] Discharge Date: ATTENTION: The Clinical Documentation Specialists (CDI) and [facility] Coding Staff appreciate your assistance in clarifying documentation. Please respond to the clarification below the line at the bottom and electronically sign. The CDI & [facility] Coding staff will review the response and follow-up if needed. Please note: Queries are made part of the Legal Health Record. If you have any questions, please contact the author of this message via ITS. Dr. Maycol Porter The Registered Dietitian assessment on 05/21 indicates this patient meets criteria for Severe Malnutrition. Based on this information and the findings below, is there an additional diagnosis that is clinically appropriate for this patient? History/Risk Factors: 65-year-old male presents to the ED with episodes of hypoglycemia, drowsiness, and shortness of breath. Medical History Colon cancer with resection, Hepatic metastatic disease, and severe emphysema. H&P 05/21. Clinical Indicators: RD Consult Assessment: see below Current BMI: 16.7 Nutrition Intake: Fair, percent consumed 25% - 50% Weight Loss: 8.26kg. Rittman body weight 70 kg. Estimated Nutritional needs in Kcals Rittman body weight. Energy formula for 30- 35 Kcals/Kg Energy Needs (Kcal) [address]. Estimated protein needs weight used Rittman body weight estimated protein range (tayler/kg) 1.0; Estimated protein 70 need (drams/day). Estimated Fluid needs: fluid formula 1ml/Kcl. Estimated fluid 2100-20649 needs (mls/day) Nutritional diagnosis Nutrient Malnutrition. Specific Nutrient Chronic, Severe. Related to Colon CA, Decreased appetite and COVID. Treatment: Dietary Consult: Supplements: 05/21 Ensure Enlive TID 20mg protein and 350 Kcal per serving. Heart Heathy diet. Monitor PO and Supplement intake. Is there an additional diagnosis that is clinically appropriate for this patient? [ ] Severe Protein-Calorie Malnutrition [ ] Other condition, please specify [ ] Unable to Determine (Template Last Revised: October 2020) 05/26: Query response documented in the 05/22 Attending Progress Note (Dr Carrillo): Severe Protein Calorie Malnutrition. (CDS: DENISA) MTDD
[2021-05-21 20:07] LABS: Ferritin 3165.8 ng/mL (22.0-322.0)
[2021-05-21] MEDS: ENOXAPARIN 40 MG/0.4 ML SYRINGE SQ SCH (20:28)
[2021-05-21] MEDS: LEVOFLOXACIN 750MG-D5W PMX 750 MG in DEXTROSE/WATER 1 150ML.BAG IVPB SCH (20:28)
[2021-05-21 20:35] LABS: Glucose,Whole Blood 200 mg/dL (75-99)
[2021-05-21] MEDS: METOCLOPRAMIDE 10 MG TAB PO SCH (23:20)
[2021-05-22 03:38] LABS: Glucose,Whole Blood 102 mg/dL (75-99)
[2021-05-22] MEDS: IOPAMIDOL CONTRAST (ORAL USE) VIAL PO PRN ×2 (06:14→07:25)
[2021-05-22] MEDS: METOCLOPRAMIDE 10 MG TAB PO SCH ×3 (06:14→20:29)
[2021-05-22] MEDS: HYDROcodone/APAP 10-325MG 1 EACH TAB PO PRN ×4 (06:15→20:41)
[2021-05-22 06:55] LABS: Glucose,Whole Blood 86 mg/dL (75-99)
[2021-05-22] MEDS: INSULIN ASPART (NovoLOG) 100 UNIT/ML VIAL SQ SCH ×4 (07:31→20:47)
[2021-05-22] MEDS: ALBUTEROL HFA INHALER INHALATION SCH ×4 (08:20→19:47)
[2021-05-22] MEDS: SYMBICORT 160-4.5 MCG INHALER INHALATION SCH ×2 (08:21→19:47)
--- NOTE | 2021-05-22 08:42 | CT ---
EXAMINATION TYPE: CT abdomen pelvis w con DATE OF EXAM: 05/22/2021 COMPARISON: Most recent CT April 17, 2021 and older CTs and PET CTs HISTORY: Abdominal pain, history of AAA and colon cancer. CT DLP: 663.1 mGycm, Automated Exposure Control for Dose Reduction was Utilized. CONTRAST: CT scan of the abdomen and pelvis is performed with oral and with IV Contrast, patient injected with 100 ml mL of Isovue 300. FINDINGS: LUNG BASES: Redemonstration of partial visualization of a Mediport catheter terminating in right atri um. Moderate emphysematous changes in the lung bases redemonstrated with new dependent atelectasis an d new mild interstitial edema. Coronary artery calcification incidentally noted. LIVER/GB: Known hepatic metastatic disease shows interval progressive worsening in number and size of lesions from most recent studies. Some lesions have grown and become confluent in appearance versus smaller individual lesions on most recent study. An enlarging lesion for reference is hepatic dome 2. 3 cm lesion long axis axial image 14 versus 1.5 cm most recent prior. No new biliary dilatation. Gall bladder has some distended margin similar to prior with small amount of dependent sludge and/or small stones. PANCREAS: No significant abnormality is seen. SPLEEN: Spleen size is stable and upper limits of normal. ADRENALS: Slight nodular thickening to both adrenal glands is unchanged. KIDNEYS: No significant abnormality is seen. BOWEL: Stomach shows mild to moderate fundal wall thickening. The oral contrast only reaches proximal ileal loops in the lower abdomen. Suboptimal evaluation of distal bowel without enteric contrast. Mi ld to moderate diffuse colonic fecal prominence. Persistent left-sided colostomy. Persistent rectal s tump with sutures and internal contrast presumed retained contrast. Interval removal of percutaneous pelvic drainage catheter. PROSTATE/SEMINAL VESICLES: Central scattered calcifications in normal sized prostate. LYMPH NODES: No definitive new greater than 1cm abdominal or pelvic lymph nodes are appreciated. OSSEOUS STRUCTURES: Slight underlying scoliotic curvature.. OTHER: New small amount of intra-abdominal ascites and moderate diffuse subcutaneous edema makes eval uation suboptimal. Persistent large jamul AAA up to 6.9 cm with patent aortobiiliac stent graft with local mass effect appears grossly unchanged. IMPRESSION: 1. New moderate diffuse subcutaneous edema and mild intra-abdominal ascites greatest right abdomen. 2. Worsening hepatic metastatic disease. 3. No bowel obstruction. Mild colonic fecal stasis. Possible new mild/moderate fundal gastritis. Gema elate clinically. 4. Stable large AAA with patent aortobiiliac stent graft.
--- NOTE | 2021-05-22 08:43 | XR ---
EXAMINATION TYPE: XR chest 1V portable DATE OF EXAM: 05/22/2021 COMPARISON: Chest x-ray 05/20/2021 HISTORY: Shortness of breath TECHNIQUE: Single frontal view of the chest is obtained. FINDINGS: Retrocardiac density has become more conspicuous in the interval. There is no pneumothorax or evident pleural effusion. Cardiac mediastinal silhouette is stable. Port is again noted. There is underlying emphysema. Pulmonary artery is prominent. IMPRESSION: Correlate for left lower lobe greater than right atelectasis versus pneumonia, follow-up suggested. Emphysema. Correlate for pulmonary artery hypertension.
[2021-05-22 09:02] LABS: Basophils # (A) 0.01 X 10*3/uL (0.00-0.10); Basophils % (A) 0.2 %; Eosinophils # (A) 0 X 10*3/uL (0.04-0.35); Eosinophils % (A) 0 %; HCT 26.9 % (39.6-50.0); HGB 8.9 g/dL (13.0-17.0); Lymphocytes # (A) 0.32 X 10*3/uL (0.90-5.00); Lymphocytes % (A) 5.9 %; MCH 31.2 pg (27.0-32.0); MCHC 33.1 g/dL (32.0-37.0); MCV 94.4 fL (80.0-97.0); Mean Platelet Volume 10.8 fL (9.5-12.2); Monocytes # (A) 0.22 X 10*3/uL (0.20-1.00); Monocytes % (A) 4.1 %; Neutrophils # (A) 4.81 X 10*3/uL (1.80-7.70); Neutrophils % (A) 89.2 %; Platelet Count 178 X 10*3/uL (140-440); RBC 2.85 X 10*6/uL (4.40-5.60); RDW 15.1 % (11.5-14.5); WBC 5.39 X 10*3/uL (4.50-10.00)
[2021-05-22] MEDS: polyethylene glycoL 3350 17 GM POWD.PACK PO SCH (09:59)
[2021-05-22] MEDS: ASCORBIC ACID 500 MG TAB PO SCH ×2 (09:59→20:29)
[2021-05-22] MEDS: CHOLECALCIFEROL 25 MCG (1000 IU) TABLET PO SCH (09:59)
[2021-05-22] MEDS: MEGESTROL 400 MG/10 ML CUP PO SCH (09:59)
[2021-05-22] MEDS: DOCUSATE 100 MG CAP PO SCH ×2 (09:59→20:29)
[2021-05-22] MEDS: ZINC SULFATE 220 MG CAP PO SCH (10:00)
[2021-05-22] MEDS: DEXAMETHASONE SOD PHOSPHATE 10 MG/ML 1 ML VIAL IV SCH (10:00)
[2021-05-22] MEDS: HYDROmorphone 0.5 MG/0.5 ML SYRINGE IVP PRN ×2 (10:01→13:42)
[2021-05-22] MEDS: amLODIPine 5 MG TAB PO SCH (10:10)
[2021-05-22] MEDS ORDERED: diphenhydrAMINE 25 MG CAP PO STA (10:51)
[2021-05-22] MEDS: DEXTROSE 5%-0.9% NACL 1,000 ML IV SCH ×2 (11:18→20:30)
[2021-05-22] MEDS: diphenhydrAMINE 2% CREAM 28.4 GM TUBE TOPICAL SCH ×3 (11:19→20:30)
[2021-05-22 11:34] LABS: Glucose,Whole Blood 83 mg/dL (75-99)
[2021-05-22 12:43] LABS: Erythrocyte Sedimentation Rate 70 mm/Hr (0-20)
[2021-05-22] MEDS: LEVOFLOXACIN 750MG-D5W PMX 750 MG in DEXTROSE/WATER 1 150ML.BAG IVPB SCH (16:22)
--- NOTE | 2021-05-22 16:37 | P.CNPUL ---
History of Present Illness Consult date: 05/22/21 Reason for consult: dyspnea, cough, hypoxemia Chief complaint: Progressive generalized weakness History of present illness: Patient is a pleasant 65-year-old male with the significant history of follow-up colon cancer status post resection, history of hypertension hypertensive cardiovascular disease COPD chronic insomnia, patient came into the hospital with the lightheadedness and drowsiness and sleepiness, thought to be related to hypoglycemia patient has some component of shortness of breath present as well further workup and evaluation revealed positive COVID-19 PCR, other workup included a stable hemoglobin and hematocrit of 10 and 33 sed rate of 95 d-dimer 14.6 alk phos of 589 LDH of 1049 and C-reactive protein 7.7, patient underwent a computed tomography scan of the chest negative for pulmonary embolism however severe emphysema and fibrotic changes were noted, patient the noted to have a hepatic metastases as well currently patient is on therapy for COVID-19 infection with multivitamins vitamin C zinc subcu Lovenox and Decadron 6 mg tolerating well with the remains off of oxygen, d-dimer improved rate 0.65, Review of Systems All systems: negative Past Medical History Past Medical History: Cancer, COPD, Hypertension Additional Past Medical History / Comment(s): Aneurysm, colon cancer History of Any Multi-Drug Resistant Organisms: None Reported Past Surgical History: Tonsillectomy Additional Past Surgical History / Comment(s): aortic aneurysm, colonoscopy, Past Anesthesia/Blood Transfusion Reactions: No Reported Reaction Past Psychological History: No Psychological Hx Reported Smoking Status: Current every day smoker Past Alcohol Use History: None Reported Past Drug Use History: None Reported Medications and Allergies Home Medications Medication Instructions Recorded Confirmed Type Ondansetron Odt [Zofran ODT] 8 mg PO BID PRN 04/05/21 05/20/21 History Docusate [Colace] 100 mg PO BID cap 04/20/21 05/20/21 Rx HYDROcodone/APAP 10-325MG [[place] 1 tab PO TID PRN #10 tab 04/20/21 05/20/21 Rx 10-325] amLODIPine [Norvasc] 5 mg PO DAILY #30 tab 04/20/21 05/20/21 Rx polyethylene glycoL 3350 [Miralax] 17 gm PO DAILY powd.pack 04/20/21 05/20/21 Rx Albuterol Sulfate [Albuterol 2 puff INHALATION RT-Q4H PRN 05/20/21 05/20/21 History Sulfate Hfa] Fluticasone/Vilanterol [Breo 1 puff INHALATION RT-DAILY 05/20/21 05/20/21 History Ellipta 200-25 Mcg Inhaler] Megestrol [Megace] 400 mg PO DAILY 05/20/21 05/20/21 History fentaNYL [Duragesic 37.5 MCG/HR] 1 patch TRANSDERM Q72H 05/20/21 05/20/21 History Allergies Allergy/AdvReac Type Severity Reaction Status Date / Time Penicillins Allergy Unknown Verified 05/20/21 17:17 Physical Exam Vitals: Vital Signs Temp Pulse Resp BP Pulse Ox 05/22/21 13:36 98.2 F 95 18 123/75 95 05/22/21 09:15 97.5 F L 80 18 110/66 97 05/22/21 07:33 81 18 05/22/21 06:14 98.1 F 81 18 100/63 97 05/22/21 02:00 98.6 F 77 18 114/65 95 05/21/21 20:00 97.6 F 80 17 94/60 95 05/21/21 17:35 98.5 F 79 18 96/51 94 L Intake and Output 05/22/21 05/22/21 05/22/21 06:59 14:59 22:59 Other: Voiding Method Toilet Urinal - Constitutional General appearance: average body habitus, cooperative, disheveled - EENT Eyes: PERRLA Ears: bilateral: normal - Neck Neck: normal ROM Carotids: bilateral: upstroke normal Thyroid: bilateral: normal size - Respiratory Respiratory: bilateral: diminished - Cardiovascular Rhythm: regular Heart sounds: normal: S1, S2 - Gastrointestinal General gastrointestinal: soft - Integumentary Integumentary: normal - Neurologic Neurologic: CNII-XII intact - Musculoskeletal Musculoskeletal: gait normal, generalized weakness, strength equal bilaterally - Psychiatric Psychiatric: A&O x's 3, appropriate affect, intact judgment & insight Results - Laboratory Findings CBC and BMP: 05/22/21 05:58 05/21/21 05:51 PT/INR, D-dimer PT 10.9 sec (9.0-12.0) 05/20/21 21:40 INR 1.0 (<1.2) 05/20/21 21:40 D-Dimer 8.65 mg/L FEU (<0.60) H 05/22/21 05:58 Abnormal lab findings: Abnormal Labs 05/20/21 05/20/21 05/20/21 14:53 16:01 16:01 RBC 3.51 L Hgb 10.9 L Hct 33.5 L MCHC RDW Immature Gran # Neutrophils # Lymphocytes # 0.5 L Eosinophils # ESR D-Dimer BUN 27 H BUN/Creatinine Ratio Glucose POC Glucose (mg/dL) 62 L Calcium Ferritin AST 97 H Alkaline Phosphatase 589 H Lactate Dehydrogenase Creatine Kinase 44 L C-Reactive Protein Total Protein 9.0 H Albumin 3.4 L Globulin Albumin/Globulin Ratio Carcinoembryonic Ag Procalcitonin Urine Protein Coronavirus (PCR) 05/20/21 05/20/21 05/20/21 16:45 17:40 17:40 RBC Hgb Hct MCHC RDW Immature Gran # Neutrophils # Lymphocytes # Eosinophils # ESR 95 H D-Dimer BUN BUN/Creatinine Ratio Glucose POC Glucose (mg/dL) Calcium Ferritin AST Alkaline Phosphatase Lactate Dehydrogenase Creatine Kinase C-Reactive Protein 7.7 H Total Protein Albumin Globulin Albumin/Globulin Ratio Carcinoembryonic Ag Procalcitonin Urine Protein Trace H Coronavirus (PCR) 05/20/21 05/20/21 05/20/21 17:40 18:23 21:40 RBC Hgb Hct MCHC RDW Immature Gran # Neutrophils # Lymphocytes # Eosinophils # ESR D-Dimer 14.67 H BUN BUN/Creatinine Ratio Glucose POC Glucose (mg/dL) Calcium Ferritin AST Alkaline Phosphatase Lactate Dehydrogenase Creatine Kinase C-Reactive Protein Total Protein Albumin Globulin Albumin/Globulin Ratio Carcinoembryonic Ag Procalcitonin 0.31 H Urine Protein Coronavirus (PCR) Detected A 05/20/21 05/21/21 05/21/21 21:40 00:54 02:42 RBC Hgb Hct MCHC RDW Immature Gran # Neutrophils # Lymphocytes # Eosinophils # ESR D-Dimer BUN BUN/Creatinine Ratio Glucose POC Glucose (mg/dL) 111 H 113 H Calcium Ferritin 3165.8 H AST Alkaline Phosphatase Lactate Dehydrogenase 1049 H Creatine Kinase C-Reactive Protein Total Protein Albumin Globulin Albumin/Globulin Ratio Carcinoembryonic Ag Procalcitonin Urine Protein Coronavirus (PCR) 05/21/21 05/21/21 05/21/21 05:51 05:51 05:51 RBC 3.23 L Hgb 9.6 L Hct 30.3 L MCHC 31.7 L RDW 15.0 H Immature Gran # 0.05 H Neutrophils # 8.04 H Lymphocytes # 0.07 L Eosinophils # 0.01 L ESR D-Dimer BUN BUN/Creatinine Ratio 31.43 H Glucose 124 H POC Glucose (mg/dL) Calcium 8.2 L Ferritin AST 72 H Alkaline Phosphatase 417 H Lactate Dehydrogenase Creatine Kinase C-Reactive Protein Total Protein Albumin 2.60 L Globulin 4.3 H Albumin/Globulin Ratio 0.60 L Carcinoembryonic Ag 535.5 H Procalcitonin Urine Protein Coronavirus (PCR) 05/21/21 05/21/21 05/21/21 07:49 11:40 16:44 RBC Hgb Hct MCHC RDW Immature Gran # Neutrophils # Lymphocytes # Eosinophils # ESR D-Dimer BUN BUN/Creatinine Ratio Glucose POC Glucose (mg/dL) 144 H 173 H 159 H Calcium Ferritin AST Alkaline Phosphatase Lactate Dehydrogenase Creatine Kinase C-Reactive Protein Total Protein Albumin Globulin Albumin/Globulin Ratio Carcinoembryonic Ag Procalcitonin Urine Protein Coronavirus (PCR) 05/21/21 05/22/21 05/22/21 20:34 03:36 05:58 RBC Hgb Hct MCHC RDW Immature Gran # Neutrophils # Lymphocytes # Eosinophils # ESR D-Dimer 8.65 H BUN BUN/Creatinine Ratio Glucose POC Glucose (mg/dL) 200 H 102 H Calcium Ferritin AST Alkaline Phosphatase Lactate Dehydrogenase Creatine Kinase C-Reactive Protein Total Protein Albumin Globulin Albumin/Globulin Ratio Carcinoembryonic Ag Procalcitonin Urine Protein Coronavirus (PCR) 05/22/21 05:58 RBC 2.85 L Hgb 8.9 L Hct 26.9 L MCHC RDW 15.1 H Immature Gran # Neutrophils # Lymphocytes # 0.32 L Eosinophils # 0 L ESR 70 H D-Dimer BUN BUN/Creatinine Ratio Glucose POC Glucose (mg/dL) Calcium Ferritin AST Alkaline Phosphatase Lactate Dehydrogenase Creatine Kinase C-Reactive Protein Total Protein Albumin Globulin Albumin/Globulin Ratio Carcinoembryonic Ag Procalcitonin Urine Protein Coronavirus (PCR) - Diagnostic Findings Chest x-ray: report reviewed, image reviewed (Finding as noted above) Assessment and Plan Assessment: Acute COVID-19 pneumonia Severe end stage COPD with exacerbation Secondary bacterial pneumonia on Levaquin Altered mental status is likely due to severe hypoglycemia Colon cancer status post resection with metastatic disease hematology oncology following Plan: Continue IV Decadron patient seems to be tolerating well Continue broad-spectrum antibiotics Supplements Deep breathing sense incentive spirometry Patient may benefit from a course of REMdesivir
[2021-05-22] MEDS ORDERED: REMDESIVIR 200 MG in SODIUM CHLORIDE 0.9% 250 ML IVPB ONE (16:38)
[2021-05-22 16:56] LABS: Glucose,Whole Blood 133 mg/dL (75-99)
[2021-05-22 18:02] LABS: African American GFR (CKD) 113.2 (60.0-200.0); Albumin 2.6 g/dL (3.80-4.90); Albumin/Globulin Ratio 0.67 (1.60-3.17); BUN/Creat Ratio 31.43 Ratio (12.00-20.00); C Reactive Protein 7.8 mg/dL (0.0-0.8); Calcium 8.1 mg/dL (8.7-10.3); Globulin 3.9 g/dL (1.6-3.3); Non-African American GFR(CKD) 97.7 (60.0-200.0); Potassium 4.1 mmol/L (3.5-5.5); Total Bilirubin 0.3 mg/dL (0.3-1.2); Total Protein 6.5 g/dL (6.2-8.2)
--- NOTE | 2021-05-22 19:33 | P.PN ---
Subjective Progress Note Date: 05/22/21 Principal diagnosis: Metastatic Colon Cancer CT Scan reveals further Progression in liver since March. Objective - Vital Signs Vital signs: Vital Signs Temp 97.5 F L 05/22/21 09:15 Pulse 80 05/22/21 09:15 Resp 18 05/22/21 09:15 BP 110/66 05/22/21 09:15 Pulse Ox 97 05/22/21 09:15 Intake & Output 05/21/21 05/22/21 05/22/21 18:59 06:59 18:59 Weight 49.895 kg Other: Voiding Method Toilet Toilet Toilet Urinal Urinal Urinal - Exam - Constitutional General appearance: cooperative, no acute distress, thin - EENT Dry mucous membranes Eyes: anicteric sclerae, EOMI ENT: hearing grossly normal - Neck Neck: no lymphadenopathy - Respiratory Respiratory: bilateral: CTA, diminished, mild increased efort - Cardiovascular Rhythm: regular Heart sounds: normal: S1, S2 Abnormal Heart Sounds: no systolic murmur, no diastolic murmur, no rub, no S3 Gallop, no S4 Gallop, no click, no other leg Peripheral Edema: bilateral: None - Gastrointestinal Small amount of brown stool in the ostomy General gastrointestinal: soft, tenderness Diffuse Neurologic: CNII-XII intact - Musculoskeletal Musculoskeletal: generalized weakness, strength equal bilaterally - Psychiatric Psychiatric: A&O x's 3, appropriate affect, intact judgment & insight - Labs CBC & Chem 7: 05/22/21 05:58 05/22/21 05:58 Labs: Abnormal Lab Results - Last 24 Hours (Table) 05/20/21 05/21/21 05/21/21 Range/Units 21:40 05:51 16:44 RBC (4.40-5.60) X 10*6/uL Hgb (13.0-17.0) g/dL Hct (39.6-50.0) % RDW (11.5-14.5) % Lymphocytes # (0.90-5.00) X 10*3/uL Eosinophils # (0.04-0.35) X 10*3/uL ESR (0-20) mm/Hr D-Dimer (<0.60) mg/L FEU POC Glucose (mg/dL) 159 H (75-99) mg/dL Ferritin 3165.8 H (22.0-322.0) ng/mL Carcinoembryonic Ag 535.5 H (0.0-4.9) ng/mL 05/21/21 05/22/21 05/22/21 Range/Units 20:34 03:36 05:58 RBC (4.40-5.60) X 10*6/uL Hgb (13.0-17.0) g/dL Hct (39.6-50.0) % RDW (11.5-14.5) % Lymphocytes # (0.90-5.00) X 10*3/uL Eosinophils # (0.04-0.35) X 10*3/uL ESR (0-20) mm/Hr D-Dimer 8.65 H (<0.60) mg/L FEU POC Glucose (mg/dL) 200 H 102 H (75-99) mg/dL Ferritin (22.0-322.0) ng/mL Carcinoembryonic Ag (0.0-4.9) ng/mL 05/22/21 Range/Units 05:58 RBC 2.85 L (4.40-5.60) X 10*6/uL Hgb 8.9 L (13.0-17.0) g/dL Hct 26.9 L (39.6-50.0) % RDW 15.1 H (11.5-14.5) % Lymphocytes # 0.32 L (0.90-5.00) X 10*3/uL Eosinophils # 0 L (0.04-0.35) X 10*3/uL ESR 70 H (0-20) mm/Hr D-Dimer (<0.60) mg/L FEU POC Glucose (mg/dL) (75-99) mg/dL Ferritin (22.0-322.0) ng/mL Carcinoembryonic Ag (0.0-4.9) ng/mL Microbiology - Last 24 Hours (Table) 05/20/21 21:40 Blood Culture - Preliminary Blood No Growth after 24 hours Assessment and Plan Plan: CT scan - chest: report reviewed (No PE) Assessment and Plan (1) COVID Narrative/Plan: Defer management of the same to primary Team Current Visit: Yes Status: Acute Priority: High Code(s): U07.1 - COVID-19 SNOMED Code(s): 222262871 (2) Failure to thrive in adult Current Visit: Yes Status: Acute Priority: High Code(s): R62.7 - ADULT FAILURE TO THRIVE SNOMED Code(s): 488191006 (3) History of colon cancer Current Visit: Yes Status: Chronic Priority: High Code(s): Z85.038 - PERSONAL HISTORY OF MALIGNANT NEOPLASM OF LARGE INTESTINE SNOMED Code(s): 114555043 (4) Liver metastases Current Visit: Yes Status: Chronic Priority: High Code(s): C78.7 - SECONDARY MALIG NEOPLASM OF LIVER AND INTRAHEPATIC BILE DUCT SNOMED Code(s): 17657356 Plan: Reviewed CT Scan progression in liver since March. 04/06/21 it was 186. Now>500 in weeks He was recently started on antiangiogenesis therapy alone, however with this very recent and rapid progression he will likely require active treatment to attempt to control. I will discuss further with his primary oncologist Dr. Mims and plan for him to follow-up after resolution of acute illness, covid, and improvement and stabilization of current symptoms.
[2021-05-22] MEDS: ENOXAPARIN 40 MG/0.4 ML SYRINGE SQ SCH (20:29)
[2021-05-22 20:45] LABS: Glucose,Whole Blood 108 mg/dL (75-99)
[2021-05-23] MEDS: METOCLOPRAMIDE 10 MG TAB PO SCH ×4 (01:03→16:36)
[2021-05-23] MEDS: HYDROcodone/APAP 10-325MG 1 EACH TAB PO PRN ×5 (01:14→21:46)
--- NOTE | 2021-05-23 06:31 | P.PN ---
Subjective Progress Note Date: 05/22/21 65-year-old male with significant medical history of colon cancer status post resection, hypertension, COPD, nicotine dependence, and insomnia was sent to the emergency department for episodes of hypoglycemia with severe drowsiness with associated shortness of breath. Patient had extensive diagnostic workup in the emergency department with a hemoglobin of 10.9 and hematocrit of 33.5, elevated ESR of 95, and d-dimer 14.6, alkaline phosphate 589, LDH 1049, C-reactive protein 7.7, and procalcitonin of 0.31, and a positive Covid 19 PCR. Review of twelve-lead EKG right bundle branch block, chest x-ray basilar atelectasis or scarring possible pneumonia noted by radiology, CT of the chest no evidence of pulmonary embolism, severe emphysema, mild infiltrate, atelectasis, and fibrotic changes at the lung bases per radiology. Radiology dictation hepatic metastatic disease with enlargement multiple liver masses compared to CT of 04/17/2021. Patient is not a candidate for remdesivir, per [facility] protocol. Patient will be placed on D5 0.9 at 75 mL/hour due to hypoglycemic episodes, COVID-19 treatment, will consist of Decadron 6 mg IV push daily, zinc sulfate 220 mg, vitamin C, and vitamin D and Lovenox 40 mg subcu. Consultation with pulmonary critical care for expert opinion regarding Covid 19 and severe emphysema; consultation with hematology for hepatic metastatic disease with enlargement of multiple liver masses from previous CAT scan. 05/22/2021 Patient is seen in follow up this morning and had repeat ct abdomen done which shows progression in liver mets with oncology following closely. Pulmonary has been consulted. Patient is currently on room air and denies shortness of breath. Patient continues on IV decadron along with vitamin and zinc supplements along with lovenox. D-dimer is elevated. Inflammatory markers elevated as well. Hemoglobin stable at 8.9. Patient continues to have low blood sugars and will continue on D5 with continued accuchecks. Patient denies any shortness of breath, chest pain or palpitations. Patient denies any nausea or vomiting and is tolerating diet. Intake is poor. Review of systems: Constitutional: No reports of fatigue, fever, or chills Cardiovascular: No reports of chest pain or palpitations Respiratory: No reports of shortness of breath GI: No reports of nausea, vomiting, or diarrhea : No reports of dysuria or retention Neurovascular: Reports generalized weakness Active Medications Hydrocodone Bitart/Acetaminophen (Hydrocodone/Apap 10-325mg 1 Each Tab) 1 each PO Q4HR PRN PRN Reason: Pain Last Admin: 05/23/21 01:14 Dose: 1 each Documented by: Albuterol Sulfate (Albuterol Hfa Inhaler) 2 puff INHALATION RT-QID [facility] Last Admin: 05/22/21 19:47 Dose: 2 puff Documented by: Amlodipine Besylate (Amlodipine 5 Mg Tab) 5 mg PO DAILY [facility] Last Admin: 05/22/21 10:10 Dose: Not Given Documented by: Ascorbic Acid (Ascorbic Acid 500 Mg Tab) 500 mg PO BID [facility] Last Admin: 05/22/21 20:29 Dose: 500 mg Documented by: Budesonide/Formoterol Fumarate (Symbicort 160-4.5 Mcg Inhaler) 2 puff INHA LATION RT-BID [facility] Last Admin: 05/22/21 19:47 Dose: 2 puff Documented by: Cholecalciferol (Cholecalciferol 25 Mcg (1000 Iu) Tablet) 25 mcg PO DAILY [facility] Last Admin: 05/22/21 09:59 Dose: 25 mcg Documented by: Dexamethasone Sodium Phosphate (Dexamethasone Sod Phosphate 10 Mg/Ml 1 Ml Vial) 6 mg IV DAILY [facility] Last Admin: 05/22/21 10:00 Dose: 6 mg Documented by: Docusate Sodium (Docusate 100 Mg Cap) 100 mg PO BID [facility] Last Admin: 05/22/21 20:29 Dose: 100 mg Documented by: Enoxaparin Sodium (Enoxaparin 40 Mg/0.4 Ml Syringe) 40 mg SQ HS [facility] Last Admin: 05/22/21 20:29 Dose: 40 mg Documented by: Fentanyl (Fentanyl 12mcg/Hr Patch) 1 patch TRANSDERM Q72H [facility] Last Admin: 05/20/21 23:11 Dose: 1 patch Documented by: Fentanyl (Fentanyl 25mcg/Hr Patch) 1 patch TRANSDERM Q72H [facility] Last Admin: 05/20/21 23:10 Dose: 1 patch Documented by: Hydromorphone HCl (Hydromorphone 0.5 Mg/0.5 Ml Syringe) 0.5 mg IVP Q3HR PRN PRN Reason: Pain Last Admin: 05/22/21 13:42 Dose: 0.5 mg Documented by: Dextrose/Sodium Chloride (Dextrose 5%-Ns Iv Soln) 1,000 mls @ 75 mls/hr IV .[id number] [facility] Last Admin: 05/22/21 20:30 Dose: 75 mls/hr Documented by: Levofloxacin 750 mg/ IV (Solution) 150 mls @ 100 mls/hr IVPB Q24H [facility] Last Admin: 05/22/21 16:22 Dose: 100 mls/hr Documented by: Insulin Aspart (Insulin Aspart (Novolog) 100 Unit/Ml Vial) 0 unit SQ ACHS [facility]; Protocol Last Admin: 05/22/21 20:47 Dose: Not Given Documented by: Megestrol Acetate (Megestrol 400 Mg/10 Ml Cup) 400 mg PO DAILY [facility] Last Admin: 05/22/21 09:59 Dose: 400 mg Documented by: Metoclopramide HCl (Metoclopramide 10 Mg Tab) 10 mg PO Q6HR [facility] Last Admin: 05/23/21 05:47 Dose: 10 mg Documented by: Miscellaneous Information (Magnesium Replacement Protocol 1 Each Misc) 1 each MISCELLANE DAILY PRN; Protocol PRN Reason: Per Protocol Naloxone HCl (Naloxone 0.4 Mg/Ml 1 Ml Vial) 0.2 mg IV Q2M PRN PRN Reason: Opioid Reversal Polyethylene Glycol (Polyethylene Glycol 3350 17 Gm Powd.Pack) 17 gm PO DAILY [facility] Last Admin: 05/22/21 09:59 Dose: 17 gm Documented by: Zinc Acetate/Diphenhydramine (Diphenhydramine 2% Cream 28.4 Gm Tube) 1 applic TOPICAL TID [facility]; Protocol Last Admin: 05/22/21 20:30 Dose: 1 applic Documented by: Zinc Sulfate (Zinc Sulfate 220 Mg Cap) 220 mg PO DAILY [facility] Last Admin: 05/22/21 10:00 Dose: 220 mg Documented by: Physical Exam: GENERAL: This is a 65 year old male who is alert and oriented x3. ill appearing, thin built, appears much older than stated age. HEENT: Pupils are round and equally reacting to light. EOMI. No scleral icterus. No conjunctival pallor. Normocephalic, atraumatic. No pharyngeal erythema. No thyromegaly. CARDIOVASCULAR: S1 and S2 muffled PULMONARY: Diminished breath sounds bilaterally with no wheezing or rhonchi noted. ABDOMEN: Soft, nontender, nondistended, normoactive bowel sounds. No palpable organomegaly. MUSCULOSKELETAL: No joint swelling or deformity. EXTREMITIES: No cyanosis, clubbing, bilateral lower extremity edema noted NEUROLOGICAL: Gross neurological examination did not reveal any focal deficits. Diffusely weak SKIN: mild irritation and red blotches noted to the upper extremities bilaterally along with diffuse blotches noted on the upper thighs Assessment: Covid 19, mild infiltrate atelectasis noted on chest x-ray and CT of the chest Hypoglycemic episodes, possibly related to poor intake severe protein calorie malnutrition with a BMI of 16.7 Possible acute allergic reaction to contrast dye COPD with exacerbation Colon cancer status post resection in March extensive hepatic metastatic disease with enlargement multiple liver masses compared to previous CT 04/17/2021 Hypertension Nicotine dependence Insomnia Chronic pain DO NOT RESUSCITATE Plan: Covid 19, treatment plan consists of Decadron 6 mg IV push daily, zinc, vitamin D, vitamin C and Lovenox; consultation with pulmonary critical care for recommendations COPD with exacerbation, continue corticosteroids, Symbicort, albuterol inhaler 2 puffs 4 times a day, and incentive spirometer encouraged 10 times an hour Mild infiltrate noted on CT of the chest with elevated pro-calcitonin, on Levaquin Hypoglycemic episodes, initiation of D5.9 at 75 ML's an hour with frequent Accu- Cheks Colon cancer status post resection with extensive hepatic metastatic disease with enlargement multiple liver masses compared to previous CT 04/17/2021; oncology following and repeat ct shows progression of liver mets Chronic pain, continue home medications Patient has undergone 2 CT scans since admission and shortly after receiving the IV dye and oral contrast, patient developed some small patchy blotches on bilateral upper and lower extremities with minimal redness noted. Patient states the patches are itchy and will add a dose of oral benadryl along with topical benadryl and monitor closely. Patient denies any difficulty in breathing, throat or tongue swelling, or feelings of throat closing and continues on room air. Will monitor closely. Due to multiple complex medical issues, prognosis remains extremely poor and guarded. Objective - Vital Signs Vital signs: Vital Signs Temp 98.1 F 05/22/21 06:14 Pulse 81 05/22/21 07:33 Resp 18 05/22/21 07:33 BP 100/63 05/22/21 06:14 Pulse Ox 97 05/22/21 06:14 Intake & Output 05/21/21 05/22/21 05/22/21 18:59 06:59 18:59 Weight 49.895 kg Other: Voiding Method Toilet Toilet Toilet Urinal Urinal Urinal - Labs CBC & Chem 7: 05/22/21 05:58 05/22/21 05:58 Labs: Abnormal Lab Results - Last 24 Hours (Table) 05/20/21 05/21/21 05/21/21 Range/Units 21:40 05:51 05:51 RBC 3.23 L (4.40-5.60) X 10*6/uL Hgb 9.6 L (13.0-17.0) g/dL Hct 30.3 L (39.6-50.0) % MCHC 31.7 L (32.0-37.0) g/dL RDW 15.0 H (11.5-14.5) % Immature Gran # 0.05 H (0.00-0.04) X 10*3/uL Neutrophils # 8.04 H (1.80-7.70) X 10*3/uL Lymphocytes # 0.07 L (0.90-5.00) X 10*3/uL Eosinophils # 0.01 L (0.04-0.35) X 10*3/uL D-Dimer (<0.60) mg/L FEU BUN/Creatinine Ratio 31.43 H (12.00-20.00) Ratio Glucose 124 H (70-110) mg/dL POC Glucose (mg/dL) (75-99) mg/dL Calcium 8.2 L (8.7-10.3) mg/dL Ferritin 3165.8 H (22.0-322.0) ng/mL AST 72 H (14-35) U/L Alkaline Phosphatase 417 H (41-126) U/L Albumin 2.60 L (3.80-4.90) g/dL Globulin 4.3 H (1.6-3.3) g/dL Albumin/Globulin Ratio 0.60 L (1.60-3.17) g/dL Carcinoembryonic Ag (0.0-4.9) ng/mL 05/21/21 05/21/21 05/21/21 Range/Units 05:51 11:40 16:44 RBC (4.40-5.60) X 10*6/uL Hgb (13.0-17.0) g/dL Hct (39.6-50.0) % MCHC (32.0-37.0) g/dL RDW (11.5-14.5) % Immature Gran # (0.00-0.04) X 10*3/uL Neutrophils # (1.80-7.70) X 10*3/uL Lymphocytes # (0.90-5.00) X 10*3/uL Eosinophils # (0.04-0.35) X 10*3/uL D-Dimer (<0.60) mg/L FEU BUN/Creatinine Ratio (12.00-20.00) Ratio Glucose (70-110) mg/dL POC Glucose (mg/dL) 173 H 159 H (75-99) mg/dL Calcium (8.7-10.3) mg/dL Ferritin (22.0-322.0) ng/mL AST (14-35) U/L Alkaline Phosphatase (41-126) U/L Albumin (3.80-4.90) g/dL Globulin (1.6-3.3) g/dL Albumin/Globulin Ratio (1.60-3.17) g/dL Carcinoembryonic Ag 535.5 H (0.0-4.9) ng/mL 05/21/21 05/22/21 05/22/21 Range/Units 20:34 03:36 05:58 RBC (4.40-5.60) X 10*6/uL Hgb (13.0-17.0) g/dL Hct (39.6-50.0) % MCHC (32.0-37.0) g/dL RDW (11.5-14.5) % Immature Gran # (0.00-0.04) X 10*3/uL Neutrophils # (1.80-7.70) X 10*3/uL Lymphocytes # (0.90-5.00) X 10*3/uL Eosinophils # (0.04-0.35) X 10*3/uL D-Dimer 8.65 H (<0.60) mg/L FEU BUN/Creatinine Ratio (12.00-20.00) Ratio Glucose (70-110) mg/dL POC Glucose (mg/dL) 200 H 102 H (75-99) mg/dL Calcium (8.7-10.3) mg/dL Ferritin (22.0-322.0) ng/mL AST (14-35) U/L Alkaline Phosphatase (41-126) U/L Albumin (3.80-4.90) g/dL Globulin (1.6-3.3) g/dL Albumin/Globulin Ratio (1.60-3.17) g/dL Carcinoembryonic Ag (0.0-4.9) ng/mL Microbiology - Last 24 Hours (Table) 05/20/21 21:40 Blood Culture - Preliminary Blood No Growth after 24 hours
[2021-05-23 07:03] LABS: Glucose,Whole Blood 92 mg/dL (75-99)
[2021-05-23] MEDS: INSULIN ASPART (NovoLOG) 100 UNIT/ML VIAL SQ SCH ×4 (07:34→21:43)
[2021-05-23] MEDS: CHOLECALCIFEROL 25 MCG (1000 IU) TABLET PO SCH (08:31)
[2021-05-23] MEDS: ASCORBIC ACID 500 MG TAB PO SCH ×2 (08:31→19:44)
[2021-05-23] MEDS: DOCUSATE 100 MG CAP PO SCH ×2 (08:31→19:44)
[2021-05-23] MEDS: ZINC SULFATE 220 MG CAP PO SCH (08:31)
[2021-05-23] MEDS: amLODIPine 5 MG TAB PO SCH (08:31)
[2021-05-23] MEDS: DEXAMETHASONE SOD PHOSPHATE 10 MG/ML 1 ML VIAL IV SCH (08:32)
[2021-05-23] MEDS: polyethylene glycoL 3350 17 GM POWD.PACK PO SCH (08:33)
[2021-05-23] MEDS: MEGESTROL 400 MG/10 ML CUP PO SCH (08:33)
[2021-05-23] MEDS: diphenhydrAMINE 2% CREAM 28.4 GM TUBE TOPICAL SCH ×3 (08:33→19:46)
[2021-05-23] MEDS: ALBUTEROL HFA INHALER INHALATION SCH ×4 (08:58→21:13)
[2021-05-23] MEDS: SYMBICORT 160-4.5 MCG INHALER INHALATION SCH ×2 (08:58→21:13)
[2021-05-23] MEDS ORDERED: REMDESIVIR 100 MG in SODIUM CHLORIDE 0.9% 250 ML IVPB SCH (09:00)
[2021-05-23 11:34] LABS: Glucose,Whole Blood 84 mg/dL (75-99)
[2021-05-23] MEDS: DEXTROSE 5%-0.9% NACL 1,000 ML IV SCH (11:37)
[2021-05-23] MEDS: LEVOFLOXACIN 750MG-D5W PMX 750 MG in DEXTROSE/WATER 1 150ML.BAG IVPB SCH (16:35)
[2021-05-23 16:53] LABS: Glucose,Whole Blood 117 mg/dL (75-99)
--- NOTE | 2021-05-23 18:45 | PN ---
PROGRESS NOTE DATE OF SERVICE: 05/23/2021 This 65-year-old gentleman who was admitted with acute COVID-19 infection is being closely monitored at this time. The patient had a chest CTA which showed no evidence of pulmonary embolism, but this was personally reviewed by me and showed bilateral interstitial infiltrates at this time, mostly located in the lower part, highly suggestive of COVID-19 pneumonia. Past medical history reviewed. REVIEW OF SYSTEMS: CARDIOVASCULAR SYSTEM: No angina. RESPIRATION: As mentioned earlier. GI: As mentioned earlier. : No dysuria. NERVOUS SYSTEM: No numbness, weakness. CURRENT MEDICATIONS: Reviewed. They include [place] 10 mg Norvasc, vitamin C, Symbicort, vitamin D3, Colace, Lovenox. Doses are reviewed. PHYSICAL EXAMINATION: Patient is alert, oriented x3. Pulse is 80, blood pressure 104/72, respiration 17, temperature 98.1, pulse ox 94% on room air. HEENT: Conjunctivae normal. NECK: No jugular venous distention. CARDIOVASCULAR: S1, S2 muffled. RESPIRATION: Breath sounds diminished at the bases. A few scattered rhonchi and crackles. ABDOMEN: Soft, nontender. LEGS: No edema. No swelling. NERVOUS SYSTEM: No focal deficit. LABS: WBC 8.9, ESR is 70, and D-dimer is 8.95. ASSESSMENT: 1. Acute COVID-19 infection with acute bilateral interstitial pneumonia. 2. Elevated inflammatory markers of COVID-19. 3. Anemia. 4. Elevated D-dimer without any evidence of pulmonary embolism. 5. Elevated serum ferritin. 6. Elevated procalcitonin. 7. Hypoglycemic episode, possibly secondary to poor intake. 8. Severe protein-calorie malnutrition. BMI of 16.7. 9. Possible acute allergic reaction to contrast dye. 10.Chronic obstructive pulmonary disease, acute exacerbation. 11.Colon cancer, status post resection in March. 12.Extensive hepatic metastatic disease with enlargement with multiple liver metastases compared to the previous CT scan. 13.Hypertension. 14.History of nicotine dependence. 15.Insomnia. 16.Chronic pain syndrome. 17.NO CODE, NO CPR, NO VENT. RECOMMENDATIONS AND DISCUSSION: In this 65-year-old gentleman who presented with multiple complex medical issues, we will monitor the patient closely, continue the current medications, continue symptomatic treatment. Otherwise, repeat labs will be ordered. PT/OT evaluation. Guarded prognosis. Further recommendations to follow. Follow closely with the multiple consultants. FERNANDOL / IJN: [id number] / AMY
[2021-05-23] MEDS: HYDROmorphone 0.5 MG/0.5 ML SYRINGE IVP PRN (19:45)
[2021-05-23] MEDS: ENOXAPARIN 40 MG/0.4 ML SYRINGE SQ SCH (19:45)
[2021-05-23 21:54] LABS: Glucose,Whole Blood 127 mg/dL (75-99)
[2021-05-24] MEDS: DEXTROSE 5%-0.9% NACL 1,000 ML IV SCH ×2 (00:20→15:27)
[2021-05-24] MEDS: METOCLOPRAMIDE 10 MG TAB PO SCH ×5 (00:20→23:15)
[2021-05-24] MEDS: HYDROmorphone 0.5 MG/0.5 ML SYRINGE IVP PRN ×5 (00:24→23:15)
[2021-05-24 02:29] LABS: Glucose,Whole Blood 97 mg/dL (75-99)
[2021-05-24] MEDS: HYDROcodone/APAP 10-325MG 1 EACH TAB PO PRN ×4 (02:44→20:49)
[2021-05-24 06:52] LABS: Glucose,Whole Blood 76 mg/dL (75-99)
[2021-05-24] MEDS: SYMBICORT 160-4.5 MCG INHALER INHALATION SCH ×2 (08:10→19:20)
[2021-05-24] MEDS: ALBUTEROL HFA INHALER INHALATION SCH ×4 (08:10→19:19)
[2021-05-24] MEDS: INSULIN ASPART (NovoLOG) 100 UNIT/ML VIAL SQ SCH ×4 (09:29→20:46)
[2021-05-24] MEDS: amLODIPine 5 MG TAB PO SCH (09:42)
[2021-05-24] MEDS: DOCUSATE 100 MG CAP PO SCH ×2 (09:42→20:46)
[2021-05-24] MEDS: ZINC SULFATE 220 MG CAP PO SCH (09:42)
[2021-05-24] MEDS: ASCORBIC ACID 500 MG TAB PO SCH ×2 (09:42→20:46)
[2021-05-24] MEDS: DEXAMETHASONE SOD PHOSPHATE 10 MG/ML 1 ML VIAL IV SCH (09:43)
[2021-05-24] MEDS: CHOLECALCIFEROL 25 MCG (1000 IU) TABLET PO SCH (09:43)
[2021-05-24] MEDS: MEGESTROL 400 MG/10 ML CUP PO SCH (09:43)
[2021-05-24] MEDS: polyethylene glycoL 3350 17 GM POWD.PACK PO SCH (09:43)
[2021-05-24] MEDS: diphenhydrAMINE 2% CREAM 28.4 GM TUBE TOPICAL SCH ×3 (09:54→20:46)
--- NOTE | 2021-05-24 10:43 | P.PN ---
Subjective Progress Note Date: 05/24/21 Principal diagnosis: Acute COVID-19 pneumonia Severe end stage COPD with exacerbation Secondary bacterial pneumonia on Levaquin Altered mental status is likely due to severe hypoglycemia Colon cancer status post resection with metastatic disease hematology oncology following 05/24/2021, patient seen eval examined during the rounds labs reviewed medications reviewed patient is overall in good spirits however generalized weakness present, shortness of breath on exertion at present, patient has been ambulating in room however saw oxygen saturation remained stable, patient is not approved for REMdesivir, labs are not done today the medications reviewed remains on dexamethasone tolerating very well also on IV fluids, will consult PT OT also nutrition patient will need home health and she is declining placement, do a follow-up chest x-ray Patient is a pleasant 65-year-old male with the significant history of follow-up colon cancer status post resection, history of hypertension hypertensive cardiovascular disease COPD chronic insomnia, patient came into the hospital with the lightheadedness and drowsiness and sleepiness, thought to be related to hypoglycemia patient has some component of shortness of breath present as well further workup and evaluation revealed positive COVID-19 PCR, other workup included a stable hemoglobin and hematocrit of 10 and 33 sed rate of 95 d-dimer 14.6 alk phos of 589 LDH of 1049 and C-reactive protein 7.7, patient underwent a computed tomography scan of the chest negative for pulmonary embolism however severe emphysema and fibrotic changes were noted, patient the noted to have a hepatic metastases as well currently patient is on therapy for COVID-19 infection with multivitamins vitamin C zinc subcu Lovenox and Decadron 6 mg tolerating well with the remains off of oxygen, d-dimer improved rate 0.65, Objective - Vital Signs Vital signs: Vital Signs Temp 97.7 F 05/24/21 10:21 Pulse 84 05/24/21 10:21 Resp 18 05/24/21 10:21 BP 113/80 05/24/21 10:21 Pulse Ox 94 L 05/24/21 10:21 Intake & Output 05/23/21 05/24/21 05/24/21 18:59 06:59 18:59 Other: Voiding Method Toilet Urinal # Voids 3 - Exam - Constitutional General appearance: average body habitus, cooperative, disheveled - EENT Eyes: PERRLA Ears: bilateral: normal - Neck Neck: normal ROM Carotids: bilateral: upstroke normal Thyroid: bilateral: normal size - Respiratory Respiratory: bilateral: diminished - Cardiovascular Rhythm: regular Heart sounds: normal: S1, S2 - Gastrointestinal General gastrointestinal: soft - Integumentary Integumentary: normal - Neurologic Neurologic: CNII-XII intact - Musculoskeletal Musculoskeletal: gait normal, generalized weakness, strength equal bilaterally - Psychiatric Psychiatric: A&O x's 3, appropriate affect, intact judgment & insight - Labs CBC & Chem 7: 05/22/21 05:58 05/22/21 05:58 Labs: Abnormal Lab Results - Last 24 Hours (Table) 05/23/21 05/23/21 Range/Units 16:52 21:41 POC Glucose (mg/dL) 117 H 127 H (75-99) mg/dL Microbiology - Last 24 Hours (Table) 05/20/21 21:40 Blood Culture - Preliminary Blood No Growth after 72 hours Assessment and Plan Assessment: Acute COVID-19 pneumonia Severe end stage COPD with exacerbation Secondary bacterial pneumonia on Levaquin Altered mental status is likely due to severe hypoglycemia Colon cancer status post resection with metastatic disease hematology oncology following Plan: Continue IV Decadron patient seems to be tolerating well Continue broad-spectrum antibiotics Supplements Deep breathing sense incentive spirometry Patient may benefit from a course of REMdesivir, however not approved by the pharmacy Time with Patient: Greater than 30
[2021-05-24 11:44] LABS: Glucose,Whole Blood 89 mg/dL (75-99)
[2021-05-24 12:13] LABS: Basophils # (A) 0 X 10*3/uL (0.00-0.10); Basophils % (A) 0 %; Eosinophils # (A) 0.02 X 10*3/uL (0.04-0.35); Eosinophils % (A) 0.4 %; HCT 32.1 % (39.6-50.0); HGB 10.3 g/dL (13.0-17.0); Lymphocytes # (A) 0.49 X 10*3/uL (0.90-5.00); Lymphocytes % (A) 10.3 %; MCH 30.5 pg (27.0-32.0); MCHC 32.1 g/dL (32.0-37.0); Mean Platelet Volume 11.2 fL (9.5-12.2); Monocytes # (A) 0.39 X 10*3/uL (0.20-1.00); Monocytes % (A) 8.2 %; Neutrophils # (A) 3.81 X 10*3/uL (1.80-7.70); Neutrophils % (A) 80.5 %; Platelet Count 196 X 10*3/uL (140-440); RBC 3.38 X 10*6/uL (4.40-5.60); RDW 15.5 % (11.5-14.5); WBC 4.74 X 10*3/uL (4.50-10.00)
[2021-05-24 12:53] LABS: African American GFR (CKD) 113.2 (60.0-200.0); Anion Gap 0.4 mmol/L (4.00-12.00); BUN/Creat Ratio 22.86 Ratio (12.00-20.00); Carbon Dioxide 30.6 mmol/L (21.6-31.8); Non-African American GFR(CKD) 97.7 (60.0-200.0); Potassium 4.1 mmol/L (3.5-5.5)
[2021-05-24] MEDS: LEVOFLOXACIN 750MG-D5W PMX 750 MG in DEXTROSE/WATER 1 150ML.BAG IVPB SCH (15:25)
[2021-05-24 16:55] LABS: Glucose,Whole Blood 135 mg/dL (75-99)
--- NOTE | 2021-05-24 20:19 | PN ---
PROGRESS NOTE DATE OF SERVICE: 05/24/2021 This 65-year-old gentleman who was admitted with acute COVID-19 infection is being closely monitored. No chest pain. No palpitations. No fever. Pulmonary is following the patient closely. PHYSICAL EXAMINATION: Alert and oriented x3. Pulse 91, blood pressure 102/68, respirations 18, temperature 98.6, pulse ox 94% on room air. HEENT: Conjunctivae normal. Oral mucosa moist. NECK: No jugular venous distention. No lymph node enlargement. CARDIOVASCULAR: S1, S2, muffled. No S3, no S4, RESPIRATORY: Diminished breath sounds at the bases. A few scattered rhonchi. ABDOMEN: Soft, nontender. LEGS: No edema, no swelling. NERVOUS SYSTEM: No focal deficits. LABS: WBC 10.7, hemoglobin 10.3. ASSESSMENT: 1. Acute COVID-19 infection with acute bilateral interstitial pneumonia. 2. Elevated inflammatory markers of COVID-19. 3. Anemia. 4. Elevated D-dimer without any evidence of pulmonary embolism. 5. History of elevated serum ferritin. 6. Elevated procalcitonin. 7. Hypoglycemic episode, possibly secondary to poor intake. 8. Severe protein calorie malnutrition, BMI of 16.7. 9. Possible acute allergic reaction to contrast dye. 10.Chronic obstructive pulmonary disease acute exacerbation. 11.Colon cancer status post resection in March. 12.Extensive hepatic metastatic disease with enlargement with multiple liver mets compared to the previous CAT scan. 13.Hypertension. 14.History of nicotine dependence. 15.Insomnia. 16.Chronic pain syndrome. 17.NO CODE, NO CPR, NO VENT. RECOMMENDATIONS AND DISCUSSION: Recommend to continue current medications, continue to monitor, continue symptomatic treatment. Otherwise, at this time PT, OT evaluation. Prognosis guarded. Further recommendations to follow. MMODL / IJN: [id number] /
[2021-05-24 20:31] LABS: Glucose,Whole Blood 148 mg/dL (75-99)
[2021-05-24] MEDS: ENOXAPARIN 40 MG/0.4 ML SYRINGE SQ SCH (20:46)
[2021-05-25] MEDS: HYDROcodone/APAP 10-325MG 1 EACH TAB PO PRN ×2 (02:16→07:41)
[2021-05-25 02:20] LABS: Glucose,Whole Blood 92 mg/dL (75-99)
[2021-05-25] MEDS: DEXTROSE 5%-0.9% NACL 1,000 ML IV SCH ×2 (02:49→17:21)
[2021-05-25] MEDS: HYDROmorphone 0.5 MG/0.5 ML SYRINGE IVP PRN ×2 (05:53→19:37)
[2021-05-25] MEDS: METOCLOPRAMIDE 10 MG TAB PO SCH ×3 (05:54→17:20)
[2021-05-25 07:16] LABS: Glucose,Whole Blood 78 mg/dL (75-99)
[2021-05-25] MEDS: INSULIN ASPART (NovoLOG) 100 UNIT/ML VIAL SQ SCH ×2 (07:25→11:52)
[2021-05-25] MEDS: DEXAMETHASONE SOD PHOSPHATE 10 MG/ML 1 ML VIAL IV SCH (07:40)
[2021-05-25] MEDS: polyethylene glycoL 3350 17 GM POWD.PACK PO SCH (07:40)
[2021-05-25] MEDS: MEGESTROL 400 MG/10 ML CUP PO SCH (07:41)
[2021-05-25] MEDS: DOCUSATE 100 MG CAP PO SCH ×2 (07:41→19:36)
[2021-05-25] MEDS: amLODIPine 5 MG TAB PO SCH (07:42)
[2021-05-25] MEDS: ZINC SULFATE 220 MG CAP PO SCH (07:42)
[2021-05-25] MEDS: ASCORBIC ACID 500 MG TAB PO SCH ×2 (07:42→19:36)
[2021-05-25] MEDS: CHOLECALCIFEROL 25 MCG (1000 IU) TABLET PO SCH (07:42)
[2021-05-25] MEDS: ALBUTEROL HFA INHALER INHALATION SCH ×4 (08:35→20:14)
[2021-05-25] MEDS: SYMBICORT 160-4.5 MCG INHALER INHALATION SCH ×2 (08:35→20:14)
--- NOTE | 2021-05-25 08:40 | XR ---
EXAMINATION TYPE: XR chest 1V portable DATE OF EXAM: 05/25/2021 COMPARISON: Chest x-ray 05/22/2021 HISTORY: Pneumonia TECHNIQUE: Single frontal view of the chest is obtained. FINDINGS: Minimal patchy density persists at the left lung base, there is likely some improvement in aeration. No other significant interval change. IMPRESSION: There is some improvement in aeration
[2021-05-25] MEDS: diphenhydrAMINE 2% CREAM 28.4 GM TUBE TOPICAL SCH ×3 (09:40→20:36)
--- NOTE | 2021-05-25 10:26 | P.PN ---
Subjective Progress Note Date: 05/25/21 Principal diagnosis: Covid infection, metastatic colon adenocarcinoma with disease progression Pt feels about the same today, SOB on exertion, non-productive cough, general weakness, pain in abd is managed better with the dilaudid vs the norco. Objective - Vital Signs Vital signs: Vital Signs Temp 98.2 F 05/25/21 05:11 Pulse 74 05/25/21 05:11 Resp 17 05/25/21 05:11 BP 130/82 05/25/21 05:11 Pulse Ox 97 05/25/21 05:11 Intake & Output 05/24/21 05/25/21 05/25/21 18:59 06:59 18:59 Other: # Voids 4 - Constitutional General appearance: Present: cooperative, no acute distress, thin - EENT Eyes: Present: anicteric sclerae, EOMI ENT: Present: hearing grossly normal - Respiratory Details: resp even and unlabored at rest - Neurologic Neurologic: Present: CNII-XII intact (grossly) - Psychiatric Psychiatric: Present: A&O x's 3, appropriate affect, intact judgment & insight - Labs CBC & Chem 7: 05/24/21 06:35 05/24/21 06:35 Labs: Abnormal Lab Results - Last 24 Hours (Table) 05/24/21 05/24/21 05/24/21 Range/Units 06:35 06:35 16:54 RBC 3.38 L (4.40-5.60) X 10*6/uL Hgb 10.3 L (13.0-17.0) g/dL Hct 32.1 L (39.6-50.0) % RDW 15.5 H (11.5-14.5) % Lymphocytes # 0.49 L (0.90-5.00) X 10*3/uL Eosinophils # 0.02 L (0.04-0.35) X 10*3/uL Sodium 134 L (135-145) mmol/L Anion Gap 0.40 L (4.00-12.00) mmol/L BUN/Creatinine Ratio 22.86 H (12.00-20.00) Ratio POC Glucose (mg/dL) 135 H (75-99) mg/dL 05/24/21 Range/Units 20:18 RBC (4.40-5.60) X 10*6/uL Hgb (13.0-17.0) g/dL Hct (39.6-50.0) % RDW (11.5-14.5) % Lymphocytes # (0.90-5.00) X 10*3/uL Eosinophils # (0.04-0.35) X 10*3/uL Sodium (135-145) mmol/L Anion Gap (4.00-12.00) mmol/L BUN/Creatinine Ratio (12.00-20.00) Ratio POC Glucose (mg/dL) 148 H (75-99) mg/dL Microbiology - Last 24 Hours (Table) 05/20/21 21:40 Blood Culture - Preliminary Blood No Growth after 96 hours - Imaging and Cardiology Chest x-ray: report reviewed (repoprted improvement in aeration) Assessment and Plan (1) COVID Narrative/Plan: Defer management of the same to Attending and Pulmonary Current Visit: Yes Status: Acute Priority: High Code(s): U07.1 - COVID-19 SNOMED Code(s): 786757084 (2) Failure to thrive in adult Current Visit: Yes Status: Acute Priority: High Code(s): R62.7 - ADULT FAILURE TO THRIVE SNOMED Code(s): 543781696 (3) History of colon cancer Current Visit: Yes Status: Chronic Priority: High Code(s): Z85.038 - PERSONAL HISTORY OF MALIGNANT NEOPLASM OF LARGE INTESTINE SNOMED Code(s): 228814165 (4) Liver metastases Current Visit: Yes Status: Chronic Priority: High Code(s): C78.7 - SECONDARY MALIG NEOPLASM OF LIVER AND INTRAHEPATIC BILE DUCT SNOMED Code(s): 34212728 Plan: Unfortunately, imaging shows disease progression in the liver. Pending f/u with Primary Onc for treatment plans. CEA 04/06/21 it was 186, now 535. Pain medication adjusted again today. Reviewed with Pharmacist rico alvarez. Discussed with Nursing. We'll see how patient does. When necessary medications added for prevention of narcotic-induced constipation. Pt c/o blister on penis, culture ordered. Low blood glucose-have asked that Nursing address with Attending
[2021-05-25 11:26] LABS: Glucose,Whole Blood 119 mg/dL (75-99)
[2021-05-25] MEDS: HYDROmorphone 2 MG TAB PO PRN ×4 (12:07→22:33)
[2021-05-25 17:06] LABS: Glucose,Whole Blood 151 mg/dL (75-99)
[2021-05-25] MEDS: LEVOFLOXACIN 750 MG TAB PO SCH (17:20)
[2021-05-25] MEDS: ENOXAPARIN 40 MG/0.4 ML SYRINGE SQ SCH (19:36)
[2021-05-25 22:14] LABS: Glucose,Whole Blood 137 mg/dL (75-99)
--- NOTE | 2021-05-25 23:38 | P.PN ---
Subjective Progress Note Date: 05/25/21 65-year-old male with significant medical history of colon cancer status post resection, hypertension, COPD, nicotine dependence, and insomnia was sent to the emergency department for episodes of hypoglycemia with severe drowsiness with associated shortness of breath. Patient had extensive diagnostic workup in the emergency department with a hemoglobin of 10.9 and hematocrit of 33.5, elevated ESR of 95, and d-dimer 14.6, alkaline phosphate 589, LDH 1049, C-reactive protein 7.7, and procalcitonin of 0.31, and a positive Covid 19 PCR. Review of twelve-lead EKG right bundle branch block, chest x-ray basilar atelectasis or scarring possible pneumonia noted by radiology, CT of the chest no evidence of pulmonary embolism, severe emphysema, mild infiltrate, atelectasis, and fibrotic changes at the lung bases per radiology. Radiology dictation hepatic metastatic disease with enlargement multiple liver masses compared to CT of 04/17/2021. Patient is not a candidate for remdesivir, per [facility] protocol. Patient will be placed on D5 0.9 at 75 mL/hour due to hypoglycemic episodes, COVID-19 treatment, will consist of Decadron 6 mg IV push daily, zinc sulfate 220 mg, vitamin C, and vitamin D and Lovenox 40 mg subcu. Consultation with pulmonary critical care for expert opinion regarding Covid 19 and severe emphysema; consultation with hematology for hepatic metastatic disease with enlargement of multiple liver masses from previous CAT scan. 05/22/2021 Patient is seen in follow up this morning and had repeat ct abdomen done which shows progression in liver mets with oncology following closely. Pulmonary has been consulted. Patient is currently on room air and denies shortness of breath. Patient continues on IV decadron along with vitamin and zinc supplements along with lovenox. D-dimer is elevated. Inflammatory markers elevated as well. Hemoglobin stable at 8.9. Patient continues to have low blood sugars and will continue on D5 with continued accuchecks. Patient denies any shortness of breath, chest pain or palpitations. Patient denies any nausea or vomiting and is tolerating diet. Intake is poor. 05/25/2021 Patient is seen and evaluated in follow up this am. Patient resting comfortably on room air and continues to be on IV dexamethasone with vitamin and zinc supplements. Oncology and pulmonary Dr. Ali following. Patient has a lesion on the penis that was a blister and has popped and uncomfortable. Culture was sent. Patient continues on oral Levaquin as well. Patient blood sugar has been on the lower side despite continuing on d5 which will continue for now. Encouraged oral intake. Review of systems: Constitutional: No reports of fatigue, fever, or chills Cardiovascular: No reports of chest pain or palpitations Respiratory: No reports of shortness of breath GI: No reports of nausea, vomiting, or diarrhea : No reports of dysuria or retention Neurovascular: Reports generalized weakness Active Medications Albuterol Sulfate (Albuterol Hfa Inhaler) 2 puff INHALATION RT-QID [facility] Last Admin: 05/25/21 20:14 Dose: 2 puff Documented by: Amlodipine Besylate (Amlodipine 5 Mg Tab) 5 mg PO DAILY [facility] Last Admin: 05/25/21 07:42 Dose: 5 mg Documented by: Ascorbic Acid (Ascorbic Acid 500 Mg Tab) 500 mg PO BID [facility] Last Admin: 05/25/21 19:36 Dose: 500 mg Documented by: Budesonide/Formoterol Fumarate (Symbicort 160-4.5 Mcg Inhaler) 2 puff INHALATION RT-BID [facility] Last Admin: 05/25/21 20:14 Dose: 2 puff Documented by: Cholecalciferol (Cholecalciferol 25 Mcg (1000 Iu) Tablet) 25 mcg PO DAILY [facility] Last Admin: 05/25/21 07:42 Dose: 25 mcg Documented by: Dexamethasone Sodium Phosphate (Dexamethasone Sod Phosphate 10 Mg/Ml 1 Ml Vial) 6 mg IV DAILY [facility] Last Admin: 05/25/21 07:40 Dose: 6 mg Documented by: Docusate Sodium (Docusate 100 Mg Cap) 100 mg PO BID [facility] Last Admin: 05/25/21 19:36 Dose: 100 mg Documented by: Enoxaparin Sodium (Enoxaparin 40 Mg/0.4 Ml Syringe) 40 mg SQ HS [facility] Last Admin: 05/25/21 19:36 Dose: 40 mg Documented by: Fentanyl (Fentanyl 12mcg/Hr Patch) 1 patch TRANSDERM Q72H [facility] Last Admin: 05/23/21 19:45 Dose: 1 patch Documented by: Fentanyl (Fentanyl 25mcg/Hr Patch) 1 patch TRANSDERM Q72H [facility] Last Admin: 05/23/21 19:45 Dose: 1 patch Documented by: Hydromorphone HCl (Hydromorphone 0.5 Mg/0.5 Ml Syringe) 0.5 mg IVP Q3HR PRN PRN Reason: Pain Last Admin: 05/25/21 19:37 Dose: 0.5 mg Documented by: Hydromorphone HCl (Hydromorphone 2 Mg Tab) 2 mg PO Q3HR PRN PRN Reason: Pain Last Admin: 05/25/21 22:33 Dose: 2 mg Documented by: Dextrose/Sodium Chloride (Dextrose 5%-Ns Iv Soln) 1,000 mls @ 75 mls/hr IV .[id number] [facility] Last Admin: 05/25/21 17:21 Dose: 75 mls/hr Documented by: Levofloxacin (Levofloxacin 750 Mg Tab) 750 mg PO DAILY@1600 [facility] Last Admin: 05/25/21 17:20 Dose: 750 mg Documented by: Megestrol Acetate (Megestrol 400 Mg/10 Ml Cup) 400 mg PO DAILY [facility] Last Admin: 05/25/21 07:41 Dose: 400 mg Documented by: Metoclopramide HCl (Metoclopramide 10 Mg Tab) 10 mg PO Q6HR [facility] Last Admin: 05/25/21 17:20 Dose: 10 mg Documented by: Miscellaneous Information (Magnesium Replacement Protocol 1 Each Misc) 1 each MISCELLANE DAILY PRN; Protocol PRN Reason: Per Protocol Naloxone HCl (Naloxone 0.4 Mg/Ml 1 Ml Vial) 0.2 mg IV Q2M PRN PRN Reason: Opioid Reversal Polyethylene Glycol (Polyethylene Glycol 3350 17 Gm Powd.Pack) 17 gm PO DAILY [facility] Last Admin: 05/25/21 07:40 Dose: 17 gm Documented by: Zinc Acetate/Diphenhydramine (Diphenhydramine 2% Cream 28.4 Gm Tube) 1 applic TOPICAL TID [facility]; Protocol Last Admin: 05/25/21 20:36 Dose: Not Given Documented by: Zinc Sulfate (Zinc Sulfate 220 Mg Cap) 220 mg PO DAILY [facility] Last Admin: 05/25/21 07:42 Dose: 220 mg Documented by: Physical Exam: GENERAL: This is a 65 year old male who is alert and oriented x3. ill appearing, thin built, appears much older than stated age. HEENT: Pupils are round and equally reacting to light. EOMI. No scleral icterus. No conjunctival pallor. Normocephalic, atraumatic. No pharyngeal erythema. No thyromegaly. CARDIOVASCULAR: S1 and S2 muffled PULMONARY: Diminished breath sounds bilaterally with no wheezing or rhonchi noted. ABDOMEN: Soft, nontender, nondistended, normoactive bowel sounds. No palpable organomegaly. MUSCULOSKELETAL: No joint swelling or deformity. EXTREMITIES: No cyanosis, clubbing, bilateral lower extremity edema noted NEUROLOGICAL: Gross neurological examination did not reveal any focal deficits. Diffusely weak SKIN: blister that has popped with clear drainage noted on the head of the penis Assessment: Covid 19, mild infiltrate atelectasis noted on chest x-ray and CT of the chest Hypoglycemic episodes, possibly related to poor intake severe protein calorie malnutrition with a BMI of 16.7 Possible acute allergic reaction to contrast dye, resolved penile lesion COPD with exacerbation Colon cancer status post resection in March extensive hepatic metastatic disease with enlargement multiple liver masses compared to previous CT 04/17/2021 Hypertension Nicotine dependence Insomnia Chronic pain DO NOT RESUSCITATE Plan: Recommend to continue with dexamethasone, lovenox, and vitamin and zinc supplements. Pulmonary DR. Hightower following along with oncology. Patient was found to have an irritation on the head of the penis and noticed a blister that has popped and draining clear and was cultured. Patient continues to have lower blood glucose readings and will continue with D5 hydration and continued accuchecks. Patient to discuss further with family and oncology about treatment plan moving forward. Patient continues to be weak and will have PT/OT reevaluate. Due to multiple complex medical issues, prognosis remains extremely poor and guarded. Objective - Vital Signs Vital signs: Vital Signs Temp 98.2 F 05/25/21 05:11 Pulse 74 05/25/21 05:11 Resp 17 05/25/21 05:11 BP 130/82 05/25/21 05:11 Pulse Ox 97 05/25/21 05:11 Intake & Output 05/24/21 05/25/21 05/25/21 18:59 06:59 18:59 Other: # Voids 4 - Labs CBC & Chem 7: 05/24/21 06:35 05/24/21 06:35 Labs: Abnormal Lab Results - Last 24 Hours (Table) 05/24/21 05/24/21 05/24/21 Range/Units 06:35 06:35 16:54 RBC 3.38 L (4.40-5.60) X 10*6/uL Hgb 10.3 L (13.0-17.0) g/dL Hct 32.1 L (39.6-50.0) % RDW 15.5 H (11.5-14.5) % Lymphocytes # 0.49 L (0.90-5.00) X 10*3/uL Eosinophils # 0.02 L (0.04-0.35) X 10*3/uL Sodium 134 L (135-145) mmol/L Anion Gap 0.40 L (4.00-12.00) mmol/L BUN/Creatinine Ratio 22.86 H (12.00-20.00) Ratio POC Glucose (mg/dL) 135 H (75-99) mg/dL 05/24/21 Range/Units 20:18 RBC (4.40-5.60) X 10*6/uL Hgb (13.0-17.0) g/dL Hct (39.6-50.0) % RDW (11.5-14.5) % Lymphocytes # (0.90-5.00) X 10*3/uL Eosinophils # (0.04-0.35) X 10*3/uL Sodium (135-145) mmol/L Anion Gap (4.00-12.00) mmol/L BUN/Creatinine Ratio (12.00-20.00) Ratio POC Glucose (mg/dL) 148 H (75-99) mg/dL Microbiology - Last 24 Hours (Table) 05/20/21 21:40 Blood Culture - Preliminary Blood No Growth after 96 hours
[2021-05-26] MEDS: METOCLOPRAMIDE 10 MG TAB PO SCH ×4 (00:18→17:51)
[2021-05-26] MEDS: HYDROmorphone 0.5 MG/0.5 ML SYRINGE IVP PRN ×2 (00:20→05:47)
[2021-05-26 02:35] LABS: Glucose,Whole Blood 126 mg/dL (75-99)
[2021-05-26] MEDS: HYDROmorphone 2 MG TAB PO PRN ×2 (03:13→07:33)
[2021-05-26 07:20] LABS: Glucose,Whole Blood 76 mg/dL (75-99)
[2021-05-26] MEDS: DEXAMETHASONE SOD PHOSPHATE 10 MG/ML 1 ML VIAL IV SCH (07:33)
[2021-05-26] MEDS: amLODIPine 5 MG TAB PO SCH (07:34)
[2021-05-26] MEDS: CHOLECALCIFEROL 25 MCG (1000 IU) TABLET PO SCH (07:34)
[2021-05-26] MEDS: ASCORBIC ACID 500 MG TAB PO SCH ×2 (07:34→20:26)
[2021-05-26] MEDS: DOCUSATE 100 MG CAP PO SCH ×2 (07:34→20:26)
[2021-05-26] MEDS: ZINC SULFATE 220 MG CAP PO SCH (07:34)
[2021-05-26] MEDS: MEGESTROL 400 MG/10 ML CUP PO SCH (07:35)
[2021-05-26] MEDS: diphenhydrAMINE 2% CREAM 28.4 GM TUBE TOPICAL SCH ×3 (07:35→23:00)
[2021-05-26] MEDS: DEXTROSE 5%-0.9% NACL 1,000 ML IV SCH ×2 (07:35→23:01)
[2021-05-26] MEDS: polyethylene glycoL 3350 17 GM POWD.PACK PO SCH (07:35)
[2021-05-26 07:52] LABS: African American GFR (CKD) >90 (>60 ml/min/1.73 sqM); Anion Gap 5 mmol/L; Blood Urea Nitrogen 17 mg/dL (9-20); Calcium 9.2 mg/dL (8.4-10.2); Carbon Dioxide 26 mmol/L (22-30); Chloride 101 mmol/L (98-107); Glucose 82 mg/dL (74-99); Magnesium 1.7 mg/dL (1.6-2.3); Non-African American GFR(CKD) >90 (>60 ml/min/1.73 sqM); Potassium 4.1 mmol/L (3.5-5.1); Sodium 132 mmol/L (137-145)
[2021-05-26] MEDS ORDERED: Magnesium Replacement Protocol 1 EACH MISC MISCELLANE PRN (08:14)
[2021-05-26] MEDS: ALBUTEROL HFA INHALER INHALATION SCH ×4 (09:10→20:40)
[2021-05-26] MEDS: SYMBICORT 160-4.5 MCG INHALER INHALATION SCH ×2 (09:10→20:40)
[2021-05-26] MEDS: MAGNESIUM SULFATE-D5W PMX 1 GM in DEXTROSE/WATER 1 100ML.BAG IVPB SCH ×2 (09:59→11:10)
[2021-05-26] MEDS: NYSTATIN 100,000 UNIT/ML SUSP 500,000 UNIT/5 ML CUP PO SCH ×4 (09:59→22:59)
[2021-05-26] MEDS: KETOROLAC 15 MG/ML 1 ML VIAL IVP SCH ×3 (09:59→17:50)
[2021-05-26] MEDS: NYSTATIN 100,000 UNIT/GM OINT 30 GM TUBE TOPICAL SCH ×3 (09:59→22:59)
[2021-05-26] MEDS ORDERED: oxyCODONE-APAP 10-325MG 1 EACH TAB PO SCH (10:00)
[2021-05-26 11:26] LABS: Basophils # (A) 0.01 X 10*3/uL (0.00-0.10); Basophils % (A) 0.2 %; Eosinophils # (A) 0 X 10*3/uL (0.04-0.35); Eosinophils % (A) 0 %; HCT 32.6 % (39.6-50.0); HGB 10.5 g/dL (13.0-17.0); Lymphocytes # (A) 0.66 X 10*3/uL (0.90-5.00); MCH 30.4 pg (27.0-32.0); MCHC 32.2 g/dL (32.0-37.0); MCV 94.5 fL (80.0-97.0); Monocytes # (A) 0.67 X 10*3/uL (0.20-1.00); Monocytes % (A) 12.2 %; Neutrophils # (A) 4.12 X 10*3/uL (1.80-7.70); Neutrophils % (A) 74.7 %; Platelet Count 216 X 10*3/uL (140-440); RBC 3.45 X 10*6/uL (4.40-5.60); WBC 5.51 X 10*3/uL (4.50-10.00)
[2021-05-26 12:00] LABS: Glucose,Whole Blood 106 mg/dL (75-99)
--- NOTE | 2021-05-26 13:01 | P.PN ---
Subjective Progress Note Date: 05/26/21 Principal diagnosis: Covid infection, metastatic colon adenocarcinoma with disease progression Pt has no new c/o, his SOB is stable, persistent non-productive cough, general weakness. Pt continues to abd pain. Objective - Vital Signs Vital signs: Vital Signs Temp 97.5 F L 05/26/21 08:00 Pulse 75 05/26/21 08:00 Resp 16 05/26/21 08:00 BP 130/78 05/26/21 08:00 Pulse Ox 93 L 05/26/21 08:00 Intake & Output 05/25/21 05/26/21 05/26/21 18:59 06:59 18:59 Weight 49.895 kg - Constitutional General appearance: Present: cooperative, no acute distress, thin - EENT Eyes: Present: anicteric sclerae, EOMI ENT: Present: hearing grossly normal - Respiratory Details: resp even and unlabored - Neurologic Neurologic: Present: CNII-XII intact - Musculoskeletal Musculoskeletal: Present: generalized weakness, strength equal bilaterally - Psychiatric Psychiatric: Present: A&O x's 3, appropriate affect, intact judgment & insight - Labs CBC & Chem 7: 05/26/21 06:39 05/26/21 06:39 Labs: Abnormal Lab Results - Last 24 Hours (Table) 05/25/21 05/25/21 05/25/21 Range/Units 11:24 17:05 22:11 Sodium (137-145) mmol/L Creatinine (0.66-1.25) mg/dL POC Glucose (mg/dL) 119 H 151 H 137 H (75-99) mg/dL 05/26/21 05/26/21 Range/Units 02:27 06:39 Sodium 132 L (137-145) mmol/L Creatinine 0.48 L (0.66-1.25) mg/dL POC Glucose (mg/dL) 126 H (75-99) mg/dL Microbiology - Last 24 Hours (Table) 05/20/21 21:40 Blood Culture - Preliminary Blood No Growth after 120 hours 05/25/21 12:00 Genital Culture - Preliminary Penis Assessment and Plan (1) COVID Narrative/Plan: Defer management of the same to Attending and Pulmonary Current Visit: Yes Status: Acute Priority: High Code(s): U07.1 - COVID-19 SNOMED Code(s): 907373823 (2) Failure to thrive in adult Current Visit: Yes Status: Acute Priority: High Code(s): R62.7 - ADULT FAILURE TO THRIVE SNOMED Code(s): 832634602 (3) History of colon cancer Current Visit: Yes Status: Chronic Priority: High Code(s): Z85.038 - PERSONAL HISTORY OF MALIGNANT NEOPLASM OF LARGE INTESTINE SNOMED Code(s): 769246505 (4) Liver metastases Current Visit: Yes Status: Chronic Priority: High Code(s): C78.7 - SECONDARY MALIG NEOPLASM OF LIVER AND INTRAHEPATIC BILE DUCT SNOMED Code(s): 39024452 Plan: Unfortunately, imaging shows disease progression in the liver. Awaiting recommendations from Primary Oncologist as to what treatment options are available to pt. CEA 04/06/21 it was 186, now 535. Pain medication adjusted today by Attending. Pt c/o blister on penis, culture ordered, results pending Low blood glucose-have asked that Nursing address with Attending Spoke with pt sister about his case. We will plan a family meeting once pt is feeling better from current infection as pt is asking me about other treatments but sister reoprts that he has told her and Attending that he does any more cancer treatment. We discussed hospice philosophy and intent. Prognosis without cancer treatment and with rapid progression in liver <6mo, 3-4 mo barring other complications from liver failure. She verbalized understanding. Will f/u. Time with Patient: Greater than 30
--- NOTE | 2021-05-26 14:32 | CT ---
EXAMINATION TYPE: CT brain francisca miller DATE OF EXAM: 05/26/2021 COMPARISON: None HISTORY: fall CT DLP: 1210.[address] of the brain was performed. The ventricles, basal cisterns and sulci overlying the cerebral convexities demonstrate mild enlargem ent. There is no evidence for intracranial hemorrhage or sulcal effacement. There is decreased attenuatio n about the periventricular white matter and deep white matter of both cerebral hemispheres, compatib le with chronic small vessel ischemia. No mass effects are seen. If symptoms persist consider MRI. Osseous calvarium is intact. IMPRESSION: 1. Age related atrophic and chronic small vessel ischemic change without acute intracranial process seen at this time. CT Cervical Spine: Unenhanced CT of the cervical spine was performed with bone and soft tissue window settings submitted . Coronal and sagittal reconstruction is obtained. There is normal alignment and prevertebral soft tissues. No evidence for acute cervical fracture . Scattered degenerative disc disease and spondylosis. Biapical scarring. IMPRESSION: 1. No evidence for acute fracture or subluxation of the cervical spine.
[2021-05-26] MEDS: LEVOFLOXACIN 750 MG TAB PO SCH (15:57)
[2021-05-26 17:01] LABS: Glucose,Whole Blood 157 mg/dL (75-99)
--- NOTE | 2021-05-26 19:22 | P.PN ---
Subjective Progress Note Date: 05/26/21 Principal diagnosis: Acute Covid 19 infection with acute bilateral interstitial pneumonia Hypoglycemic episodes possibly secondary to poor intake Extensive hepatic metastatic disease with enlargement of multiple liver metastases compared to previous CAT scan 65-year-old male with significant medical history of colon cancer status post resection, hypertension, COPD, nicotine dependence, and insomnia was sent to the emergency department for episodes of hypoglycemia with severe drowsiness with associated shortness of breath. Patient had extensive diagnostic workup in the emergency department with a hemoglobin of 10.9 and hematocrit of 33.5, elevated ESR of 95, and d-dimer 14.6, alkaline phosphate 589, LDH 1049, C-reactive protein 7.7, and procalcitonin of 0.31, and a positive Covid 19 PCR. Review of twelve-lead EKG right bundle branch block, chest x-ray basilar atelectasis or scarring possible pneumonia noted by radiology, CT of the chest no evidence of pulmonary embolism, severe emphysema, mild infiltrate, atelectasis, and fibrotic changes at the lung bases per radiology. Radiology dictation hepatic metastatic disease with enlargement multiple liver masses compared to CT of 04/17/2021. Patient is not a candidate for remdesivir, per [facility] protocol. Patient will be placed on D5 0.9 at 75 mL/hour due to hypoglycemic episodes, COVID-19 treatment, will consist of Decadron 6 mg IV push daily, zinc sulfate 220 mg, vitamin C, and vitamin D and Lovenox 40 mg subcu. Consultation with pulmonary critical care for expert opinion regarding Covid 19 and severe emphysema; consultation with hematology for hepatic metastatic disease with enlargement of multiple liver masses from previous CAT scan. 05/22/2021 to 05/25/2021; see dictation from hospitalist. 05/26/2021 Patient seen and examined at bedside. Patient resting comfortably in bed. Patient continues to receive conservative treatment for Covid 19 infection with IV Decadron, vitamin supplements, and Lovenox for anticoagulation. Patient continues to endorse decreased appetite, painful swallowing, shortness of breath, and generalized malaise. Review of diagnostic testing, hemoglobin 10.5 hematocrit 32.6, sodium 132, and magnesium 1.7. Upon evaluation of patient patient initiated on oral nystatin for thrush. Lengthy discussion with patient regarding severe disease process and treatment options, patient awaiting on conference with hematology/oncology for further recommendations, patient states possibly comfort care measures. Objective - Vital Signs Vital signs: Vital Signs Temp 98.2 F 05/26/21 18:18 Pulse 90 05/26/21 18:18 Resp 18 05/26/21 18:18 BP 126/74 05/26/21 18:18 Pulse Ox 96 05/26/21 18:18 - Constitutional General appearance: Present: mild distress, thin - EENT Eyes: Present: EOMI, PERRLA, poor dentition ENT: Present: thrush Ears: bilateral: normal - Neck Neck: Present: normal ROM Carotids: bilateral: upstroke normal Thyroid: bilateral: normal size - Respiratory Respiratory: bilateral: wheezing (Anterior and posterior lung koch) - Cardiovascular Details: Normal sinus rhythm with a right bundle branch block Heart rate: 84 Rhythm: regular Heart sounds: normal: S1, S2 - Peripheral pulses radial pulse Peripheral Pulses: bilateral: Normal dorsalis pedis Peripheral Pulses: bilateral: Normal - Gastrointestinal General gastrointestinal: Present: normal bowel sounds - Genitourinary Genitourinary Comment(s): Penile shaft blister noted open and cultured from previous day - Integumentary Integumentary: Present: decreased turgor, pale - Neurologic Neurologic: Present: CNII-XII intact - Musculoskeletal Musculoskeletal: Present: generalized weakness - Psychiatric Psychiatric: Present: A&O x's 3 - Allied health notes Allied health notes reviewed: nursing - Labs CBC & Chem 7: 05/26/21 06:39 05/26/21 06:39 Labs: Abnormal Lab Results - Last 24 Hours (Table) 05/25/21 05/26/21 05/26/21 Range/Units 22:11 02:27 06:39 RBC 3.45 L (4.40-5.60) X 10*6/uL Hgb 10.5 L (13.0-17.0) g/dL Hct 32.6 L (39.6-50.0) % RDW 16.0 H (11.5-14.5) % Immature Gran # 0.05 H (0.00-0.04) X 10*3/uL Lymphocytes # 0.66 L (0.90-5.00) X 10*3/uL Eosinophils # 0 L (0.04-0.35) X 10*3/uL Sodium (137-145) mmol/L Creatinine (0.66-1.25) mg/dL POC Glucose (mg/dL) 137 H 126 H (75-99) mg/dL 05/26/21 05/26/21 05/26/21 Range/Units 06:39 11:58 17:00 RBC (4.40-5.60) X 10*6/uL Hgb (13.0-17.0) g/dL Hct (39.6-50.0) % RDW (11.5-14.5) % Immature Gran # (0.00-0.04) X 10*3/uL Lymphocytes # (0.90-5.00) X 10*3/uL Eosinophils # (0.04-0.35) X 10*3/uL Sodium 132 L (137-145) mmol/L Creatinine 0.48 L (0.66-1.25) mg/dL POC Glucose (mg/dL) 106 H 157 H (75-99) mg/dL Microbiology - Last 24 Hours (Table) 05/20/21 21:40 Blood Culture - Preliminary Blood No Growth after 120 hours 05/25/21 12:00 Genital Culture - Preliminary Penis Assessment and Plan Assessment: Acute Covid 19 infection with bilateral interstitial pneumonia Hypoglycemic episodes, possibly related to poor intake COPD with exacerbation Colon cancer status post resection in March, see dictation from CTA from radiology; extensive hepatic metastatic disease with enlargement multiple liver masses compared to previous CT 04/17/2021 Hypertension Severe protein calorie maturation with a BMI of 16.7 Nicotine dependence Insomnia Chronic pain DO NOT RESUSCITATE Plan: Acute Covid 19, with bilateral interstitial pneumonia treatment plan consists of Decadron 6 mg IV push daily, zinc, vitamin D, vitamin C and Lovenox; consultation with pulmonary critical care for recommendations COPD with exacerbation, continue corticosteroids, Symbicort, albuterol inhaler 2 puffs 4 times a day, and incentive spirometer encouraged 10 times an hour Mild infiltrate noted on CT of the chest with elevated pro-calcitonin, continue Levaquin 750 by mouth daily Hypoglycemic episodes, continue of D5.9 at 75 ML's Colon cancer status post resection with extensive hepatic metastatic disease with enlargement multiple liver masses compared to previous CT 04/17/2021; consultation with hematology oncology Chronic pain, continue home medications and initiate Dilaudid 0.5 mg IV push every 3 hours as needed, initiate Percocet 10/325 scheduled Thrush initiate oral nystatin Continue to monitor vital signs and diagnostic testing Continue home medications Further recommendations to come based on patient's clinical condition Time with Patient: Greater than 30
--- NOTE | 2021-05-26 19:32 | P.PN ---
Subjective Progress Note Date: 05/26/21 Principal diagnosis: Acute COVID-19 pneumonia Severe end stage COPD with exacerbation Secondary bacterial pneumonia on Levaquin Altered mental status is likely due to severe hypoglycemia Colon cancer status post resection with metastatic disease hematology oncology following 05/26/2021, patient seen eval examined more alert and awake, breathing comfortably off of oxygen, follow-up chest x-ray on the April 2017 shows improvement in infiltrate and improved air entry, patient had a computed tomography scan of the head age-related atrophic a small chronic disease seen no acute process, C-spine CAT scan negative for any acute fracture 05/24/2021, patient seen eval examined during the rounds labs reviewed medications reviewed patient is overall in good spirits however generalized weakness present, shortness of breath on exertion at present, patient has been ambulating in room however saw oxygen saturation remained stable, patient is not approved for REMdesivir, labs are not done today the medications reviewed remains on dexamethasone tolerating very well also on IV fluids, will consult PT OT also nutrition patient will need home health and she is declining placement, do a follow-up chest x-ray Patient is a pleasant 65-year-old male with the significant history of follow-up colon cancer status post resection, history of hypertension hypertensive cardiovascular disease COPD chronic insomnia, patient came into the hospital with the lightheadedness and drowsiness and sleepiness, thought to be related to hypoglycemia patient has some component of shortness of breath present as well further workup and evaluation revealed positive COVID-19 PCR, other workup included a stable hemoglobin and hematocrit of 10 and 33 sed rate of 95 d-dimer 14.6 alk phos of 589 LDH of 1049 and C-reactive protein 7.7, patient underwent a computed tomography scan of the chest negative for pulmonary embolism however severe emphysema and fibrotic changes were noted, patient the noted to have a hepatic metastases as well currently patient is on therapy for COVID-19 infecti on with multivitamins vitamin C zinc subcu Lovenox and Decadron 6 mg tolerating well with the remains off of oxygen, d-dimer improved rate 0.65, Objective - Vital Signs Vital signs: Vital Signs Temp 98.2 F 05/26/21 18:18 Pulse 90 05/26/21 18:18 Resp 18 05/26/21 18:18 BP 126/74 05/26/21 18:18 Pulse Ox 96 05/26/21 18:18 - Exam - Constitutional General appearance: average body habitus, cooperative, disheveled - EENT Eyes: PERRLA Ears: bilateral: normal - Neck Neck: normal ROM Carotids: bilateral: upstroke normal Thyroid: bilateral: normal size - Respiratory Respiratory: bilateral: diminished - Cardiovascular Rhythm: regular Heart sounds: normal: S1, S2 - Gastrointestinal General gastrointestinal: soft - Integumentary Integumentary: normal - Neurologic Neurologic: CNII-XII intact - Musculoskeletal Musculoskeletal: gait normal, generalized weakness, strength equal bilaterally - Psychiatric Psychiatric: A&O x's 3, appropriate affect, intact judgment & insight - Labs CBC & Chem 7: 05/26/21 06:39 05/26/21 06:39 Labs: Abnormal Lab Results - Last 24 Hours (Table) 05/25/21 05/26/21 05/26/21 Range/Units 22:11 02:27 06:39 RBC 3.45 L (4.40-5.60) X 10*6/uL Hgb 10.5 L (13.0-17.0) g/dL Hct 32.6 L (39.6-50.0) % RDW 16.0 H (11.5-14.5) % Immature Gran # 0.05 H (0.00-0.04) X 10*3/uL Lymphocytes # 0.66 L (0.90-5.00) X 10*3/uL Eosinophils # 0 L (0.04-0.35) X 10*3/uL Sodium (137-145) mmol/L Creatinine (0.66-1.25) mg/dL POC Glucose (mg/dL) 137 H 126 H (75-99) mg/dL 05/26/21 05/26/21 05/26/21 Range/Units 06:39 11:58 17:00 RBC (4.40-5.60) X 10*6/uL Hgb (13.0-17.0) g/dL Hct (39.6-50.0) % RDW (11.5-14.5) % Immature Gran # (0.00-0.04) X 10*3/uL Lymphocytes # (0.90-5.00) X 10*3/uL Eosinophils # (0.04-0.35) X 10*3/uL Sodium 132 L (137-145) mmol/L Creatinine 0.48 L (0.66-1.25) mg/dL POC Glucose (mg/dL) 106 H 157 H (75-99) mg/dL Microbiology - Last 24 Hours (Table) 05/20/21 21:40 Blood Culture - Preliminary Blood No Growth after 120 hours 05/25/21 12:00 Genital Culture - Preliminary Penis Assessment and Plan Assessment: Acute COVID-19 pneumonia Severe end stage COPD with exacerbation Secondary bacterial pneumonia on Levaquin Altered mental status is likely due to severe hypoglycemia Colon cancer status post resection with metastatic disease hematology oncology following Severe protein calorie malnourishment Plan: Continue IV Decadron patient seems to be tolerating well, can be switched to oral in next 24 hours Continue broad-spectrum antibiotics Supplements and nutritional support Deep breathing sense incentive spirometry Patient may benefit from a course of REMdesivir, however not approved by the pharmacy Time with Patient: Greater than 30
[2021-05-26] MEDS: ENOXAPARIN 40 MG/0.4 ML SYRINGE SQ SCH (20:26)
[2021-05-26] MEDS: oxyCODONE-APAP 10-325MG 1 EACH TAB PO SCH (20:30)
[2021-05-26 21:55] LABS: Glucose,Whole Blood 112 mg/dL (75-99)
[2021-05-27] MEDS: KETOROLAC 15 MG/ML 1 ML VIAL IVP SCH ×4 (01:14→17:30)
[2021-05-27] MEDS: METOCLOPRAMIDE 10 MG TAB PO SCH ×4 (01:15→17:30)
[2021-05-27 02:09] LABS: Glucose,Whole Blood 95 mg/dL (75-99)
[2021-05-27] MEDS: oxyCODONE-APAP 10-325MG 1 EACH TAB PO SCH ×4 (02:21→20:58)
[2021-05-27 07:02] LABS: ALT 141 U/L (4-49); AST 141 U/L (17-59); African American GFR (CKD) >90 (>60 ml/min/1.73 sqM); Albumin 2.4 g/dL (3.5-5.0); Albumin/Globulin Ratio 0.6; Alkaline Phosphatase 618 U/L (38-126); Anion Gap 4 mmol/L; Blood Urea Nitrogen 22 mg/dL (9-20); Calcium 8.7 mg/dL (8.4-10.2); Carbon Dioxide 26 mmol/L (22-30); Chloride 103 mmol/L (98-107); Glucose 83 mg/dL (74-99); Magnesium 2.1 mg/dL (1.6-2.3); Non-African American GFR(CKD) >90 (>60 ml/min/1.73 sqM); Potassium 4.2 mmol/L (3.5-5.1); Sodium 133 mmol/L (137-145); Total Bilirubin 0.3 mg/dL (0.2-1.3); Total Protein 6.4 g/dL (6.3-8.2)
[2021-05-27 07:38] LABS: Glucose,Whole Blood 69 mg/dL (75-99)
[2021-05-27 07:59] LABS: Glucose,Whole Blood 71 mg/dL (75-99)
[2021-05-27] MEDS: SYMBICORT 160-4.5 MCG INHALER INHALATION SCH ×2 (08:25→20:31)
[2021-05-27] MEDS: ALBUTEROL HFA INHALER INHALATION SCH ×4 (08:25→20:31)
[2021-05-27] MEDS: ASCORBIC ACID 500 MG TAB PO SCH ×2 (08:27→20:58)
[2021-05-27] MEDS: diphenhydrAMINE 2% CREAM 28.4 GM TUBE TOPICAL SCH ×3 (08:27→20:59)
[2021-05-27] MEDS: amLODIPine 5 MG TAB PO SCH (08:27)
[2021-05-27] MEDS: DOCUSATE 100 MG CAP PO SCH ×2 (08:27→20:58)
[2021-05-27] MEDS: MEGESTROL 400 MG/10 ML CUP PO SCH (08:27)
[2021-05-27] MEDS: polyethylene glycoL 3350 17 GM POWD.PACK PO SCH (08:27)
[2021-05-27] MEDS: CHOLECALCIFEROL 25 MCG (1000 IU) TABLET PO SCH (08:27)
[2021-05-27] MEDS: DEXAMETHASONE SOD PHOSPHATE 10 MG/ML 1 ML VIAL IV SCH (08:27)
[2021-05-27] MEDS: ZINC SULFATE 220 MG CAP PO SCH (08:27)
[2021-05-27] MEDS: NYSTATIN 100,000 UNIT/ML SUSP 500,000 UNIT/5 ML CUP PO SCH ×4 (08:28→20:58)
[2021-05-27] MEDS: NYSTATIN 100,000 UNIT/GM OINT 30 GM TUBE TOPICAL SCH ×3 (08:28→20:59)
[2021-05-27 08:30] LABS: Glucose,Whole Blood 90 mg/dL (75-99)
[2021-05-27] MEDS ORDERED: DEXTROSE 10% IN WATER 1,000 ML with SODIUM CHLORIDE 4MEQ/ML VIAL 153.8 MEQ IV SCH (08:45)
[2021-05-27 09:37] LABS: Basophils # (A) 0.01 X 10*3/uL (0.00-0.10); Basophils % (A) 0.2 %; Eosinophils # (A) 0.01 X 10*3/uL (0.04-0.35); Eosinophils % (A) 0.2 %; HCT 29.1 % (39.6-50.0); HGB 9.6 g/dL (13.0-17.0); Lymphocytes # (A) 0.64 X 10*3/uL (0.90-5.00); Lymphocytes % (A) 13.3 %; MCV 93.9 fL (80.0-97.0); Mean Platelet Volume 11.4 fL (9.5-12.2); Monocytes # (A) 0.55 X 10*3/uL (0.20-1.00); Monocytes % (A) 11.5 %; Neutrophils # (A) 3.53 X 10*3/uL (1.80-7.70); Neutrophils % (A) 73.5 %; Platelet Count 186 X 10*3/uL (140-440); RDW 16.2 % (11.5-14.5)
--- NOTE | 2021-05-27 10:08 | P.PN ---
Subjective Progress Note Date: 05/27/21 Principal diagnosis: Acute COVID-19 pneumonia Severe end stage COPD with exacerbation Secondary bacterial pneumonia on Levaquin Altered mental status is likely due to severe hypoglycemia Colon cancer status post resection with metastatic disease hematology oncology following 05/27/2021, patient seen eval examined during the rounds respiratory status the is stable but however patient has a significant library circulation technician hypoglycemia, discussed with RN and plan is to add Glucerna/joellen drink at night, remains afebrile oxygen saturation 95%, but however patient become short of breath on activity and exertion, 05/26/2021, patient seen eval examined more alert and awake, breathing comfortably off of oxygen, follow-up chest x-ray on the April 2017 shows improvement in infiltrate and improved air entry, patient had a computed tomography scan of the head age-related atrophic a small chronic disease seen no acute process, C-spine CAT scan negative for any acute fracture 05/24/2021, patient seen eval examined during the rounds labs reviewed medications reviewed patient is overall in good spirits however generalized weakness present, shortness of breath on exertion at present, patient has been ambulating in room however saw oxygen saturation remained stable, patient is not approved for REMdesivir, labs are not done today the medications reviewed remains on dexamethasone tolerating very well also on IV fluids, will consult PT OT also nutrition patient will need home health and she is declining placement, do a follow-up chest x-ray Patient is a pleasant 65-year-old male with the significant history of follow-up colon cancer status post resection, history of hypertension hypertensive cardiovascular disease COPD chronic insomnia, patient came into the hospital with the lightheadedness and drowsiness and sleepiness, thought to be related to hypoglycemia patient has some component of shortness of breath present as well further workup and evaluation revealed positive COVID-19 PCR, other workup included a stable hemoglobin and hematocrit of 10 and 33 sed rate of 95 d-dimer 14.6 alk phos of 589 LDH of 1049 and C-reactive protein 7.7, patient underwent a computed tomography scan of the chest negative for pulmonary embolism however severe emphysema and fibrotic changes were noted, patient the noted to have a hepatic metastases as well currently patient is on therapy for COVID-19 infection with multivitamins vitamin C zinc subcu Lovenox and Decadron 6 mg tolerating well with the remains off of oxygen, d-dimer improved rate 0.65, Objective - Vital Signs Vital signs: Vital Signs Temp 97.9 F 05/27/21 05:35 Pulse 78 05/27/21 05:35 Resp 17 05/27/21 05:35 BP 145/77 05/27/21 05:35 Pulse Ox 95 05/27/21 05:35 Intake & Output 05/26/21 05/27/21 05/27/21 18:59 06:59 18:59 Output Total 650 Balance -650 Output: Urine 650 Other: Voiding Method Toilet Urinal # Voids 1 # Bowel Movements 1 - Exam - Constitutional General appearance: average body habitus, cooperative, disheveled - EENT Eyes: PERRLA Ears: bilateral: normal - Neck Neck: normal ROM Carotids: bilateral: upstroke normal Thyroid: bilateral: normal size - Respiratory Respiratory: bilateral: diminished - Cardiovascular Rhythm: regular Heart sounds: normal: S1, S2 - Gastrointestinal General gastrointestinal: soft - Integumentary Integumentary: normal - Neurologic Neurologic: CNII-XII intact - Musculoskeletal Musculoskeletal: gait normal, generalized weakness, strength equal bilaterally - Psychiatric Psychiatric: A&O x's 3, appropriate affect, intact judgment & insight - Labs CBC & Chem 7: 05/27/21 06:29 05/27/21 06:29 Labs: Abnormal Lab Results - Last 24 Hours (Table) 05/26/21 05/26/21 05/26/21 Range/Units 06:39 11:58 17:00 RBC 3.45 L (4.40-5.60) X 10*6/uL Hgb 10.5 L (13.0-17.0) g/dL Hct 32.6 L (39.6-50.0) % RDW 16.0 H (11.5-14.5) % Immature Gran # 0.05 H (0.00-0.04) X 10*3/uL Lymphocytes # 0.66 L (0.90-5.00) X 10*3/uL Eosinophils # 0 L (0.04-0.35) X 10*3/uL Sodium (137-145) mmol/L BUN (9-20) mg/dL Creatinine (0.66-1.25) mg/dL POC Glucose (mg/dL) 106 H 157 H (75-99) mg/dL AST (17-59) U/L ALT (4-49) U/L Alkaline Phosphatase (38-126) U/L Albumin (3.5-5.0) g/dL 05/26/21 05/27/21 05/27/21 Range/Units 21:53 06:29 06:29 RBC 3.10 L (4.40-5.60) X 10*6/uL Hgb 9.6 L (13.0-17.0) g/dL Hct 29.1 L (39.6-50.0) % RDW 16.2 H (11.5-14.5) % Immature Gran # 0.06 H (0.00-0.04) X 10*3/uL Lymphocytes # 0.64 L (0.90-5.00) X 10*3/uL Eosinophils # 0.01 L (0.04-0.35) X 10*3/uL Sodium 133 L (137-145) mmol/L BUN 22 H (9-20) mg/dL Creatinine 0.60 L (0.66-1.25) mg/dL POC Glucose (mg/dL) 112 H (75-99) mg/dL AST 141 H (17-59) U/L ALT 141 H (4-49) U/L Alkaline Phosphatase 618 H (38-126) U/L Albumin 2.4 L (3.5-5.0) g/dL 05/27/21 05/27/21 Range/Units 07:32 07:55 RBC (4.40-5.60) X 10*6/uL Hgb (13.0-17.0) g/dL Hct (39.6-50.0) % RDW (11.5-14.5) % Immature Gran # (0.00-0.04) X 10*3/uL Lymphocytes # (0.90-5.00) X 10*3/uL Eosinophils # (0.04-0.35) X 10*3/uL Sodium (137-145) mmol/L BUN (9-20) mg/dL Creatinine (0.66-1.25) mg/dL POC Glucose (mg/dL) 69 L 71 L (75-99) mg/dL AST (17-59) U/L ALT (4-49) U/L Alkaline Phosphatase (38-126) U/L Albumin (3.5-5.0) g/dL Microbiology - Last 24 Hours (Table) 05/20/21 21:40 Blood Culture - Final Blood No Growth after 144 hours Assessment and Plan Assessment: Hypoglycemia Protein calorie malnourishment off severe category Acute COVID-19 pneumonia Severe end stage COPD with exacerbation Secondary bacterial pneumonia on Levaquin Altered mental status is likely due to multiple factors as well as severe hypoglycemia Colon cancer status post resection with metastatic disease stage IV with metastases to the liver hematology oncology following Plan: Continue IV Decadron patient seems to be tolerating well, can be switched to oral Continue broad-spectrum antibiotics Supplements and nutritional support Deep breathing sense incentive spirometry Midnight snack Increase activity as tolerated Time with Patient: Greater than 30
--- NOTE | 2021-05-27 10:32 | P.PN ---
Subjective Progress Note Date: 05/27/21 Principal diagnosis: Covid infection, metastatic colon adenocarcinoma with disease progression Pt has no new c/o, his abd pain cont to be a problem, his breathing is stable. Objective - Vital Signs Vital signs: Vital Signs Temp 97.9 F 05/27/21 05:35 Pulse 78 05/27/21 05:35 Resp 17 05/27/21 05:35 BP 145/77 05/27/21 05:35 Pulse Ox 95 05/27/21 05:35 Intake & Output 05/26/21 05/27/21 05/27/21 18:59 06:59 18:59 Output Total 650 Balance -650 Output: Urine 650 Other: Voiding Method Toilet Urinal # Voids 1 # Bowel Movements 1 - Constitutional General appearance: Present: cooperative, no acute distress, thin - EENT Eyes: Present: anicteric sclerae, EOMI ENT: Present: hard of hearing - Respiratory Details: resp are even and unlabored at rest - Psychiatric Psychiatric: Present: A&O x's 3, appropriate affect, intact judgment & insight - Labs CBC & Chem 7: 05/27/21 06:29 05/27/21 06:29 Labs: Abnormal Lab Results - Last 24 Hours (Table) 05/26/21 05/26/21 05/26/21 Range/Units 06:39 11:58 17:00 RBC 3.45 L (4.40-5.60) X 10*6/uL Hgb 10.5 L (13.0-17.0) g/dL Hct 32.6 L (39.6-50.0) % RDW 16.0 H (11.5-14.5) % Immature Gran # 0.05 H (0.00-0.04) X 10*3/uL Lymphocytes # 0.66 L (0.90-5.00) X 10*3/uL Eosinophils # 0 L (0.04-0.35) X 10*3/uL Sodium (137-145) mmol/L BUN (9-20) mg/dL Creatinine (0.66-1.25) mg/dL POC Glucose (mg/dL) 106 H 157 H (75-99) mg/dL AST (17-59) U/L ALT (4-49) U/L Alkaline Phosphatase (38-126) U/L Albumin (3.5-5.0) g/dL 05/26/21 05/27/21 05/27/21 Range/Units 21:53 06:29 06:29 RBC 3.10 L (4.40-5.60) X 10*6/uL Hgb 9.6 L (13.0-17.0) g/dL Hct 29.1 L (39.6-50.0) % RDW 16.2 H (11.5-14.5) % Immature Gran # 0.06 H (0.00-0.04) X 10*3/uL Lymphocytes # 0.64 L (0.90-5.00) X 10*3/uL Eosinophils # 0.01 L (0.04-0.35) X 10*3/uL Sodium 133 L (137-145) mmol/L BUN 22 H (9-20) mg/dL Creatinine 0.60 L (0.66-1.25) mg/dL POC Glucose (mg/dL) 112 H (75-99) mg/dL AST 141 H (17-59) U/L ALT 141 H (4-49) U/L Alkaline Phosphatase 618 H (38-126) U/L Albumin 2.4 L (3.5-5.0) g/dL 05/27/21 05/27/21 Range/Units 07:32 07:55 RBC (4.40-5.60) X 10*6/uL Hgb (13.0-17.0) g/dL Hct (39.6-50.0) % RDW (11.5-14.5) % Immature Gran # (0.00-0.04) X 10*3/uL Lymphocytes # (0.90-5.00) X 10*3/uL Eosinophils # (0.04-0.35) X 10*3/uL Sodium (137-145) mmol/L BUN (9-20) mg/dL Creatinine (0.66-1.25) mg/dL POC Glucose (mg/dL) 69 L 71 L (75-99) mg/dL AST (17-59) U/L ALT (4-49) U/L Alkaline Phosphatase (38-126) U/L Albumin (3.5-5.0) g/dL Microbiology - Last 24 Hours (Table) 05/20/21 21:40 Blood Culture - Final Blood No Growth after 144 hours Assessment and Plan (1) COVID Current Visit: Yes Status: Acute Priority: High Code(s): U07.1 - COVID-19 SNOMED Code(s): 791263088 (2) Failure to thrive in adult Current Visit: Yes Status: Acute Priority: High Code(s): R62.7 - ADULT FAILURE TO THRIVE SNOMED Code(s): 387876812 (3) History of colon cancer Current Visit: Yes Status: Chronic Priority: High Code(s): Z85.038 - PERSONAL HISTORY OF MALIGNANT NEOPLASM OF LARGE INTESTINE SNOMED Code(s): 757218581 (4) Liver metastases Current Visit: Yes Status: Chronic Priority: High Code(s): C78.7 - SECONDARY MALIG NEOPLASM OF LIVER AND INTRAHEPATIC BILE DUCT SNOMED Code(s): 13519231 Plan: Unfortunately, imaging shows disease progression in the liver. CEA 04/06/21 it was 186, now 535. Reviewed CT wit Dr. Torres. Unfortunately, the disease is progressing rapidly. There are no treatments available that will have any significant impact on the disease or improve quality of life. Recommendation is for hospice. All of pt questions were answered to the best of my ability. He is anxious to go home and agrees with hospice. I spoke to his sister and informed her of the recommendations. Discussed with Case Management who will contact sister to arrange hospice. Pt c/o blister on penis, culture ordered, results pending Covid treatment per Attending and Pulm Time with Patient: Greater than 30 (counseling and coordinating care)
[2021-05-27 12:47] LABS: Glucose,Whole Blood 73 mg/dL (75-99)
[2021-05-27 12:47] LABS: Glucose,Whole Blood 66 mg/dL (75-99)
[2021-05-27 17:04] LABS: Glucose,Whole Blood 104 mg/dL (75-99)
[2021-05-27] MEDS: LEVOFLOXACIN 750 MG TAB PO SCH (17:30)
--- NOTE | 2021-05-27 19:16 | P.PN ---
Subjective Progress Note Date: 05/27/21 Principal diagnosis: Acute Covid 19 infection with acute bilateral interstitial pneumonia Hypoglycemic episodes possibly secondary to poor intake Extensive hepatic metastatic disease with enlargement of multiple liver metastases compared to previous CAT scan 65-year-old male with significant medical history of colon cancer status post resection, hypertension, COPD, nicotine dependence, and insomnia was sent to the emergency department for episodes of hypoglycemia with severe drowsiness with associated shortness of breath. Patient had extensive diagnostic workup in the emergency department with a hemoglobin of 10.9 and hematocrit of 33.5, elevated ESR of 95, and d-dimer 14.6, alkaline phosphate 589, LDH 1049, C-reactive protein 7.7, and procalcitonin of 0.31, and a positive Covid 19 PCR. Review of twelve-lead EKG right bundle branch block, chest x-ray basilar atelectasis or scarring possible pneumonia noted by radiology, CT of the chest no evidence of pulmonary embolism, severe emphysema, mild infiltrate, atelectasis, and fibrotic changes at the lung bases per radiology. Radiology dictation hepatic metastatic disease with enlargement multiple liver masses compared to CT of 04/17/2021. Patient is not a candidate for remdesivir, per [facility] protocol. Patient will be placed on D5 0.9 at 75 mL/hour due to hypoglycemic episodes, COVID-19 treatment, will consist of Decadron 6 mg IV push daily, zinc sulfate 220 mg, vitamin C, and vitamin D and Lovenox 40 mg subcu. Consultation with pulmonary critical care for expert opinion regarding Covid 19 and severe emphysema; consultation with hematology for hepatic metastatic disease with enlargement of multiple liver masses from previous CAT scan. 05/22/2021 to 05/25/2021; see dictation from hospitalist. 05/26/2021 Patient seen and examined at bedside. Patient resting comfortably in bed. Patient continues to receive conservative treatment for Covid 19 infection with IV Decadron, vitamin supplements, and Lovenox for anticoagulation. Patient continues to endorse decreased appetite, painful swallowing, shortness of breath, and generalized malaise. Review of diagnostic testing, hemoglobin 10.5 hematocrit 32.6, sodium 132, and magnesium 1.7. Upon evaluation of patient patient initiated on oral nystatin for thrush. Lengthy discussion with patient regarding severe disease process and treatment options, patient awaiting on conference with hematology/oncology for further recommendations, patient states possibly comfort care measures. 05/27/2021 Patient seen and examined at bedside. Patient resting comfortably in bed. Patient's breathing has improved with conservative treatment for Covid 19 infection. Patient continues to endorse decreased appetite, painful swallowing shortness of breath at rest and exertion and generalized malaise. Review of diagnostic testing, hemoglobin 9.6, hematocrit 29.1, sodium 133, potassium 4.3, blood glucose 83 on D5 0.9 at 75 ML's an hour. Patient had hypoglycemic episode this a.m., patient placed on D10 drip at 50 ML's an hour to maintain blood sugar s greater than 100. He states pain has been controlled with pain management treatment plan at this time. Awaiting on recommendations from hematology/oncology for further treatment and recommendations for colon cancer with hepatic metastatic disease with enlargement multiple liver masses. Objective - Vital Signs Vital signs: Vital Signs Temp 98.2 F 05/27/21 18:06 Pulse 81 05/27/21 18:06 Resp 16 05/27/21 18:06 BP 138/71 05/27/21 18:06 Pulse Ox 96 05/27/21 18:06 Intake & Output 05/27/21 05/27/21 05/28/21 06:59 18:59 06:59 Output Total 650 450 Balance -650 -450 Weight 49.895 kg Output: Urine 650 450 Other: Voiding Method Toilet Toilet Urinal Urinal # Voids 1 # Bowel Movements 1 - Constitutional General appearance: Present: mild distress, thin - EENT Eyes: Present: EOMI, PERRLA ENT: Present: thrush Ears: bilateral: normal - Neck Neck: Present: normal ROM Carotids: bilateral: upstroke normal Thyroid: bilateral: normal size - Respiratory Respiratory: bilateral: diminished (Anterior and posterior lung koch) - Cardiovascular Heart rate: 74 Rhythm: regular Heart sounds: normal: S1, S2 - Peripheral pulses radial pulse Peripheral Pulses: bilateral: Normal dorsalis pedis Peripheral Pulses: bilateral: Normal - Gastrointestinal General gastrointestinal: Present: decreased bowel sounds - Integumentary Integumentary: Present: decreased turgor - Neurologic Neurologic: Present: CNII-XII intact - Musculoskeletal Musculoskeletal: Present: generalized weakness - Psychiatric Psychiatric: Present: A&O x's 3, appropriate affect, intact judgment & insight - Labs CBC & Chem 7: 09/29/21 06:29 05/27/21 06:29 Labs: Abnormal Lab Results - Last 24 Hours (Table) 05/26/21 05/27/21 05/27/21 Range/Units 21:53 06: 06:29 RBC 3.10 L (4.40-5.60) X 10*6/uL Hgb 9.6 L (13.0-17.0) g/dL Hct 29.1 L (39.6-50.0) % RDW 16.2 H (11.5-14.5) % Immature Gran # 0.06 H (0.00-0.04) X 10*3/uL Lymphocytes # 0.64 L (0.90-5.00) X 10*3/uL Eosinophils # 0.01 L (0.04-0.35) X 10*3/uL Sodium 133 L (137-145) mmol/L BUN 22 H (9-20) mg/dL Creatinine 0.60 L (0.66-1.25) mg/dL POC Glucose (mg/dL) 112 H (75-99) mg/dL AST 141 H (17-59) U/L ALT 141 H (4-49) U/L Alkaline Phosphatase 618 H (38-126) U/L Albumin 2.4 L (3.5-5.0) g/dL 05/27/21 05/27/21 05/27/21 Range/Units 07:32 07:55 12:10 RBC (4.40-5.60) X 10*6/uL Hgb (13.0-17.0) g/dL Hct (39.6-50.0) % RDW (11.5-14.5) % Immature Gran # (0.00-0.04) X 10*3/uL Lymphocytes # (0.90-5.00) X 10*3/uL Eosinophils # (0.04-0.35) X 10*3/uL Sodium (137-145) mmol/L BUN (9-20) mg/dL Creatinine (0.66-1.25) mg/dL POC Glucose (mg/dL) 69 L 71 L 66 L (75-99) mg/dL AST (17-59) U/L ALT (4-49) U/L Alkaline Phosphatase (38-126) U/L Albumin (3.5-5.0) g/dL 05/27/21 05/27/21 Range/Units 12:44 16:44 RBC (4.40-5.60) X 10*6/uL Hgb (13.0-17.0) g/dL Hct (39.6-50.0) % RDW (11.5-14.5) % Immature Gran # (0.00-0.04) X 10*3/uL Lymphocytes # (0.90-5.00) X 10*3/uL Eosinophils # (0.04-0.35) X 10*3/uL Sodium (137-145) mmol/L BUN (9-20) mg/dL Creatinine (0.66-1.25) mg/dL POC Glucose (mg/dL) 73 L 104 H (75-99) mg/dL AST (17-59) U/L ALT (4-49) U/L Alkaline Phosphatase (38-126) U/L Albumin (3.5-5.0) g/dL Microbiology - Last 24 Hours (Table) 05/20/21 21:40 Blood Culture - Final Blood No Growth after 144 hours Assessment and Plan Assessment: Acute Covid 19 infection with bilateral interstitial pneumonia Hypoglycemic episodes, possibly related to poor intake COPD with exacerbation Colon cancer status post resection in March, see dictation from CTA from radiology; extensive hepatic metastatic disease with enlargement multiple liver masses compared to previous CT 04/17/2021 Hypertension Severe protein calorie maturation with a BMI of 16.7 Nicotine dependence Insomnia Chronic pain DO NOT RESUSCITATE Plan: Acute Covid 19, with bilateral interstitial pneumonia treatment plan consists of Decadron 6 mg IV push daily, zinc, vitamin D, vitamin C and Lovenox; consultation with pulmonary critical care for recommendations COPD with exacerbation, continue corticosteroids, Symbicort, albuterol inhaler 2 puffs 4 times a day, and incentive spirometer encouraged 10 times an hour Mild infiltrate noted on CT of the chest with elevated pro-calcitonin, continue Levaquin 750 by mouth daily Hypoglycemic episodes, initiate D10 drip at 50 ML's an hour Colon cancer status post resection with extensive hepatic metastatic disease with enlargement multiple liver masses compared to previous CT 04/17/2021; consultation with hematology oncology Chronic pain, continue home medications and initiate Dilaudid 0.5 mg IV push every 3 hours as needed, initiate Percocet 10/325 scheduled Thrush initiate oral nystatin Continue to monitor vital signs and diagnostic testing Continue home medications Further recommendations to come based on patient's clinical condition Time with Patient: Greater than 30
[2021-05-27 19:58] LABS: Glucose,Whole Blood 127 mg/dL (75-99)
[2021-05-27] MEDS: GLUCAGON 1 MG/ML VIAL SQ SCH ×3 (20:24→22:33)
[2021-05-27] MEDS: ENOXAPARIN 40 MG/0.4 ML SYRINGE SQ SCH (21:00)
[2021-05-27 21:12] LABS: Glucose,Whole Blood 96 mg/dL (75-99)
[2021-05-27 22:34] LABS: Glucose,Whole Blood 123 mg/dL (75-99)
[2021-05-27 23:46] LABS: Glucose,Whole Blood 104 mg/dL (75-99)
[2021-05-28] MEDS: METOCLOPRAMIDE 10 MG TAB PO SCH ×3 (00:01→12:20)
[2021-05-28] MEDS: GLUCAGON 1 MG/ML VIAL SQ SCH ×12 (00:05→10:14)
[2021-05-28] MEDS: KETOROLAC 15 MG/ML 1 ML VIAL IVP SCH ×3 (00:05→12:19)
[2021-05-28 01:05] LABS: Glucose,Whole Blood 129 mg/dL (75-99)
[2021-05-28 02:13] LABS: Glucose,Whole Blood 85 mg/dL (75-99)
[2021-05-28] MEDS: oxyCODONE-APAP 10-325MG 1 EACH TAB PO SCH ×2 (02:25→07:47)
[2021-05-28 03:11] LABS: Glucose,Whole Blood 144 mg/dL (75-99)
[2021-05-28 04:14] LABS: Glucose,Whole Blood 101 mg/dL (75-99)
[2021-05-28 05:12] LABS: Glucose,Whole Blood 98 mg/dL (75-99)
[2021-05-28 06:16] LABS: Glucose,Whole Blood 141 mg/dL (75-99)
[2021-05-28 06:57] LABS: Glucose,Whole Blood 101 mg/dL (75-99)
[2021-05-28] MEDS: HYDROmorphone 0.5 MG/0.5 ML SYRINGE IVP PRN (07:46)
[2021-05-28] MEDS: DOCUSATE 100 MG CAP PO SCH (07:57)
[2021-05-28] MEDS: ZINC SULFATE 220 MG CAP PO SCH (07:57)
[2021-05-28] MEDS: ASCORBIC ACID 500 MG TAB PO SCH (07:57)
[2021-05-28] MEDS: CHOLECALCIFEROL 25 MCG (1000 IU) TABLET PO SCH (07:57)
[2021-05-28] MEDS: amLODIPine 5 MG TAB PO SCH (07:58)
[2021-05-28] MEDS: polyethylene glycoL 3350 17 GM POWD.PACK PO SCH (07:58)
[2021-05-28] MEDS: NYSTATIN 100,000 UNIT/ML SUSP 500,000 UNIT/5 ML CUP PO SCH ×2 (07:59→12:20)
[2021-05-28] MEDS: DEXAMETHASONE SOD PHOSPHATE 10 MG/ML 1 ML VIAL IV SCH (08:00)
[2021-05-28 08:03] LABS: Glucose,Whole Blood 55 mg/dL (75-99)
[2021-05-28] MEDS: SYMBICORT 160-4.5 MCG INHALER INHALATION SCH (08:31)
[2021-05-28] MEDS: ALBUTEROL HFA INHALER INHALATION SCH ×2 (08:31→11:58)
[2021-05-28] MEDS ORDERED: DEXTROSE 4 GM CHEWABLE PO SCH (09:00)
[2021-05-28 09:10] LABS: Glucose,Whole Blood 121 mg/dL (75-99)
[2021-05-28] MEDS: diphenhydrAMINE 2% CREAM 28.4 GM TUBE TOPICAL SCH (09:16)
[2021-05-28] MEDS: MEGESTROL 400 MG/10 ML CUP PO SCH (09:16)
[2021-05-28] MEDS: NYSTATIN 100,000 UNIT/GM OINT 30 GM TUBE TOPICAL SCH (09:16)
[2021-05-28 09:55] VITALS: BP 99/48; PULSE 76; RESP 18; TEMP 98.2
[2021-05-28] MEDS ORDERED: DEXTROSE 5%-0.9% NACL 1,000 ML IV SCH (10:15)
[2021-05-28 10:38] LABS: Glucose,Whole Blood 122 mg/dL (75-99)
[2021-05-28 11:22] LABS: Glucose,Whole Blood 123 mg/dL (75-99)
[2021-05-28 11:59] LABS: Glucose,Whole Blood 127 mg/dL (75-99)
--- NOTE | 2021-05-28 18:15 | P.DS ---
Providers Date of admission: 05/20/21 17:18 Expected date of discharge: 05/28/21 Attending physician: Maycol Porter Consults: 05/20/21 17:20 Consult Physician Routine Consulting Provider: Elfego Torres Consult Reason/Comments: Colon cancer, failure to thrive Do you want consulting provider notified?: Yes 05/20/21 21:38 Consult Physician Urgent Consulting Provider: Alexis Hightower Consult Reason/Comments: covid-19/copd Do you want consulting provider notified?: Yes Primary care physician: Maycol Porter Hospital Course: 65-year-old male with significant medical history of colon cancer status post resection, hypertension, COPD, nicotine dependence, and insomnia was sent to the emergency department for episodes of hypoglycemia with severe drowsiness with associated shortness of breath. Patient had extensive diagnostic workup in the emergency department with a hemoglobin of 10.9 and hematocrit of 33.5, elevated ESR of 95, and d-dimer 14.6, alkaline phosphate 589, LDH 1049, C-reactive protein 7.7, and procalcitonin of 0.31, and a positive Covid 19 PCR. Review of twelve-lead EKG right bundle branch block, chest x-ray basilar atelectasis or scarring possible pneumonia noted by radiology, CT of the chest no evidence of pulmonary embolism, severe emphysema, mild infiltrate, atelectasis, and fibrotic changes at the lung bases per radiology. Radiology dictation hepatic metastatic disease with enlargement multiple liver masses compared to CT of 04/17/2021. Patient is not a candidate for remdesivir, per [facility] protocol. For severe hypoglycemia patient was placed on D5 0.9 at 75 ML's an hour, patient required transition to D10 to keep blood sugars greater than 80, attempted glucagon administration every hour with every hour Accu-Cheks, he continued to have hypoglycemic events. Patient's port was accessed for IV infusion of D5.9 at 100 mL an hour to keep blood sugars greater than 70 due to poor intake and severe comorbidities and disease process. Consultation with hematology/oncology for CT scan of the abdomen and pelvis results of hepatic metastatic disease with enlargement of multiple liver masses from previous CT scan, per hematology oncology no intervention or treatment plan for curable advancing metastatic colon adenocarcinoma with disease progression. Had multiple lengthy discussions with patient regarding metastatic colon adenocarcinoma with disease progression with several comorbidities. Patient wishes were for hospice care for comfort measures due to severe pain. Consultation with hospice nurse regarding continue pain management and D5.9 at 100 mL an hour to keep blood sugars stable and not have hypoglycemic events. Patient discharged in critical condition with hospice care. Assessment: Acute Covid 19 infection with bilateral interstitial pneumonia Hypoglycemic episodes, possibly related to poor intake COPD with exacerbation Colon cancer status post resection in March, see dictation from CTA from radiology; extensive hepatic metastatic disease with enlargement multiple liver masses compared to previous CT 04/17/2021 Hypertension Severe protein calorie maturation with a BMI of 16.7 Nicotine dependence Insomnia Chronic pain Comfort care measures with hospice Final diagnosis Acute Covid 19 infection with acute bilateral interstitial pneumonia COPD with exacerbation Metastatic colon adenocarcinoma with disease progression Hypoglycemic episodes possibly secondary to poor intake Health Concerns: Multiple comorbidities Acute COVID-19 infection with interstitial pneumonia Metastatic colon adenocarcinoma with disease progression Several hypoglycemic episodes requiring D5 0.9 ns/ 100 mL an hour to keep blood sugars greater than 100 Pertinent Studies: Serial chest x-rays; consistent with atelectasis, possible pneumonia and underlying emphysema. Chest x-rays improved aeration. CTA of the chest; severe emphysema, mild infiltrate cannot atelectasis and fibrotic changes at the lung bases. Extensive hepatic metastatic disease with enlargement of multiple liver masses compared to 04/17/2021 CAT scan of the abdomen. CT abdomen and pelvis with IV and oral contrast; new moderate diffuse subcutaneous edema and mild intra-abdominal ascites greatest on the right abdomen; worsening hepatic metastatic disease. CT of the head and neck without contrast; no evidence for acute fracture of subluxation of the cervical spine or acute intracranial hemorrhage Procedures: No procedures performed during hospital stay Patient Condition at Discharge: Critical Plan - Discharge Summary Discharge Rx Participant: Yes New Discharge Prescriptions: New Nystatin 100,000 Unit/gm Oint [Mycostatin Oint] 1 applic TOPICAL TID gm Nystatin 100,000 Unit/ml Susp [Mycostatin Oral Susp] 500,000 unit PO QID ml Zinc Sulfate [Orazinc] 220 mg PO DAILY cap Ascorbic Acid [Vitamin C] 500 mg PO BID tab Cholecalciferol [Vitamin D3 (25 Mcg = 1000 Iu)] 25 mcg PO DAILY tablet Ibuprofen [Motrin] 800 mg PO Q8H #90 tab diphenhydrAMINE & Zinc Cream [Benadryl Cream] 1 applic TOPICAL TID gm Dextrose Chew [Glucose Chew Tab] 4 gm PO TID tab oxyCODONE-APAP 10-325MG [Percocet 10-325 mg] 1 each PO Q6H tab Metoclopramide [Reglan] 10 mg PO Q6HR tab Continue Ondansetron Odt [Zofran ODT] 8 mg PO BID PRN PRN Reason: Nausea And Vomiting Docusate [Colace] 100 mg PO BID cap polyethylene glycoL 3350 [Miralax] 17 gm PO DAILY powd.pack Megestrol [Megace] 400 mg PO DAILY Albuterol Sulfate [Albuterol Sulfate Hfa] 2 puff INHALATION RT-Q4H PRN PRN Reason: Shortness Of Breath amLODIPine [Norvasc] 5 mg PO DAILY #30 tab fentaNYL [Duragesic 37.5 MCG/HR] 1 patch TRANSDERM Q72H Fluticasone/Vilanterol [Breo Ellipta 200-25 Mcg Inhaler] 1 puff INHALATION RT-DAILY Discontinued HYDROcodone/APAP 10-325MG [[place] 10-325] 1 tab PO TID PRN #10 tab PRN Reason: Pain Discharge Medication List Ondansetron Odt [Zofran ODT] 8 mg PO BID PRN 04/05/21 [History] Docusate [Colace] 100 mg PO BID cap 04/20/21 [Rx] amLODIPine [Norvasc] 5 mg PO DAILY #30 tab 04/20/21 [Rx] polyethylene glycoL 3350 [Miralax] 17 gm PO DAILY powd.pack 04/20/21 [Rx] Albuterol Sulfate [Albuterol Sulfate Hfa] 2 puff INHALATION RT-Q4H PRN 05/20/21 [History] Fluticasone/Vilanterol [Breo Ellipta 200-25 Mcg Inhaler] 1 puff INHALATION RT- DAILY 05/20/21 [History] Megestrol [Megace] 400 mg PO DAILY 05/20/21 [History] fentaNYL [Duragesic 37.5 MCG/HR] 1 patch TRANSDERM Q72H 05/20/21 [History] Ascorbic Acid [Vitamin C] 500 mg PO BID tab 05/28/21 [Rx] Cholecalciferol [Vitamin D3 (25 Mcg = 1000 Iu)] 25 mcg PO DAILY tablet 05/28/21 [Rx] Dextrose Chew [Glucose Chew Tab] 4 gm PO TID tab 09/30/21 [Rx] Ibuprofen [Motrin] 800 mg PO Q8H #90 tab 05/28/21 [Rx] Metoclopramide [Reglan] 10 mg PO Q6HR tab 05/28/21 [Rx] Nystatin 100,000 Unit/gm Oint [Mycostatin Oint] 1 applic TOPICAL TID gm 05/28/21 [Rx] Nystatin 100,000 Unit/ml Susp [Mycostatin Oral Susp] 500,000 unit PO QID ml 05/28/21 [Rx] Zinc Sulfate [Orazinc] 220 mg PO DAILY cap 05/28/21 [Rx] diphenhydrAMINE & Zinc Cream [Benadryl Cream] 1 applic TOPICAL TID gm 05/28/21 [Rx] oxyCODONE-APAP 10-325MG [Percocet 10-325 mg] 1 each PO Q6H tab 05/28/21 [Rx] Follow up Appointment(s)/Referral(s): Maycol Porter MD [Primary Care Provider] - 1-2 days [facility], [NON-STAFF] - Patient Instructions/Handouts: Failure to Thrive (DC), Dehydration (DC), Colorectal Cancer (DC), Hospice (DC) Discharge Disposition: HOME WITH HOSPICE
== END 2021-05-28 12:45 | disposition hospice, home (50) | DRG 177 ==
LOC: EC 14:34 → 5NMEDONC 17:18 → 4SSUR 19:30
PROVIDERS: ADMIT Family Medicine; ATTEND Family Medicine
DX: U07.1 COVID-19 (principal); E43 Unspecified severe protein-calorie malnutrition; J12.82 Pneumonia due to coronavirus disease 2019; J15.9 Unspecified bacterial pneumonia; Z68.1 Body mass index [BMI] 19.9 or less, adult; J44.1 Chronic obstructive pulmonary disease with (acute) exacerbation; J44.0 Chronic obstructive pulmonary disease with (acute) lower respiratory infection; C78.7 Secondary malignant neoplasm of liver and intrahepatic bile duct; B37.0 Candidal stomatitis; J84.114 Acute interstitial pneumonitis; Z51.5 Encounter for palliative care; Z66 Do not resuscitate; I95.9 Hypotension, unspecified; Z93.3 Colostomy status; Z85.038 Personal history of other malignant neoplasm of large intestine; Z79.899 Other long term (current) drug therapy; Z79.82 Long term (current) use of aspirin; R62.7 Adult failure to thrive; L29.8 Other pruritus; T50.8X5A Adverse effect of diagnostic agents, initial encounter; E16.2 Hypoglycemia, unspecified; E86.0 Dehydration; F17.200 Nicotine dependence, unspecified, uncomplicated; G47.00 Insomnia, unspecified; G89.4 Chronic pain syndrome; I11.9 Hypertensive heart disease without heart failure; D64.9 Anemia, unspecified; N50.9 Disorder of male genital organs, unspecified
CPT/HCPCS: 36415; 70450; 71045; 71046; 71275; 72125; 74177; 80048; 80053; 81003; 82378; 82550; 82728; 83605; 83615; 83690; 83735; 83880; 84145; 84484; 85025; 85379; 85384; 85610; 85652; 85730; 86140; 87040; 87070; 87502; 87635; 93005; 94640; 96360; 96361; 99285